=== PATIENT | female | born 1935 | race Caucasian/White ===

== ENCOUNTER → 2016-03-27 | Outpatient (CLI) | payer BC ==
[~2016-03-27] MED LIST: ALPR-411 PO; APR50 PO; ATEN-173 PO; CIPR-255 PO; CMD2 PO; CZR50 PO; ERGO500037 PO; FRCT/ PO; HYDR-4717 PO; IMDSR30 PO; INSDGI SC; LOSA50TA6 PO; LSX40 PO; NTRGSL/4 UT; NVLGI/PEN SC; OMEP40CA41 PO; ONDA4TAB46 PO; POTA-331 PO; POTA1CAP53 PO; PRLSR20 PO; REDCAP2 PO; TRAM-10 PO; TRIA37.5 PO; WARF2TAB PO; vitamin d3 PO
[2016-03-27 14:11] LABS: ESTIMATED AVERAGE GLUCOSE 140 mg/dl; HA1C FLAG Normal (Normal)
[2016-03-27 14:16] LABS: ALT/SGPT 23 U/L (12-78); AST/SGOT 18 U/L (15-37); BLOOD UREA NITROGEN 16 mg/dl (7-18); BUN/CREATININE RATIO 15.5 (10-20); CALCIUM 8.9 mg/dl (8.5-10.1); CARBON DIOXIDE 25 mmol/L (21-32); CHLORIDE 105 mmol/L (98-107); GLUCOSE 136 mg/dl (70-99); POTASSIUM 4.4 mmol/L (3.5-5.1); SODIUM 138 mmol/L (136-145)
[2016-03-27 14:18] LABS: CHOLESTEROL 187 mg/dl (0-200); CHOLESTEROL/HDL RATIO 3.9; HDL CHOLESTEROL 48 mg/dl; LDL CHOLESTEROL CALCULATED 113 mg/dl; TRIGLYCERIDES 132 mg/dl (0-150); VERY LOW DENSITY LIPOPROT CALC 26 mg/dl
== END | disposition home or self-care (01) ==
LOC: C.LAB1850 12:45
PROVIDERS: ATTEND Internal Medicine
DX: E11.65 Type 2 diabetes mellitus with hyperglycemia (principal); E55.9 Vitamin D deficiency, unspecified; E78.5 Hyperlipidemia, unspecified; I10 Essential (primary) hypertension

== ENCOUNTER → 2016-06-04 | Outpatient (CLI) | payer BC ==
[~2016-06-04] MED LIST changes: -APR50 PO; -CIPR-255 PO; -CMD2 PO; -CZR50 PO; -ERGO500037 PO; -FRCT/ PO; -IMDSR30 PO; -LSX40 PO; -OMEP40CA41 PO; -POTA-331 PO; -TRAM-10 PO
--- NOTE | 2016-06-04 13:48 | DIAGNOSTIC IMAGING REPORT ---
CHEST 2 VIEWS ROUTINE CLINICAL HISTORY: R05 [id number] dyspnea COMPARISON STUDY: 04/11/2015 FINDINGS: Small parenchymal infiltrate peripheral aspect left base. Lungs otherwise appear clear. The near scar peripheral aspect left midlung. Mild stable cardiomegaly. IMPRESSION: Small parenchymal infiltrate left base laterally Electronically signed by: Jairo Jade M.D. 06/04/2016 1:46 PM Dictated Date/Time: 06/04/2016 1:45 PM
== END ==
LOC: C.RAD1850 13:25
PROVIDERS: ATTEND Internal Medicine
DX: R05 Cough (principal)

== ENCOUNTER → 2016-06-18 | Outpatient (CLI) | payer BC ==
--- NOTE | 2016-06-18 14:24 | DIAGNOSTIC IMAGING REPORT ---
CHEST 2 VIEWS ROUTINE HISTORY: J18.9 [id number] COMPARISON: Chest 06/04/2016. FINDINGS: The heart remains mildly enlarged. Left basilar airspace opacities have resolved. Small linear densities at the left midlung zone have also improved. This favors atelectasis or scarring. No pleural effusions. No pneumothorax. No new focal lung consolidations. IMPRESSION: Interval resolution of the left lower lobe airspace opacities. Electronically signed by: Aubrey Archibald M.D. 06/18/2016 2:23 PM Dictated Date/Time: 06/18/2016 2:22 PM
== END | disposition home or self-care (01) ==
LOC: C.RAD1850 13:23
PROVIDERS: ATTEND Internal Medicine
DX: J18.9 Pneumonia, unspecified organism (principal)

== ENCOUNTER → 2016-12-03 | Outpatient (CLI) | payer BC ==
[2016-12-03 15:50] LABS: HEMATOCRIT 39.2 % (37-47); MEAN CELL VOLUME 96.6 fL (80-100); MEAN CORPUSCULAR HEMOGLOBIN 32.8 pg (25-34); MEAN CORPUSCULAR HGB CONC 33.9 g/dl (32-36); PLATELET COUNT 199 K/uL (130-400); RED BLOOD COUNT 4.06 M/uL (4.2-5.4); WHITE BLOOD COUNT 10.06 K/uL (4.8-10.8)
[2016-12-03 16:00] LABS: INR 1.9 (0.9-1.1); PROTHROMBIN TIME (PATIENT) 21.1 SECONDS (9.0-12.0)
[2016-12-03 16:21] LABS: BLOOD UREA NITROGEN 17 mg/dl (7-18); BUN/CREATININE RATIO 18.5 (10-20); CALCIUM 9.3 mg/dl (8.5-10.1); CARBON DIOXIDE 23 mmol/L (21-32); CHLORIDE 104 mmol/L (98-107); CREATININE 0.93 mg/dl (0.60-1.20); GLUCOSE 203 mg/dl (70-99); SODIUM 137 mmol/L (136-145)
[2016-12-04 06:45] LABS: ESTIMATED AVERAGE GLUCOSE 143 mg/dl; HA1C FLAG Normal (Normal)
== END | disposition home or self-care (01) ==
LOC: C.LAB1850 15:07
PROVIDERS: ATTEND Internal Medicine
DX: E11.65 Type 2 diabetes mellitus with hyperglycemia (principal); I48.0 Paroxysmal atrial fibrillation; Z79.01 Long term (current) use of anticoagulants

== ENCOUNTER → 2017-05-25 | Outpatient (CLI) | payer BC ==
[2017-05-25 14:42] LABS: HEMATOCRIT 38.6 % (37-47); HEMOGLOBIN 12.8 g/dL (12.0-16.0); MEAN CELL VOLUME 97.5 fL (80-100); MEAN CORPUSCULAR HEMOGLOBIN 32.3 pg (25-34); MEAN CORPUSCULAR HGB CONC 33.2 g/dl (32-36); MEAN PLATELET VOLUME 12.2 fL (7.4-10.4); PLATELET COUNT 175 K/uL (130-400); RED CELL DISTRIBUTION WIDTH SD 49.8 fL (36.4-46.3); WHITE BLOOD COUNT 8.35 K/uL (4.8-10.8)
[2017-05-25 15:11] LABS: ALT/SGPT 21 U/L (12-78); AST/SGOT 16 U/L (15-37); BLOOD UREA NITROGEN 16 mg/dl (7-18); CARBON DIOXIDE 26 mmol/L (21-32); CREATININE 0.84 mg/dl (0.60-1.20); GLUCOSE 144 mg/dl (70-99); POTASSIUM 3.9 mmol/L (3.5-5.1); SODIUM 139 mmol/L (136-145)
[2017-05-25 15:22] LABS: CHOLESTEROL 185 mg/dl (0-200); LDL CHOLESTEROL CALCULATED 109 mg/dl
[2017-05-26 07:12] LABS: HEMOGLOBIN A1C 6.7 % (4.5-5.6)
== END | disposition home or self-care (01) ==
LOC: C.LAB1850 13:50
PROVIDERS: ATTEND Internal Medicine
DX: E11.42 Type 2 diabetes mellitus with diabetic polyneuropathy (principal); E78.5 Hyperlipidemia, unspecified; R26.9 Unspecified abnormalities of gait and mobility; G89.29 Other chronic pain

== ENCOUNTER → 2017-07-02 | Outpatient (CLI) | payer BC ==
--- NOTE | 2017-07-02 13:44 | DIAGNOSTIC IMAGING REPORT ---
L VENOUS DOPP LOWER EXT UNILAT CLINICAL HISTORY: M79.605 Left leg painleft pain. Edema. TECHNIQUE: Venous Doppler COMPARISON STUDY: None FINDINGS: Normal study IMPRESSION: Normal study The above report was generated using voice recognition software. It may contain grammatical, syntax or spelling errors. Electronically signed by: Jairo Jade M.D. 07/02/2017 1:43 PM Dictated Date/Time: 07/02/2017 1:42 PM
== END | disposition home or self-care (01) ==
LOC: C.ULTR 13:11
PROVIDERS: ATTEND Internal Medicine
DX: M79.605 Pain in left leg (principal)

== ENCOUNTER → 2017-07-09 | Outpatient (CLI) | payer BC | END | disposition home or self-care (01) | LOC: C.RDSM 15:03 | PROVIDERS: ATTEND Family Medicine Sports Medicine | DX: M25.562 Pain in left knee (principal) ==

== ENCOUNTER 2020-06-04 19:15 | Inpatient (IN) ==
[2020-06-04] MEDS ORDERED: SODIUM CHLORIDE 0.9% 1000ML 1,000 ML IV SCH (20:15)
[2020-06-04 20:22] LABS: Appearance Urine Clear (Clear); Bacteria Urine Automated 3+ (Negative); Bilirubin Urine Negative (Negative); Blood Urine Trace (Negative); Color Urine Yellow; Epithelial Cell Urine Auto 0-5 /lpf (0-5); Glucose Urine UA Negative (Negative); Ketones Urine Negative (Negative); Leukocyte Esterase Urine 2+ (Negative); Nitrite Urine Negative (Negative); Protein Urine 1+ (Negative); RBC Urine Automated 0-4 /hpf (0-4); Urobilinogen Urine Negative (Negative); WBC Urine Automated >30 /hpf (0-5)
[2020-06-04 20:23] LABS: Basophils # (auto) 0.04 K/uL (0-0.2); Basophils % (auto) 0.6 %; Eosinophils # (auto) 0.16 K/uL (0-0.5); Eosinophils % (auto) 2.5 %; Hemoglobin 13.7 g/dL (12.0-16.0); Immature Granulocytes # (auto) 0.01 K/uL (0.00-0.02); Immature Granulocytes % (auto) 0.2 %; Lymphocytes # (auto) 1.61 K/uL (1.2-3.4); Lymphocytes % (auto) 24.8 %; Mean Corpuscular Hemoglobin 32.2 pg (25-34); Mean Corpuscular Hgb Conc 32.6 g/dL (32-36); Mean Corpuscular Volume 98.8 fL (80-100); Mean Platelet Volume 11.6 fL (7.4-10.4); Monocytes # (auto) 0.51 K/uL (0.11-0.59); Monocytes % (auto) 7.8 %; Neutrophils # (auto) 4.17 K/uL (1.4-6.5); Neutrophils % (auto) 64.1 %; Platelet Count 186 K/uL (130-400); RDW Coefficient of Variation 15.1 % (11.5-14.5); RDW Standard Deviation 54.9 fL (36.4-46.3); Red Blood Count 4.25 M/uL (4.2-5.4)
[2020-06-04 20:32] LABS: INR 1.6 (0.9-1.1); Partial Thromboplastin Ratio 1.2; Partial Thromboplastin Time 31.9 Seconds (21.0-31.0)
[2020-06-04 20:40] LABS: Alanine Aminotransferase 37 U/L (12-78); Albumin Level 3.1 gm/dl (3.4-5.0); Aspartate Aminotransferase 34 U/L (15-37); BUN Creatinine Ratio 24.7 (10-20); Blood Urea Nitrogen 21 mg/dl (7-18); Calcium 9.7 mg/dl (8.5-10.1); Carbon Dioxide 27 mmol/L (21-32); Chloride 107 mmol/L (98-107); Creatinine Clr Calc Pharmacy 54.4 ml/min; Est GFR (African American) 71.4; Est GFR (Non-African American) 61.6; Glucose 193 mg/dl (70-99); Magnesium 2.5 mg/dl (1.8-2.4); Potassium 4.2 mmol/L (3.5-5.1); Sodium 139 mmol/L (136-145)
--- NOTE | 2020-06-04 20:44 | XRay Report ---
XR chest 1V portable HISTORY: SEPSIS COMPARISON: Chest 04/11/2015. FINDINGS: No pneumothorax. The heart is mildly enlarged. There is mild central pulmonary vascular con gestion without overt edema. A few linear densities within the left midlung zone favor scarring or at electasis. This is similar to the prior study. There is mild central pulmonary vascular congestion wi thout overt edema. IMPRESSION: 1. Cardiomegaly with mild central pulmonary vascular congestion without overt edema. 2. No new focal lung consolidations to suggest pneumonia. ACT 112: Negative or not required by law. Electronically signed by: Aubrey Archibald M.D. 06/04/2020 8:43 PM
[2020-06-04] MEDS ORDERED: cefTRIAXone SODIUM 2,000 MG/70 ML BAG IV STA (20:47)
--- NOTE | 2020-06-04 20:47 | Emergency Department Note ---
History of Present Illness General Chief complaint: Lethargic Stated complaint: LETHARGIC Time Seen by Provider: 06/04/20 20:00 Source: patient Mode of arrival: EMS Limitations: altered mental status History of Present Illness Provider complaint: Altered mental status, lethargy Onset (ago): hour(s) 6 Associated symptoms: + loss of appetite, + malaise and + weakness Treatments prior to arrival: none This is an 84-year-old female presents the emergency department via EMS for lethargy and altered mental status. called EMS as she was difficult to wake up this afternoon, was not acting or speaking normally. EMS states she does have a prior history of a stroke, and has left-sided weakness chronically. They state is coming to provide additional information. They state patient was hypertensive in route. They state patient does take blood thinners. reported to them that she had complained of abdominal pain. Pt seen during a time of high acuity and national emergency pandemic while wearing PPE. Home Medications Medication Instructions Recorded Confirmed Type cholecalciferol (vitamin D3) 125 5,000 units PO DAILY cap 10/29/18 06/04/20 History mcg (5,000 unit) capsule atenolol 25 mg tablet 25 mg PO BID #180 tab 06/08/19 06/04/20 Rx hydralazine 50 mg tablet 50 mg PO TID #270 tab 02/09/20 06/04/20 Rx losartan 50 mg tablet 50 mg PO BID #180 tab 02/09/20 06/04/20 Rx insulin glargine 100 unit/mL 30 unit SUBCUT QPM #10 ml 03/11/20 06/04/20 Rx subcutaneous solution insulin aspart U-100 100 unit/mL 10 unit SUBCUT .COMPLEX #15 ml MDD 03/13/20 06/04/20 Rx (3 mL) subcutaneous pen 50 units alprazolam 0.5 mg PO BID 06/04/20 06/04/20 History warfarin 0.5 mg PO DAILY 06/04/20 06/04/20 History Allergies Allergy/AdvReac Type Severity Reaction Status Date / Time aspirin Allergy Intermediate HIVES Verified 06/04/20 20:40 Iodinated Contrast Media Allergy Intermediate HIVES Verified 06/04/20 20:40 Penicillins Allergy Intermediate HIVES Verified 06/04/20 20:40 doxazosin Allergy Unknown Elevated BP Unverified 06/04/20 20:40 glipizide Allergy Unknown Pt doesn't Unverified 06/04/20 20:40 remeber reaction influenza virus vacc Allergy Unknown Unknown Verified 06/05/20 14:46 trivalent, split [From Fluzone] pregabalin Allergy Unknown Pt doesn't Unverified 06/04/20 20:40 remeber reaction Zallyrk-Xmi-Mqo Reductase Allergy Unknown muscle Unverified 06/04/20 20:40 Inhibitor cramping thimerosal Allergy Unknown Pt can't Unverified 06/04/20 20:40 remember reaction Past Med/Surg History Medical History (Updated 06/06/20 @ 03:23 by Lucia Jacobson DO) Anticoagulant long-term use Anxiety CVA (cerebral vascular accident) Depression Diabetes mellitus type 2, uncontrolled HTN (hypertension) Mild chronic anemia Paroxysmal atrial fibrillation Surgical History S/P adenoidectomy S/P cholecystectomy S/P hysterectomy S/P tubal ligation Family History Mother Diabetes Myocardial infarction Heart disease Father Heart disease Daughter Non-Hodgkin's lymphoma of lung Sister Parkinsons disease Denies family history of Ovarian cancer Prostate cancer Breast cancer Colorectal cancer Social History Smoking Status: Unknown if ever smoked Preferred Language: Pashto Communication Ability: Impaired Visual Impairment: No Limitations Hearing Ability: Normal 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 Unobtainable due to cognitive status Physical Exam Vital Signs Vital Signs - 24 hr 06/04/20 19:23 06/04/20 19:25 06/04/20 19:30 Temperature Temperature Source Pulse Rate 76 77 75 Pulse Rate from SpO2 Sensor 76 78 Respiratory Rate 18 17 15 Respiratory Effort / Characteristics Respiratory Depth Blood Pressure 219/87 H Blood Pressure Mean 131 Blood Pressure Position Pulse Oximetry 92 92 Oxygen Delivery Method Sepsis Recent Fever Within 48 Hours Sepsis New/Unexplained Change in Mental Status Sepsis Action Taken by Nursing 06/04/20 19:31 06/04/20 19:53 06/04/20 20:00 Temperature 36.6 C Temperature Source Axillary Pulse Rate 72 73 71 Pulse Rate from SpO2 Sensor 73 70 Respiratory Rate 20 17 14 Respiratory Effort / Characteristics Respiratory Depth Normal Blood Pressure 219/87 H 193/80 H Blood Pressure Mean 131 117 Blood Pressure Position Sitting Pulse Oximetry 92 92 92 Oxygen Delivery Method Room Air Sepsis Recent Fever Within 48 Hours No Sepsis New/Unexplained Change in Mental Status Yes Sepsis Action Taken by Nursing No Action Required 06/04/20 20:04 06/04/20 20:08 06/04/20 20:13 Temperature Temperature Source Pulse Rate 70 Pulse Rate from SpO2 Sensor 70 Respiratory Rate 15 Respiratory Effort / Characteristics Non-Labored Respiratory Depth Blood Pressure 194/85 H Blood Pressure Mean 121 Blood Pressure Position Pulse Oximetry 92 92 93 Oxygen Delivery Method Room Air Room Air Sepsis Recent Fever Within 48 Hours Sepsis New/Unexplained Change in Mental Status Sepsis Action Taken by Nursing 06/04/20 20:16 06/04/20 20:30 06/04/20 20:31 Temperature Temperature Source Pulse Rate 69 82 68 Pulse Rate from SpO2 Sensor 68 68 68 Respiratory Rate 14 14 16 Respiratory Effort / Characteristics Respiratory Depth Blood Pressure 189/74 H 182/75 H Blood Pressure Mean 112 110 Blood Pressure Position Pulse Oximetry 92 93 93 Oxygen Delivery Method Sepsis Recent Fever Within 48 Hours Sepsis New/Unexplained Change in Mental Status Sepsis Action Taken by Nursing 06/04/20 20:46 Temperature Temperature Source Pulse Rate 65 Pulse Rate from SpO2 Sensor 65 Respiratory Rate 13 Respiratory Effort / Characteristics Respiratory Depth Blood Pressure 159/79 H Blood Pressure Mean 105 Blood Pressure Position Pulse Oximetry 93 Oxygen Delivery Method Sepsis Recent Fever Within 48 Hours Sepsis New/Unexplained Change in Mental Status Sepsis Action Taken by Nursing GENERAL: alert, ill appearing, well nourished, no distress, non-toxic, obese EYE EXAM: normal conjunctiva, PERRL and EOM's grossly intact OROPHARYNX: no exudate, no erythema, lips, buccal mucosa, and tongue normal and mucous membranes are moist NECK: supple, no nuchal rigidity, no adenopathy, non-tender LUNGS: Clear to auscultation. Normal chest wall mechanics, no w/r/r HEART: no murmurs, S1 normal and S2 normal ABDOMEN: abdomen soft, non-tender, normo-active bowel sounds, no masses, no rebound or guarding. BACK: Back is symmetrical on inspection and there is no deformity, no midline tenderness, no CVA tenderness. SKIN: no rashes and no bruising UPPER EXTREMITIES: upper extremities are grossly normal. FROM, nml pulses b/l. LOWER EXTREMITIES: No pitting edema. FROM, nml pulses b/l. NEURO EXAM: Eyes open, patient does not turn head to voice, does not wince or flinch during exam, does moan with sternal rub and painful stimuli, cannot cooperate for any additional neuro testing Course Course 2039: Patient's now bedside. He states around 230pm they sat down to eat a sandwich and she had less of an appetite than usual. He states after that she laid down and took a nap. He states when he went to wake her up she was much harder than usual to wake up and she asked for him to call an ambulance. When he asked what the problem was she did admit to abdominal pain at that time. He denies any change in medications, states neither the patient nor himself have been ill in any way. Denies any falls. States she did seem normal yesterday. Patient has chronic left-sided weakness from a prior stroke, and he states even the right side sometimes seems weak also. He is her primary caregiver. 2154: Patient and updated on results and need for additional inpatient treatment. Administered Medications Acetaminophen (Acetaminophen 325 Mg Tab) 650 mg PO Q4H PRN PRN Reason: Pain Stop: 07/05/20 14:33 Last Admin: 06/05/20 15:05 Dose: 650 mg Documented by: [id number] Atenolol (Atenolol 25 Mg Tablet) 25 mg PO BID [facility] Stop: 07/05/20 20:59 Last Admin: 06/05/20 21:11 Dose: 25 mg Documented by: [id number] Ceftriaxone Sodium 2,000 mg/ (Dextrose) 70 mls @ 100 mls/hr IV Q24H [facility]; Protocol Stop: 06/13/20 20:41 Last Infusion: 06/05/20 22:00 Dose: 0 mls/hr Documented by: [id number] Admin: 06/05/20 21:10 Dose: 100 mls/hr Documented by: [id number] Insulin Aspart (Insulin Aspart 100 Units/Ml 3 Ml Pen) 0 units SC ACHS [facility] Stop: 07/05/20 16:29 Last Admin: 06/05/20 21:05 Dose: 2 units Documented by: [id number] Cosigned by: [id number] Admin: 06/05/20 18:17 Dose: 2 units Documented by: [id number] Cosigned by: [id number] Insulin Glargine (Insulin Glargine Solostar 100 Units/Ml 3 Ml Pen) 10 units SC HS [facility] Stop: 07/05/20 20:59 Last Admin: 06/05/20 21:06 Dose: 10 units Documented by: [id number] Cosigned by: [id number] Losartan Potassium (Losartan Potassium 50 Mg Tab) 50 mg PO BID [facility] Stop: 07/05/20 20:59 Last Admin: 06/05/20 21:11 Dose: 50 mg Documented by: [id number] Ondansetron HCl (Ondansetron Inj 2 Mg/Ml 2 Ml Vial) 4 mg IV Q6H PRN PRN Reason: Nausea Stop: 07/05/20 00:06 Last Admin: 06/05/20 18:11 Dose: 4 mg Documented by: [id number] Admin: 06/05/20 02:02 Dose: 4 mg Documented by: [id number] Polyethylene Glycol (Polyethylene (Miralax) 17 Gm Pack) 17 gm PO DAILY [facility] Stop: 07/05/20 14:59 Last Admin: 06/05/20 15:04 Dose: 17 gm Documented by: [id number] Warfarin Sodium (Warfarin Sod 0.5 Mg Tab) 0.5 mg PO DAILY@1600 [facility] Stop: 07/05/20 15:59 Last Admin: 06/05/20 18:27 Dose: 0.5 mg Documented by: [id number] Discontinued Medications Bisacodyl (Bisacodyl 10 Mg Supp) 10 mg MD NOW STA Stop: 06/05/20 14:48 Last Admin: 06/05/20 15:03 Dose: 10 mg Documented by: [id number] Sodium Chloride (Nss 1000ml) 1,000 mls @ 150 mls/hr IV .Q6H40M [facility] Stop: 07/04/20 20:14 Last Infusion: 06/04/20 23:50 Dose: 0 mls/hr Documented by: [id number] Admin: 06/04/20 21:30 Dose: 150 mls/hr Documented by: [id number] Ceftriaxone Sodium (Rocephin) 2,000 mg in 70 mls @ 140 mls/hr IV NOW STA Stop: 06/04/20 21:16 Last Infusion: 06/04/20 22:04 Dose: 0 mls/hr Documented by: [id number] Admin: 06/04/20 21:30 Dose: 140 mls/hr Documented by: [id number] Metronidazole (Flagyl) 500 mg in 100 mls @ 100 mls/hr IV Q8H [facility] Stop: 06/15/20 00:00 Last Infusion: 06/05/20 10:40 Dose: 0 mls/hr Documented by: [id number] Admin: 06/05/20 09:27 Dose: 100 mls/hr Documented by: [id number] Infusion: 06/05/20 01:30 Dose: 0 mls/hr Documented by: [id number] Admin: 06/05/20 00:27 Dose: 100 mls/hr Documented by: [id number] Potassium Chloride/Sodium Chloride (Normal Saline W/20 Meq Kcl) 20 meq in 1,000 mls @ 100 mls/hr IV .Q10H [facility] Stop: 07/05/20 00:06 Last Infusion: 06/05/20 15:08 Dose: 0 mls/hr Documented by: [id number] Admin: 06/05/20 12:31 Dose: 100 mls/hr Documented by: [id number] Infusion: 06/05/20 12:31 Dose: 100 mls/hr Documented by: [id number] Infusion: 06/05/20 10:55 Dose: 100 mls/hr Documented by: [id number] Infusion: 06/05/20 09:28 Dose: 0 mls/hr Documented by: [id number] Infusion: 06/05/20 01:30 Dose: 100 mls/hr Documented by: [id number] Infusion: 06/05/20 00:27 Dose: 0 mls/hr Documented by: [id number] Admin: 06/05/20 00:26 Dose: 100 mls/hr Documented by: [id number] Insulin Aspart (Insulin Aspart 100 Units/Ml 3 Ml Pen) 0 units SC Q6 [facility] Stop: 07/05/20 05:59 Last Admin: 06/05/20 13:16 Dose: Not Given Documented by: [id number] Cosigned by: [id number] Admin: 06/05/20 06:29 Dose: Not Given Documented by: [id number] Cosigned by: [id number] Morphine Sulfate (Morphine Sulfate 2 Mg/Ml [place]) 1 mg IV NOW STA Stop: 06/05/20 21:25 Last Admin: 06/05/20 22:00 Dose: 1 mg Documented by: [id number] Medical Decision Making Differential Diagnosis Differential diagnoses includes but is not limited to toxic, metabolic, infectious, traumatic, cardiac, neurologic, hematologic, psychiatric and inflammatory etiologies. Medical Records Attestation: I reviewed the patient's medical records. Home Medications Current Medication List: was personally reviewed by me Laboratory Data Attestation: I reviewed the patient's lab results. Result diagrams: 06/05/20 05:31 06/05/20 05:31 Lab Results 06/04/20 06/04/20 06/04/20 Range/Units 19:55 20:04 20:04 WBC 6.50 (4.8-10.8) K/uL RBC 4.25 (4.2-5.4) M/uL Hgb 13.7 (12.0-16.0) g/dL Hct 42.0 (37-47) % MCV 98.8 (80-100) fL MCH 32.2 (25-34) pg MCHC 32.6 (32-36) g/dL RDW Std Deviation 54.9 H (36.4-46.3) fL RDW Coeff of Isael 15.1 H (11.5-14.5) % Plt Count 186 (130-400) K/uL MPV 11.6 H (7.4-10.4) fL Immature Gran % (Auto) 0.2 % Neut % (Auto) 64.1 % Lymph % (Auto) 24.8 % [place] % (Auto) 7.8 % Eos % (Auto) 2.5 % Baso % (Auto) 0.6 % Neut # (Auto) 4.17 (1.4-6.5) K/uL Lymph # (Auto) 1.61 (1.2-3.4) K/uL [place] # (Auto) 0.51 (0.11-0.59) K/uL Eos # (Auto) 0.16 (0-0.5) K/uL Baso # (Auto) 0.04 (0-0.2) K/uL Immature Gran # (Auto) 0.01 (0.00-0.02) K/uL PT 16.0 H (9.0-12.0) Seconds INR 1.6 H (0.9-1.1) APTT 31.9 H (21.0-31.0) Seconds PTT Ratio 1.2 Sodium (136-145) mmol/L Potassium (3.5-5.1) mmol/L Chloride (98-107) mmol/L Carbon Dioxide (21-32) mmol/L Anion Gap (3-11) BUN (7-18) mg/dl Creatinine (0.6-1.2) mg/dl Est Cr Clr Drug Dosing ml/min Est GFR ( Amer) Est GFR (Non-Af Amer) BUN/Creatinine Ratio (10-20) Glucose (70-99) mg/dl Lactate (0.4-2.0) mmol/L Calcium (8.5-10.1) mg/dl Magnesium (1.8-2.4) mg/dl Total Bilirubin (0.2-1) mg/dl AST (15-37) U/L ALT (12-78) U/L Alkaline Phosphatase (45-117) U/L Troponin I (0-0.045) ng/ml Total Protein (6.4-8.2) gm/dl Albumin (3.4-5.0) gm/dl Globulin (2.5-4.0) gm/dl Albumin/Globulin Ratio (0.9-2) Procalcitonin (0-0.5) ng/ml TSH (0.300-4.500) uIu/ml Urine Color Yellow Urine Appearance Clear (Clear) Urine pH 7.0 (4.5-7.5) Ur Specific [place] 1.010 (1.000-1.030) Urine Protein 1+ H (Negative) Urine Glucose (UA) Negative (Negative) Urine Ketones Negative (Negative) Urine Blood Trace H (Negative) Urine Nitrite Negative (Negative) Urine Bilirubin Negative (Negative) Urine Urobilinogen Negative (Negative) Ur Leukocyte Esterase 2+ H (Negative) Urine WBC (Auto) >30 H (0-5) /hpf Urine RBC (Auto) 0-4 (0-4) /hpf U Hyaline Cast (Auto) 1-5 (0-5) /lpf U Epithel Cells (Auto) 0-5 (0-5) /lpf Urine Bacteria (Auto) 3+ H (Negative) COVID-19 Eval Order SARS-CoV-2 (PCR) (Negative) Influenza Type A (PCR) (Neg) Influenza Type B (PCR) (Neg) RSV (RT-PCR) (Neg) 06/04/20 06/04/20 06/04/20 Range/Units 20:04 20:04 20:04 WBC (4.8-10.8) K/uL RBC (4.2-5.4) M/uL Hgb (12.0-16.0) g/dL Hct (37-47) % MCV (80-100) fL MCH (25-34) pg MCHC (32-36) g/dL RDW Std Deviation (36.4-46.3) fL RDW Coeff of Isael (11.5-14.5) % Plt Count (130-400) K/uL MPV (7.4-10.4) fL Immature Gran % (Auto) % Neut % (Auto) % Lymph % (Auto) % [place] % (Auto) % Eos % (Auto) % Baso % (Auto) % Neut # (Auto) (1.4-6.5) K/uL Lymph # (Auto) (1.2-3.4) K/uL [place] # (Auto) (0.11-0.59) K/uL Eos # (Auto) (0-0.5) K/uL Baso # (Auto) (0-0.2) K/uL Immature Gran # (Auto) (0.00-0.02) K/uL PT (9.0-12.0) Seconds INR (0.9-1.1) APTT (21.0-31.0) Seconds PTT Ratio Sodium 139 (136-145) mmol/L Potassium 4.2 (3.5-5.1) mmol/L Chloride 107 (98-107) mmol/L Carbon Dioxide 27 (21-32) mmol/L Anion Gap 5.0 (3-11) BUN 21 H (7-18) mg/dl Creatinine 0.86 (0.6-1.2) mg/dl Est Cr Clr Drug Dosing 54.4 ml/min Est GFR ( Amer) 71.4 Est GFR (Non-Af Amer) 61.6 BUN/Creatinine Ratio 24.7 H (10-20) Glucose 193 H (70-99) mg/dl Lactate 1.4 (0.4-2.0) mmol/L Calcium 9.7 (8.5-10.1) mg/dl Magnesium 2.5 H (1.8-2.4) mg/dl Total Bilirubin 0.4 (0.2-1) mg/dl AST 34 (15-37) U/L ALT 37 (12-78) U/L Alkaline Phosphatase 126 H (45-117) U/L Troponin I < 0.015 (0-0.045) ng/ml Total Protein 8.4 H (6.4-8.2) gm/dl Albumin 3.1 L (3.4-5.0) gm/dl Globulin 5.3 H (2.5-4.0) gm/dl Albumin/Globulin Ratio 0.6 L (0.9-2) Procalcitonin < 0.05 (0-0.5) ng/ml TSH 2.150 (0.300-4.500) uIu/ml Urine Color Urine Appearance (Clear) Urine pH (4.5-7.5) Ur Specific [place] (1.000-1.030) Urine Protein (Negative) Urine Glucose (UA) (Negative) Urine Ketones (Negative) Urine Blood (Negative) Urine Nitrite (Negative) Urine Bilirubin (Negative) Urine Urobilinogen (Negative) Ur Leukocyte Esterase (Negative) Urine WBC (Auto) (0-5) /hpf Urine RBC (Auto) (0-4) /hpf U Hyaline Cast (Auto) (0-5) /lpf U Epithel Cells (Auto) (0-5) /lpf Urine Bacteria (Auto) (Negative) COVID-19 Eval Order SARS-CoV-2 (PCR) (Negative) Influenza Type A (PCR) (Neg) Influenza Type B (PCR) (Neg) RSV (RT-PCR) (Neg) 06/04/20 06/04/20 Range/Units 21:31 21:31 WBC (4.8-10.8) K/uL RBC (4.2-5.4) M/uL Hgb (12.0-16.0) g/dL Hct (37-47) % MCV (80-100) fL MCH (25-34) pg MCHC (32-36) g/dL RDW Std Deviation (36.4-46.3) fL RDW Coeff of Isael (11.5-14.5) % Plt Count (130-400) K/uL MPV (7.4-10.4) fL Immature Gran % (Auto) % Neut % (Auto) % Lymph % (Auto) % [place] % (Auto) % Eos % (Auto) % Baso % (Auto) % Neut # (Auto) (1.4-6.5) K/uL Lymph # (Auto) (1.2-3.4) K/uL [place] # (Auto) (0.11-0.59) K/uL Eos # (Auto) (0-0.5) K/uL Baso # (Auto) (0-0.2) K/uL Immature Gran # (Auto) (0.00-0.02) K/uL PT (9.0-12.0) Seconds INR (0.9-1.1) APTT (21.0-31.0) Seconds PTT Ratio Sodium (136-145) mmol/L Potassium (3.5-5.1) mmol/L Chloride (98-107) mmol/L Carbon Dioxide (21-32) mmol/L Anion Gap (3-11) BUN (7-18) mg/dl Creatinine (0.6-1.2) mg/dl Est Cr Clr Drug Dosing ml/min Est GFR ( Amer) Est GFR (Non-Af Amer) BUN/Creatinine Ratio (10-20) Glucose (70-99) mg/dl Lactate (0.4-2.0) mmol/L Calcium (8.5-10.1) mg/dl Magnesium (1.8-2.4) mg/dl Total Bilirubin (0.2-1) mg/dl AST (15-37) U/L ALT (12-78) U/L Alkaline Phosphatase (45-117) U/L Troponin I (0-0.045) ng/ml Total Protein (6.4-8.2) gm/dl Albumin (3.4-5.0) gm/dl Globulin (2.5-4.0) gm/dl Albumin/Globulin Ratio (0.9-2) Procalcitonin (0-0.5) ng/ml TSH (0.300-4.500) uIu/ml Urine Color Urine Appearance (Clear) Urine pH (4.5-7.5) Ur Specific [place] (1.000-1.030) Urine Protein (Negative) Urine Glucose (UA) (Negative) Urine Ketones (Negative) Urine Blood (Negative) Urine Nitrite (Negative) Urine Bilirubin (Negative) Urine Urobilinogen (Negative) Ur Leukocyte Esterase (Negative) Urine WBC (Auto) (0-5) /hpf Urine RBC (Auto) (0-4) /hpf U Hyaline Cast (Auto) (0-5) /lpf U Epithel Cells (Auto) (0-5) /lpf Urine Bacteria (Auto) (Negative) COVID-19 Eval Order Cov[facility]Rsv at [facility] SARS-CoV-2 (PCR) NEGATIVE (Negative) Influenza Type A (PCR) Negative (Neg) Influenza Type B (PCR) Negative (Neg) RSV (RT-PCR) Negative (Neg) Imaging Data Radiologist's Impression: Chest X-Ray 06/04/20 20:08 XR chest 1V portable HISTORY: SEPSIS COMPARISON: Chest 04/11/2015. FINDINGS: No pneumothorax. The heart is mildly enlarged. There is mild central pulmonary vascular congestion without overt edema. A few linear densities within the left midlung zone favor scarring or atelectasis. This is similar to the prior study. There is mild central pulmonary vascular congestion without overt edema. IMPRESSION: 1. Cardiomegaly with mild central pulmonary vascular congestion without overt edema. 2. No new focal lung consolidations to suggest pneumonia. ACT 112: Negative or not required by law. Electronically signed by: Aubrey Archibald M.D. 06/04/2020 8:[address] head: Impression: Examination is degraded by patient motion. No discrete intracranial hemorrhage. Global parenchymal volume loss with extensive chronic microvascular ischemic changes. No mass lesion, mass-effect, or hydrocephalus. Retention cyst in the right sinus. Unchanged appearance of infraorbital 12 mm skin nodule overlying the left maxilla. Radiologist: Andrew Arteaga MD CT abdomen pelvis without contrast: Impression: Wall thickening of the urinary bladder, not well evaluated on noncontrast examination. Recommend correlation for cystitis. Underlying neoplasm cannot be excluded. Large rectal stool burden is seen with mild adjacent perirectal inflammation. This is nonspecific but could potentially represent stercoral c olitis. Incidental findings: Cardiomegaly. Bulky calcifications of the mitral valve. Coronary artery atherosclerotic calcifications. Trace pericardial effusion. Bilateral lower lobe opacities which may represent atelectasis. Aspiration pneumonia not excluded. Cholecystectomy. Extensive vascular calcification throughout the abdominal pelvic vasculature. Indeterminate left renal cystic lesions are seen. Consider correlation with MRI as clinically warranted. Hysterectomy. Colonic diverticulosis without evidence of acute diverticulitis. Diffusely decreased osseous mineralization. Degenerative changes in the spine. Radiologist: Andrew Arteaga MD ECG Data Attestation: I personally reviewed and interpreted this ECG as follows: Indication: + altered mental status Rate (beats per minute): 76 Rhythm: + normal sinus ECG Intervals/blocks: + Left bundle branch block ECG [place]: + Left axis deviation ECG ST segments: + Nonspecific ST abnormalities Change: the following changes noted (LBBB) MDM Narrative This is an 84-year-old female with extensive past medical history brought in by EMS. Patient with altered mental mental status unable to provide any additional history. Limited exam due to altered mental status and cooperation. A sepsis evaluation was started as a precaution. Upon the arrival of the , we did discuss the evolution of her symptoms as well as what her typical baseline is. Patient was found to have a urinary tract infection. IV antibiotics were started after review of prior cultures. Patient was cautiously hydrated. Patient did remain hemodynamically stable and afebrile. CT and chest x-ray imaging otherwise negative. Case discussed with hospitalist for additional evaluation and management. Patient is anticoagulated, INR was slightly subtherapeutic. Patient does have a prior history of CVA. At this time it is unclear if she could have sustained additional neurologic insult from a subtherapeutic INR. If mental status did not improve, could consider additional neuro imaging. Patient does have a wound to the sacral/buttock area which has been states has previously been evaluated. Will likely need ongoing wound care evaluation in addition to PT/OT. I did discuss with the if he felt he was still able to adequately care for her at home given her extensive history, limited mobility, and difficulty with ADLs at present. Patient states he would like for her to get better and to return home if at all possible. An order was placed for continuous cardiac monitoring. The monitor shows a rate of _74_ with __normal sinus__ rhythm. Impression & Plan AMS (altered mental status), Anticoagulant long-term use, UTI (urinary tract infection), Subtherapeutic anticoagulation, Perirectal inflammation Discharge Plan Visit Data Chief Complaint: Lethargic Stated Complaint: LETHARGIC ED Provider: Lucia Jacobson Discharge Problem: AMS (altered mental status), Anticoagulant long-term use, UTI (urinary tract infection), Subtherapeutic anticoagulation, Perirectal inflammation Patient Disposition: Admitted As Inpatient Discharge Instructions Interventions: ED Discharge Assessment Last Done: 06/04/20 23:05 Discharge Problem: AMS (altered mental status) Qualifiers: Altered mental status type: unspecified Qualified Code(s): R41.82 - Altered mental status, unspecified UTI (urinary tract infection) Qualifiers: Urinary tract infection type: acute cystitis Hematuria presence: with hematuria Qualified Code(s): N30.01 - Acute cystitis with hematuria
[2020-06-04 20:51] LABS: Albumin Globulin Ratio 0.6 (0.9-2); Alkaline Phosphatase 126 U/L (45-117); Bilirubin,Total 0.4 mg/dl (0.2-1); Globulin 5.3 gm/dl (2.5-4.0); Total Protein 8.4 gm/dl (6.4-8.2); Troponin I < 0.015 ng/ml (0-0.045)
[2020-06-04 22:29] LABS: Influenza A virus by PCR Negative (Neg); Influenza B virus by PCR Negative (Neg); RSV by PCR Negative (Neg); SARS CoV2 RNA(COVID-19) InHosp NEGATIVE (Negative)
--- NOTE | 2020-06-04 23:59 | History & Physical Report ---
Date of Service June 04, 2020 Assessment & Plan (1) Sepsis due to urinary tract infection: Sepsis due to UTI- CT scan with thickened urinary bladder wall and urinalysis suggestive of urinary tract infection- Follow urine culture and sensitivities Place on ceftriaxone 2 g IV daily Present on Admission?: Yes (2) Colitis: Stercoral colitis- Combined with urinary tract infection likely contributive causes of sepsis and decreased responsiveness. Allergic to penicillins Ceftriaxone 2 g IV daily and Flagyl 500 mg IV every 8 hours. Rehydrate with IV fluids Present on Admission?: Yes (3) Diabetes mellitus type 2, uncontrolled: Hold insulin glargine. Placed on Accu-Cheks before meals and at bedtime with NovoLog coverage for scale Present on Admission?: Yes (4) Depression: Depression/anxiety- Hold alprazolam while patient is n.p.o. Present on Admission?: Yes (5) Anxiety: See above Present on Admission?: Yes (6) HTN (hypertension): Hypertension/paroxysmal atrial fibrillation/long-term anticoagulation use- Holding warfarin, losartan, hydralazine and atenolol while n.p.o. Present on Admission?: Yes (7) Paroxysmal atrial fibrillation: See above Present on Admission?: Yes (8) Anticoagulant long-term use: See above Present on Admission?: Yes (9) CVA (cerebral vascular accident): Symptoms tonight are more consistent with a metabolic encephalopathy Present on Admission?: Yes Admission and Anticipated Discharge Date Admission Date: June 04, 2020 History of Present Illness Chief Complaint: The patient was brought to the emergency department by EMS due to lethargy, decreased responsiveness and altered mental status that the patient's noted began as he tried to wake her up in the afternoon. Primary Care Provider: Remi Gu MD The patient is an 84-year-old female with a past medical history including diabetes mellitus type 2, depression, anxiety, hypertension, CVA, paroxysmal atrial fibrillation, long-term anticoagulation use, hypertensive crisis and mild chronic anemia. Patient did have a CT scan of the head in the ED which did not show any acute events, and chest x-ray was unchanged. CT scan of abdomen and pelvis showed a distended bladder and stercoral colitis. Urinalysis was strongly suggestive of urinary tract infection. Patient was COVID-19 negative. Allergies Allergy/AdvReac Type Severity Reaction Status Date / Time aspirin Allergy Intermediate HIVES Verified 06/04/20 20:40 Iodinated Contrast Media Allergy Intermediate HIVES Verified 06/04/20 20:40 Penicillins Allergy Intermediate HIVES Verified 06/04/20 20:40 doxazosin Allergy Unknown Elevated BP Unverified 06/04/20 20:40 glipizide Allergy Unknown Pt doesn't Unverified 06/04/20 20:40 remeber reaction pork derived (porcine) Allergy Unknown Pt can't Unverified 06/04/20 20:40 remember reaction pregabalin Allergy Unknown Pt doesn't Unverified 06/04/20 20:40 remeber reaction Ahawkii-Ueq-Tni Reductase Allergy Unknown muscle Unverified 06/04/20 20:40 Inhibitor cramping thimerosal Allergy Unknown Pt can't Unverified 06/04/20 20:40 remember reaction Flu Virus Vaccine Allergy Unknown Pt can't Uncoded 06/04/20 20:40 remember reaction Home Medications Medication Instructions Recorded Confirmed Type cholecalciferol (vitamin D3) 125 5,000 units PO DAILY cap 10/29/18 06/04/20 History mcg (5,000 unit) capsule atenolol 25 mg tablet 25 mg PO BID #180 tab 06/08/19 06/04/20 Rx hydralazine 50 mg tablet 50 mg PO TID #270 tab 02/09/20 06/04/20 Rx losartan 50 mg tablet 50 mg PO BID #180 tab 02/09/20 06/04/20 Rx insulin glargine 100 unit/mL 30 unit SUBCUT QPM #10 ml 03/11/20 06/04/20 Rx subcutaneous solution insulin aspart U-100 100 unit/mL 10 unit SUBCUT .COMPLEX #15 ml MDD 03/13/20 06/04/20 Rx (3 mL) subcutaneous pen 50 units alprazolam 0.5 mg PO BID 06/04/20 06/04/20 History warfarin 0.5 mg PO DAILY 06/04/20 06/04/20 History Past Med/Surg History Medical History (Updated 06/05/20 @ 04:03 by Alejandro Torre MD) Anticoagulant long-term use Anxiety CVA (cerebral vascular accident) Depression Diabetes mellitus type 2, uncontrolled HTN (hypertension) Mild chronic anemia Paroxysmal atrial fibrillation Surgical History S/P adenoidectomy S/P cholecystectomy S/P hysterectomy S/P tubal ligation Family History Mother Diabetes Myocardial infarction Heart disease Father Heart disease Daughter Non-Hodgkin's lymphoma of lung Sister Parkinsons disease Denies family history of Ovarian cancer Prostate cancer Breast cancer Colorectal cancer Social History Smoking Status: Unknown if ever smoked Preferred Language: Greek Communication Ability: Impaired Visual Impairment: No Limitations Hearing Ability: Normal Stem Teacher Required: No marital status: Current Living Situation: Spouse 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 HEENT--PERRL, EOMI, mucous membranes and oropharynx dry. Neck--supple. No JVD. No bruits. Thyroid normal, trachea midline, no adenopathy. Heart--normal S1 and S2. No murmurs, rubs or gallops. Lungs--clear bilaterally, no respiratory distress, no accessory muscle use. Abdomen--normal bowel sounds and soft. Nontender. Nondistended. Morbidly obese Extremities-no edema Dermatologic--skin is dry Neurologic--cranial nerves II through XII grossly intact. Rheumatologic--limited exam Psychiatric--nonresponsive. Results & Data Results & Data ([facility]) Vital Signs (Past 12 Hours) Vital Signs Temp Pulse Resp BP Pulse Ox 06/04/20 22:01 65 15 173/71 H 93 06/04/20 22:00 75 13 06/04/20 21:31 70 14 181/69 H 06/04/20 21:30 68 14 06/04/20 21:29 68 14 188/68 H 06/04/20 21:28 68 14 06/04/20 20:47 71 16 92 06/04/20 20:46 65 13 159/79 H 93 06/04/20 20:31 68 16 182/75 H 93 06/04/20 20:30 82 14 93 06/04/20 20:16 69 14 189/74 H 92 06/04/20 20:13 93 06/04/20 20:08 92 06/04/20 20:04 70 15 194/85 H 92 06/04/20 20:00 71 14 92 06/04/20 19:53 73 17 193/80 H 92 06/04/20 19:31 97.9 F 72 20 219/87 H 92 06/04/20 19:30 75 15 06/04/20 19:25 77 17 92 06/04/20 19:23 76 18 219/87 H 92 Laboratory Results Laboratory Results WBC 6.50 K/uL (4.8-10.8) 06/04/20 20:04 RBC 4.25 M/uL (4.2-5.4) 06/04/20 20:04 Hgb 13.7 g/dL (12.0-16.0) 06/04/20 20:04 Hct 42.0 % (37-47) 06/04/20 20:04 MCV 98.8 fL (80-100) 06/04/20 20:04 MCH 32.2 pg (25-34) 06/04/20 20:04 MCHC 32.6 g/dL (32-36) 06/04/20 20:04 RDW Std Deviation 54.9 fL (36.4-46.3) H 06/04/20 20:04 RDW Coeff of Isael 15.1 % (11.5-14.5) H 06/04/20 20:04 Plt Count 186 K/uL (130-400) 06/04/20 20:04 MPV 11.6 fL (7.4-10.4) H 06/04/20 20:04 Immature Gran % (Auto) 0.2 % 06/04/20 20:04 Neut % (Auto) 64.1 % 06/04/20 20:04 Lymph % (Auto) 24.8 % 06/04/20 20:04 Pickett % (Auto) 7.8 % 06/04/20 20:04 Eos % (Auto) 2.5 % 06/04/20 20:04 Baso % (Auto) 0.6 % 06/04/20 20:04 Neut # (Auto) 4.17 K/uL (1.4-6.5) 06/04/20 20:04 Lymph # (Auto) 1.61 K/uL (1.2-3.4) 06/04/20 20:04 Pickett # (Auto) 0.51 K/uL (0.11-0.59) 06/04/20 20:04 Eos # (Auto) 0.16 K/uL (0-0.5) 06/04/20 20:04 Baso # (Auto) 0.04 K/uL (0-0.2) 06/04/20 20:04 Immature Gran # (Auto) 0.01 K/uL (0.00-0.02) 06/04/20 20:04 PT 16.0 Seconds (9.0-12.0) H 06/04/20 20:04 INR 1.6 (0.9-1.1) H 06/04/20 20:04 APTT 31.9 Seconds (21.0-31.0) H 06/04/20 20:04 PTT Ratio 1.2 06/04/20 20:04 Sodium 139 mmol/L (136-145) 06/04/20 20:04 Potassium 4.2 mmol/L (3.5-5.1) 06/04/20 20:04 Chloride 107 mmol/L (98-107) 06/04/20 20:04 Carbon Dioxide 27 mmol/L (21-32) 06/04/20 20:04 Anion Gap 5.0 (3-11) 06/04/20 20:04 BUN 21 mg/dl (7-18) H 06/04/20 20:04 Creatinine 0.86 mg/dl (0.6-1.2) 06/04/20 20:04 Est Cr Clr Drug Dosing 54.4 ml/min 06/04/20 20:04 Est GFR ( Amer) 71.4 06/04/20 20:04 Est GFR (Non-Af Amer) 61.6 06/04/20 20:04 BUN/Creatinine Ratio 24.7 (10-20) H 06/04/20 20:04 Glucose 193 mg/dl (70-99) H 06/04/20 20:04 POC Glucose 154 mg/dl (70-99) H 06/05/20 00:23 Lactate 1.4 mmol/L (0.4-2.0) 06/04/20 20:04 Calcium 9.7 mg/dl (8.5-10.1) 06/04/20 20:04 Magnesium 2.5 mg/dl (1.8-2.4) H 06/04/20 20:04 Total Bilirubin 0.4 mg/dl (0.2-1) 06/04/20 20:04 AST 34 U/L (15-37) 06/04/20 20:04 ALT 37 U/L (12-78) 06/04/20 20:04 Alkaline Phosphatase 126 U/L (45-117) H 06/04/20 20:04 Troponin I < 0.015 ng/ml (0-0.045) 06/04/20 20:04 Total Protein 8.4 gm/dl (6.4-8.2) H 06/04/20 20:04 Albumin 3.1 gm/dl (3.4-5.0) L 06/04/20 20:04 Globulin 5.3 gm/dl (2.5-4.0) H 06/04/20 20:04 Albumin/Globulin Ratio 0.6 (0.9-2) L 06/04/20 20:04 Procalcitonin < 0.05 ng/ml (0-0.5) 06/04/20 20:04 TSH 2.150 uIu/ml (0.300-4.500) 06/04/20 20:04 Urine Color Yellow 06/04/20 19:55 Urine Appearance Clear (Clear) 06/04/20 19:55 Urine pH 7.0 (4.5-7.5) 06/04/20 19:55 Ur Specific [place] 1.010 (1.000-1.030) 06/04/20 19:55 Urine Protein 1+ (Negative) H 06/04/20 19:55 Urine Glucose (UA) Negative (Negative) 06/04/20 19:55 Urine Ketones Negative (Negative) 06/04/20 19:55 Urine Blood Trace (Negative) H 06/04/20 19:55 Urine Nitrite Negative (Negative) 06/04/20 19:55 Urine Bilirubin Negative (Negative) 06/04/20 19:55 Urine Urobilinogen Negative (Negative) 06/04/20 19:55 Ur Leukocyte Esterase 2+ (Negative) H 06/04/20 19:55 Urine WBC (Auto) >30 /hpf (0-5) H 06/04/20 19:55 Urine RBC (Auto) 0-4 /hpf (0-4) 06/04/20 19:55 U Hyaline Cast (Auto) 1-5 /lpf (0-5) 06/04/20 19:55 U Epithel Cells (Auto) 0-5 /lpf (0-5) 06/04/20 19:55 Urine Bacteria (Auto) 3+ (Negative) H 06/04/20 19:55 COVID-19 Eval Order CovFluRsv at [facility] 06/04/20 21:31 SARS-CoV-2 (PCR) NEGATIVE (Negative) 06/04/20 21:31 Influenza Type A (PCR) Negative (Neg) 06/04/20 21:31 Influenza Type B (PCR) Negative (Neg) 06/04/20 21:31 RSV (RT-PCR) Negative (Neg) 06/04/20 21:31 Impressions Chest X-Ray 06/04/20 20:08 XR chest 1V portable HISTORY: SEPSIS COMPARISON: Chest 04/11/2015. FINDINGS: No pneumothorax. The heart is mildly enlarged. There is mild central pulmonary vascular congestion without overt edema. A few linear densities within the left midlung zone favor scarring or atelectasis. This is similar to the prior study. There is mild central pulmonary vascular congestion without overt edema. IMPRESSION: 1. Cardiomegaly with mild central pulmonary vascular congestion without overt edema. 2. No new focal lung consolidations to suggest pneumonia. ACT 112: Negative or not required by law. Electronically signed by: Aubrey Archibald M.D. 06/04/2020 8:43 PM [facility] Patient: DARRICK MUELLER (Female) : 33 Status: ER Date: 06/04/20 21:07 Room #: History: lower abd pain, ams Slices: 716 Priors: Tech: Elmer Read @ [id number] Exams: CT ABDOMEN & PELVIS Without Contrast Contrast: Accession Numbers: [id number] Preliminary Findings Only See Final Report For Complete Findings CT ABDOMEN & PELVIS Without Contrast: Impression: Wall thickening of the urinary bladder, not well evaluated on noncontrast examination. Recommend correlation for cystitis. Underlying neoplasm cannot be excluded. Large rectal stool burden is seen with mild adjacent perirectal inflammation. This is nonspecific but could potentially represent stercoral colitis. Incidental findings: Cardiomegaly. Bulky calcifications of the mitral valve. Coronary artery atherosclerotic calcifications. Trace pericardial effusion. Bilateral lower lobe opacities which may represent atelectasis. Aspiration and pneumonia are not excluded. Cholecystectomy. Extensive vascular calcification throughout the abdominal pelvic vasculature. Indeterminate left renal cystic lesions are seen. Consider evaluation with MRI as clinically warranted. Hysterectomy. Colonic diverticulosis without evidence of acute diverticulitis. Diffusely decreased osseous mineralization. Degenerative changes seen in the spine. Radiologist: Andrew Arteaga MD Study ready at 21:10 and initial results transmitted at 21:46 *This report constitutes a preliminary interpretation only. Non-acute findings felt to be unrelated to the clinical presentation may not be discussed in this report. The study will be interpreted and a final report will be generated by the local Radiologist the following shift. To reach the hospital radiology department call [phone]. If a discrepancy is found between the preliminary and final interpretations of this study, please notify us via our Client Portal at [email or web address].You can also fax this report with a description of the discrepancy, or include the final report, to our daytime fax number [phone].If faxing, please indicate the severity of discrepancy using one of the following categories: [ ] 1 - Agree/Informational [ ] 2 - Unlikely to Affect Management [ ] 3 - Possible Eventual Change of Management [ ] 4 - Probable Immediate Change of Management For all other patient related information, please fax us at [phone]. [facility] Patient: DARRICK MUELLER (Female) : 33 Status: ER Date: 06/04/20 21:07 Room #: History: lower abd pain, ams Slices: 68 Priors: Tech: Elmer Read @ [id number] Exams: CT HEAD Contrast: Accession Numbers: [id number] Preliminary Findings Only See Final Report For Complete Findings CT HEAD: Impression: Examination is degraded by patient motion. No discrete intracranial hemorrhage. Global parenchymal volume loss with extensive chronic microvascular ischemic changes. No mass lesion, mass effect, or hydrocephalus. Retention cyst in the right sinus. Unchanged appearance of infraorbital 12 mm skin nodule overlying the left maxi lla. Radiologist: Andrew Arteaga MD Study ready at 21:13 and initial results transmitted at 21:38 *This report constitutes a preliminary interpretation only. Non-acute findings felt to be unrelated to the clinical presentation may not be discussed in this report. The study will be interpreted and a final report will be generated by the local Radiologist the following shift. To reach the hospital radiology department call [phone]. If a discrepancy is found between the preliminary and final interpretations of this study, please notify us via our Client Portal at [email or web address].You can also fax this report with a description of the discrepancy, or include the final report, to our daytime fax number [phone].If faxing, please indicate the severity of discrepancy using one of the following categories: [ ] 1 - Agree/Informational [ ] 2 - Unlikely to Affect Management [ ] 3 - Possible Eventual Change of Management [ ] 4 - Probable Immediate Change of Management For all other patient related information, please fax us at [phone]. Code Status & VTE Plan Code Status Full code VTE Prophylaxis Plan VTE Prophylaxis will be ordered: Yes PG Care Time/CCT Total # of Minutes Spent Total Time Spent with Patient: Total time spent is greater than 50% in coordination of care (as documented) at patient's floor/unit and/or counseling patient: Coding Level of Care Code 63646 Initial Inpt Care Lvl 3 Diagnoses Sepsis due to urinary tract infection A41.9; N39.0 Colitis K52.9 Diabetes mellitus type 2, uncontrolled E11.65 Depression F32.9 Anxiety F41.9 HTN (hypertension) I10 Paroxysmal atrial fibrillation I48.0 Anticoagulant long-term use Z79.01 CVA (cerebral vascular accident) I63.9
[2020-06-05] MEDS ORDERED: GLUCAGON FOR INJ 1 MG VIAL SQ PRN (00:07)
[2020-06-05] MEDS ORDERED: GLUCOSE 40% GEL 15 GM TUBE PO PRN (00:07)
[2020-06-05] MEDS ORDERED: GLUCOSE 10 TABS/TUBE PO PRN (00:07)
[2020-06-05] MEDS ORDERED: CARBOHYDRATES FOR HYPOGLYCEMIA PO PRN (00:07)
[2020-06-05] MEDS ORDERED: DEXTROSE 50% 50 ML SYRINGE IV PRN (00:07)
[2020-06-05] MEDS: NSS + 20MEQ KCL 20 MEQ/1,000 ML BAG IV SCH ×2 (00:26→12:31)
[2020-06-05] MEDS: metroNIDAZOLE 500 MG/100 ML BAG IV SCH ×2 (00:27→09:27)
[2020-06-05] MEDS: ONDANSETRON INJ 2 MG/ML 2 ML VIAL IV PRN ×2 (02:02→18:11)
[2020-06-05 06:09] LABS: Basophils # (auto) 0.04 K/uL (0-0.2); Basophils % (auto) 0.5 %; Eosinophils % (auto) 2.3 %; Hematocrit (blood only) 35.1 % (37-47); Hemoglobin 11.3 g/dL (12.0-16.0); Immature Granulocytes # (auto) 0.02 K/uL (0.00-0.02); Immature Granulocytes % (auto) 0.2 %; Lymphocytes # (auto) 1.76 K/uL (1.2-3.4); Lymphocytes % (auto) 20.4 %; Mean Corpuscular Hemoglobin 31.7 pg (25-34); Mean Corpuscular Hgb Conc 32.2 g/dL (32-36); Mean Corpuscular Volume 98.6 fL (80-100); Mean Platelet Volume 11.5 fL (7.4-10.4); Monocytes # (auto) 0.82 K/uL (0.11-0.59); Monocytes % (auto) 9.5 %; Neutrophils # (auto) 5.78 K/uL (1.4-6.5); Neutrophils % (auto) 67.1 %; Platelet Count 188 K/uL (130-400); RDW Coefficient of Variation 15.2 % (11.5-14.5); RDW Standard Deviation 55.4 fL (36.4-46.3); Red Blood Count 3.56 M/uL (4.2-5.4); White Blood Count 8.62 K/uL (4.8-10.8)
[2020-06-05 06:27] LABS: INR 1.8 (0.9-1.1); Partial Thromboplastin Ratio 1.2; Partial Thromboplastin Time 32.2 Seconds (21.0-31.0); Prothrombin Time 17.2 Seconds (9.0-12.0)
[2020-06-05] MEDS: INSULIN ASPART 100 UNITS/ML 3 ML PEN SC SCH ×4 (06:29→21:05)
[2020-06-05 06:37] LABS: Albumin Level 2.6 gm/dl (3.4-5.0); BUN Creatinine Ratio 27.1 (10-20); Calcium 8.6 mg/dl (8.5-10.1); Creatinine Clr Calc Pharmacy 66.2 ml/min; Est GFR (Non-African American) 79.4; Estimated Average Glucose 143 mg/dl; Hemoglobin A1C 6.6 % (4.5-5.6); Potassium 4.3 mmol/L (3.5-5.1)
[2020-06-05 06:40] LABS: Albumin Globulin Ratio 0.6 (0.9-2); Bilirubin,Total 0.3 mg/dl (0.2-1); Globulin 4.5 gm/dl (2.5-4.0); Total Protein 7.1 gm/dl (6.4-8.2)
--- NOTE | 2020-06-05 07:18 | CT Scan Report ---
CT SCAN OF THE BRAIN WITHOUT IV CONTRAST CLINICAL HISTORY: Change in mental status. COMPARISON STUDY: CT of the brain dated 04/11/2015. TECHNIQUE: Unenhanced axial CT scan of the brain is performed from the vertex to the skull base. A do se lowering technique was utilized adhering to the principles of ALARA. The examination is modestly d egraded by motion artifact. FINDINGS: Brain parenchyma: There are age-related involutional changes noting moderate to advanced subcortical and periventricular microangiopathic change. There is no hemorrhage, mass effect, or evidence of acu te territorial ischemia by CT criteria. Lau-white matter differentiation is preserved. No extra-axia l fluid collection is seen. Ventricles, sulci, cisterns: Prominent secondary to involutional change. Intracranial vasculature: There is atherosclerotic calcification of the cavernous carotid and vertebr al arteries. Calvarium: Unremarkable. Soft tissues: There is a 1 cm skin tag the left premalar soft tissues seen on image #6. Sinuses and mastoids: The paranasal sinuses are clear. The mastoid air cells are well pneumatized. Orbits: The bony orbits are grossly intact. There are bilateral ocular lens implants. IMPRESSION: There is no hemorrhage, mass effect, or evidence of acute territorial ischemia by CT saurav oliveira. ACT 112: Negative or not required by law. Electronically signed by: Darius Bhardwaj M.D. 06/05/2020 7:16 AM
--- NOTE | 2020-06-05 09:22 | CT Scan Report ---
CT SCAN OF THE ABDOMEN AND PELVIS WITHOUT IV CONTRAST CLINICAL HISTORY: Change in mental status. Lower abdominal pain. COMPARISON STUDY: Abdominal CT dated 06/19/2014. TECHNIQUE: CT scan of the abdomen and pelvis is performed from the lung bases to the proximal femora. Images are reviewed in the axial, sagittal, and coronal planes. IV contrast was not administered for this examination. Note that the examination was performed in suboptimal fashion without oral and IV contrast. There is also motion artifact, and streak artifact from the arms which could not be elevate d above the abdomen. A dose lowering technique was utilized adhering to the principles of ALARA. CT DOSE: 2788.06 mGy.cm FINDINGS: Lung bases: The heart is enlarged noting a small pericardial effusion. The coronary arteries and mitr al annulus are densely calcified. There are trace pleural effusions with bibasilar scarring/atelectas is. A small hiatal hernia is noted. There is asymmetric soft tissue nodularity of the left breast as compared to the right. Liver: The unenhanced liver is normal in size, contour, and attenuation. There is no intrahepatic elier iary ductal dilatation. Gallbladder: Surgically absent noting clips in the gallbladder fossa. Spleen: Normal in size and attenuation. Pancreas: The unenhanced pancreas is atrophic and grossly unremarkable. Adrenal glands: Unremarkable. Kidneys: The unenhanced kidneys are atrophic and without hydronephrosis. There are no renal calculi i dentified. There are renovascular calcifications. Left renal cysts measure up to 2.1 cm. Abdominal vasculature: The abdominal aorta is normal in course and caliber noting moderate to advance d atherosclerotic calcification. Bowel: There is rectosigmoid fecal retention. No bowel obstruction is seen. There is moderate colonic diverticulosis without CT evidence of acute diverticulitis. The appendix is not visualized. Peritoneum: There is no intraperitoneal free air or abdominal ascites. There is a large fat-containin g supraumbilical hernia. Lymphadenopathy: None. Pelvic viscera: The bladder is normal as visualized. The uterus is surgically absent. No adnexal lesi on is seen. Skeletal structures: The skeletal structures are osteopenic. There is moderate lumbosacral spondylosi s. No lytic or blastic lesions are seen. IMPRESSION: 1. Suboptimal examination without oral and IV contrast. There is also streak and motion artifact. 2. There are no acute infectious or inflammatory findings in the abdomen or pelvis. 3. Cardiomegaly with a small pericardial effusion and trace pleural effusions. 4. Mild to moderate colonic diverticulosis without CT evidence of acute diverticulitis. 5. There is rectosigmoid fecal retention. No bowel obstruction is identified. 6. There is asymmetric nodularity and soft tissue density of the left breast as compared the right. T his is not well evaluated by CT. Consider nonemergent mammography for further assessment. 7. Additional findings as above. ACT 112: Positive. There are findings on this exam that require communication between the performing entity and the patient following Patient Test Result Information Act ([place] Act 112) guidelines. Electronically signed by: Darius Bhardwaj M.D. 06/05/2020 9:21 AM
--- NOTE | 2020-06-05 14:17 | Hospitalist Progress Note ---
Date of Service June 05, 2020 Assessment & Plan (1) UTI (urinary tract infection): UA in ED indicated infection. Urine cx growing Gram(-) bacilli. NO sepsis as she had 0/4 SIRS, normal lactate, and probably only 1/3 qSOFA. - Continue ceftriaxone x 3 days. - Follow culture (2) Colitis: CT a/p on 06/04 showed rectosigmoid fecal retention. - Start Miralax & suppository (3) Diabetes mellitus type 2, uncontrolled: A1c was 6.6% this admission. - Lower home insulin glargine to 10 units tonight. - Sliding scale insulin (4) Paroxysmal atrial fibrillation: In normal sinus rhythm. Now with a LBBB. - Continue warfarin - Continue beta-obdulia (5) HTN (hypertension): BP today is 150/70. - Continue losartan, hydralazine, and atenolol (6) Depression: Depression/anxiety. - Will taper home alprazolam to evening only. This is not an ideal medication for an 84yo with memory issues. (7) CVA (cerebral vascular accident): Symptoms tonight are more consistent with a metabolic encephalopathy. CVA with chronic left hemiplegia. Allergy to ASA. - Monitor (8) DVT prophylaxis: Lovenox 40 mg SQ daily Admission and Anticipated Discharge Date Admission Date: June 04, 2020 Subjective Reports diffuse abdominal pain. Reports no fevers/chills, chest pain, shortness of breath, nausea, or vomiting. Physical Exam Constitutional: WD/WN, vitals as above + acute distress and + in distress Eyes: EOM intact bilaterally; no conjunctival abnormality ENMT: external ear and nose normal, oropharynx normal Neck: trachea midline, no thyromegaly normal visual inspection Respiratory: normal respiratory effort, lungs clear to auscultation no respiratory distress Cardiovascular: RRR, no murmur, no edema Gastrointestinal (Abdomen): Inspection/Auscultation: abdomen normal to inspection and normal bowel sounds; abdomen not distended Percussion/Palpation: + abdomen tender (Diffuse) and abdomen soft; no guarding and abdomen not rigid Musculoskeletal: no cyanosis or clubbing, extremities motor strength 5/5 Skin: no rashes, warm and dry Neurologic: moves all extremities and awake Psychiatric: Orientation: alert, oriented to person and cooperative Results & Data Results & Data ([facility]) Vital Signs (Past 12 Hours) Vital Signs Temp Pulse Resp BP Pulse Ox 06/05/20 07:24 36.6 C 65 16 148/67 H 90 06/05/20 03:23 145/66 H PG Care Time/CCT Total # of Minutes Spent Total Time Spent with Patient: Total time spent is greater than 50% in coordination of care (as documented) at patient's floor/unit and/or counseling patient: Coding Level of Care Code 69366 Subseq Hosp Care Lvl 3 Diagnoses UTI (urinary tract infection) N39.0 Colitis K52.9 Diabetes mellitus type 2, uncontrolled E11.65 Paroxysmal atrial fibrillation I48.0 HTN (hypertension) I10 Depression F32.9 CVA (cerebral vascular accident) I63.9 DVT prophylaxis Z29.9
[2020-06-05] MEDS ORDERED: bisacodyL 10 MG SUPP PR STA (14:47)
[2020-06-05] MEDS: POLYETHYLENE (MIRALAX) 17 GM PACK PO SCH (15:04)
[2020-06-05] MEDS: ACETAMINOPHEN 325 MG TAB PO PRN (15:05)
[2020-06-05] MEDS: WARFARIN SOD 0.5 MG TAB PO SCH (18:27)
[2020-06-05] MEDS: INSULIN GLARGINE SOLOSTAR 100 UNITS/ML 3 ML PEN SC SCH (21:06)
[2020-06-05] MEDS: cefTRIAXone SODIUM 2,000 MG in DEXTROSE 5% 50 ML IV SCH (21:10)
[2020-06-05] MEDS: LOSARTAN POTASSIUM 50 MG TAB PO SCH (21:11)
[2020-06-05] MEDS: ATENOLOL 25 MG TABLET PO SCH (21:11)
[2020-06-05] MEDS ORDERED: MoRPHine SULFATE 2 MG/ML CARP IV STA (21:24)
--- NOTE | 2020-06-06 05:40 | Electrocardiogram Report ---
Test Reason : Blood Pressure : / mmHG Vent. Rate : 076 BPM Atrial Rate : 076 BPM P-R Int : 186 ms QRS Dur : 160 ms QT Int : 430 ms P-R-T Axes : 029 -48 062 degrees QTc Int : 483 ms Normal sinus rhythm Left axis deviation Left bundle branch block Abnormal ECG When compared with ECG of 12-APR-2015 07:35, Left bundle branch block is now Present Confirmed by Jagdeep Lee ([id number]) on 06/06/2020 5:40:02 AM Referred By: REFERRED SELF Confirmed By:Jagdeep Lee
[2020-06-06 06:41] LABS: Basophils # (auto) 0.03 K/uL (0-0.2); Basophils % (auto) 0.4 %; Eosinophils # (auto) 0.18 K/uL (0-0.5); Eosinophils % (auto) 2.3 %; Hematocrit (blood only) 38.6 % (37-47); Hemoglobin 12.2 g/dL (12.0-16.0); Immature Granulocytes # (auto) 0.01 K/uL (0.00-0.02); Immature Granulocytes % (auto) 0.1 %; Lymphocytes # (auto) 1.65 K/uL (1.2-3.4); Lymphocytes % (auto) 21.3 %; Mean Corpuscular Hemoglobin 32.1 pg (25-34); Mean Corpuscular Hgb Conc 31.6 g/dL (32-36); Mean Corpuscular Volume 101.6 fL (80-100); Mean Platelet Volume 11.9 fL (7.4-10.4); Monocytes # (auto) 0.72 K/uL (0.11-0.59); Monocytes % (auto) 9.3 %; Neutrophils # (auto) 5.16 K/uL (1.4-6.5); Neutrophils % (auto) 66.6 %; Platelet Count 179 K/uL (130-400); RDW Coefficient of Variation 15.2 % (11.5-14.5); RDW Standard Deviation 56.2 fL (36.4-46.3); White Blood Count 7.75 K/uL (4.8-10.8)
[2020-06-06 06:50] LABS: INR 1.9 (0.9-1.1); Partial Thromboplastin Ratio 1.3; Partial Thromboplastin Time 33.9 Seconds (21.0-31.0); Prothrombin Time 18.1 Seconds (9.0-12.0)
[2020-06-06 07:06] LABS: Albumin Level 2.8 gm/dl (3.4-5.0); BUN Creatinine Ratio 21.6 (10-20); Calcium 9.2 mg/dl (8.5-10.1); Creatinine Clr Calc Pharmacy 44.8 ml/min; Est GFR (African American) 65.8; Est GFR (Non-African American) 56.8; Potassium 4.6 mmol/L (3.5-5.1)
[2020-06-06 07:09] LABS: Albumin Globulin Ratio 0.6 (0.9-2); Bilirubin,Total 0.3 mg/dl (0.2-1); Globulin 4.7 gm/dl (2.5-4.0); Total Protein 7.5 gm/dl (6.4-8.2)
[2020-06-06] MEDS: INSULIN ASPART 100 UNITS/ML 3 ML PEN SC SCH ×4 (09:06→21:30)
[2020-06-06] MEDS: LOSARTAN POTASSIUM 50 MG TAB PO SCH ×2 (09:09→21:33)
[2020-06-06] MEDS: ATENOLOL 25 MG TABLET PO SCH ×2 (09:09→21:34)
[2020-06-06] MEDS: POLYETHYLENE (MIRALAX) 17 GM PACK PO SCH (09:10)
--- NOTE | 2020-06-06 15:30 | Hospitalist Progress Note ---
Date of Service June 06, 2020 Assessment & Plan (1) UTI (urinary tract infection): UA in ED indicated infection. Urine cx growing chavez-sensitive E. coli. NO sepsis as she had 0/4 SIRS, normal lactate, and probably only 1/3 qSOFA. - Continue ceftriaxone x 3 days. (2) Colitis: CT a/p on 06/04 showed rectosigmoid fecal retention. - Started Miralax & suppository - Will add Senna today. (3) Diabetes mellitus type 2, uncontrolled: A1c was 6.6% this admission. - Lower home insulin glargine to 10 units tonight. - Sliding scale insulin -> Generally BS in good range in last 24 hours. (4) Paroxysmal atrial fibrillation: In normal sinus rhythm. Now with a LBBB. - Continue warfarin (INR is 1.9 today). - Continue beta-obdulia (5) HTN (hypertension): BP today is 130/70. - Continue losartan, hydralazine, and atenolol (6) Depression: Depression/anxiety. - Will taper home alprazolam to evening only. This is not an ideal medication for an 84yo with memory issues. (7) CVA (cerebral vascular accident): Symptoms tonight are more consistent with a metabolic encephalopathy. CVA with chronic left hemiplegia. Allergy to ASA. - Monitor (8) DVT prophylaxis: Warfarin for afib with nearly therapeutic INR. Admission and Anticipated Discharge Date Admission Date: June 04, 2020 Subjective Still reports some abdominal pain. Physical Exam Constitutional: WD/WN, vitals as above + acute distress and + in distress Eyes: EOM intact bilaterally; no conjunctival abnormality ENMT: external ear and nose normal, oropharynx normal Neck: trachea midline, no thyromegaly normal visual inspection Respiratory: normal respiratory effort, lungs clear to auscultation no respiratory distress Cardiovascular: RRR, no murmur, no edema Gastrointestinal (Abdomen): Inspection/Auscultation: abdomen normal to inspection and normal bowel sounds; abdomen not distended Percussion/Palpation: + abdomen tender (Diffuse) and abdomen soft; no guarding and abdomen not rigid Musculoskeletal: no cyanosis or clubbing, extremities motor strength 5/5 Skin: no rashes, warm and dry Neurologic: moves all extremities and awake Psychiatric: Orientation: alert, oriented to person and cooperative Results & Data Results & Data ([facility]) Vital Signs (Past 12 Hours) Vital Signs Temp Pulse Resp BP Pulse Ox 06/06/20 07:53 36.9 C 69 16 130/64 90 PG Care Time/CCT Total # of Minutes Spent Total Time Spent with Patient: Total time spent is greater than 50% in coordination of care (as documented) at patient's floor/unit and/or counseling patient: Coding Level of Care Code 76172 Subseq Hosp Care Lvl 2 Diagnoses UTI (urinary tract infection) N30.01 Hematuria presence: with hematuria Urinary tract infection type: acute cystitis Colitis K52.9 Diabetes mellitus type 2, uncontrolled E11.65 Paroxysmal atrial fibrillation I48.0 HTN (hypertension) I10 Depression F32.9 CVA (cerebral vascular accident) I63.9 DVT prophylaxis Z29.9 (1) UTI (urinary tract infection) Hematuria presence: with hematuria Urinary tract infection type: acute cystitis Qualified Code(s): N30.01 - Acute cystitis with hematuria
[2020-06-06] MEDS ORDERED: bisacodyL 10 MG SUPP PR STA (15:38)
[2020-06-06] MEDS: SENNA 8.6 MG TAB PO SCH (17:26)
[2020-06-06] MEDS: WARFARIN SOD 0.5 MG TAB PO SCH (17:27)
[2020-06-06] MEDS: INSULIN GLARGINE SOLOSTAR 100 UNITS/ML 3 ML PEN SC SCH (21:31)
[2020-06-06] MEDS: cefTRIAXone SODIUM 2,000 MG in DEXTROSE 5% 50 ML IV SCH (21:40)
--- NOTE | 2020-06-07 00:37 | History & Physical Report ---
Date of Service June 07, 2020 Assessment & Plan Admission and Anticipated Discharge Date Admission Date: June 04, 2020 84 y/o w/ pMHx. of GERD, HLD, HTN, Hypothyroidism, CAD s/p LAD stent in 2017; here for progressively worsening chest pain/pressure that radiates to her back exacerbated with breathing will want to rule out ACS although pericarditis, reflux and pleuritis (from Hydralazine?) are potential alternative diagnosis admit for obs. med/surg - tele Chest pain EKG with slight ST changes troponin initially negative - trend troponin - ECHO ordered CAD s/p LAD stent - continue ASA HTN continue Hydralazine for now continue metoprolol History of Present Illness Chief Complaint: chest pain Primary Care Provider: MD Rosmery Lovelace is here for concern of chest pain. Her symptoms started on Wednesday with symptoms that felt like "tightness", the symptoms occur for 1-2 breaths and are worse with deep breaths. She is coming in today because the pain/tightness has become more frequent and, "wouldn't leave". She has not had anything like this in the past. Her symptoms improve with sitting down. The symptoms are not worse with exercise or activity and is able to walk up stairs without difficulty. The pain has radiated to her shoulder blades and upper back. She has a past LAD stent placed in 2017 with symptoms at that time that were neck discomfort/thirst while biking. She has a history of reflux and has been having increased symptoms over the last 4 days which include a burning taste in her throat and burping. She has had palpitations and they are chronic but have increased over the last 2 days. She started Doxycycline on Wednesday but has taken this previously without any difficulty. Social Hx.: lives alone, daughter is a nurse Allergies Allergy/AdvReac Type Severity Reaction Status Date / Time aspirin Allergy Intermediate HIVES Verified 06/04/20 20:40 Iodinated Contrast Media Allergy Intermediate HIVES Verified 06/04/20 20:40 Penicillins Allergy Intermediate HIVES Verified 06/04/20 20:40 doxazosin Allergy Unknown Elevated BP Unverified 06/04/20 20:40 glipizide Allergy Unknown Pt doesn't Unverified 06/04/20 20:40 remeber reaction influenza virus vacc Allergy Unknown Unknown Verified 06/05/20 14:46 trivalent, split [From Fluzone] pregabalin Allergy Unknown Pt doesn't Unverified 06/04/20 20:40 remeber reaction Ehappcj-Nyk-Ksv Reductase Allergy Unknown muscle Unverified 06/04/20 20:40 Inhibitor cramping thimerosal Allergy Unknown Pt can't Unverified 06/04/20 20:40 remember reaction Home Medications Medication Instructions Recorded Confirmed Type cholecalciferol (vitamin D3) 125 5,000 units PO DAILY cap 10/29/18 06/04/20 History mcg (5,000 unit) capsule atenolol 25 mg tablet 25 mg PO BID #180 tab 06/08/19 06/04/20 Rx hydralazine 50 mg tablet 50 mg PO TID #270 tab 02/09/20 06/04/20 Rx losartan 50 mg tablet 50 mg PO BID #180 tab 02/09/20 06/04/20 Rx insulin glargine 100 unit/mL 30 unit SUBCUT QPM #10 ml 03/11/20 06/04/20 Rx subcutaneous solution insulin aspart U-100 100 unit/mL 10 unit SUBCUT .COMPLEX #15 ml MDD 03/13/20 06/04/20 Rx (3 mL) subcutaneous pen 50 units alprazolam 0.5 mg PO BID 06/04/20 06/04/20 History warfarin 0.5 mg PO DAILY 06/04/20 06/04/20 History Past Med/Surg History Medical History Anticoagulant long-term use Anxiety CVA (cerebral vascular accident) Depression Diabetes mellitus type 2, uncontrolled HTN (hypertension) Mild chronic anemia Paroxysmal atrial fibrillation Surgical History S/P adenoidectomy S/P cholecystectomy S/P hysterectomy S/P tubal ligation Family History Mother Diabetes Myocardial infarction Heart disease Father Heart disease Daughter Non-Hodgkin's lymphoma of lung Sister Parkinsons disease Denies family history of Ovarian cancer Prostate cancer Breast cancer Colorectal cancer Social History Smoking Status: Unknown if ever smoked Preferred Language: Lithuanian Communication Ability: Impaired Visual Impairment: No Limitations Hearing Ability: Normal Metal Hanger Required: No marital status: Current Living Situation: Spouse 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 Feels Safe at Home: Yes Childhood Exposure to Second-Hand Smoke: No Physical Activity Frequency: Does not Exercise Seatbelt Use: always Assistive Devices: None Assistive Devices Comment: Patient cognitively impaired, unable to respond Review of Systems Review of Systems: Constitutional: denies fevers, nausea, diaphoresis, night sweats, weight change admits chills, fatigue Head: denies trauma admits chronic improving right vision changes Neurologic: denies slurring speech, focal weakness, neck stiffness ENT: denies rhinorrhea, stuffiness, sore throat Cardiac: admits chest pain, palpitations Pulm.: admits chronic unchanged cough GI: denies diarrhea, abdominal pain admits indigestion, constipation (chronic) : denies pain, frequency admits chronic urgency Physical Exam Constitutional: WD/WN, vitals as above Eyes: PERRL, conjunctivae normal, anicteric sclerae ENMT: external ear and nose normal, oropharynx normal Neck: normal visual inspection Respiratory: normal respiratory effort, lungs clear to auscultation - pain with deep breath Cardiovascular: RRR, no murmur, no edema Vessels: no carotid bruit Gastrointestinal (Abdomen): normal bowel sounds, soft, nontender, no hepatosplenomegaly Skin: no rashes, warm and dry Neurologic: no focal motor deficits Psychiatric: Orientation: alert Eye Contact: good eye contact Speech: no pressured speech Affect: euthymic affect Results & Data Results & Data ([facility]) Vital Signs (Past 12 Hours) Vital Signs Temp Pulse Resp BP Pulse Ox 06/06/20 22:39 36.8 C 80 18 172/81 H 90 06/06/20 15:43 37.0 C 18 132/63 90 Code Status & VTE Plan VTE Prophylaxis Plan VTE Prophylaxis will be ordered: Yes
[2020-06-07] MEDS: ALPRAZolam 0.5 MG TABLET PO PRN ×3 (01:47→23:05)
[2020-06-07 06:27] LABS: Basophils # (auto) 0.05 K/uL (0-0.2); Basophils % (auto) 0.7 %; Eosinophils # (auto) 0.21 K/uL (0-0.5); Eosinophils % (auto) 2.9 %; Hematocrit (blood only) 36.2 % (37-47); Hemoglobin 11.6 g/dL (12.0-16.0); Immature Granulocytes # (auto) 0.03 K/uL (0.00-0.02); Immature Granulocytes % (auto) 0.4 %; Lymphocytes # (auto) 2.42 K/uL (1.2-3.4); Lymphocytes % (auto) 33.4 %; Mean Corpuscular Hemoglobin 32.2 pg (25-34); Mean Corpuscular Volume 100.6 fL (80-100); Mean Platelet Volume 11.5 fL (7.4-10.4); Monocytes # (auto) 0.72 K/uL (0.11-0.59); Monocytes % (auto) 9.9 %; Neutrophils # (auto) 3.82 K/uL (1.4-6.5); Neutrophils % (auto) 52.7 %; Platelet Count 183 K/uL (130-400); RDW Coefficient of Variation 14.8 % (11.5-14.5); RDW Standard Deviation 54.4 fL (36.4-46.3); White Blood Count 7.25 K/uL (4.8-10.8)
[2020-06-07 06:40] LABS: INR 1.6 (0.9-1.1); Partial Thromboplastin Ratio 1.2; Prothrombin Time 16.1 Seconds (9.0-12.0)
[2020-06-07 07:15] LABS: Albumin Level 2.7 gm/dl (3.4-5.0); Calcium 9.2 mg/dl (8.5-10.1); Creatinine Clr Calc Pharmacy 41.2 ml/min; Est GFR (African American) 59.5; Est GFR (Non-African American) 51.3; Potassium 4.4 mmol/L (3.5-5.1)
[2020-06-07 07:17] LABS: Albumin Globulin Ratio 0.6 (0.9-2); Bilirubin,Total 0.4 mg/dl (0.2-1); Globulin 4.6 gm/dl (2.5-4.0); Total Protein 7.3 gm/dl (6.4-8.2)
[2020-06-07] MEDS: LOSARTAN POTASSIUM 50 MG TAB PO SCH ×2 (08:49→21:42)
[2020-06-07] MEDS: POLYETHYLENE (MIRALAX) 17 GM PACK PO SCH ×3 (08:49→13:25)
[2020-06-07] MEDS: SENNA 8.6 MG TAB PO SCH (08:49)
[2020-06-07] MEDS: ATENOLOL 25 MG TABLET PO SCH ×2 (08:49→21:42)
[2020-06-07] MEDS: INSULIN ASPART 100 UNITS/ML 3 ML PEN SC SCH ×4 (08:56→21:44)
--- NOTE | 2020-06-07 13:20 | Hospitalist Progress Note ---
Date of Service June 07, 2020 Assessment & Plan (1) UTI (urinary tract infection): UA in ED indicated infection. Urine cx growing chavez-sensitive E. coli. NO sepsis as she had 0/4 SIRS, normal lactate, and probably only 1/3 qSOFA (questionable mental status change). - Continue ceftriaxone x 3 days. (Finished on 06/07/2020) (2) Colitis: CT a/p on 06/04 showed rectosigmoid fecal retention. - Started Miralax & suppositories on 06/05 - Added Senna on 06/06/2020. - May do another suppository as she is not moving her bowel very quickly. (3) Diabetes mellitus type 2, uncontrolled: A1c was 6.6% this admission. - Lower home insulin glargine to 10 units HS (from home dose of 30 units HS) as hospital food has less carbs. - Sliding scale insulin -> Generally BS in good range in last 24 hours. Highest sugar is 170. (4) Paroxysmal atrial fibrillation: In normal sinus rhythm. Now with a LBBB. - Continue warfarin (INR is 1.6 today). (Gave extra 0.5 mg of warfarin on 06/07 because she's remaining subtherapeutic.) - Continue beta-obdulia (5) HTN (hypertension): BP today is 150/70. - Continue home losartan, hydralazine, and atenolol (6) Depression: Depression/anxiety. - Tapered home alprazolam to evening PRN only (from BID). This is not an ideal medication for an 84yo with memory issues. (7) CVA (cerebral vascular accident): Symptoms are more consistent with a metabolic encephalopathy and now with I think her baseline dementia. CVA with chronic left hemiplegia. Allergy to ASA. - Monitor (8) DVT prophylaxis: Warfarin for afib with nearly therapeutic INR. Admission and Anticipated Discharge Date Admission Date: June 04, 2020 Subjective Is not sure where she is or why she's here. Reports no fevers/chills, chest pain, shortness of breath, abdominal pain, nausea, or vomiting. Physical Exam Constitutional: WD/WN, vitals as above Eyes: EOM intact bilaterally; no conjunctival abnormality ENMT: external ear and nose normal, oropharynx normal Neck: trachea midline, no thyromegaly normal visual inspection Respiratory: normal respiratory effort, lungs clear to auscultation no respiratory distress Cardiovascular: RRR, no murmur, no edema Gastrointestinal (Abdomen): Inspection/Auscultation: abdomen normal to inspection and normal bowel sounds; abdomen not distended Percussion/Palpation: abdomen soft; abdomen nontender, no guarding and abdomen not rigid Musculoskeletal: no cyanosis or clubbing, extremities motor strength 5/5 Skin: no rashes, warm and dry Neurologic: moves all extremities and awake Psychiatric: Orientation: alert, oriented to person and cooperative Results & Data Results & Data ([facility]) Vital Signs (Past 12 Hours) Vital Signs Temp Pulse Resp BP Pulse Ox 06/07/20 07:31 36.8 C 67 16 150/71 H 91 PG Care Time/CCT Total # of Minutes Spent Total Time Spent with Patient: Total time spent is greater than 50% in coordination of care (as documented) at patient's floor/unit and/or counseling patient: Coding Level of Care Code 41509 Subseq Hosp Care Lvl 3 Diagnoses UTI (urinary tract infection) N30.01 Hematuria presence: with hematuria Urinary tract infection type: acute cystitis Colitis K52.9 Diabetes mellitus type 2, uncontrolled E11.65 Paroxysmal atrial fibrillation I48.0 HTN (hypertension) I10 Depression F32.9 CVA (cerebral vascular accident) I63.9 DVT prophylaxis Z29.9 (1) UTI (urinary tract infection) Hematuria presence: with hematuria Urinary tract infection type: acute cystitis Qualified Code(s): N30.01 - Acute cystitis with hematuria
[2020-06-07] MEDS: hydrALAZINE TAB 50 MG TAB PO SCH ×2 (14:52→21:41)
[2020-06-07] MEDS ORDERED: WARFARIN SOD 0.5 MG TAB PO ONE (16:00)
[2020-06-07] MEDS: WARFARIN SOD 0.5 MG TAB PO SCH (17:01)
[2020-06-07] MEDS: ACETAMINOPHEN 325 MG TAB PO PRN (18:06)
[2020-06-07] MEDS: INSULIN GLARGINE SOLOSTAR 100 UNITS/ML 3 ML PEN SC SCH (21:44)
[2020-06-07] MEDS: cefTRIAXone SODIUM 2,000 MG in DEXTROSE 5% 50 ML IV SCH (21:55)
[2020-06-08 06:35] LABS: INR 1.5 (0.9-1.1); Prothrombin Time 14.3 Seconds (9.0-12.0)
[2020-06-08] MEDS: ATENOLOL 25 MG TABLET PO SCH ×2 (08:05→20:18)
[2020-06-08] MEDS: SENNA 8.6 MG TAB PO SCH (08:06)
[2020-06-08] MEDS: hydrALAZINE TAB 50 MG TAB PO SCH ×3 (08:06→20:17)
[2020-06-08] MEDS: LOSARTAN POTASSIUM 50 MG TAB PO SCH ×2 (08:07→20:17)
[2020-06-08] MEDS: POLYETHYLENE (MIRALAX) 17 GM PACK PO SCH (08:07)
[2020-06-08] MEDS: INSULIN ASPART 100 UNITS/ML 3 ML PEN SC SCH ×4 (08:53→21:21)
[2020-06-08] MEDS: WARFARIN SOD 0.5 MG TAB PO SCH (15:56)
[2020-06-08] MEDS ORDERED: GLYCERIN ADULT 12 SUPP/BOX SUPP PR ONE (18:30)
[2020-06-08] MEDS: INSULIN GLARGINE SOLOSTAR 100 UNITS/ML 3 ML PEN SC SCH (21:21)
--- NOTE | 2020-06-08 22:21 | Hospitalist Progress Note ---
Date of Service June 08, 2020 Assessment & Plan (1) UTI (urinary tract infection): UA in ED indicated infection. Urine cx growing chavez-sensitive E. coli. NO sepsis as she had 0/4 SIRS, normal lactate, and probably only 1/3 qSOFA (questionable mental status change). - Continue ceftriaxone x 3 days. (Finished on 06/07/2020) (2) Colitis: CT a/p on 06/04 showed rectosigmoid fecal retention. - Started Miralax & suppositories on 06/05 - Added Senna on 06/06/2020. - On 06/08, ordered another suppository as she is not moving her bowel very quickly. (3) Diabetes mellitus type 2, uncontrolled: A1c was 6.6% this admission. - Lower home insulin glargine to 10 units HS (from home dose of 30 units HS) as hospital food has less carbs. - Sliding scale insulin -> Generally BS in good range in last 24 hours. Highest sugar is 170. (4) Paroxysmal atrial fibrillation: In normal sinus rhythm. Now with a LBBB. - Continue warfarin (INR is 1.6 today). (Gave extra 0.5 mg of warfarin on 06/07 because she's remaining subtherapeutic.) - Continue beta-obdulia (5) HTN (hypertension): BP today is 150/70. - Continue home losartan, hydralazine, and atenolol (6) Depression: Depression/anxiety. - Tapered home alprazolam to evening PRN only (from BID). This is not an ideal medication for an 84yo with memory issues. (7) CVA (cerebral vascular accident): Symptoms are more consistent with a metabolic encephalopathy and now with I think her baseline dementia. CVA with chronic left hemiplegia. Allergy to ASA. - Monitor (8) DVT prophylaxis: Warfarin for afib with nearly therapeutic INR. Admission and Anticipated Discharge Date Admission Date: June 04, 2020 Subjective Patient reports no new symptoms. Review of Systems Review of Systems: All systems reviewed & are unremarkable except as noted in HPI & below Physical Exam Physical Exam: Constitutional: WD/WN, vitals as above Eyes: EOM intact bilaterally; no conjunctival abnormality ENMT: external ear and nose normal, oropharynx normal Neck: trachea midline, no thyromegaly normal visual inspection Respiratory: normal respiratory effort, lungs clear to auscultation no respiratory distress Cardiovascular: RRR, no murmur, no edema Gastrointestinal (Abdomen): Inspection/Auscultation: abdomen normal to inspection and normal bowel sounds; abdomen not distended Percussion/Palpation: abdomen soft; abdomen nontender, no guarding and abdomen not rigid Musculoskeletal: no cyanosis or clubbing, extremities motor strength 5/5 Skin: no rashes, warm and dry Neurologic: moves all extremities and awake Psychiatric: Orientation: alert, oriented to person and cooperative Results & Data Results & Data ([facility]) Vital Signs (Past 12 Hours) Vital Signs Temp Pulse Resp BP Pulse Ox 06/08/20 20:15 36.5 C 63 18 197/71 H 92 06/08/20 16:03 36.6 C 62 16 176/76 H 95 06/08/20 13:00 60 158/68 H PG Care Time/CCT Total # of Minutes Spent Total Time Spent with Patient: Total time spent is greater than 50% in coordination of care (as documented) at patient's floor/unit and/or counseling patient: Coding Level of Care Code 18157 Subseq Hosp Care Lvl 2 Diagnoses UTI (urinary tract infection) N30.01 Hematuria presence: with hematuria Urinary tract infection type: acute cystitis Colitis K52.9 Diabetes mellitus type 2, uncontrolled E11.65 Paroxysmal atrial fibrillation I48.0 HTN (hypertension) I10 Depression F32.9 CVA (cerebral vascular accident) I63.9 DVT prophylaxis Z29.9 Time Spent (min) 25 (1) UTI (urinary tract infection) Hematuria presence: with hematuria Urinary tract infection type: acute cystitis Qualified Code(s): N30.01 - Acute cystitis with hematuria
[2020-06-09] MEDS: hydrALAZINE TAB 50 MG TAB PO SCH ×3 (08:30→20:41)
[2020-06-09] MEDS: LOSARTAN POTASSIUM 50 MG TAB PO SCH ×2 (08:30→20:41)
[2020-06-09] MEDS: ATENOLOL 25 MG TABLET PO SCH ×2 (08:31→20:41)
[2020-06-09] MEDS: SENNA 8.6 MG TAB PO SCH (08:31)
[2020-06-09] MEDS: POLYETHYLENE (MIRALAX) 17 GM PACK PO SCH ×2 (08:31→20:42)
[2020-06-09] MEDS: INSULIN ASPART 100 UNITS/ML 3 ML PEN SC SCH ×4 (08:32→21:48)
[2020-06-09] MEDS: ONDANSETRON INJ 2 MG/ML 2 ML VIAL IV PRN ×2 (13:26→22:09)
[2020-06-09] MEDS: WARFARIN SOD 0.5 MG TAB PO SCH (16:06)
[2020-06-09] MEDS: ACETAMINOPHEN 325 MG TAB PO PRN (20:40)
[2020-06-09] MEDS: INSULIN GLARGINE SOLOSTAR 100 UNITS/ML 3 ML PEN SC SCH (21:47)
--- NOTE | 2020-06-09 23:03 | Hospitalist Progress Note ---
Date of Service June 09, 2020 Assessment & Plan (1) UTI (urinary tract infection): UA in ED indicated infection. Urine cx growing chavez-sensitive E. coli. NO sepsis as she had 0/4 SIRS, normal lactate, and probably only 1/3 qSOFA (questionable mental status change). - Continue ceftriaxone x 3 days. (Finished on 06/07/2020) (2) Colitis: CT a/p on 06/04 showed rectosigmoid fecal retention. - Started Miralax & suppositories on 06/05 - Added Senna on 06/06/2020. - On 06/08, ordered another suppository as she is not moving her bowel very quickly. -on 06/09 patient had a large BM, no blood, good consistency. (3) Diabetes mellitus type 2, uncontrolled: A1c was 6.6% this admission. - Lower home insulin glargine to 10 units HS (from home dose of 30 units HS) as hospital food has less carbs. - Sliding scale insulin -> Generally BS in good range in last 24 hours. Highest sugar is 170. (4) Paroxysmal atrial fibrillation: In normal sinus rhythm. Now with a LBBB. - Continue warfarin (INR is 1.6 today). (Gave extra 0.5 mg of warfarin on 06/07 because she's remaining subtherapeutic.) - Continue beta-obdulia (5) HTN (hypertension): BP today is 150/70. - Continue home losartan, hydralazine, and atenolol (6) Depression: Depression/anxiety. - Tapered home alprazolam to evening PRN only (from BID). This is not an ideal medication for an 84yo with memory issues. (7) CVA (cerebral vascular accident): Symptoms are more consistent with a metabolic encephalopathy and now with I think her baseline dementia. CVA with chronic left hemiplegia. Allergy to ASA. - Monitor (8) DVT prophylaxis: Warfarin for afib with nearly therapeutic INR. Admission and Anticipated Discharge Date Admission Date: June 04, 2020 Subjective Patient has no new complaints. She had a large bowel movement today. Review of Systems Review of Systems: All systems reviewed & are unremarkable except as noted in HPI & below Physical Exam Physical Exam: Constitutional: WD/WN, vitals as above Eyes: EOM intact bilaterally; no conjunctival abnormality ENMT: external ear and nose normal, oropharynx normal Neck: trachea midline, no thyromegaly normal visual inspection Respiratory: normal respiratory effort, lungs clear to auscultation no respiratory distress Cardiovascular: RRR, no murmur, no edema Gastrointestinal (Abdomen): Inspection/Auscultation: abdomen normal to inspection and normal bowel sounds; abdomen not distended Percussion/Palpation: abdomen soft; abdomen nontender, no guarding and abdomen not rigid Musculoskeletal: no cyanosis or clubbing, extremities motor strength 5/5 Skin: no rashes, warm and dry Neurologic: moves all extremities and awake Psychiatric: Orientation: alert, oriented to person and cooperative Results & Data Results & Data ([facility]) Vital Signs (Past 12 Hours) Vital Signs Temp Pulse Resp BP Pulse Ox 06/09/20 22:25 36.8 C 65 18 154/69 H 93 06/09/20 20:36 36.8 C 69 14 166/61 H 92 06/09/20 15:45 36.5 C 61 16 158/72 H 92 06/09/20 12:59 67 194/79 H PG Care Time/CCT Total # of Minutes Spent Total Time Spent with Patient: Total time spent is greater than 50% in coordination of care (as documented) at patient's floor/unit and/or counseling patient: Coding Level of Care Code 15495 Subseq Hosp Care Lvl 2 Diagnoses UTI (urinary tract infection) N30.01 Hematuria presence: with hematuria Urinary tract infection type: acute cystitis Colitis K52.9 Diabetes mellitus type 2, uncontrolled E11.65 Paroxysmal atrial fibrillation I48.0 HTN (hypertension) I10 Depression F32.9 CVA (cerebral vascular accident) I63.9 DVT prophylaxis Z29.9 Time Spent (min) 25 (1) UTI (urinary tract infection) Hematuria presence: with hematuria Urinary tract infection type: acute cystitis Qualified Code(s): N30.01 - Acute cystitis with hematuria
[2020-06-09] MEDS: ALPRAZolam 0.5 MG TABLET PO PRN (23:30)
[2020-06-10] MEDS: INSULIN ASPART 100 UNITS/ML 3 ML PEN SC SCH ×4 (09:19→21:30)
[2020-06-10] MEDS: LOSARTAN POTASSIUM 50 MG TAB PO SCH ×2 (09:22→19:59)
[2020-06-10] MEDS: POLYETHYLENE (MIRALAX) 17 GM PACK PO SCH ×2 (09:22→20:00)
[2020-06-10] MEDS: hydrALAZINE TAB 50 MG TAB PO SCH ×3 (09:22→19:59)
[2020-06-10] MEDS: ATENOLOL 25 MG TABLET PO SCH ×2 (09:23→19:57)
[2020-06-10] MEDS: SENNA 8.6 MG TAB PO SCH (09:23)
--- NOTE | 2020-06-10 09:33 | Hospitalist Progress Note ---
Date of Service June 10, 2020 Assessment & Plan (1) UTI (urinary tract infection): * UA in ED indicated infection. * Urine cx growing chavez-sensitive E. coli. * NO sepsis as she had 0/4 SIRS, normal lactate, and probably only 1/3 qSOFA (questionable mental status change). * Completed 3 days IV Ceftriaxone * PT/OT with recs for SNF -- CM following and referals to [facility] and [facility] (2) Colitis: * CT a/p on 06/04 showed rectosigmoid fecal retention. * Started Miralax & suppositories on 06/05 * Added Senna on 06/06/2020. * On 06/08, ordered another suppository as she is not moving her bowel very quickly. * on 06/09 patient had a large BM, no blood, good consistency. * Continue bowel regimen to keep regular at discharge (3) Diabetes mellitus type 2, uncontrolled: * A1c was 6.6% this admission. * Lowered home insulin glargine to 10 units HS (from home dose of 30 units HS) as hospital food has less carbs and BSGs up to 409 last evening and will increase her back to 30units HS * SSI * Continue to monitor (4) Paroxysmal atrial fibrillation: * In normal sinus rhythm. Now with a LBBB. * Continue warfarin (INR is 1.4 today and was given 0.5mg on 06/07 -- will give extra 1mg this evening * Also will give Lovenox 50mg SQ x 1 today given continued subtherapeutic INR * INR in AM (5) HTN (hypertension): * Chronic. Controlled * BP today is 153/69. * Continue home losartan 50mg BID, hydralazine 50mg TID, and atenolol 25mg BID (6) Depression: * Depression/anxiety. * Tapered home alprazolam to evening PRN only (from BID). This is not an ideal medication for an 84yo with memory issues. However she does have increased anxiety about transfer and such and could consider adding back to usual (7) CVA (cerebral vascular accident): * Symptoms are more consistent with a metabolic encephalopathy and now with I think her baseline dementia. * CVA with chronic left hemiplegia. * Allergy to ASA --?use plavix * PT/OT with recs for rehab -- see above (8) DVT prophylaxis: * Warfarin for hx paroxysmal afib * INR subtherapeutic -- see above. Extra 1mg Coumadin today with Lovenox SQ and will repeat INR in AM Headache * Today. Will have RN give Tylenol x 1. * Continue to monitor Folate low normal -- consider adding supplementation given MCV >100 vs starting multivitamin daily? Dispo: continued inpatient stay awaiting bed at rehab. CM following Admission and Anticipated Discharge Date Admission Date: June 04, 2020 Supervising Physician Co-Signing Physician Notes PA Supervision Note: I did not personally see or examine the patient today, but I verified all donohue points of KJ Soto's assessment and plan with the following exceptions/additions: With possible new LBBB? Consider ECHO Otherwise treatment as above Subjective Patient evaluated this morning. Feeling well. Does have a slight headache this morning similar to prior headaches and typically resolved with tylenol -- will have nursing give dose of tylenol this morning. Concerns about not going home prior to rehab -- ensured rehab first from hospital then home. She states she had a large BM last evening and feeling better. Agreeable to update -- he had been helping her at home given her left weakness from prior CVA and agreeable to rehab from this recent hospitalization. She is cold, but states always cold. No chest pain, fever, chills, shortness of breath, abdominal pain, nausea or vomiting at this time. Review of Systems Review of Systems: All systems reviewed & are unremarkable except as noted in HPI & below Physical Exam Physical Exam: Constitutional: WD/WN, vitals as above Eyes: EOM intact bilaterally; no conjunctival abnormality. Poor dentition ENMT: external ear and nose normal, oropharynx normal Neck: trachea midline, no thyromegaly normal visual inspection Respiratory: normal respiratory effort, lungs clear to auscultation no respiratory distress, diminished in the bases Cardiovascular: regular rate and rhythm, 3/6 systolic ejection murmur, trace lymphedema, calves non-tender, NVI Gastrointestinal (Abdomen): Inspection/Auscultation: abdomen normal to inspection and normal bowel sounds; abdomen not distended Percussion/Palpation: abdomen soft; abdomen nontender, no guarding and abdomen not rigid Musculoskeletal: no cyanosis or clubbing, extremities motor strength 5/5 (with exception of L hemiparesis from prior CVA) Skin: no rashes, warm and dry -- bilaterally erythema to buttocks with small skin tear Neurologic: moves all extremities and awake Psychiatric: Orientation: alert, oriented to person and cooperative -- does repeat herself frequently and not oriented to time at times Results & Data Results & Data ([facility]) Vital Signs (Past 12 Hours) Vital Signs Temp Pulse Resp BP Pulse Ox 06/10/20 07:50 36.7 C 62 18 153/69 H 93 06/09/20 22:25 36.8 C 65 18 154/69 H 93 Laboratory Results 06/10/20 06/10/20 06/10/20 Range/Units 09:33 09:33 09:33 WBC (4.8-10.8) K/uL RBC (4.2-5.4) M/uL Hgb (12.0-16.0) g/dL Hct (37-47) % MCV (80-100) fL MCH (25-34) pg MCHC (32-36) g/dL RDW Std Deviation (36.4-46.3) fL RDW Coeff of Isael (11.5-14.5) % Plt Count (130-400) K/uL MPV (7.4-10.4) fL PT 14.0 H (9.0-12.0) Seconds INR 1.4 H (0.9-1.1) Sodium 141 (136-145) mmol/L Potassium 3.5 (3.5-5.1) mmol/L Chloride 107 (98-107) mmol/L Carbon Dioxide 30 (21-32) mmol/L Anion Gap 4.0 (3-11) BUN 15 (7-18) mg/dl Creatinine 0.80 (0.6-1.2) mg/dl Est Cr Clr Drug Dosing 51.5 ml/min Est GFR ( Amer) 77.9 Est GFR (Non-Af Amer) 67.2 BUN/Creatinine Ratio 19.2 (10-20) Glucose 222 H (70-99) mg/dl POC Glucose (70-99) mg/dl Calcium 8.9 (8.5-10.1) mg/dl Vitamin B12 731 (193-986) pg/ml Folate 5.60 (>5.38) ng/ml 06/10/20 06/10/20 06/09/20 Range/Units 09:33 08:03 20:48 WBC 7.84 (4.8-10.8) K/uL RBC 3.75 L (4.2-5.4) M/uL Hgb 12.2 (12.0-16.0) g/dL Hct 37.2 (37-47) % MCV 99.2 (80-100) fL MCH 32.5 (25-34) pg MCHC 32.8 (32-36) g/dL RDW Std Deviation 53.2 H (36.4-46.3) fL RDW Coeff of Isael 14.8 H (11.5-14.5) % Plt Count 204 (130-400) K/uL MPV 11.5 H (7.4-10.4) fL PT (9.0-12.0) Seconds INR (0.9-1.1) Sodium (136-145) mmol/L Potassium (3.5-5.1) mmol/L Chloride (98-107) mmol/L Carbon Dioxide (21-32) mmol/L Anion Gap (3-11) BUN (7-18) mg/dl Creatinine (0.6-1.2) mg/dl Est Cr Clr Drug Dosing ml/min Est GFR ( Amer) Est GFR (Non-Af Amer) BUN/Creatinine Ratio (10-20) Glucose (70-99) mg/dl POC Glucose 108 H 224 H (70-99) mg/dl Calcium (8.5-10.1) mg/dl Vitamin B12 (193-986) pg/ml Folate (>5.38) ng/ml 06/09/20 06/09/20 06/09/20 Range/Units 17:10 12:20 12:17 WBC (4.8-10.8) K/uL RBC (4.2-5.4) M/uL Hgb (12.0-16.0) g/dL Hct (37-47) % MCV (80-100) fL MCH (25-34) pg MCHC (32-36) g/dL RDW Std Deviation (36.4-46.3) fL RDW Coeff of Isael (11.5-14.5) % Plt Count (130-400) K/uL MPV (7.4-10.4) fL PT (9.0-12.0) Seconds INR (0.9-1.1) Sodium (136-145) mmol/L Potassium (3.5-5.1) mmol/L Chloride (98-107) mmol/L Carbon Dioxide (21-32) mmol/L Anion Gap (3-11) BUN (7-18) mg/dl Creatinine (0.6-1.2) mg/dl Est Cr Clr Drug Dosing ml/min Est GFR ( Amer) Est GFR (Non-Af Amer) BUN/Creatinine Ratio (10-20) Glucose (70-99) mg/dl POC Glucose 233 H 351 H* 409 H* (70-99) mg/dl Calcium (8.5-10.1) mg/dl Vitamin B12 (193-986) pg/ml Folate (>5.38) ng/ml PG Care Time/CCT Total # of Minutes Spent Total Time Spent with Patient: Total time spent is greater than 50% in coordination of care (as documented) at patient's floor/unit and/or counseling patient: Coding Level of Care Code 29065 Subseq Hosp Care Lvl 3 Diagnoses UTI (urinary tract infection) N30.01 Hematuria presence: with hematuria Urinary tract infection type: acute cystitis Colitis K52.9 Diabetes mellitus type 2, uncontrolled E11.65 Paroxysmal atrial fibrillation I48.0 HTN (hypertension) I10 Depression F32.9 CVA (cerebral vascular accident) I63.9 DVT prophylaxis Z29.9 (1) UTI (urinary tract infection) Hematuria presence: with hematuria Urinary tract infection type: acute cystitis Qualified Code(s): N30.01 - Acute cystitis with hematuria
[2020-06-10 09:58] LABS: Hematocrit (blood only) 37.2 % (37-47); Hemoglobin 12.2 g/dL (12.0-16.0); Mean Corpuscular Hemoglobin 32.5 pg (25-34); Mean Corpuscular Hgb Conc 32.8 g/dL (32-36); Mean Corpuscular Volume 99.2 fL (80-100); Mean Platelet Volume 11.5 fL (7.4-10.4); Platelet Count 204 K/uL (130-400); RDW Coefficient of Variation 14.8 % (11.5-14.5); RDW Standard Deviation 53.2 fL (36.4-46.3); Red Blood Count 3.75 M/uL (4.2-5.4); White Blood Count 7.84 K/uL (4.8-10.8)
[2020-06-10 10:11] LABS: INR 1.4 (0.9-1.1)
[2020-06-10 10:31] LABS: BUN Creatinine Ratio 19.2 (10-20); Calcium 8.9 mg/dl (8.5-10.1); Creatinine Clr Calc Pharmacy 51.5 ml/min; Est GFR (African American) 77.9; Est GFR (Non-African American) 67.2; Potassium 3.5 mmol/L (3.5-5.1)
[2020-06-10 10:51] LABS: Folate (Folic Acid) 5.6 ng/ml (>5.38)
[2020-06-10] MEDS ORDERED: ENOXAPARIN INJ 40 MG/0.4 ML SYR SQ ONE (11:02)
[2020-06-10] MEDS ORDERED: ALPRAZolam 0.5 MG TABLET PO STA (11:13)
[2020-06-10] MEDS: ACETAMINOPHEN 325 MG TAB PO PRN (11:16)
[2020-06-10] MEDS: ONDANSETRON INJ 2 MG/ML 2 ML VIAL IV PRN (11:19)
[2020-06-10] MEDS ORDERED: ENOXAPARIN INJ 60 MG/0.6 ML SYR SQ ONE (11:30)
[2020-06-10 12:42] LABS: Magnesium 2.3 mg/dl (1.8-2.4); Troponin I < 0.015 ng/ml (0-0.045)
[2020-06-10] MEDS ORDERED: WARFARIN SOD 1 MG TAB PO SCH (16:00)
[2020-06-10] MEDS ORDERED: WARFARIN SOD 1 MG TAB PO ONE ×2 (16:39→17:23)
[2020-06-10] MEDS: WARFARIN SOD 0.5 MG TAB PO SCH (17:31)
--- NOTE | 2020-06-10 17:39 | Electrocardiogram Report ---
Test Reason : Blood Pressure : / mmHG Vent. Rate : 061 BPM Atrial Rate : 061 BPM P-R Int : 194 ms QRS Dur : 164 ms QT Int : 472 ms P-R-T Axes : 018 250 021 degrees QTc Int : 475 ms Sinus rhythm with occasional Premature ventricular complexes Non-specific intra-ventricular conduction block Abnormal ECG When compared with ECG of 04-JUN-2020 19:26, Premature ventricular complexes are now Present Non-specific intra-ventricular conduction block has replaced Left bundle branch block Confirmed by Donovan Resendiz ([id number]) on 06/10/2020 5:38:47 PM Referred By: REFERRED SELF Confirmed By:Mario Resendiz
--- NOTE | 2020-06-10 18:06 | Communication Note ---
Date of Service: June 10, 2020 Given Sepsis on admission 2nd to E,Coli UTI and only received 3 days IV abx, will place back on Rocephin IV while inpatient and transition to PO tomorrow or Wednesday prior to d/c to complete 7 day course.
[2020-06-10] MEDS: cefTRIAXone SODIUM 2,000 MG in DEXTROSE 5% 50 ML IV SCH (18:47)
[2020-06-10] MEDS ORDERED: INSULIN GLARGINE SOLOSTAR 100 UNITS/ML 3 ML PEN SC SCH (21:00)
[2020-06-10] MEDS: INSULIN GLARGINE SOLOSTAR 100 UNITS/ML 3 ML PEN SC SCH (21:31)
[2020-06-10] MEDS: ALPRAZolam 0.25 MG TABLET PO SCH (21:34)
[2020-06-11 06:45] LABS: Basophils # (auto) 0.05 K/uL (0-0.2); Basophils % (auto) 0.7 %; Eosinophils # (auto) 0.25 K/uL (0-0.5); Eosinophils % (auto) 3.3 %; Hematocrit (blood only) 34.7 % (37-47); Immature Granulocytes # (auto) 0.02 K/uL (0.00-0.02); Immature Granulocytes % (auto) 0.3 %; Lymphocytes # (auto) 1.58 K/uL (1.2-3.4); Lymphocytes % (auto) 20.9 %; Mean Corpuscular Hemoglobin 31.6 pg (25-34); Mean Corpuscular Hgb Conc 31.7 g/dL (32-36); Mean Corpuscular Volume 99.7 fL (80-100); Monocytes # (auto) 0.74 K/uL (0.11-0.59); Monocytes % (auto) 9.8 %; Neutrophils # (auto) 4.92 K/uL (1.4-6.5); Platelet Count 187 K/uL (130-400); RDW Coefficient of Variation 15.1 % (11.5-14.5); RDW Standard Deviation 54.4 fL (36.4-46.3); Red Blood Count 3.48 M/uL (4.2-5.4); White Blood Count 7.56 K/uL (4.8-10.8)
[2020-06-11 06:53] LABS: INR 1.5 (0.9-1.1); Prothrombin Time 14.3 Seconds (9.0-12.0)
[2020-06-11 07:21] LABS: Albumin Level 2.5 gm/dl (3.4-5.0); BUN Creatinine Ratio 17.6 (10-20); Calcium 9.1 mg/dl (8.5-10.1); Creatinine Clr Calc Pharmacy 43.3 ml/min; Est GFR (African American) 63.3; Est GFR (Non-African American) 54.6; Potassium 3.7 mmol/L (3.5-5.1)
[2020-06-11 07:24] LABS: Albumin Globulin Ratio 0.6 (0.9-2); Bilirubin,Total 0.3 mg/dl (0.2-1); Globulin 4.1 gm/dl (2.5-4.0); Total Protein 6.6 gm/dl (6.4-8.2)
--- NOTE | 2020-06-11 08:37 | Hospitalist Progress Note ---
Date of Service June 11, 2020 Assessment & Plan (1) UTI (urinary tract infection): * UA in ED indicated infection. * Urine cx growing chavez-sensitive E. coli. * NO sepsis as she had 0/4 SIRS, normal lactate, and probably only 1/3 qSOFA (questionable mental status change). * Completed 3 days IV Ceftriaxone * -- given sepsis on admission secondary to UTI restarted Ceftriaxone and will continue today and tomorrow with plans for continued Keflex at discharge for total of 7 days * PT/OT with recs for SNF -- CM following and referals to [facility] and [facility] * --> to have bed at [facility] tomorrow (2) Colitis: * CT a/p on 06/04 showed rectosigmoid fecal retention. * Started Miralax & suppositories on 06/05 * Added Senna on 06/06/2020. * On 06/08, ordered another suppository as she is not moving her bowel very quickly. * on 06/09 patient had a large BM, no blood, good consistency. * She continues to move her bowels however has been refusing stool softener at times due to multiple bowel movements on the . Discussed that she should at the least continue with daily MiraLAX to prevent constipation in the future. TSH wnl * Continue bowel regimen to keep regular at discharge (3) Diabetes mellitus type 2, uncontrolled: * A1c was 6.6% this admission. * Lowered home insulin glargine to 10 units HS (from home dose of 30 units HS) as hospital food has less carbs and BSGs up to 409 evening 06/09 and increased her back to 30units HS * SSI -- sugars better controlled but will tighten CF/CR * Continue to monitor (4) Paroxysmal atrial fibrillation: * In normal sinus rhythm. Now with a LBBB. Repeat EKG with IVCD replacing LBBB * Echo without any wall motion abnormalities. Did show some mild aortic valvular stenosis and elevated right ventricular systolic pressures and will obtain overnight pulse ox study probable ERIC * Continue warfarin (INR is 1.5 today and was given 0.5mg on 06/07 and extra 1mg last evening) * Expect rise more quickly now back on Ceftriaxone but will continue Lovenox daily to bridge (given 50mg SQ last evening) * INR in AM (5) HTN (hypertension): * Chronic. Controlled * BP today is 122/64 * Continue home losartan 50mg BID, hydralazine 50mg TID, and atenolol 25mg BID (6) Depression: * Depression/anxiety. * Tapered home alprazolam to evening PRN only (from BID). This is not an ideal medication for an 84yo with memory issues. * However she does have increased anxiety about transfer and such and could consider adding back to usual/issues with withdrawal * --> Changed to 0.25mg BID scheduled and anxiety symptoms improved and no further "heart beating out of chest" or obvious anxiety/reports of such * Continue to monitor but would recommend decreased dose as currently on at discharge (7) CVA (cerebral vascular accident): * Symptoms are more consistent with a metabolic encephalopathy and now with I think her baseline dementia. * CVA with chronic left hemiplegia. * Allergy to ASA --?use plavix * PT/OT with recs for rehab -- see above (8) DVT prophylaxis: * Warfarin for hx paroxysmal afib * INR subtherapeutic -- see above. Headache -- none further reported since tyelnol on 06/10 Also scheduled her xanax as above Folate low normal -- consider adding supplementation given MCV >100 vs starting multivitamin daily? Dispo: continued inpatient stay awaiting bed at rehab -- [facility] to have a bed tomorrow Admission and Anticipated Discharge Date Admission Date: June 04, 2020 Supervising Physician Co-Signing Physician Notes KJ Supervision Note: I did not personally see or examine the patient today, but I verified all donohue points of KJ Soto's assessment and plan with the following exceptions/additions: none Subjective Patient evaluated this afternoon. She states she is feeling much better today. No further headaches nausea or dizziness reported. Echo completed did not show any significant valvular abnormalities did show elevated right ventricular systolic pressure. Discussed continuing antibiotics and IV form while in the hospital and will continue oral antibiotics for total treatment duration of 7 days at discharge. [facility] appear to have a bed tomorrow. She has been eating and drinking again continuing to move her bowels. She has been refusing the MiraLAX however discussion with nursing staff and the patient revealed that this was likely due to multiple bowel movements after previous constipation. Recommended that she do continue at least once daily MiraLAX to help keep her bowels regular. Patient seemed agreeable to this plan. Patient answered all questions appropriately and was alert and oriented x3. Questions and concerns addressed at this time. Anticipating discharge tomorrow for continued rehab Review of Systems Review of Systems: All systems reviewed & are unremarkable except as noted in HPI & below Physical Exam Physical Exam: Constitutional: WD/WN, vitals as above Eyes: EOM intact bilaterally; no conjunctival abnormality. Poor dentition ENMT: external ear and nose normal, oropharynx normal Neck: trachea midline, no thyromegaly normal visual inspection Respiratory: normal respiratory effort, lungs clear to auscultation no respiratory distress, diminished in the bases Cardiovascular: regular rate and rhythm, 3/6 systolic ejection murmur, trace lymphedema, calves non-tender, NVI Gastrointestinal (Abdomen): Inspection/Auscultation: abdomen normal to inspection and normal bowel sounds; abdomen not distended Percussion/Palpation: abdomen soft; abdomen nontender, no guarding and abdomen not rigid Musculoskeletal: no cyanosis or clubbing, extremities motor strength 5/5 (with exception of L hemiparesis from prior CVA) Skin: warm and dry -- bilaterally erythema to buttocks with small skin tear Neurologic: moves all extremities and awake Psychiatric: Orientation: alert, oriented to person and cooperative -- does repeat herself frequently and not oriented to time at times Results & Data Results & Data ([facility]) Vital Signs (Past 12 Hours) Vital Signs Temp Pulse Resp BP Pulse Ox 06/11/20 07:47 36.9 C 63 16 128/62 90 06/10/20 23:22 36.6 C 62 16 115/53 L 92 Laboratory Results 06/11/20 06/11/20 06/11/20 Range/Units 07:44 06:25 06:25 WBC 7.56 (4.8-10.8) K/uL RBC 3.48 L (4.2-5.4) M/uL Hgb 11.0 L (12.0-16.0) g/dL Hct 34.7 L (37-47) % MCV 99.7 (80-100) fL MCH 31.6 (25-34) pg MCHC 31.7 L (32-36) g/dL RDW Std Deviation 54.4 H (36.4-46.3) fL RDW Coeff of Isael 15.1 H (11.5-14.5) % Plt Count 187 (130-400) K/uL MPV 11.0 H (7.4-10.4) fL Immature Gran % (Auto) 0.3 % Neut % (Auto) 65.0 % Lymph % (Auto) 20.9 % [place] % (Auto) 9.8 % Eos % (Auto) 3.3 % Baso % (Auto) 0.7 % Neut # (Auto) 4.92 (1.4-6.5) K/uL Lymph # (Auto) 1.58 (1.2-3.4) K/uL [place] # (Auto) 0.74 H (0.11-0.59) K/uL Eos # (Auto) 0.25 (0-0.5) K/uL Baso # (Auto) 0.05 (0-0.2) K/uL Immature Gran # (Auto) 0.02 (0.00-0.02) K/uL PT (9.0-12.0) Seconds INR (0.9-1.1) Sodium 141 (136-145) mmol/L Potassium 3.7 (3.5-5.1) mmol/L Chloride 109 H (98-107) mmol/L Carbon Dioxide 28 (21-32) mmol/L Anion Gap 4.0 (3-11) BUN 17 (7-18) mg/dl Creatinine 0.95 (0.6-1.2) mg/dl Est Cr Clr Drug Dosing 43.3 ml/min Est GFR ( Amer) 63.3 Est GFR (Non-Af Amer) 54.6 BUN/Creatinine Ratio 17.6 (10-20) Glucose 104 H (70-99) mg/dl POC Glucose 98 (70-99) mg/dl Calcium 9.1 (8.5-10.1) mg/dl Magnesium (1.8-2.4) mg/dl Total Bilirubin 0.3 (0.2-1) mg/dl AST 25 (15-37) U/L ALT 32 (12-78) U/L Alkaline Phosphatase 97 (45-117) U/L Troponin I (0-0.045) ng/ml Total Protein 6.6 (6.4-8.2) gm/dl Albumin 2.5 L (3.4-5.0) gm/dl Globulin 4.1 H (2.5-4.0) gm/dl Albumin/Globulin Ratio 0.6 L (0.9-2) Vitamin B12 (193-986) pg/ml Folate (>5.38) ng/ml 06/11/20 06/10/20 06/10/20 Range/Units 06:25 21:08 17:08 WBC (4.8-10.8) K/uL RBC (4.2-5.4) M/uL Hgb (12.0-16.0) g/dL Hct (37-47) % MCV (80-100) fL MCH (25-34) pg MCHC (32-36) g/dL RDW Std Deviation (36.4-46.3) fL RDW Coeff of Isael (11.5-14.5) % Plt Count (130-400) K/uL MPV (7.4-10.4) fL Immature Gran % (Auto) % Neut % (Auto) % Lymph % (Auto) % [place] % (Auto) % Eos % (Auto) % Baso % (Auto) % Neut # (Auto) (1.4-6.5) K/uL Lymph # (Auto) (1.2-3.4) K/uL [place] # (Auto) (0.11-0.59) K/uL Eos # (Auto) (0-0.5) K/uL Baso # (Auto) (0-0.2) K/uL Immature Gran # (Auto) (0.00-0.02) K/uL PT 14.3 H (9.0-12.0) Seconds INR 1.5 H (0.9-1.1) Sodium (136-145) mmol/L Potassium (3.5-5.1) mmol/L Chloride (98-107) mmol/L Carbon Dioxide (21-32) mmol/L Anion Gap (3-11) BUN (7-18) mg/dl Creatinine (0.6-1.2) mg/dl Est Cr Clr Drug Dosing ml/min Est GFR ( Amer) Est GFR (Non-Af Amer) BUN/Creatinine Ratio (10-20) Glucose (70-99) mg/dl POC Glucose 167 H 131 H (70-99) mg/dl Calcium (8.5-10.1) mg/dl Magnesium (1.8-2.4) mg/dl Total Bilirubin (0.2-1) mg/dl AST (15-37) U/L ALT (12-78) U/L Alkaline Phosphatase (45-117) U/L Troponin I (0-0.045) ng/ml Total Protein (6.4-8.2) gm/dl Albumin (3.4-5.0) gm/dl Globulin (2.5-4.0) gm/dl Albumin/Globulin Ratio (0.9-2) Vitamin B12 (193-986) pg/ml Folate (>5.38) ng/ml 06/10/20 06/10/20 06/10/20 Range/Units 11:57 11:12 09:33 WBC (4.8-10.8) K/uL RBC (4.2-5.4) M/uL Hgb (12.0-16.0) g/dL Hct (37-47) % MCV (80-100) fL MCH (25-34) pg MCHC (32-36) g/dL RDW Std Deviation (36.4-46.3) fL RDW Coeff of Isael (11.5-14.5) % Plt Count (130-400) K/uL MPV (7.4-10.4) fL Immature Gran % (Auto) % Neut % (Auto) % Lymph % (Auto) % [place] % (Auto) % Eos % (Auto) % Baso % (Auto) % Neut # (Auto) (1.4-6.5) K/uL Lymph # (Auto) (1.2-3.4) K/uL [place] # (Auto) (0.11-0.59) K/uL Eos # (Auto) (0-0.5) K/uL Baso # (Auto) (0-0.2) K/uL Immature Gran # (Auto) (0.00-0.02) K/uL PT (9.0-12.0) Seconds INR (0.9-1.1) Sodium (136-145) mmol/L Potassium (3.5-5.1) mmol/L Chloride (98-107) mmol/L Carbon Dioxide (21-32) mmol/L Anion Gap (3-11) BUN (7-18) mg/dl Creatinine (0.6-1.2) mg/dl Est Cr Clr Drug Dosing ml/min Est GFR ( Amer) Est GFR (Non-Af Amer) BUN/Creatinine Ratio (10-20) Glucose (70-99) mg/dl POC Glucose 271 H 290 H (70-99) mg/dl Calcium (8.5-10.1) mg/dl Magnesium 2.3 (1.8-2.4) mg/dl Total Bilirubin (0.2-1) mg/dl AST (15-37) U/L ALT (12-78) U/L Alkaline Phosphatase (45-117) U/L Troponin I < 0.015 (0-0.045) ng/ml Total Protein (6.4-8.2) gm/dl Albumin (3.4-5.0) gm/dl Globulin (2.5-4.0) gm/dl Albumin/Globulin Ratio (0.9-2) Vitamin B12 (193-986) pg/ml Folate (>5.38) ng/ml 06/10/20 06/10/20 06/10/20 Range/Units 09:33 09:33 09:33 WBC (4.8-10.8) K/uL RBC (4.2-5.4) M/uL Hgb (12.0-16.0) g/dL Hct (37-47) % MCV (80-100) fL MCH (25-34) pg MCHC (32-36) g/dL RDW Std Deviation (36.4-46.3) fL RDW Coeff of Isael (11.5-14.5) % Plt Count (130-400) K/uL MPV (7.4-10.4) fL Immature Gran % (Auto) % Neut % (Auto) % Lymph % (Auto) % [place] % (Auto) % Eos % (Auto) % Baso % (Auto) % Neut # (Auto) (1.4-6.5) K/uL Lymph # (Auto) (1.2-3.4) K/uL [place] # (Auto) (0.11-0.59) K/uL Eos # (Auto) (0-0.5) K/uL Baso # (Auto) (0-0.2) K/uL Immature Gran # (Auto) (0.00-0.02) K/uL PT 14.0 H (9.0-12.0) Seconds INR 1.4 H (0.9-1.1) Sodium 141 (136-145) mmol/L Potassium 3.5 (3.5-5.1) mmol/L Chloride 107 (98-107) mmol/L Carbon Dioxide 30 (21-32) mmol/L Anion Gap 4.0 (3-11) BUN 15 (7-18) mg/dl Creatinine 0.80 (0.6-1.2) mg/dl Est Cr Clr Drug Dosing 51.5 ml/min Est GFR ( Amer) 77.9 Est GFR (Non-Af Amer) 67.2 BUN/Creatinine Ratio 19.2 (10-20) Glucose 222 H (70-99) mg/dl POC Glucose (70-99) mg/dl Calcium 8.9 (8.5-10.1) mg/dl Magnesium (1.8-2.4) mg/dl Total Bilirubin (0.2-1) mg/dl AST (15-37) U/L ALT (12-78) U/L Alkaline Phosphatase (45-117) U/L Troponin I (0-0.045) ng/ml Total Protein (6.4-8.2) gm/dl Albumin (3.4-5.0) gm/dl Globulin (2.5-4.0) gm/dl Albumin/Globulin Ratio (0.9-2) Vitamin B12 731 (193-986) pg/ml Folate 5.60 (>5.38) ng/ml 06/10/20 Range/Units 09:33 WBC 7.84 (4.8-10.8) K/uL RBC 3.75 L (4.2-5.4) M/uL Hgb 12.2 (12.0-16.0) g/dL Hct 37.2 (37-47) % MCV 99.2 (80-100) fL MCH 32.5 (25-34) pg MCHC 32.8 (32-36) g/dL RDW Std Deviation 53.2 H (36.4-46.3) fL RDW Coeff of Isael 14.8 H (11.5-14.5) % Plt Count 204 (130-400) K/uL MPV 11.5 H (7.4-10.4) fL Immature Gran % (Auto) % Neut % (Auto) % Lymph % (Auto) % [place] % (Auto) % Eos % (Auto) % Baso % (Auto) % Neut # (Auto) (1.4-6.5) K/uL Lymph # (Auto) (1.2-3.4) K/uL [place] # (Auto) (0.11-0.59) K/uL Eos # (Auto) (0-0.5) K/uL Baso # (Auto) (0-0.2) K/uL Immature Gran # (Auto) (0.00-0.02) K/uL PT (9.0-12.0) Seconds INR (0.9-1.1) Sodium (136-145) mmol/L Potassium (3.5-5.1) mmol/L Chloride (98-107) mmol/L Carbon Dioxide (21-32) mmol/L Anion Gap (3-11) BUN (7-18) mg/dl Creatinine (0.6-1.2) mg/dl Est Cr Clr Drug Dosing ml/min Est GFR ( Amer) Est GFR (Non-Af Amer) BUN/Creatinine Ratio (10-20) Glucose (70-99) mg/dl POC Glucose (70-99) mg/dl Calcium (8.5-10.1) mg/dl Magnesium (1.8-2.4) mg/dl Total Bilirubin (0.2-1) mg/dl AST (15-37) U/L ALT (12-78) U/L Alkaline Phosphatase (45-117) U/L Troponin I (0-0.045) ng/ml Total Protein (6.4-8.2) gm/dl Albumin (3.4-5.0) gm/dl Globulin (2.5-4.0) gm/dl Albumin/Globulin Ratio (0.9-2) Vitamin B12 (193-986) pg/ml Folate (>5.38) ng/ml Diagnostic Findings Echocardiogram Left ventricular systolic function is normal. There is mild concentric left ventricular hypertrophy. Left atrium is moderately dilated Mild valvular aortic stenosis There is mild mitral annular calcification Right ventricular systolic pressure is elevated to 40-50 mmHg PG Care Time/CCT Total # of Minutes Spent Total Time Spent with Patient: Total time spent is greater than 50% in coordination of care (as documented) at patient's floor/unit and/or counseling patient: Coding Level of Care Code 97432 Subseq Hosp Care Lvl 3 Diagnoses UTI (urinary tract infection) N30.01 Hematuria presence: with hematuria Urinary tract infection type: acute cystitis Colitis K52.9 Diabetes mellitus type 2, uncontrolled E11.65 Paroxysmal atrial fibrillation I48.0 HTN (hypertension) I10 Depression F32.9 CVA (cerebral vascular accident) I63.9 DVT prophylaxis Z29.9 (1) UTI (urinary tract infection) Hematuria presence: with hematuria Urinary tract infection type: acute cystitis Qualified Code(s): N30.01 - Acute cystitis with hematuria
[2020-06-11] MEDS: INSULIN ASPART 100 UNITS/ML 3 ML PEN SC SCH ×4 (09:36→20:57)
[2020-06-11] MEDS: SENNA 8.6 MG TAB PO SCH (09:53)
[2020-06-11] MEDS: POLYETHYLENE (MIRALAX) 17 GM PACK PO SCH (09:53)
[2020-06-11] MEDS: ATENOLOL 25 MG TABLET PO SCH ×2 (09:54→20:47)
[2020-06-11] MEDS: hydrALAZINE TAB 50 MG TAB PO SCH ×3 (09:54→20:50)
[2020-06-11] MEDS: ENOXAPARIN INJ 40 MG/0.4 ML SYR SQ SCH (09:55)
[2020-06-11] MEDS: LOSARTAN POTASSIUM 50 MG TAB PO SCH ×2 (09:55→20:50)
[2020-06-11] MEDS: ALPRAZolam 0.25 MG TABLET PO SCH ×2 (09:59→20:57)
--- NOTE | 2020-06-11 12:33 | XCELERA ---
[id number]
[2020-06-11] MEDS: ACETAMINOPHEN 325 MG TAB PO PRN (14:43)
[2020-06-11] MEDS: WARFARIN SOD 0.5 MG TAB PO SCH (16:11)
[2020-06-11] MEDS: INSULIN GLARGINE SOLOSTAR 100 UNITS/ML 3 ML PEN SC SCH (20:51)
[2020-06-11] MEDS: cefTRIAXone SODIUM 2,000 MG in DEXTROSE 5% 50 ML IV SCH (20:57)
[2020-06-12 06:56] LABS: INR 1.5 (0.9-1.1); Prothrombin Time 14.4 Seconds (9.0-12.0)
[2020-06-12 07:19] LABS: BUN Creatinine Ratio 20.2 (10-20); Calcium 8.9 mg/dl (8.5-10.1); Creatinine Clr Calc Pharmacy 41.2 ml/min; Est GFR (African American) 59.5; Est GFR (Non-African American) 51.3; Potassium 4.2 mmol/L (3.5-5.1)
[2020-06-12] MEDS ORDERED: POLYETHYLENE (MIRALAX) 17 GM PACK PO SCH (09:00)
--- NOTE | 2020-06-12 09:29 | Discharge Summary ---
Date of Service June 12, 2020 Admission HPI Per Admitting Provider Chief Complaint: The patient was brought to the emergency department by EMS due to lethargy, decreased responsiveness and altered mental status that the patient's noted began as he tried to wake her up in the afternoon. Primary Care Provider: Remi Gu MD The patient is an 84-year-old female with a past medical history including diabetes mellitus type 2, depression, anxiety, hypertension, CVA, paroxysmal atrial fibrillation, long-term anticoagulation use, hypertensive crisis and mild chronic anemia. Patient did have a CT scan of the head in the ED which did not show any acute events, and chest x-ray was unchanged. CT scan of abdomen and pelvis showed a distended bladder and stercoral colitis. Urinalysis was strongly suggestive of urinary tract infection. Patient was COVID-19 negative. Admission Exam Per Admitting Provider The patient is nonresponsive, normocephalic and atraumatic, lying in bed and in no acute distress. HEENT--PERRL, EOMI, mucous membranes and oropharynx dry. Neck--supple. No JVD. No bruits. Thyroid normal, trachea midline, no adenopathy. Heart--normal S1 and S2. No murmurs, rubs or gallops. Lungs--clear bilaterally, no respiratory distress, no accessory muscle use. Abdomen--normal bowel sounds and soft. Nontender. Nondistended. Morbidly obese Extremities-no edema Dermatologic--skin is dry Neurologic--cranial nerves II through XII grossly intact. Rheumatologic--limited exam Psychiatric--nonresponsive. Principal Diagnosis UTI, Stercoral Colitis Discharge Exam Constitutional: WD/WN, vitals as above, obese, laying in bed NAD Eyes: EOM intact bilaterally; no conjunctival abnormality. Poor dentition, moist mmm ENMT: external ear and nose normal, oropharynx normal Neck: trachea midline, no thyromegaly normal visual inspection Respiratory: normal respiratory effort, lungs clear to auscultation no respiratory distress, diminished in the bases Cardiovascular: regular rate and rhythm, 3/6 systolic ejection murmur, trace lymphedema, calves non-tender, NVI Gastrointestinal (Abdomen): Inspection/Auscultation: abdomen normal to inspection and normal bowel sounds; abdomen not distended Percussion/Palpation: abdomen soft; abdomen nontender, no guarding and abdomen not rigid Musculoskeletal: no cyanosis or clubbing, extremities motor strength 5/5 (with exception of L hemiparesis from prior CVA) Skin: warm and dry -- bilaterally erythema to buttocks with small skin tear Neurologic: moves all extremities and awake Psychiatric: Orientation: alert, oriented to person, place and time (May, Verna is president) Discharge Data Allergies Allergy/AdvReac Type Severity Reaction Status Date / Time aspirin Allergy Intermediate HIVES Verified 06/04/20 20:40 Iodinated Contrast Media Allergy Intermediate HIVES Verified 06/04/20 20:40 Penicillins Allergy Intermediate HIVES Verified 06/04/20 20:40 doxazosin Allergy Unknown Elevated BP Unverified 06/04/20 20:40 glipizide Allergy Unknown Pt doesn't Unverified 06/04/20 20:40 remeber reaction influenza virus vacc Allergy Unknown Unknown Verified 06/05/20 14:46 trivalent, split [From Fluzone] pregabalin Allergy Unknown Pt doesn't Unverified 06/04/20 20:40 remeber reaction Xvxapnp-Edf-Oeo Reductase Allergy Unknown muscle Unverified 06/04/20 20:40 Inhibitor cramping thimerosal Allergy Unknown Pt can't Unverified 06/04/20 20:40 remember reaction Ordered Studies 06/04/20 20:08 CT abd pelvis wo con Urgent CT head/brain wo con Urgent Hospital Course (1) UTI (urinary tract infection): Weakness, confusion and constipation on admission Urine with Ecoli and was initally given 3 days of Ceftriaxone then stopped. Restarted antibiotics given ongoing confusion with subsequent resolution and discharged on Keflex to complete [address] Head negative for acute process PT/OT evals with recs for SNF at d/c --> discharged to [facility] for rehab (2) Colitis: CT a/p on 06/04 showed rectosigmoid fecal retention. Was on Rocephin/Flagyl initially but d/c'd Flagyl with Rocephin after 3 days as felt not infectious. TSH wnl Started Miralax & suppositories on 06/05 and added Senna. Resolved constipation with suppository and continued to move her bowels and instructed to utilize miralax daily as needed if she does not have a BM to prevent constipation given her decreased mobility and reported sitting in chair SEED TESTER due to her weakness. Continued bowel regimen at d/c but ok with holding off for today given multiple BMs and improved mentation (3) Diabetes mellitus type 2, uncontrolled: A1c was 6.6% this admission. Lowered glargine initially but increased back to her 30u HS and ISS while inpatient BSGs improved as glargine back to usual dose and patient discharged on her home regimen (4) Paroxysmal atrial fibrillation: In normal sinus rhythm. Presenting EKG with NEW LBBB. Repeat EKG with nonspecific IVCD replacing LBBB, NOT in AFIB Echo without any wall motion abnormalities. Did show some mild aortic valvular stenosis and elevated right ventricular systolic pressures and obtained overnight pulse ox study as has probable ERIC Overnight pulse ox with O2 sat dropped to 80% with <88% for >10 minutes and recommended patient utilize 2L via NC HS and have formal sleep study done outpatient given daytime somnolence/HTN INR subtherapeutic while inpatient and patient was given extra 0.5mg on 06/07 and 1mg on 06/10 and instructed patient to utilize 1mg twice weekly until INR back in normal range and should have follow up outpatient. Daily INRs at [facility]. Was bridging with lovenox while inpatient but not continued at discharge as remains in sinus rhythm and likely to be therapeutic by tomorrow No LE edema, POx 90% on RA without respiratory distress or shortness of breath (resolved with 1x dose of lasix as she had been on continued IVF while inpatient and suspect some volume overload) (5) HTN (hypertension): Chronic. Continued home losartan 50mg BID, hydralazine 50mg TID, and atenolol 25mg BID (6) Depression: Depression/anxiety. Tapered home alprazolam to evening PRN only (from BID). This is not an ideal medication for an 84yo with memory issues. However she did have increased anxiety about transfer and such--> Changed to 0.25mg BID scheduled and anxiety symptoms improved and no further "heart beating out of chest" or obvious anxiety/reports of such Discharged on reduced dose 0.25mg BID and suggest further tiotration off as outpt (7) CVA (cerebral vascular accident): Symptoms are more consistent with a metabolic encephalopathy and now with I think her baseline dementia. CVA with chronic left hemiplegia. Allergy to ASA prior eval by Dr eMri from Neurology 2014 during her CVA and did not recommend Plavix at that time as already on Coumadin which had been subtherapeutic Not on Statin due to allergy reported but could consider pravastatin if tolerable (8) Aortic stenosis: mild on ECHO follow as outpt (9) Nocturnal hypoxemia: as above, qualifies for 2LNC qhs (10) Pulmonary hypertension: elevated RVSP on ECHO treating with nocturnal O2 as above (11) DVT prophylaxis: Warfarin for hx paroxysmal afib INR subtherapeutic -- see above. Headache none further reported since Tylenol on 06/10 Also scheduled her Xanax as above Asymmetry on CTA/P for breast tissue left breast compared to the right Recommend following up with PCP for US/mammogram for further evaluation Discharged to [facility] for rehab Total Time Total Time Spent Total Time Spent (In Minutes): 65 Discharge Plan Discharge Items Patient Disposition: Transfer Longterm Fac Reason For Visit: UTI, Stercoral Colitis, Mental Status Change Discharge Diagnosis: Urinary Tract Infection, Stercoral Colitis Goals: You have been hospitalized for an acute medical problem. During your stay at [facility], we have made an effort to correct the problem that brought you to the hospital while keeping you as comfortable as possible. Medications were used to bring your condition under control and your discharge instructions will include directions for any medications you should take after leaving the hospital. Please make sure you see your Primary Care Provider as part of your follow up plan. Activity: As commented below Activity Comment: advance with therapy Non-emergency contact: Primary Care Provider Call non-emergency contact if: you have any medication questions, your symptoms worsen, your pain is not controlled and you have a fever Follow-up/Referrals: ProRemi MD [Primary Care Provider] - Diet: Carb Consistent or DM2 and Heart Healthy Addtl Attending Provider Instructions: You have been hospitalized and found to have sepsis secondary to urinary tract infection as well as constipation which can cause confusion. You were treated with IV fluids and antibiotics and are being sent home with a continued prescription for Keflex 500mg FOUR times daily for an additional 4 days past today. Please continue as prescribed for full course. Please continue proper hygiene when wiping to prevent recurrence and make sure to stay well hydrated. You should continue Miralax as needed on days without bowel movement to prevent constipation/worsening confusion. Cat scan of your head during admission was negative for acute stroke. ECHO (ultrasound of your heart) was performed and showed elevated right sided pressures which is likely due to some underlying sleep apnea and an overnight pulse oximetry study was completed which showed you should be on supplemental oxygen 2 liters by nasal cannula at night and should consider an outpatient sleep study. This will also help with blood pressure control as well as daytime sleepiness. You will continue to utilize your usual 0.5mg Coumadin but should take an extra 1mg by mouth twice WEEKLY until your INR is within normal limits. You should have daily INRs checked while at [facility] to ensure this come in normal limits. Please continue routine care to your buttocks: -- Cleanse area with mild soap/water and pat dry. dust with stoma powder and brush off excess and apply with Efrain antifungal cream. Reapply as needed to protect area. No plastic diapers and please avoid briefs unless out of bed. Your Xanax was reduced to prevent confusion, but given you have been on this for a long time and would not want to have withdrawal symptoms, this will be continued as 0.25mg by mouth twice daily. Please follow up with your primary care provider in the next week to monitor your progress. You may want to consider trial of pravastatin for prevention. You should also follow up for routine mammogram/ultrasound given asymmetrical findings on imaging on admission. Please return to the emergency department with any fever, chest pain, shortness of breath, confusion or for any other symptoms that are concerning for you. It has been a pleasure being a part of the medical team providing for you while you have been in the hospital. Take care! Pending Studies at Discharge: No Stand-Alone Forms: [facility] Skilled Items Patient informed of condition?: Yes DNR: No Discharge Level of Care: Skilled Communicable Disease: No Discharge Prognosis: Stable Lines: None Urinary Catheter: No Medications and DC Order Prescriptions: New polyethylene glycol 3350 [Miralax] 17 gram Powder In Packet 17 g PO DAILY PRN (Reason: constipation) Qty: 30 RF: 0 alprazolam 0.25 mg tablet 0.25 mg PO BID Qty: 10 RF: 0 Continued atenolol 25 mg tablet 25 mg PO BID Qty: 180 RF: 3 losartan 50 mg tablet 50 mg PO BID Qty: 180 RF: 3 hydralazine 50 mg tablet 50 mg PO TID Qty: 270 RF: 3 insulin glargine 100 unit/mL solution 30 unit subcut QPM Qty: 10 RF: 6 insulin aspart U-100 100 unit/mL (3 mL) insulin pen 10 unit subcut .COMPLEX MDD 50 units Qty: 15 RF: 10 cholecalciferol (vitamin D3) 5,000 unit capsule 5,000 units PO DAILY RF: 0 warfarin 1 mg tablet 0.5 mg PO DAILY RF: 0 Discontinued alprazolam 1 mg tablet 0.5 mg PO BID RF: 0 Discharge Orders: Discharge Order (Routine); Ordered 06/12/20 Ordered By: Lucretia Hill/Other Patient Handouts: High Blood Sugar (Hyperglycemia), Hypoglycemia (Low Blood Sugar), Managing Type 2 Diabetes Admission Data Admit Date/Time: 06/04/20 22:38 Attending Provider: Luz Marina Mishra Admit Provider: Alejandro Torre Primary Care Provider: Remi Gu Other Providers: [facility] ; [place] ; [facility] Other Interventions: Discharge Summary Assessment (RN) Last Done: 06/12/20 15:54 Supervising Physician Co-Signing Physician Notes PA Supervision Note: I personally saw and examined the patient. I verified all donohue points and agree with KJ Soto with the following exceptions and/or additions: S-pt feeling well, no concerns, no pain , is moving bowels, no longer confused. O- Vitals reviewed Gen: [AAOx3, NAD] HEENT: [anicteric sclerae, EOMI] CV: [RRR +2/6 BRET at RUSB nl S1S2] Pulm: [CTAB no wcr] Abd: [+BS soft NT ND no masses or hernias] Ext: [no edema] Skin: [no rashes, warm/dry] Neuro: [full strength throughout] A/P-84 yo female here with UTI, acute metabolic encephalopathy, stercoral colitis. Much improved on abx, moving bowels. Stable for dc to [place] Coding Level of Care Code D/C Day Management >30 mins Diagnoses UTI (urinary tract infection) N30.01 Hematuria presence: with hematuria Urinary tract infection type: acute cystitis Colitis K52.9 Diabetes mellitus type 2, uncontrolled E11.65 Paroxysmal atrial fibrillation I48.0 HTN (hypertension) I10 Depression F32.9 CVA (cerebral vascular accident) I63.9 Aortic stenosis I35.0 Nocturnal hypoxemia G47.34 Pulmonary hypertension I27.20 DVT prophylaxis Z29.9
[2020-06-12] MEDS: SENNA 8.6 MG TAB PO SCH (09:45)
[2020-06-12] MEDS: hydrALAZINE TAB 50 MG TAB PO SCH ×2 (09:45→13:53)
[2020-06-12] MEDS: LOSARTAN POTASSIUM 50 MG TAB PO SCH (09:45)
[2020-06-12] MEDS: ATENOLOL 25 MG TABLET PO SCH (09:46)
[2020-06-12] MEDS: ENOXAPARIN INJ 40 MG/0.4 ML SYR SQ SCH (09:46)
[2020-06-12] MEDS: INSULIN ASPART 100 UNITS/ML 3 ML PEN SC SCH ×2 (09:47→13:40)
[2020-06-12] MEDS: ALPRAZolam 0.25 MG TABLET PO SCH (09:54)
[2020-06-12] MEDS ORDERED: FUROSEMIDE 20 MG in SYRINGE 0 ML IV ONE (13:00)
[2020-06-12] MEDS ORDERED: cephALEXin 500 MG CAP PO STA (14:00)
[2020-06-12] MEDS: WARFARIN SOD 0.5 MG TAB PO SCH (15:29)
== END 2020-06-12 15:56 | DRG 871 ==
LOC: ED 19:15 → 3W 22:38 → SUATTDRO 22:38 → 3W 23:05

== ENCOUNTER 2020-06-26 12:25 | Inpatient (IN) ==
[2020-06-26] MEDS ORDERED: SODIUM CHLORIDE 0.9% 1000ML 1,000 ML IV SCH (14:00)
[2020-06-26 14:07] LABS: Basophils # (auto) 0.02 K/uL (0-0.2); Basophils % (auto) 0.2 %; Eosinophils # (auto) 0.03 K/uL (0-0.5); Eosinophils % (auto) 0.3 %; Hematocrit (blood only) 37.8 % (37-47); Hemoglobin 12.1 g/dL (12.0-16.0); Immature Granulocytes # (auto) 0.06 K/uL (0.00-0.02); Immature Granulocytes % (auto) 0.6 %; Lymphocytes # (auto) 1.39 K/uL (1.2-3.4); Lymphocytes % (auto) 13.3 %; Mean Corpuscular Hemoglobin 31.6 pg (25-34); Mean Corpuscular Volume 98.7 fL (80-100); Mean Platelet Volume 12.3 fL (7.4-10.4); Monocytes # (auto) 0.97 K/uL (0.11-0.59); Monocytes % (auto) 9.2 %; Neutrophils # (auto) 8.02 K/uL (1.4-6.5); Neutrophils % (auto) 76.4 %; Platelet Count 175 K/uL (130-400); RDW Coefficient of Variation 14.7 % (11.5-14.5); RDW Standard Deviation 52.9 fL (36.4-46.3); Red Blood Count 3.83 M/uL (4.2-5.4); White Blood Count 10.49 K/uL (4.8-10.8)
[2020-06-26 14:18] LABS: Appearance Urine Cloudy (Clear); Bacteria Urine Automated Negative (Negative); Bilirubin Urine Negative (Negative); Blood Urine Negative (Negative); Color Urine Yellow; Epithelial Cell Urine Auto >30 /lpf (0-5); Glucose Urine UA Negative (Negative); Ketones Urine Negative (Negative); Leukocyte Esterase Urine Trace (Negative); Nitrite Urine Negative (Negative); Protein Urine 1+ (Negative); Specific Gravity Urine 1.013 (1.000-1.030); Urobilinogen Urine Negative (Negative)
[2020-06-26] MEDS ORDERED: hydrALAZINE HCL 20 MG/ML VIAL IV ONE ×2 (14:37→17:08)
[2020-06-26 14:55] LABS: Uric Acid Crystals Urine Present (None Prsent)
[2020-06-26] MEDS ORDERED: cefTRIAXone SODIUM 1,000 MG/50 ML BAG IV STA (15:04)
[2020-06-26 15:14] LABS: Alanine Aminotransferase 31 U/L (12-78); Albumin Level 2.7 gm/dl (3.4-5.0); Aspartate Aminotransferase 37 U/L (15-37); BUN Creatinine Ratio 33.6 (10-20); Blood Urea Nitrogen 26 mg/dl (7-18); Calcium 8.6 mg/dl (8.5-10.1); Carbon Dioxide 35 mmol/L (21-32); Chloride 106 mmol/L (98-107); Est GFR (African American) 80.3; Est GFR (Non-African American) 69.3; Glucose 134 mg/dl (70-99); Magnesium 2.9 mg/dl (1.8-2.4); Sodium 142 mmol/L (136-145)
[2020-06-26 15:27] LABS: Albumin Globulin Ratio 0.6 (0.9-2); Alkaline Phosphatase 93 U/L (45-117); Bilirubin,Total 0.6 mg/dl (0.2-1); Globulin 4.6 gm/dl (2.5-4.0); Total Protein 7.3 gm/dl (6.4-8.2); Troponin I 0.057 ng/ml (0-0.045)
--- NOTE | 2020-06-26 15:30 | CT Scan Report ---
CT head/brain wo con CLINICAL HISTORY: Acute change in mental status. COMPARISON STUDY: 06/24/2020 TECHNIQUE: Axial CT of the brain is performed from the vertex to the skull base. IV contrast was not administered for this examination. A dose lowering technique was utilized adhering to the principles of ALARA. CT DOSE: FINDINGS: No intra or extra-axial mass lesions are visualized. There is no CT evidence of acute cortical infarc tion. There is no evidence of midline shift. There is no acute hemorrhage. No calvarial fractures ar e visualized. There are moderate white matter hypodensities likely on a small vessel basis. There is no evidence of pathologic ventricular dilatation. There is no evidence of acute sinusitis IMPRESSION: No acute intracranial findings ACT 112: Negative or not required by law. Electronically signed by: Rufino Izaguirre M.D. 06/26/2020 3:29 PM
[2020-06-26 15:32] LABS: INR 3.4 (0.9-1.1); Prothrombin Time 31.5 Seconds (9.0-12.0)
--- NOTE | 2020-06-26 15:32 | CT Scan Report ---
CT OF THE CERVICAL SPINE WITHOUT CONTRAST CLINICAL HISTORY: fall COMPARISON STUDY: No previous studies for comparison. TECHNIQUE: Helical axial images of the cervical spine were obtained without IV contrast. Sagittal a nd coronal reconstructions were viewed. Automated exposure control was utilized for the study. A do se lowering technique was utilized adhering to the principles of ALARA. FINDINGS: Alignment of the cervical spine is anatomic. Vertebral body heights are maintained. No acut e cervical spine fracture or subluxation is present. There is no prevertebral edema. Facet joints are intact. Note is made of a severe multilevel facet arthrosis. There is moderate multilevel degenerat leonidas disc disease. Interlobular septal thickening within visualized portions of the lung apices indica savannah interstitial pulmonary edema. Bilateral pleural effusions are partially imaged. IMPRESSION: 1. No acute cervical spine fracture or subluxation. 2. Interstitial pulmonary edema within the lung apices. Partially visualized bilateral pleural effusi ons. ACT 112: Negative or not required by law. Electronically signed by: Quinn Gannon M.D. 06/26/2020 3:31 PM
--- NOTE | 2020-06-26 15:40 | CT Scan Report ---
ABDOMEN AND PELVIS CT WITHOUT CONTRAST CT DOSE: 4530.68 mGy.cm HISTORY: Acutely altered mental status AMS TECHNIQUE: Multiaxial CT images of the abdomen and pelvis were performed without contrast. A dose lo wering technique was utilized adhering to the principles of ALARA. COMPARISON STUDY: CT abdomen and pelvis 06/04/2020 FINDINGS: Cardiomegaly with mitral and aortic annular calcifications. Small to moderate layering pleural effusi ons have increased in size from comparison. Progressive bibasilar consolidation. No pneumatosis or pn eumoperitoneum. Limited evaluation of the solid abdominal and without the use of IV contrast. Calcified granulomata o f the spleen. Moderately atrophic pancreas. Unremarkable adrenal glands. Cholecystectomy. Unenhanced liver is unremarkable. Renal vascular calcifications noted bilaterally. Bilateral renal vascular calc ifications. Left-sided renal cysts. Indeterminate intermediate density 1.9 cm lesion of the posterior interpolar left kidney with Hounsfield of 27, likely a complex cyst. Decompressed urinary bladder wi th Guevara catheter. Air within the bladder is likely secondary to instrumentation. Hysterectomy. No ad nexal mass lesion. Calcified plaque of the aorta without aneurysm. There is no adenopathy. Small hiatal hernia. Colonic diverticulosis. No bowel obstruction or bowel wall thickening. Nonvisual ization of the appendix. No ascites or mesenteric inflammation. Asymmetric soft tissue nodularity of the left breast redemonstrated. Cystic 1.8 cm structure of the upper outer quadrant right breast. Deg enerative changes of the shoulders and spine. Demineralized appearance of the bones. IMPRESSION: 1. Limited exam without the use of contrast. 2. No bowel obstruction or bowel wall thickening. 3. Colonic diverticulosis. 4. Increased size of layering pleural effusions with progressive bibasilar consolidation suggestive o f compressive atelectasis. Superimposed pneumonitis would be impossible to exclude. 5. Additional findings as above. ACT 112: Negative or not required by law. The above report was generated using voice recognition software. It may contain grammatical, syntax o r spelling errors. Electronically signed by: Harsha Diaz M.D. 06/26/2020 3:38 PM
--- NOTE | 2020-06-26 15:54 | XRay Report ---
SINGLE VIEW CHEST CLINICAL HISTORY: Change in mental status. FINDINGS: An AP, portable, upright chest radiograph is compared to study dated 06/04/2020. Correlation is made with chest CT dated 06/21/2009. The examination is degraded by portable technique and patient rotation. The heart is enlarged noting atherosclerotic calcification of the thoracic aorta. There is pulmonary vascular congestion. There are small pleural effusions. Consolidation is noted at the left lung base. No pneumothorax is seen. The skeletal structures are osteopenic. The bony thorax is gross ly intact. IMPRESSION: 1. Cardiomegaly with evidence of congestive failure. 2. Small pleural effusions. 3. Consolidative change at the left lung base likely represents atelectasis. Correlate clinically for evidence of a superimposed infectious/inflammatory pneumonitis. ACT 112: Negative or not required by law. Electronically signed by: Darius Bhardwaj M.D. 06/26/2020 3:53 PM
--- NOTE | 2020-06-26 16:03 | Emergency Department Note ---
Impression & Plan AMS (altered mental status), Elevated troponin, Pleural effusion, UTI (urinary tract infection), Malignant hypertension ED Provider Note INFORMANT: Nursing facility and EMS ED PROVIDER(S): Adam Leyva MD CHIEF COMPLAINT: Altered mental status PLAN: Disposition: Admitted Condition: Guarded Outpatient prescription management: none Referral: None MEDICAL DECISION MAKING: Patient presented to emergency department due to altered mental status. She was seen to verbal and tactile stimuli. Patient's ECG showed a sinus bradycardia without obvious acute change. She had an unremarkable CBC. Chemistry panel shows mild dehydration. Her renal function was normal. Her troponin was mildly elevated. Urinalysis raise concerns for infection. Chest x-ray does show some basilar effusions and atelectasis versus infiltrate. The patient did have blood cultures obtained. ABG was ordered. She had a negative CT scan of the head and neck. CT scan abdomen pelvis only showed the pleural effusions and no other acute pathology. She was given IV Rocephin. Patient was moderately hyper tensive as well. She did receive 2 doses of IV hydralazine. I did update her . Consultation was made with Dr. Mishra of the hospitalist service. Patient was evaluated in the ER for further management. Triage Nursing notes reviewed and agree them. Vital Signs: reviewed and remarkable for hypertension. Differential diagnosis: Infection, hypoglycemia, electrolyte abnormalities, overdose, toxicologic, cardiac sources, intracerebral event, neurologic, trauma, as well as other pathologies. Diagnostics interpreted by me: ECG: Twelve-lead ECG reveals sinus bradycardia 56 bpm. Left axis deviation and left bundle branch block. When compared to June 10, 2020 the left bundle branch block is replaced a nonspecific interventricular conduction block. Cardiac Monitoring:Cardiac monitoring ordered by me: The patient was placed on continuous cardiac monitoring and observed. It revealed a sinus bradycardia 55 beats per minute. Imaging studies: Head and cervical spine CT are negative for trauma. There is mild pulmonary edema noted the lung apices.. CT scan of the abdomen pelvis reveals bilateral pleural effusions. No acute intra-abdominal findings noted per radiology. I refer you to the EMR for further details. HPI: Patient is an 84-year-old female who presented from [facility] due to increased altered mental status over the last few days. There was a reported fall a few days ago. The patient is anticoagulated. She also received her first Covid vaccine 2 days ago. They noted that she was normally confused but is able to have conversations. She was only responding to tactile stimuli. She does have a history of UTI. She did suffer a right humeral head fracture on the fall. History limited secondary to mental status. ROS: Unobtainable secondary to mental status. PAST MEDICAL HISTORY:See Below , A. fib, hypertension PAST SURGICAL HISTORY:See Below, FAMILY HISTORY:See Below SOCIAL HISTORY:See Below, resides at the nursing facility HOME MEDICATIONS:See Below ALLERGIES:See Below VITALS:See Below PHYSICAL EXAMINATION: GENERAL: Sleepy but arousable. Opens eyes to voice. Lxn-mzdxhwjfnks-mkrvptshl, in no distress HENT: Normocephalic, contusion noted on the left forehead. Oropharynx unremarkable. EYES: Normal conjunctiva. Sclera non-icteric. NECK: Inspection normal. Non-tender. Supple. No nuchal rigidity. FROM. No masses. RESPIRATORY: Few scattered crackles. No wheezes. Normal respiratory effort. CARDIAC: Bradycardic rate. Normal rhythm. Systolic ejection murmur murmurs. No rubs. Extremities warm and well perfused. Pulses equal. No JVD. GI: Soft, non-distended. No tenderness to palpation. No rebound or guarding. No masses. RECTAL: Deferred. MUSCULOSKELETAL: There is pain with palpation of the upper right arm. Chest examination reveals no tenderness. The back is symmetrical on inspection without obvious abnormality. There is no CVA tenderness to palpation. No joint edema. LOWER EXTREMITIES: Calves are equal size bilaterally and non-tender. 2+ edema. No discoloration. NEURO: Altered sensorium. Following commands. Responding to verbal as well as tactile stimuli. SKIN: No rash or jaundice noted. CRITICAL CARE: I have personally spent greater than 32 minutes of critical care time in the direct management of this patient. This includes bedside care, interpretation of diagnostic studies, and testing, discussion with consultants, and family members, and other required patient management activities. These minutes are in excess of all separately billable procedures. Adam Leyva MD Past Med/Surg History Medical History (Updated 06/26/20 @ 18:31 by Adam Leyva MD) AMS (altered mental status) Anticoagulant long-term use Anxiety Aortic stenosis CVA (cerebral vascular accident) Depression Diabetes mellitus type 2, uncontrolled HTN (hypertension) Mild chronic anemia Nocturnal hypoxemia Paroxysmal atrial fibrillation Pulmonary hypertension Surgical History S/P adenoidectomy S/P cholecystectomy S/P hysterectomy S/P tubal ligation Family History Mother Diabetes Myocardial infarction Heart disease Father Heart disease Daughter Non-Hodgkin's lymphoma of lung Sister Parkinsons disease Denies family history of Ovarian cancer Prostate cancer Breast cancer Colorectal cancer Social History Smoking Status: Unknown if ever smoked Preferred Language: [place]ese Communication Ability: Impaired Visual Impairment: No Limitations Hearing Ability: Normal Ux Designer Required: No marital status: Current Living Situation: Spouse 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 Feels Safe at Home: Yes Childhood Exposure to Second-Hand Smoke: No Physical Activity Frequency: Does not Exercise Seatbelt Use: always Assistive Devices: Glasses and Walker Allergies Allergies Allergy/AdvReac Type Severity Reaction Status Date / Time aspirin Allergy Intermediate HIVES Verified 06/26/20 14:43 Iodinated Contrast Media Allergy Intermediate HIVES Verified 06/26/20 14:43 Penicillins Allergy Intermediate HIVES Verified 06/26/20 14:43 doxazosin Allergy Unknown Elevated BP Unverified 06/26/20 14:43 glipizide Allergy Unknown Pt doesn't Unverified 06/26/20 14:43 remeber reaction influenza virus vacc Allergy Unknown Unknown Verified 06/26/20 14:43 trivalent, split [From Fluzone] pregabalin Allergy Unknown Pt doesn't Unverified 06/26/20 14:43 remeber reaction Knsrspc-Fcn-Dxk Reductase Allergy Unknown muscle Unverified 06/26/20 14:43 Inhibitor cramping thimerosal Allergy Unknown Pt can't Unverified 06/26/20 14:43 remember reaction Home Meds Home Medications Medication Instructions Recorded Confirmed cholecalciferol (vitamin D3) 125 5,000 units PO DAILY cap 10/29/18 06/26/20 mcg (5,000 unit) capsule warfarin 0.5 mg PO DAILY 06/04/20 06/26/20 buspirone 5 mg PO TID 06/26/20 06/26/20 furosemide [Lasix] 20 mg PO DAILY 06/26/20 06/26/20 hydralazine 100 mg PO QID 06/26/20 06/26/20 ondansetron HCl [Zofran] 4 mg PO Q8H PRN 06/26/20 06/26/20 tramadol 50 mg PO Q6H PRN 06/26/20 06/26/20 Previous Rx's Medication Instructions Recorded atenolol 25 mg tablet 25 mg PO BID #180 tab 06/08/19 hydralazine 50 mg tablet 50 mg PO TID #270 tab 02/09/20 losartan 50 mg tablet 50 mg PO BID #180 tab 02/09/20 insulin glargine 100 unit/mL 30 unit SUBCUT QPM #10 ml 03/11/20 subcutaneous solution insulin aspart U-100 100 unit/mL 10 unit SUBCUT .COMPLEX #15 ml MDD 03/13/20 (3 mL) subcutaneous pen 50 units alprazolam 0.25 mg PO BID #10 tab 06/12/20 Results & Data (ED) Vital Signs Vital Signs - 24 hr 06/26/20 13:00 Temperature 37.5 C Temperature Source Oral Pulse Rate 59 L Pulse Rhythm Regular Pulse Strength Normal Respiratory Rate 20 Respiratory Effort / Characteristics Non-Labored Spontaneous Respiratory Depth Normal Respiratory Pattern Regular Blood Pressure 187/89 H Blood Pressure Mean 121 Pulse Oximetry 97 Oxygen Delivery Method Nasal Cannula Oxygen Flow Rate 2 Sepsis Recent Fever Within 48 Hours No Sepsis New/Unexplained Change in Mental Status N/A Sepsis Action Taken by Nursing No Action Required Laboratory Data Result diagrams: 06/26/20 13:25 06/26/20 13:25 Lab Results 06/26/20 06/26/20 06/26/20 Range/Units 13:25 13:25 13:25 WBC 10.49 (4.8-10.8) K/uL RBC 3.83 L (4.2-5.4) M/uL Hgb 12.1 (12.0-16.0) g/dL Hct 37.8 (37-47) % MCV 98.7 (80-100) fL MCH 31.6 (25-34) pg MCHC 32.0 (32-36) g/dL RDW Std Deviation 52.9 H (36.4-46.3) fL RDW Coeff of Isael 14.7 H (11.5-14.5) % Plt Count 175 (130-400) K/uL MPV 12.3 H (7.4-10.4) fL Immature Gran % (Auto) 0.6 % Neut % (Auto) 76.4 % Lymph % (Auto) 13.3 % Marshall % (Auto) 9.2 % Eos % (Auto) 0.3 % Baso % (Auto) 0.2 % Neut # (Auto) 8.02 H (1.4-6.5) K/uL Lymph # (Auto) 1.39 (1.2-3.4) K/uL Marshall # (Auto) 0.97 H (0.11-0.59) K/uL Eos # (Auto) 0.03 (0-0.5) K/uL Baso # (Auto) 0.02 (0-0.2) K/uL Immature Gran # (Auto) 0.06 H (0.00-0.02) K/uL PT Cancelled INR Cancelled Sodium 142 (136-145) mmol/L Potassium 4.0 (3.5-5.1) mmol/L Chloride 106 (98-107) mmol/L Carbon Dioxide 35 H (21-32) mmol/L Anion Gap 1.0 L (3-11) BUN 26 H (7-18) mg/dl Creatinine 0.78 (0.6-1.2) mg/dl Est Cr Clr Drug Dosing Not Reportable Est GFR ( Amer) 80.3 Est GFR (Non-Af Amer) 69.3 BUN/Creatinine Ratio 33.6 H (10-20) Glucose 134 H (70-99) mg/dl Calcium 8.6 (8.5-10.1) mg/dl Magnesium 2.9 H (1.8-2.4) mg/dl Total Bilirubin 0.6 (0.2-1) mg/dl AST 37 (15-37) U/L ALT 31 (12-78) U/L Alkaline Phosphatase 93 (45-117) U/L Troponin I 0.057 H* (0-0.045) ng/ml Total Protein 7.3 (6.4-8.2) gm/dl Albumin 2.7 L (3.4-5.0) gm/dl Globulin 4.6 H (2.5-4.0) gm/dl Albumin/Globulin Ratio 0.6 L (0.9-2) TSH 1.690 (0.300-4.500) uIu/ml Specimen Hemolysis Urine Color Urine Appearance (Clear) Urine pH (4.5-7.5) Ur Specific [place] (1.000-1.030) Urine Protein (Negative) Urine Glucose (UA) (Negative) Urine Ketones (Negative) Urine Blood (Negative) Urine Nitrite (Negative) Urine Bilirubin (Negative) Urine Urobilinogen (Negative) Ur Leukocyte Esterase (Negative) Urine WBC (Auto) (0-5) /hpf Urine RBC (Auto) (0-4) /hpf U Hyaline Cast (Auto) (0-5) /lpf U Epithel Cells (Auto) (0-5) /lpf Urine Bacteria (Auto) (Negative) Uric Acid Crystals (None Prsent) Urine Yeast (None Prsent) COVID-19 Eval Order SARS-CoV-2 (PCR) (Negative) Influenza Type A (PCR) (Neg) Influenza Type B (PCR) (Neg) RSV (RT-PCR) (Neg) 06/26/20 06/26/20 06/26/20 Range/Units 13:25 15:06 15:35 WBC (4.8-10.8) K/uL RBC (4.2-5.4) M/uL Hgb (12.0-16.0) g/dL Hct (37-47) % MCV (80-100) fL MCH (25-34) pg MCHC (32-36) g/dL RDW Std Deviation (36.4-46.3) fL RDW Coeff of Isael (11.5-14.5) % Plt Count (130-400) K/uL MPV (7.4-10.4) fL Immature Gran % (Auto) % Neut % (Auto) % Lymph % (Auto) % Marshall % (Auto) % Eos % (Auto) % Baso % (Auto) % Neut # (Auto) (1.4-6.5) K/uL Lymph # (Auto) (1.2-3.4) K/uL Marshall # (Auto) (0.11-0.59) K/uL Eos # (Auto) (0-0.5) K/uL Baso # (Auto) (0-0.2) K/uL Immature Gran # (Auto) (0.00-0.02) K/uL PT 31.5 H INR 3.4 H Sodium (136-145) mmol/L Potassium (3.5-5.1) mmol/L Chloride (98-107) mmol/L Carbon Dioxide (21-32) mmol/L Anion Gap (3-11) BUN (7-18) mg/dl Creatinine (0.6-1.2) mg/dl Est Cr Clr Drug Dosing Est GFR ( Amer) Est GFR (Non-Af Amer) BUN/Creatinine Ratio (10-20) Glucose (70-99) mg/dl Calcium (8.5-10.1) mg/dl Magnesium (1.8-2.4) mg/dl Total Bilirubin (0.2-1) mg/dl AST (15-37) U/L ALT (12-78) U/L Alkaline Phosphatase (45-117) U/L Troponin I (0-0.045) ng/ml Total Protein (6.4-8.2) gm/dl Albumin (3.4-5.0) gm/dl Globulin (2.5-4.0) gm/dl Albumin/Globulin Ratio (0.9-2) TSH (0.300-4.500) uIu/ml Specimen Hemolysis Urine Color Yellow Urine Appearance Cloudy A (Clear) Urine pH 5.0 (4.5-7.5) Ur Specific [place] 1.013 (1.000-1.030) Urine Protein 1+ H (Negative) Urine Glucose (UA) Negative (Negative) Urine Ketones Negative (Negative) Urine Blood Negative (Negative) Urine Nitrite Negative (Negative) Urine Bilirubin Negative (Negative) Urine Urobilinogen Negative (Negative) Ur Leukocyte Esterase Trace H (Negative) Urine WBC (Auto) 10-30 H (0-5) /hpf Urine RBC (Auto) 5-10 H (0-4) /hpf U Hyaline Cast (Auto) 1-5 (0-5) /lpf U Epithel Cells (Auto) >30 H (0-5) /lpf Urine Bacteria (Auto) Negative (Negative) Uric Acid Crystals Present A (None Prsent) Urine Yeast Budding A (None Prsent) COVID-19 Eval Order CovFluRsv at [facility] SARS-CoV-2 (PCR) (Negative) Influenza Type A (PCR) (Neg) Influenza Type B (PCR) (Neg) RSV (RT-PCR) (Neg) 06/26/20 Range/Units 15:35 WBC (4.8-10.8) K/uL RBC (4.2-5.4) M/uL Hgb (12.0-16.0) g/dL Hct (37-47) % MCV (80-100) fL MCH (25-34) pg MCHC (32-36) g/dL RDW Std Deviation (36.4-46.3) fL RDW Coeff of Isael (11.5-14.5) % Plt Count (130-400) K/uL MPV (7.4-10.4) fL Immature Gran % (Auto) % Neut % (Auto) % Lymph % (Auto) % Marshall % (Auto) % Eos % (Auto) % Baso % (Auto) % Neut # (Auto) (1.4-6.5) K/uL Lymph # (Auto) (1.2-3.4) K/uL Marshall # (Auto) (0.11-0.59) K/uL Eos # (Auto) (0-0.5) K/uL Baso # (Auto) (0-0.2) K/uL Immature Gran # (Auto) (0.00-0.02) K/uL PT INR Sodium (136-145) mmol/L Potassium (3.5-5.1) mmol/L Chloride (98-107) mmol/L Carbon Dioxide (21-32) mmol/L Anion Gap (3-11) BUN (7-18) mg/dl Creatinine (0.6-1.2) mg/dl Est Cr Clr Drug Dosing Est GFR ( Amer) Est GFR (Non-Af Amer) BUN/Creatinine Ratio (10-20) Glucose (70-99) mg/dl Calcium (8.5-10.1) mg/dl Magnesium (1.8-2.4) mg/dl Total Bilirubin (0.2-1) mg/dl AST (15-37) U/L ALT (12-78) U/L Alkaline Phosphatase (45-117) U/L Troponin I (0-0.045) ng/ml Total Protein (6.4-8.2) gm/dl Albumin (3.4-5.0) gm/dl Globulin (2.5-4.0) gm/dl Albumin/Globulin Ratio (0.9-2) TSH (0.300-4.500) uIu/ml Specimen Hemolysis Urine Color Urine Appearance (Clear) Urine pH (4.5-7.5) Ur Specific [place] (1.000-1.030) Urine Protein (Negative) Urine Glucose (UA) (Negative) Urine Ketones (Negative) Urine Blood (Negative) Urine Nitrite (Negative) Urine Bilirubin (Negative) Urine Urobilinogen (Negative) Ur Leukocyte Esterase (Negative) Urine WBC (Auto) (0-5) /hpf Urine RBC (Auto) (0-4) /hpf U Hyaline Cast (Auto) (0-5) /lpf U Epithel Cells (Auto) (0-5) /lpf Urine Bacteria (Auto) (Negative) Uric Acid Crystals (None Prsent) Urine Yeast (None Prsent) COVID-19 Eval Order SARS-CoV-2 (PCR) NEGATIVE (Negative) Influenza Type A (PCR) Negative (Neg) Influenza Type B (PCR) Negative (Neg) RSV (RT-PCR) Negative (Neg) Administered Medications Sodium Chloride (Nss 1000ml) 1,000 mls @ 125 mls/hr IV .Q8H GARETT Stop: 06/26/20 21:59 Last Admin: 06/26/20 14:37 Dose: 125 mls/hr Documented by: [id number] Discontinued Medications Hydralazine HCl (Hydralazine Hcl 20 Mg/Ml Vial) 5 mg IV NOW ONE Stop: 06/26/20 14:38 Last Admin: 06/26/20 14:41 Dose: 5 mg Documented by: [id number] Hydralazine HCl (Hydralazine Hcl 20 Mg/Ml Vial) 5 mg IV NOW ONE Stop: 06/26/20 17:09 Last Admin: 06/26/20 17:32 Dose: 5 mg Documented by: [id number] Ceftriaxone Sodium (Rocephin) 1,000 mg in 50 mls @ 100 mls/hr IV NOW STA Stop: 06/26/20 15:33 Last Infusion: 06/26/20 16:14 Dose: 0 mls/hr Documented by: [id number] Admin: 06/26/20 15:30 Dose: 100 mls/hr Documented by: [id number] Imaging Data Radiologist's Impression: Abdomen/Pelvis CT 06/26/20 13:[address] WITHOUT CONTRAST CT DOSE: 4530.68 mGy.cm HISTORY: Acutely altered mental status AMS TECHNIQUE: Multiaxial CT images of the abdomen and pelvis were performed without contrast. A dose lowering technique was utilized adhering to the principles of ALARA. COMPARISON STUDY: CT abdomen and pelvis 06/04/2020 FINDINGS: Cardiomegaly with mitral and aortic annular calcifications. Small to moderate layering pleural effusions have increased in size from comparison. Progressive bibasilar consolidation. No pneumatosis or pneumoperitoneum. Limited evaluation of the solid abdominal and without the use of IV contrast. Calcified granulomata of the spleen. Moderately atrophic pancreas. Unremarkable adrenal glands. Cholecystectomy. Unenhanced liver is unremarkable. Renal vascular calcifications noted bilaterally. Bilateral renal vascular calcifications. Left-sided renal cysts. Indeterminate intermediate density 1.9 cm lesion of the posterior interpolar left kidney with Hounsfield of 27, likely a complex cyst. Decompressed urinary bladder with Guevara catheter. Air within the bladder is likely secondary to instrumentation. Hysterectomy. No adnexal mass lesion. Calcified plaque of the aorta without aneurysm. There is no adenopathy. Small hiatal hernia. Colonic diverticulosis. No bowel obstruction or bowel wall thickening. Nonvisualization of the appendix. No ascites or mesenteric inflammation. Asymmetric soft tissue nodularity of the left breast redemonstrated. Cystic 1.8 cm structure of the upper outer quadrant right breast. Degenerative changes of the shoulders and spine. Demineralized appearance of the bones. IMPRESSION: 1. Limited exam without the use of contrast. 2. No bowel obstruction or bowel wall thickening. 3. Colonic diverticulosis. 4. Increased size of layering pleural effusions with progressive bibasilar consolidation suggestive of compressive atelectasis. Superimposed pneumonitis would be impossible to exclude. 5. Additional findings as above. ACT 112: Negative or not required by law. The above report was generated using voice recognition software. It may contain grammatical, syntax or spelling errors. Electronically signed by: Harsha Diaz M.D. 06/26/2020 3:[address] 06/26/20 13:56 CT OF THE CERVICAL SPINE WITHOUT CONTRAST CLINICAL HISTORY: fall COMPARISON STUDY: No previous studies for comparison. TECHNIQUE: Helical axial images of the cervical spine were obtained without IV contrast. Sagittal and coronal reconstructions were viewed. Automated exposure control was utilized for the study. A dose lowering technique was utilized adhering to the principles of ALARA. FINDINGS: Alignment of the cervical spine is anatomic. Vertebral body heights are maintained. No acute cervical spine fracture or subluxation is present. There is no prevertebral edema. Facet joints are intact. Note is made of a severe multilevel facet arthrosis. There is moderate multilevel degenerative disc disease. Interlobular septal thickening within visualized portions of the lung apices indicates interstitial pulmonary edema. Bilateral pleural effusions are partially imaged. IMPRESSION: 1. No acute cervical spine fracture or subluxation. 2. Interstitial pulmonary edema within the lung apices. Partially visualized bilateral pleural effusions. ACT 112: Negative or not required by law. Electronically signed by: Quinn Gannon M.D. 06/26/2020 3:[address] 06/26/20 13:56 CT head/brain wo con CLINICAL HISTORY: Acute change in mental status. COMPARISON STUDY: 06/24/2020 TECHNIQUE: Axial CT of the brain is performed from the vertex to the skull base. IV contrast was not administered for this examination. A dose lowering technique was utilized adhering to the principles of ALARA. CT DOSE: FINDINGS: No intra or extra-axial mass lesions are visualized. There is no CT evidence of acute cortical infarction. There is no evidence of midline shift. There is no acute hemorrhage. No calvarial fractures are visualized. There are moderate white matter hypodensities likely on a small vessel basis. There is no evidence of pathologic ventricular dilatation. There is no evidence of acute sinusitis IMPRESSION: No acute intracranial findings ACT 112: Negative or not required by law. Electronically signed by: Rufino Izaguirre M.D. 06/26/2020 3:29 PM Chest X-Ray 06/26/20 13:57 SINGLE VIEW CHEST CLINICAL HISTORY: Change in mental status. FINDINGS: An AP, portable, upright chest radiograph is compared to study dated 06/04/2020. Correlation is made with chest CT dated 06/21/2009. The examination is degraded by portable technique and patient rotation. The heart is enlarged noting atherosclerotic calcification of the thoracic aorta. There is pulmonary vascular congestion. There are small pleural effusions. Consolidation is noted at the left lung base. No pneumothorax is seen. The skeletal structures are osteopenic. The bony thorax is grossly intact. IMPRESSION: 1. Cardiomegaly with evidence of congestive failure. 2. Small pleural effusions. 3. Consolidative change at the left lung base likely represents atelectasis. Correlate clinically for evidence of a superimposed infectious/inflammatory pneumonitis. ACT 112: Negative or not required by law. Electronically signed by: Darius Bhardwaj M.D. 06/26/2020 3:53 PM Discharge Plan Visit Data Chief Complaint: Lethargic Stated Complaint: LETHARGIC ED Provider: Adam Leyva Discharge Problem: AMS (altered mental status), Elevated troponin, Pleural effusion, UTI (urinary tract infection), Malignant hypertension Forms Stand Alone Forms: [facility] [place] [facility] Prescriptions Prescriptions: No Action atenolol 25 mg tablet 25 mg PO BID Qty: 180 RF: 3 losartan 50 mg tablet 50 mg PO BID Qty: 180 RF: 3 hydralazine 50 mg tablet 50 mg PO TID Qty: 270 RF: 3 insulin glargine 100 unit/mL solution 30 unit subcut QPM Qty: 10 RF: 6 insulin aspart U-100 100 unit/mL (3 mL) insulin pen 10 unit subcut .COMPLEX MDD 50 units Qty: 15 RF: 10 cholecalciferol (vitamin D3) 5,000 unit capsule 5,000 units PO DAILY RF: 0 warfarin 1 mg tablet 0.5 mg PO DAILY RF: 0 alprazolam 0.25 mg tablet 0.25 mg PO BID Qty: 10 RF: 0 buspirone 5 mg Tablet 5 mg PO TID RF: 0 ondansetron HCl [Zofran] 4 mg Tablet 4 mg PO Q8H PRN (Reason: Nausea) RF: 0 tramadol 50 mg Tablet 50 mg PO Q6H PRN (Reason: Pain) RF: 0 hydralazine 100 mg Tablet 100 mg PO QID RF: 0 furosemide [Lasix] 20 mg Tablet 20 mg PO DAILY RF: 0
[2020-06-26 16:24] LABS: Influenza A virus by PCR Negative (Neg); Influenza B virus by PCR Negative (Neg); RSV by PCR Negative (Neg); SARS CoV2 RNA(COVID-19) InHosp NEGATIVE (Negative)
--- NOTE | 2020-06-26 16:43 | Electrocardiogram Report ---
Test Reason : Blood Pressure : / mmHG Vent. Rate : 056 BPM Atrial Rate : 056 BPM P-R Int : 196 ms QRS Dur : 154 ms QT Int : 480 ms P-R-T Axes : 028 -61 050 degrees QTc Int : 463 ms Sinus bradycardia Left axis deviation Left bundle branch block Abnormal ECG When compared with ECG of 10-JUN-2020 11:47, Premature ventricular complexes are no longer Present Left bundle branch block has replaced Non-specific intra-ventricular conduction block Confirmed by Te Albarado ([id number]) on 06/26/2020 4:43:41 PM Referred By: REFERRED SELF Confirmed By:Te Albarado
--- NOTE | 2020-06-26 18:29 | History & Physical Report ---
Date of Service June 26, 2020 Assessment & Plan (1) Encephalopathy acute: Presents with altered mental status for worsening over the last 2 days after a fall and after receiving Covid vaccine. She has been afebrile but extremely hypertensive. Urinalysis is questionable for infection, also possible that she has pneumonia but may also be compressive atelectasis from pleural effusions. She is afebrile, no leukocytosis, no SIRS criteria, does not seem likely that this is all related to infection, but could be No renal dysfunction or significant electrolyte abnormalities. She is only minimally hypoxic. Could very well also be hypertensive encephalopathy. CT head negative on both 06/24 the day after her fall, as well as today on 06/26, so seems less likely that she had a stroke in the last 2 days. Also, her INR is supratherapeutic making stroke less likely. -Admit to PCU -Control the blood pressure -Start empiric antibiotics to cover for healthcare associated pneumonia given recent hospitalization as well as to cover for UTI-give cefepime and vancomycin -Follow blood cultures, urine culture -Keep n.p.o. until can safely swallow -If mentation not improving after controlling blood pressure and treating for infection, could consider obtaining brain MRI to rule out small stroke -Consider neurology consultation if not improving (2) Malignant hypertension: With hypertensive emergency or here-with hypertensive encephalopathy as above plus positive troponin Blood pressures severely elevated as high as 252/78 and persistently greater than 200 throughout her time in the ER She received 2 doses of IV hydralazine 5 mg in the ER -Give another one-time dose of hydralazine 10 mg IV now, and add scheduled IV Vasotec She is unable to take her p.o. medications at this time Blood pressures were coming down to 170s over 80s when she arrived to the floor Also giving IV Lasix which will help Closely monitor blood pressures (3) Diabetes mellitus type 2, uncontrolled: Hemoglobin A1c 6.6% and very well controlled just last month Continue home insulin glargine 30 units at bedtime NovoLog sliding scale (4) Elevated troponin: Troponin mildly elevated at 0.057 on admission She is not able to give a history as to if she is having chest pain or not She just had an echocardiogram at her hospitalization 2 weeks ago for new LBBB which showed preserved LV function ECG here is sinus bradycardia with LBBB Trend serial troponin Could be endorgan damage from hypertensive emergency (5) Mild chronic anemia: Hemoglobin stable here at 12.1, normocytic Follow CBC (6) Nocturnal hypoxemia: Was started on 2 L nasal cannula at bedtime last admission, however prison notes that they have had her on 2 L continuously since last discharge Continue nasal cannula keep pulse ox greater than 92% (7) Paroxysmal atrial fibrillation: With a history of such, is currently in sinus rhythm Is on Coumadin but INR is supratherapeutic today at 3.4 Hold Coumadin for today Restart if INR therapeutic tomorrow Follow INR in the morning Of note, the med reconciliation from the prison states that she has been on 1 mg on 5 days a week and 2 mg on Mondays and Fridays (8) Pleural effusion: Here with small to moderate bilateral pleural effusions and pulmonary edema With volume overload likely secondary to malignant hypertension Give IV Lasix 20 mg IV twice daily, first dose now Stop IV fluids given in the ER Treating for pneumonia as above although seems low suspicion for pneumonia and do not suspect empyema or parapneumonic effusion at this time (9) Pulmonary hypertension: Noted on previous echocardiogram Diuresing as above, supplemental O2 (10) UTI (urinary tract infection): Abnormal UA but does seem contaminated more with epithelial cells Treating as above with antibiotics Follow urine culture (11) Anticoagulant long-term use: As above, on warfarin for atrial fibrillation (12) Anxiety: Continue home BuSpar when taking p.o. again She typically takes alprazolam 0.25 mg twice daily, however it was being given as needed at the prison but she did receive it at least every night the last few nights Do not suspect any withdrawal from alprazolam at this time but this is a possibility (13) Aortic stenosis: Mild as noted on previous echocardiogram (14) CVA (cerebral vascular accident): History of CVA with residual left-sided hemiplegia Continue home warfarin Antiplatelet not indicated as per neurology recommendation at the time she had her stroke as she was placed on anticoagulation (15) DVT prophylaxis: Coumadin Disposition-admit to PCU, guarded prognosis was discussed with at the bedside DNR/DNI as per discussion with History of Present Illness Chief Complaint: Confusion Primary Care Provider: Remi Gu MD This patient is an 84-year-old female with a history of DM 2, depression/anxiety, HTN, CVA with chronic left hemiplegia, paroxysmal atrial fibrillation on Coumadin, LBBB, mild aortic stenosis, nocturnal hypoxemia on 2 L nasal cannula, pulmonary hypertension, chronic anemia, and a recent hospitalization for acute metabolic encephalopathy, UTI, and stercoral colitis who presents to the ER from [facility] with 2 days of worsening mentation after having a fall 3 days ago. She also, of note, received her first Covid vaccine 2 days ago. [place] noted to the ER physician that patient is normally a bit confused but is typically able to have conversations, however today she was only responding to tactile stimuli. She did suffer a suspected right humeral head fracture on the fall as per outside xray report, as well as a left forehead contusion. In the ER, she was unable to give any history, and was obtunded, however was noted to have some tenderness to palpation of the abdomen on examination. A CT was performed of the abdomen/pelvis which was negative for intra-abdominal pathology but did show some compressive atelectasis and bilateral pleural effu sions. She was afebrile, severely hypertensive, mildly bradycardic, and 89% on room air, was placed on 2 L nasal cannula. She was also found to have an abnormal urinalysis suspicious for UTI and was started on IV Rocephin. Her troponin was mildly elevated at 0.057 and her ECG showed sinus bradycardia rate 56, LBBB, unchanged from previous. Her Covid/RSV/influenza test was negative. A chest x-ray showed pulmonary vascular congestion, small pleural effusions, consolidation in the left lung base likely representing atelectasis. CT noncontrast of the head showed no acute intracranial findings. A CT of the cervical spine was negative for fracture or subluxation but did show pulmonary edema in the lung apices and partially visualized bilateral pleural effusions. CT of the abdomen/pelvis noted as above She will be admitted for acute metabolic encephalopathy vs hypertensive encephalopathy, acute on chronic respiratory failure with hypoxia, and possible UTI and/or pneumonia with pleural effusions. Allergies Allergy/AdvReac Type Severity Reaction Status Date / Time aspirin Allergy Intermediate HIVES Verified 06/26/20 14:43 Iodinated Contrast Media Allergy Intermediate HIVES Verified 06/26/20 14:43 Penicillins Allergy Intermediate HIVES Verified 06/26/20 14:43 doxazosin Allergy Unknown Elevated BP Unverified 06/26/20 14:43 glipizide Allergy Unknown Pt doesn't Unverified 06/26/20 14:43 remeber reaction influenza virus vacc Allergy Unknown Unknown Verified 06/26/20 14:43 trivalent, split [From Fluzone] pregabalin Allergy Unknown Pt doesn't Unverified 06/26/20 14:43 remeber reaction Tqdakza-Igy-Koe Reductase Allergy Unknown muscle Unverified 06/26/20 14:43 Inhibitor cramping thimerosal Allergy Unknown Pt can't Unverified 06/26/20 14:43 remember reaction Home Medications Medication Instructions Recorded Confirmed Type cholecalciferol (vitamin D3) 125 5,000 units PO DAILY cap 10/29/18 06/26/20 History mcg (5,000 unit) capsule atenolol 25 mg tablet 25 mg PO BID #180 tab 06/08/19 06/26/20 Rx hydralazine 50 mg tablet 50 mg PO TID #270 tab 02/09/20 06/26/20 Rx losartan 50 mg tablet 50 mg PO BID #180 tab 02/09/20 06/26/20 Rx insulin glargine 100 unit/mL 30 unit SUBCUT QPM #10 ml 03/11/20 06/26/20 Rx subcutaneous solution insulin aspart U-100 100 unit/mL 10 unit SUBCUT .COMPLEX #15 ml MDD 03/13/20 06/26/20 Rx (3 mL) subcutaneous pen 50 units warfarin 0.5 mg PO DAILY 06/04/20 06/26/20 History alprazolam 0.25 mg PO BID #10 tab 06/12/20 06/26/20 Rx buspirone 5 mg PO TID 06/26/20 06/26/20 History furosemide [Lasix] 20 mg PO DAILY 06/26/20 06/26/20 History hydralazine 100 mg PO QID 06/26/20 06/26/20 History ondansetron HCl [Zofran] 4 mg PO Q8H PRN 06/26/20 06/26/20 History tramadol 50 mg PO Q6H PRN 06/26/20 06/26/20 History Past Med/Surg History Medical History AMS (altered mental status) Anticoagulant long-term use Anxiety Aortic stenosis CVA (cerebral vascular accident) Depression Diabetes mellitus type 2, uncontrolled HTN (hypertension) Mild chronic anemia Nocturnal hypoxemia Paroxysmal atrial fibrillation Pulmonary hypertension Surgical History S/P adenoidectomy S/P cholecystectomy S/P hysterectomy S/P tubal ligation Family History Mother Diabetes Myocardial infarction Heart disease Father Heart disease Daughter Non-Hodgkin's lymphoma of lung Sister Parkinsons disease Denies family history of Ovarian cancer Prostate cancer Breast cancer Colorectal cancer Social History Smoking Status: Never smoker Second Hand Exposure: No; Do You Dip or Chew Tobacco: No; Tobacco Cessation Education Requested by Patient: No Hx Alcohol Use: No Hx Substance Use: No Preferred Language: Liberian Communication Ability: Unable Visual Impairment: No Limitations Hearing Ability: Normal Executive Assistant Required: No Beliefs That Will Affect Care: None marital status: Current Living Situation: [facility] 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 Other Information That Helps Us Care for You: No Feels Safe at Home: Yes Safety Concerns: Feels Safe At This Time Childhood Exposure to Second-Hand Smoke: No Physical Activity Frequency: Does not Exercise Seatbelt Use: always Assistive Devices: None Review of Systems Review of Systems: Unobtainable due to cognitive status and Unobtainable due to reduced consciousness Physical Exam Constitutional: WD/WN, vitals as above + obese and + lethargic (and moaning); + uncooperative Somewhat responsive to sternal rub and withdraws to pain in all 4 extremities, opens both eyes and moans louder when sternally rubbed Eyes: PERRL, conjunctivae normal, anicteric sclerae ENMT: Ears: no external ear abnormality Nose: no external nose abnormality Mouth: + dry oral mucous membranes; no lip abnormality Neck: trachea midline, no thyromegaly Respiratory: normal respiratory effort Auscultation: + diminished lung sounds (At the bases bilaterally); no wheezes Cardiovascular: Rate/Rhythm: regular rate and regular rhythm Heart Sounds: no murmur Extremities: + edema (trace pitting edema hands and feet) Chest (Breasts): Chest: normal inspection of chest Gastrointestinal (Abdomen): Inspection/Auscultation: normal bowel sounds; abdomen not distended Percussion/Palpation: + abdomen tender (Moans loudly when palpated but no guarding) and abdomen soft; no guarding Musculoskeletal: Extremities: extremities normal to inspection; no cyanosis and no clubbing Skin: no rashes, warm and dry Neurologic: + confused and + obtunded; + not awake Motor/Sensory: no tremor Does not follow commands, does withdraw feet to painful stimulus and does spontaneously move her torso and hands at times No spasticity noted Pupils equally round and reactive to light Lymphatic: no lymphedema Results & Data Results & [facility] Vital Signs (Past 12 Hours) Vital Signs Temp Pulse Resp BP Pulse Ox 06/26/20 13:00 37.5 C 59 L 20 187/89 H 97 Laboratory Results 06/26/20 06/26/20 06/26/20 Range/Units 15:35 15:35 15:06 WBC (4.8-10.8) K/uL RBC (4.2-5.4) M/uL Hgb (12.0-16.0) g/dL Hct (37-47) % MCV (80-100) fL MCH (25-34) pg MCHC (32-36) g/dL RDW Std Deviation (36.4-46.3) fL RDW Coeff of Isael (11.5-14.5) % Plt Count (130-400) K/uL MPV (7.4-10.4) fL Immature Gran % (Auto) % Neut % (Auto) % Lymph % (Auto) % [place] % (Auto) % Eos % (Auto) % Baso % (Auto) % Neut # (Auto) (1.4-6.5) K/uL Lymph # (Auto) (1.2-3.4) K/uL [place] # (Auto) (0.11-0.59) K/uL Eos # (Auto) (0-0.5) K/uL Baso # (Auto) (0-0.2) K/uL Immature Gran # (Auto) (0.00-0.02) K/uL PT 31.5 H INR 3.4 H Sodium (136-145) mmol/L Potassium (3.5-5.1) mmol/L Chloride (98-107) mmol/L Carbon Dioxide (21-32) mmol/L Anion Gap (3-11) BUN (7-18) mg/dl Creatinine (0.6-1.2) mg/dl Est Cr Clr Drug Dosing Est GFR ( Amer) Est GFR (Non-Af Amer) BUN/Creatinine Ratio (10-20) Glucose (70-99) mg/dl Calcium (8.5-10.1) mg/dl Magnesium (1.8-2.4) mg/dl Total Bilirubin (0.2-1) mg/dl AST (15-37) U/L ALT (12-78) U/L Alkaline Phosphatase (45-117) U/L Troponin I (0-0.045) ng/ml Total Protein (6.4-8.2) gm/dl Albumin (3.4-5.0) gm/dl Globulin (2.5-4.0) gm/dl Albumin/Globulin Ratio (0.9-2) TSH (0.300-4.500) uIu/ml Specimen Hemolysis Urine Color Urine Appearance (Clear) Urine pH (4.5-7.5) Ur Specific [place] (1.000-1.030) Urine Protein (Negative) Urine Glucose (UA) (Negative) Urine Ketones (Negative) Urine Blood (Negative) Urine Nitrite (Negative) Urine Bilirubin (Negative) Urine Urobilinogen (Negative) Ur Leukocyte Esterase (Negative) Urine WBC (Auto) (0-5) /hpf Urine RBC (Auto) (0-4) /hpf U Hyaline Cast (Auto) (0-5) /lpf U Epithel Cells (Auto) (0-5) /lpf Urine Bacteria (Auto) (Negative) Uric Acid Crystals (None Prsent) Urine Yeast (None Prsent) COVID-19 Eval Order CovFluRsv at [facility] SARS-CoV-2 (PCR) NEGATIVE (Negative) Influenza Type A (PCR) Negative (Neg) Influenza Type B (PCR) Negative (Neg) RSV (RT-PCR) Negative (Neg) 06/26/20 06/26/20 06/26/20 Range/Units 13:25 13:25 13:25 WBC 10.49 (4.8-10.8) K/uL RBC 3.83 L (4.2-5.4) M/uL Hgb 12.1 (12.0-16.0) g/dL Hct 37.8 (37-47) % MCV 98.7 (80-100) fL MCH 31.6 (25-34) pg MCHC 32.0 (32-36) g/dL RDW Std Deviation 52.9 H (36.4-46.3) fL RDW Coeff of Isael 14.7 H (11.5-14.5) % Plt Count 175 (130-400) K/uL MPV 12.3 H (7.4-10.4) fL Immature Gran % (Auto) 0.6 % Neut % (Auto) 76.4 % Lymph % (Auto) 13.3 % [place] % (Auto) 9.2 % Eos % (Auto) 0.3 % Baso % (Auto) 0.2 % Neut # (Auto) 8.02 H (1.4-6.5) K/uL Lymph # (Auto) 1.39 (1.2-3.4) K/uL [place] # (Auto) 0.97 H (0.11-0.59) K/uL Eos # (Auto) 0.03 (0-0.5) K/uL Baso # (Auto) 0.02 (0-0.2) K/uL Immature Gran # (Auto) 0.06 H (0.00-0.02) K/uL PT Cancelled INR Cancelled Sodium (136-145) mmol/L Potassium (3.5-5.1) mmol/L Chloride (98-107) mmol/L Carbon Dioxide (21-32) mmol/L Anion Gap (3-11) BUN (7-18) mg/dl Creatinine (0.6-1.2) mg/dl Est Cr Clr Drug Dosing Est GFR ( Amer) Est GFR (Non-Af Amer) BUN/Creatinine Ratio (10-20) Glucose (70-99) mg/dl Calcium (8.5-10.1) mg/dl Magnesium (1.8-2.4) mg/dl Total Bilirubin (0.2-1) mg/dl AST (15-37) U/L ALT (12-78) U/L Alkaline Phosphatase (45-117) U/L Troponin I (0-0.045) ng/ml Total Protein (6.4-8.2) gm/dl Albumin (3.4-5.0) gm/dl Globulin (2.5-4.0) gm/dl Albumin/Globulin Ratio (0.9-2) TSH (0.300-4.500) uIu/ml Specimen Hemolysis Urine Color Yellow Urine Appearance Cloudy A (Clear) Urine pH 5.0 (4.5-7.5) Ur Specific [place] 1.013 (1.000-1.030) Urine Protein 1+ H (Negative) Urine Glucose (UA) Negative (Negative) Urine Ketones Negative (Negative) Urine Blood Negative (Negative) Urine Nitrite Negative (Negative) Urine Bilirubin Negative (Negative) Urine Urobilinogen Negative (Negative) Ur Leukocyte Esterase Trace H (Negative) Urine WBC (Auto) 10-30 H (0-5) /hpf Urine RBC (Auto) 5-10 H (0-4) /hpf U Hyaline Cast (Auto) 1-5 (0-5) /lpf U Epithel Cells (Auto) >30 H (0-5) /lpf Urine Bacteria (Auto) Negative (Negative) Uric Acid Crystals Present A (None Prsent) Urine Yeast Budding A (None Prsent) COVID-19 Eval Order SARS-CoV-2 (PCR) (Negative) Influenza Type A (PCR) (Neg) Influenza Type B (PCR) (Neg) RSV (RT-PCR) (Neg) 06/26/20 Range/Units 13:25 WBC (4.8-10.8) K/uL RBC (4.2-5.4) M/uL Hgb (12.0-16.0) g/dL Hct (37-47) % MCV (80-100) fL MCH (25-34) pg MCHC (32-36) g/dL RDW Std Deviation (36.4-46.3) fL RDW Coeff of Isael (11.5-14.5) % Plt Count (130-400) K/uL MPV (7.4-10.4) fL Immature Gran % (Auto) % Neut % (Auto) % Lymph % (Auto) % [place] % (Auto) % Eos % (Auto) % Baso % (Auto) % Neut # (Auto) (1.4-6.5) K/uL Lymph # (Auto) (1.2-3.4) K/uL [place] # (Auto) (0.11-0.59) K/uL Eos # (Auto) (0-0.5) K/uL Baso # (Auto) (0-0.2) K/uL Immature Gran # (Auto) (0.00-0.02) K/uL PT INR Sodium 142 (136-145) mmol/L Potassium 4.0 (3.5-5.1) mmol/L Chloride 106 (98-107) mmol/L Carbon Dioxide 35 H (21-32) mmol/L Anion Gap 1.0 L (3-11) BUN 26 H (7-18) mg/dl Creatinine 0.78 (0.6-1.2) mg/dl Est Cr Clr Drug Dosing Not Reportable Est GFR ( Amer) 80.3 Est GFR (Non-Af Amer) 69.3 BUN/Creatinine Ratio 33.6 H (10-20) Glucose 134 H (70-99) mg/dl Calcium 8.6 (8.5-10.1) mg/dl Magnesium 2.9 H (1.8-2.4) mg/dl Total Bilirubin 0.6 (0.2-1) mg/dl AST 37 (15-37) U/L ALT 31 (12-78) U/L Alkaline Phosphatase 93 (45-117) U/L Troponin I 0.057 H* (0-0.045) ng/ml Total Protein 7.3 (6.4-8.2) gm/dl Albumin 2.7 L (3.4-5.0) gm/dl Globulin 4.6 H (2.5-4.0) gm/dl Albumin/Globulin Ratio 0.6 L (0.9-2) TSH 1.690 (0.300-4.500) uIu/ml Specimen Hemolysis Urine Color Urine Appearance (Clear) Urine pH (4.5-7.5) Ur Specific [place] (1.000-1.030) Urine Protein (Negative) Urine Glucose (UA) (Negative) Urine Ketones (Negative) Urine Blood (Negative) Urine Nitrite (Negative) Urine Bilirubin (Negative) Urine Urobilinogen (Negative) Ur Leukocyte Esterase (Negative) Urine WBC (Auto) (0-5) /hpf Urine RBC (Auto) (0-4) /hpf U Hyaline Cast (Auto) (0-5) /lpf U Epithel Cells (Auto) (0-5) /lpf Urine Bacteria (Auto) (Negative) Uric Acid Crystals (None Prsent) Urine Yeast (None Prsent) COVID-19 Eval Order SARS-CoV-2 (PCR) (Negative) Influenza Type A (PCR) (Neg) Influenza Type B (PCR) (Neg) RSV (RT-PCR) (Neg) Diagnostic Findings Abdomen/Pelvis CT 06/26/20 13:[address] WITHOUT CONTRAST CT DOSE: 4530.68 mGy.cm HISTORY: Acutely altered mental status AMS TECHNIQUE: Multiaxial CT images of the abdomen and pelvis were performed without contrast. A dose lowering technique was utilized adhering to the principles of ALARA. COMPARISON STUDY: CT abdomen and pelvis 06/04/2020 FINDINGS: Cardiomegaly with mitral and aortic annular calcifications. Small to moderate layering pleural effusions have increased in size from comparison. Progressive bibasilar consolidation. No pneumatosis or pneumoperitoneum. Limited evaluation of the solid abdominal and without the use of IV contrast. Calcified granulomata of the spleen. Moderately atrophic pancreas. Unremarkable adrenal glands. Cholecystectomy. Unenhanced liver is unremarkable. Renal vascular calcifications noted bilaterally. Bilateral renal vascular calci fications. Left-sided renal cysts. Indeterminate intermediate density 1.9 cm lesion of the posterior interpolar left kidney with Houns[place] of 27, likely a complex cyst. Decompressed urinary bladder with Guevara catheter. Air within the bladder is likely secondary to instrumentation. Hysterectomy. No adnexal mass lesion. Calcified plaque of the aorta without aneurysm. There is no adenopathy. Small hiatal hernia. Colonic diverticulosis. No bowel obstruction or bowel wall thickening. Nonvisualization of the appendix. No ascites or mesenteric inflammation. Asymmetric soft tissue nodularity of the left breast redemonstrated. Cystic 1.8 cm structure of the upper outer quadrant right breast. Degenerative changes of the shoulders and spine. Demineralized appearance of the bones. IMPRESSION: 1. Limited exam without the use of contrast. 2. No bowel obstruction or bowel wall thickening. 3. Colonic diverticulosis. 4. Increased size of layering pleural effusions with progressive bibasilar consolidation suggestive of compressive atelectasis. Superimposed pneumonitis would be impossible to exclude. 5. Additional findings as above. ACT 112: Negative or not required by law. The above report was generated using voice recognition software. It may contain grammatical, syntax or spelling errors. Electronically signed by: Harsha Diaz M.D. 06/26/2020 3:[address] 06/26/20 13:56 CT OF THE CERVICAL SPINE WITHOUT CONTRAST CLINICAL HISTORY: fall COMPARISON STUDY: No previous studies for comparison. TECHNIQUE: Helical axial images of the cervical spine were obtained without IV contrast. Sagittal and coronal reconstructions were viewed. Automated exposure control was utilized for the study. A dose lowering technique was utilized adhering to the principles of ALARA. FINDINGS: Alignment of the cervical spine is anatomic. Vertebral body heights are maintained. No acute cervical spine fracture or subluxation is present. There is no prevertebral edema. Facet joints are intact. Note is made of a severe multilevel facet arthrosis. There is moderate multilevel degenerative disc disease. Interlobular septal thickening within visualized portions of the lung apices indicates interstitial pulmonary edema. Bilateral pleural effusions are partially imaged. IMPRESSION: 1. No acute cervical spine fracture or subluxation. 2. Interstitial pulmonary edema within the lung apices. Partially visualized bilateral pleural effusions. ACT 112: Negative or not required by law. Electronically signed by: Quinn Gannon M.D. 06/26/2020 3:[address] 06/26/20 13:56 CT head/brain wo con CLINICAL HISTORY: Acute change in mental status. COMPARISON STUDY: 06/24/2020 TECHNIQUE: Axial CT of the brain is performed from the vertex to the skull base. IV contrast was not administered for this examination. A dose lowering technique was utilized adhering to the principles of ALARA. CT DOSE: FINDINGS: No intra or extra-axial mass lesions are visualized. There is no CT evidence of acute cortical infarction. There is no evidence of midline shift. There is no acute hemorrhage. No calvarial fractures are visualized. There are moderate white matter hypodensities likely on a small vessel basis. There is no evidence of pathologic ventricular dilatation. There is no evidence of acute sinusitis IMPRESSION: No acute intracranial findings ACT 112: Negative or not required by law. Electronically signed by: Rufino Izaguirre M.D. 06/26/2020 3:29 PM Chest X-Ray 06/26/20 13:57 SINGLE VIEW CHEST CLINICAL HISTORY: Change in mental status. FINDINGS: An AP, portable, upright chest radiograph is compared to study dated 06/04/2020. Correlation is made with chest CT dated 06/21/2009. The examination is degraded by portable technique and patient rotation. The heart is enlarged noting atherosclerotic calcification of the thoracic aorta. There is pulmonary vascular congestion. There are small pleural effusions. Consolidation is noted at the left lung base. No pneumothorax is seen. The skeletal structures are osteopenic. The bony thorax is grossly intact. IMPRESSION: 1. Cardiomegaly with evidence of congestive failure. 2. Small pleural effusions. 3. Consolidative change at the left lung base likely represents atelectasis. Correlate clinically for evidence of a superimposed infectious/inflammatory pneumonitis. ACT 112: Negative or not required by law. Electronically signed by: Darius Bhardwaj M.D. 06/26/2020 3:53 PM ECG Additional Comments: As per HPI Code Status & VTE Plan Code Status DNR/DNI as per discussion with at the bedside VTE Prophylaxis Plan VTE Prophylaxis will be ordered: Yes PG Care Time/CCT Total # of Minutes Spent Total Time Spent with Patient: Total time spent is greater than 50% in coordination of care (as documented) at patient's floor/unit and/or counseling patient: Coding Level of Care Code 37589 OBS Care - Level 3 Diagnoses Encephalopathy acute G93.40 Malignant hypertension I10 Diabetes mellitus type 2, uncontrolled E11.65 Elevated troponin R77.8 Mild chronic anemia D64.9 Nocturnal hypoxemia G47.34 Paroxysmal atrial fibrillation I48.0 Pleural effusion J90 Pulmonary hypertension I27.20 UTI (urinary tract infection) N30.01 Hematuria presence: with hematuria Urinary tract infection type: acute cystitis Anticoagulant long-term use Z79.01 Anxiety F41.9 Aortic stenosis I35.0 CVA (cerebral vascular accident) I63.9 DVT prophylaxis Z29.9 (1) UTI (urinary tract infection) Hematuria presence: with hematuria Urinary tract infection type: acute cystitis Qualified Code(s): N30.01 - Acute cystitis with hematuria
[2020-06-26] MEDS ORDERED: VANCOMYCIN HCL 1,000 MG in SODIUM CHLORIDE 0.9% 250 ML IV SCH (19:01)
[2020-06-26] MEDS ORDERED: VANCOMYCIN CONSULT ACTIVE PRN (19:01)
[2020-06-26 19:04] LABS: Allen Test Pos (Pos); Base Excess ABG 7.3 mEq/L (-9-1.8); HCO3 ABG 33 mmol/L (19-24); Oxygen Saturation ABG 98.7 % (90-95); PCO2 ABG 54 mmHg (35-46); PO2 ABG 133 mmHg (80-95); pH ABG 7.41 (7.35-7.45)
[2020-06-26] MEDS: hydrALAZINE HCL 20 MG/ML VIAL IV PRN (19:55)
[2020-06-26] MEDS ORDERED: FUROSEMIDE 40 MG/4 ML VIAL IV ONE (20:13)
[2020-06-26] MEDS: FUROSEMIDE IV SCH (20:18)
[2020-06-26] MEDS ORDERED: INSULIN ASPART 100 UNITS/ML 3 ML PEN SC SCH (21:00)
[2020-06-26] MEDS ORDERED: GLUCOSE 40% GEL 15 GM TUBE PO PRN (21:05)
[2020-06-26] MEDS ORDERED: GLUCOSE 10 TABS/TUBE PO PRN (21:05)
[2020-06-26] MEDS ORDERED: DEXTROSE 50% 50 ML SYRINGE IV PRN (21:05)
[2020-06-26] MEDS ORDERED: CARBOHYDRATES FOR HYPOGLYCEMIA PO PRN (21:05)
[2020-06-26] MEDS ORDERED: GLUCAGON FOR INJ 1 MG VIAL SQ PRN (21:05)
[2020-06-26] MEDS ORDERED: ATENOLOL 25 MG TABLET PO SCH (21:05)
[2020-06-26] MEDS: busPIRone 5 MG TAB PO SCH (21:58)
[2020-06-26] MEDS: hydrALAZINE TAB 50 MG TAB PO SCH (21:58)
[2020-06-26] MEDS: LOSARTAN POTASSIUM 50 MG TAB PO SCH (21:58)
[2020-06-26] MEDS ORDERED: CEFEPIME 2,000 MG in SYRINGE 0 ML IV SCH (22:00)
[2020-06-26] MEDS ORDERED: VANCOMYCIN HCL 2,250 MG in SODIUM CHLORIDE 0.9% 500 ML IV ONE (22:00)
[2020-06-26] MEDS: INSULIN GLARGINE SOLOSTAR 100 UNITS/ML 3 ML PEN SQ SCH (22:26)
[2020-06-26] MEDS: INSULIN ASPART 100 UNITS/ML 3 ML PEN SC SCH (22:26)
[2020-06-26] MEDS: CEFEPIME 2,000 MG in SYRINGE 0 ML IV SCH (22:27)
[2020-06-26] MEDS: ENALAPRILAT 0.625 MG in SYRINGE 9.5 ML IV SCH (22:32)
[2020-06-27] MEDS: hydrALAZINE HCL 20 MG/ML VIAL IV PRN ×2 (03:31→10:12)
[2020-06-27] MEDS: ENALAPRILAT 0.625 MG in SYRINGE 9.5 ML IV SCH (04:37)
[2020-06-27] MEDS: ENALAPRILAT 1.25 MG in DEXTROSE 5% 25 ML IV SCH ×4 (05:21→23:40)
[2020-06-27 05:56] LABS: Basophils # (auto) 0.01 K/uL (0-0.2); Basophils % (auto) 0.1 %; Eosinophils # (auto) 0.05 K/uL (0-0.5); Eosinophils % (auto) 0.4 %; Hematocrit (blood only) 37.9 % (37-47); Immature Granulocytes # (auto) 0.04 K/uL (0.00-0.02); Immature Granulocytes % (auto) 0.4 %; Lymphocytes # (auto) 1.01 K/uL (1.2-3.4); Mean Corpuscular Hemoglobin 30.8 pg (25-34); Mean Corpuscular Hgb Conc 31.7 g/dL (32-36); Mean Corpuscular Volume 97.4 fL (80-100); Mean Platelet Volume 11.2 fL (7.4-10.4); Monocytes # (auto) 0.84 K/uL (0.11-0.59); Monocytes % (auto) 7.5 %; Neutrophils # (auto) 9.24 K/uL (1.4-6.5); Neutrophils % (auto) 82.6 %; Platelet Count 148 K/uL (130-400); RDW Coefficient of Variation 14.3 % (11.5-14.5); RDW Standard Deviation 50.8 fL (36.4-46.3); Red Blood Count 3.89 M/uL (4.2-5.4); White Blood Count 11.19 K/uL (4.8-10.8)
[2020-06-27] MEDS: INSULIN ASPART 100 UNITS/ML 3 ML PEN SC SCH ×4 (06:11→20:51)
[2020-06-27 06:16] LABS: INR 3.9 (0.9-1.1); Prothrombin Time 35.6 Seconds (9.0-12.0)
[2020-06-27 06:53] LABS: Albumin Level 2.4 gm/dl (3.4-5.0); Calcium 8.6 mg/dl (8.5-10.1); Creatinine Clr Calc Pharmacy 65.9 ml/min; Est GFR (African American) 94.3; Est GFR (Non-African American) 81.4; Magnesium 2.3 mg/dl (1.8-2.4); Potassium 3.1 mmol/L (3.5-5.1)
[2020-06-27 06:56] LABS: Albumin Globulin Ratio 0.6 (0.9-2); Bilirubin,Total 0.7 mg/dl (0.2-1); Globulin 4.3 gm/dl (2.5-4.0); Phosphorus 2.3 mg/dl (2.5-4.9); Total Protein 6.7 gm/dl (6.4-8.2)
--- NOTE | 2020-06-27 06:58 | XRay Report ---
XR humerus RT 2V CLINICAL HISTORY: Right humeral pain status post trauma COMPARISON: None. DISCUSSION: The study is somewhat limited from a technical standpoint. No fractures or dislocations a re visualized on the provided images. IMPRESSION: Technically limited study. No fractures identified. If symptoms persist, repeat imaging c ould be obtained. ACT 112: Negative or not required by law. Electronically signed by: Rufino Izaguirre M.D. 06/27/2020 6:57 AM
[2020-06-27 07:12] LABS: Estimated Average Glucose 143 mg/dl; Hemoglobin A1C 6.6 % (4.5-5.6)
--- NOTE | 2020-06-27 08:12 | Electrocardiogram Report ---
Test Reason : Blood Pressure : / mmHG Vent. Rate : 059 BPM Atrial Rate : 059 BPM P-R Int : 156 ms QRS Dur : 156 ms QT Int : 508 ms P-R-T Axes : 042 -57 037 degrees QTc Int : 502 ms Sinus bradycardia Left axis deviation Left bundle branch block Abnormal ECG When compared with ECG of 26-JUN-2020 12:38, No significant change was found Confirmed by Te Albarado ([id number]) on 06/27/2020 8:12:07 AM Referred By: REFERRED SELF Confirmed By:Te Albarado
--- NOTE | 2020-06-27 08:26 | Hospitalist Progress Note ---
Date of Service June 27, 2020 Assessment & Plan (1) Encephalopathy acute: Presents with altered mental status for worsening over the last 2 days after a fall and after receiving Covid vaccine. She has been afebrile but extremely hypertensive. Urinalysis is questionable for infection, also possible that she has pneumonia but may also be compressive atelectasis from pleural effusions. She is afebrile, no leukocytosis, no SIRS criteria, does not seem likely that this is all related to infection, but could be No renal dysfunction or significant electrolyte abnormalities. She is only minimally hypoxic. Could very well also be hypertensive encephalopathy -- more alert/oriented with better BP control but did require lasix and hydralazine x 2 thuse far this morning to get BP 158/64 Enalapril 1.25mg Q6H scheduled -- attempts to give losartan 50mg and atenolol 25mg this evening and resume BID schedule after. Titrations as needed to control BP CXR on admission cardiomegaly with evidence of congestive failure, small effusions, consolidative changes L lung base likely atelectasis but will repeat CXR now that she has diuresed some with IV lasix. CT with likely compressive atelectasis Repeat CXR pending CT head negative on both 06/24 the day after her fall, as well as on 06/26, so seems less likely that she had a stroke in the last 2 days. Also, her INR is supratherapeutic making stroke less likely. Consider Brain MRI if any further confusion as BP better controlled +/- neurology Continued on Cefepime and Vancomycin for now (negative MRSA nasal swab, so could discontinue Vancomycin but will continue for today) Blood cultures, urine cultures pending WBC 11k, afebrile PT/OT evals -- rehab at d/c last month and may need continued rehab at d/c CBC, CMP in AM (2) Malignant hypertension: With hypertensive emergency or here-with hypertensive encephalopathy as above plus positive troponin Blood pressures severely elevated as high as 252/78 and persistently greater than 200 throughout her time in the ER She received 2 doses of IV hydralazine 5 mg in the ER and another last evening Hydralazine x 2 today in addition to lasix as above BP currently 158/64 Resuming home medications this evening and will d/c Enalapril if able to take Titrate up as needed Continue to monitor (3) Diabetes mellitus type 2, uncontrolled: Hemoglobin A1c 6.6% and very well controlled just last month Continue home insulin glargine 30 units at bedtime NovoLog sliding scale (4) Elevated troponin: Troponin mildly elevated at 0.057 on admission, trended down Suspect secondary to demand from HTN emergency EKG with LBBB, no new. ECHO at that time last admission with preserved LV function No CP reported by did have n/v EKG c CP as well as troponin (5) Mild chronic anemia: Hemoglobin stable 12, normocytic. B12/folate wnl last admission CBC in AM (6) Nocturnal hypoxemia: Was started on 2 L nasal cannula at bedtime last admission, however detention notes that they have had her on 2 L continuously since last discharge Continue nasal cannula keep pulse ox greater than 92% Currently 94% on RA (7) Paroxysmal atrial fibrillation: With a history of such, is currently in sinus rhythm Is on Coumadin but INR is supratherapeutic today at 3.9 Continue to hold coumadin Was previously on 0.5mg daily -- had been on 1mg 5x/wk and 2mg M/F from detention INR in AM (8) Pleural effusion: Here with small to moderate bilateral pleural effusions and pulmonary edema With volume overload likely secondary to malignant hypertension Give IV Lasix 20 mg IV twice daily-- continuing Stopped IV fluids given in the ER Treating for pneumonia as above although seems low suspicion for pneumonia and do not suspect empyema or parapneumonic effusion at this time (9) Pulmonary hypertension: Noted on previous echocardiogram Diuresing as above, supplemental O2 as needed O2 HS (10) UTI (urinary tract infection): Abnormal UA but does seem contaminated more with epithelial cells Treating as above with antibiotics Follow urine culture (11) Anticoagulant long-term use: As above, on warfarin for atrial fibrillation Cardiology consulted given vtach early this morning on telemetry. Replacement of potassium this morning Continue to monitor on telemetry (12) Anxiety: Continue home BuSpar when taking p.o. again She typically takes alprazolam 0.25 mg twice daily, however it was being given as needed at the detention but she did receive it at least every night the last few nights Do not suspect any withdrawal from alprazolam at this time but this is a possibility Would resume in AM prn 0.25mg if mentation OK to prevent withdrawal (13) Aortic stenosis: Mild as noted on previous echocardiogram. [place] on examination Monitor volume status (14) CVA (cerebral vascular accident): History of CVA with residual left-sided hemiplegia Continue home warfarin when INR coming down (on hold currently for supratherapeutic INR) Antiplatelet not indicated as per neurology recommendation at the time she had her stroke as she was placed on anticoagulation (15) DVT prophylaxis: Coumadin as above judy Hedrick Hypokalemia --K 3.1 -- likely from lasix 40meq IV ordered. Mag wnl Will ordered additional 40PO this evening given continued lasix BMP in AM and suspect will need some additional replacement guarded prognosis was discussed with at the bedside on admission DNR/DNI as per discussion with Continued inpatient stay Admission and Anticipated Discharge Date Admission Date: June 26, 2020 Subjective Patient evaluated around lunch time. More awake and alert today and able to converse with me today. She is still feeling weak. Not able to identify how she fell prior to admission. She denies any focal pain at this time, fever, chills, chest pain, shortness of breath, abdominal pain, nausea, vomiting or diarrhea. She does not have much of an appetite but thinks she would be able to drink some fluids and attempt pills without issue. Discussed similar symptoms last admission with urinary tract infection and that those cultures are still pending. Questions/concerns addressed at this time. Review of Systems Review of Systems: All systems reviewed & are unremarkable except as noted in HPI & below Physical Exam Constitutional: WD/WN, vitals as above + obese, cooperative and + lethargic (reported feeling tired); no acute distress Eyes: PERRL, conjunctivae normal, anicteric sclerae ENMT: Ears: no external ear abnormality Nose: no external nose abnormality Mouth: + dry oral mucous membranes; no lip abnormality Neck: trachea midline, no thyromegaly Respiratory: normal respiratory effort, lungs clear to auscultation normal respiratory effort Auscultation: + diminished lung sounds (At the bases bilaterally); no wheezes Cardiovascular: Rate/Rhythm: regular rate (quiet heart sounds) and regular rhythm Heart Sounds: + murmur (systolic) Extremities: + edema (trace pitting edema hands and feet) Chest (Breasts): Chest: normal inspection of chest Gastrointestinal (Abdomen): Inspection/Auscultation: normal bowel sounds; abdomen not distended Percussion/Palpation: + abdomen tender (diffusely) and abdomen soft; no guarding Musculoskeletal: Extremities: extremities normal to inspection; no cyanosis and no clubbing Skin: no rashes, warm and dry Neurologic: awake and + confused (at times, but able to state "2020", in [facility], Biden president); not obtunded Motor/Sensory: no tremor Psychiatric: A+Ox3, euthymic affect Genitourinary: steen draining cloudy yellow urine Lymphatic: no lymphedema Results & Data Results & Data ([facility]) Vital Signs (Past 12 Hours) Vital Signs Temp Pulse Pulse Pulse Resp BP BP 06/27/20 11:15 36.5 C 06/27/20 10:58 63 06/27/20 09:49 59 L 195/75 H 06/27/20 08:00 50 L 06/27/20 07:46 36.5 C 60 18 197/81 H 06/27/20 06:00 206/72 H 06/27/20 04:33 203/70 H 06/27/20 03:24 36.4 C L 06/27/20 03:18 55 L 16 219/78 H 06/27/20 00:08 46 L 06/26/20 23:35 36.4 C L 51 L 19 196/64 H 06/26/20 21:10 36.5 C 65 20 179/85 H 06/26/20 20:20 49 L 06/26/20 20:10 52 L 20 221/76 H 06/26/20 18:31 56 L 17 06/26/20 18:30 52 L 12 231/73 H 06/26/20 18:15 56 L 21 211/79 H 06/26/20 18:01 52 L 17 06/26/20 18:00 52 L 12 209/88 H 06/26/20 17:45 51 L 12 218/75 H 06/26/20 17:41 55 L 17 210/86 H 06/26/20 17:31 54 L 14 06/26/20 17:30 55 L 14 223/82 H 06/26/20 17:15 54 L 16 225/80 H 06/26/20 17:02 53 L 12 06/26/20 17:00 53 L 13 224/71 H 06/26/20 16:45 53 L 14 231/79 H 06/26/20 16:30 53 L 15 218/79 H 06/26/20 16:21 53 L 10 L 230/80 H 06/26/20 16:00 53 L 13 220/79 H 06/26/20 15:30 51 L 10 L 216/67 H 06/26/20 15:25 53 L 13 209/77 H 06/26/20 15:03 252/78 H 06/26/20 15:01 52 L 13 233/80 H 06/26/20 15:00 52 L 16 06/26/20 14:30 56 L 15 233/80 H 06/26/20 14:01 50 L 12 06/26/20 14:00 49 L 15 228/69 H 06/26/20 13:57 52 L 12 226/79 H 06/26/20 13:30 57 L 14 06/26/20 13:08 59 L 18 223/80 H 06/26/20 13:01 57 L 15 06/26/20 13:00 37.5 C 59 L 20 187/89 H BP Pulse Ox 06/27/20 11:15 06/27/20 10:58 158/64 H 06/27/20 09:49 94 06/27/20 08:00 06/27/20 07:46 95 06/27/20 06:00 06/27/20 04:33 06/27/20 03:24 06/27/20 03:18 95 06/27/20 00:08 06/26/20 23:35 95 06/26/20 21:10 95 06/26/20 20:20 06/26/20 20:10 97 06/26/20 18:31 98 06/26/20 18:30 98 06/26/20 18:15 98 06/26/20 18:01 98 06/26/20 18:00 98 06/26/20 17:45 98 06/26/20 17:41 98 06/26/20 17:31 98 06/26/20 17:30 98 06/26/20 17:15 98 06/26/20 17:02 98 06/26/20 17:00 98 06/26/20 16:45 98 06/26/20 16:30 99 06/26/20 16:21 99 06/26/20 16:00 99 06/26/20 15:30 98 06/26/20 15:25 97 06/26/20 15:03 06/26/20 15:01 99 06/26/20 15:00 99 06/26/20 14:30 100 06/26/20 14:01 98 06/26/20 14:00 98 06/26/20 13:57 98 06/26/20 13:30 98 06/26/20 13:08 97 06/26/20 13:01 97 06/26/20 13:00 97 Intake and Output 06/26/20 06/27/20 06/27/20 22:59 06:59 14:59 Intake Total 50 / 1621 1571 / 1621 186.000 / 186.000 Output Total 1300 / 1300 Balance 50 / 321 271 / 321 186.000 / 186.000 Intake: IV 50 / 1621 1571 / 1621 186.000 / 186.000 Enalaprilat 1.25 mg In Dextrose 26 / 26 26 / 26 5% 25 ml @ 100 mls/hr IV Q6H [facility] Rx#:[id number] Potassium Chloride / Wtr 10 meq 160.000 / 160.000 In 100 ml @ 100 mls/hr IV Q1H [facility] Rx#:[id number] Sodium Chloride 0.9% 1000ML 1, 1000 / 1000 000 ml @ 125 mls/hr IV .Q8H [facility] Rx#:[id number] Vancomycin HCl 2,250 mg In 545 / 545 Sodium Chloride 0.9% 500 ml @ 200 mls/hr IV ONE ONE Rx#: [id number] cefTRIAXone SODIUM 1,000 mg In 50 / 50 50 ml @ 100 mls/hr IV NOW [facility] Rx#:[id number] Oral 0 / 0 Output: Urine 1300 / 1300 Other: Weight 94.2 kg Weight Measurement Method Built in [facility] Laboratory Results 06/27/20 06/27/20 06/27/20 Range/Units 05:59 05:35 05:35 WBC (4.8-10.8) K/uL RBC (4.2-5.4) M/uL Hgb (12.0-16.0) g/dL Hct (37-47) % MCV (80-100) fL MCH (25-34) pg MCHC (32-36) g/dL RDW Std Deviation (36.4-46.3) fL RDW Coeff of Isael (11.5-14.5) % Plt Count (130-400) K/uL MPV (7.4-10.4) fL Immature Gran % (Auto) % Neut % (Auto) % Lymph % (Auto) % [place] % (Auto) % Eos % (Auto) % Baso % (Auto) % Neut # (Auto) (1.4-6.5) K/uL Lymph # (Auto) (1.2-3.4) K/uL [place] # (Auto) (0.11-0.59) K/uL Eos # (Auto) (0-0.5) K/uL Baso # (Auto) (0-0.2) K/uL Immature Gran # (Auto) (0.00-0.02) K/uL PT INR ABG pH (7.35-7.45) ABG pCO2 (35-46) mmHg ABG pO2 (80-95) mmHg ABG HCO3 (19-24) mmol/L ABG O2 Saturation (90-95) % ABG Base Excess (-9-1.8) mEq/L Remi Test (Pos) Barometric Pressure mm/Hg Oxygen Given Sodium (136-145) mmol/L Potassium (3.5-5.1) mmol/L Chloride (98-107) mmol/L Carbon Dioxide (21-32) mmol/L Anion Gap (3-11) BUN (7-18) mg/dl Creatinine (0.6-1.2) mg/dl Est Cr Clr Drug Dosing Est GFR ( Amer) Est GFR (Non-Af Amer) BUN/Creatinine Ratio (10-20) Glucose (70-99) mg/dl POC Glucose 117 H (70-99) mg/dl Estimat Average Glucose 143 mg/dl Hemoglobin A1c 6.6 H (4.5-5.6) % Calcium (8.5-10.1) mg/dl Phosphorus (2.5-4.9) mg/dl Magnesium (1.8-2.4) mg/dl Total Bilirubin (0.2-1) mg/dl AST (15-37) U/L ALT (12-78) U/L Alkaline Phosphatase (45-117) U/L Ammonia (11-32) umol/L Troponin I 0.042 (0-0.045) ng/ml Total Protein (6.4-8.2) gm/dl Albumin (3.4-5.0) gm/dl Globulin (2.5-4.0) gm/dl Albumin/Globulin Ratio (0.9-2) TSH (0.300-4.500) uIu/ml Specimen Hemolysis Urine Color Urine Appearance (Clear) Urine pH (4.5-7.5) Ur Specific [place] (1.000-1.030) Urine Protein (Negative) Urine Glucose (UA) (Negative) Urine Ketones (Negative) Urine Blood (Negative) Urine Nitrite (Negative) Urine Bilirubin (Negative) Urine Urobilinogen (Negative) Ur Leukocyte Esterase (Negative) Urine WBC (Auto) (0-5) /hpf Urine RBC (Auto) (0-4) /hpf U Hyaline Cast (Auto) (0-5) /lpf U Epithel Cells (Auto) (0-5) /lpf Urine Bacteria (Auto) (Negative) Uric Acid Crystals (None Prsent) Urine Yeast (None Prsent) Nasal Screen MRSA (PCR) (Negative) COVID-19 Eval Order SARS-CoV-2 (PCR) (Negative) Influenza Type A (PCR) (Neg) Influenza Type B (PCR) (Neg) RSV (RT-PCR) (Neg) 06/27/20 06/27/20 06/27/20 Range/Units 05:35 05:35 05:35 WBC 11.19 H (4.8-10.8) K/uL RBC 3.89 L (4.2-5.4) M/uL Hgb 12.0 (12.0-16.0) g/dL Hct 37.9 (37-47) % MCV 97.4 (80-100) fL MCH 30.8 (25-34) pg MCHC 31.7 L (32-36) g/dL RDW Std Deviation 50.8 H (36.4-46.3) fL RDW Coeff of Isael 14.3 (11.5-14.5) % Plt Count 148 (130-400) K/uL MPV 11.2 H (7.4-10.4) fL Immature Gran % (Auto) 0.4 % Neut % (Auto) 82.6 % Lymph % (Auto) 9.0 % [place] % (Auto) 7.5 % Eos % (Auto) 0.4 % Baso % (Auto) 0.1 % Neut # (Auto) 9.24 H (1.4-6.5) K/uL Lymph # (Auto) 1.01 L (1.2-3.4) K/uL [place] # (Auto) 0.84 H (0.11-0.59) K/uL Eos # (Auto) 0.05 (0-0.5) K/uL Baso # (Auto) 0.01 (0-0.2) K/uL Immature Gran # (Auto) 0.04 H (0.00-0.02) K/uL PT 35.6 H INR 3.9 H ABG pH (7.35-7.45) ABG pCO2 (35-46) mmHg ABG pO2 (80-95) mmHg ABG HCO3 (19-24) mmol/L ABG O2 Saturation (90-95) % ABG Base Excess (-9-1.8) mEq/L Remi Test (Pos) Barometric Pressure mm/Hg Oxygen Given Sodium 139 (136-145) mmol/L Potassium 3.1 L D (3.5-5.1) mmol/L Chloride 102 (98-107) mmol/L Carbon Dioxide 32 (21-32) mmol/L Anion Gap 5.0 (3-11) BUN 22 H (7-18) mg/dl Creatinine 0.64 (0.6-1.2) mg/dl Est Cr Clr Drug Dosing 65.9 Est GFR ( Amer) 94.3 Est GFR (Non-Af Amer) 81.4 BUN/Creatinine Ratio 34.0 H (10-20) Glucose 137 H (70-99) mg/dl POC Glucose (70-99) mg/dl Estimat Average Glucose mg/dl Hemoglobin A1c (4.5-5.6) % Calcium 8.6 (8.5-10.1) mg/dl Phosphorus 2.3 L (2.5-4.9) mg/dl Magnesium 2.3 (1.8-2.4) mg/dl Total Bilirubin 0.7 (0.2-1) mg/dl AST 24 (15-37) U/L ALT 24 (12-78) U/L Alkaline Phosphatase 88 (45-117) U/L Ammonia (11-32) umol/L Troponin I (0-0.045) ng/ml Total Protein 6.7 (6.4-8.2) gm/dl Albumin 2.4 L (3.4-5.0) gm/dl Globulin 4.3 H (2.5-4.0) gm/dl Albumin/Globulin Ratio 0.6 L (0.9-2) TSH (0.300-4.500) uIu/ml Specimen Hemolysis Urine Color Urine Appearance (Clear) Urine pH (4.5-7.5) Ur Specific [place] (1.000-1.030) Urine Protein (Negative) Urine Glucose (UA) (Negative) Urine Ketones (Negative) Urine Blood (Negative) Urine Nitrite (Negative) Urine Bilirubin (Negative) Urine Urobilinogen (Negative) Ur Leukocyte Esterase (Negative) Urine WBC (Auto) (0-5) /hpf Urine RBC (Auto) (0-4) /hpf U Hyaline Cast (Auto) (0-5) /lpf U Epithel Cells (Auto) (0-5) /lpf Urine Bacteria (Auto) (Negative) Uric Acid Crystals (None Prsent) Urine Yeast (None Prsent) Nasal Screen MRSA (PCR) (Negative) COVID-19 Eval Order SARS-CoV-2 (PCR) (Negative) Influenza Type A (PCR) (Neg) Influenza Type B (PCR) (Neg) RSV (RT-PCR) (Neg) 06/26/20 06/26/20 06/26/20 Range/Units 22:22 21:37 21:05 WBC (4.8-10.8) K/uL RBC (4.2-5.4) M/uL Hgb (12.0-16.0) g/dL Hct (37-47) % MCV (80-100) fL MCH (25-34) pg MCHC (32-36) g/dL RDW Std Deviation (36.4-46.3) fL RDW Coeff of Isael (11.5-14.5) % Plt Count (130-400) K/uL MPV (7.4-10.4) fL Immature Gran % (Auto) % Neut % (Auto) % Lymph % (Auto) % [place] % (Auto) % Eos % (Auto) % Baso % (Auto) % Neut # (Auto) (1.4-6.5) K/uL Lymph # (Auto) (1.2-3.4) K/uL [place] # (Auto) (0.11-0.59) K/uL Eos # (Auto) (0-0.5) K/uL Baso # (Auto) (0-0.2) K/uL Immature Gran # (Auto) (0.00-0.02) K/uL PT INR ABG pH (7.35-7.45) ABG pCO2 (35-46) mmHg ABG pO2 (80-95) mmHg ABG HCO3 (19-24) mmol/L ABG O2 Saturation (90-95) % ABG Base Excess (-9-1.8) mEq/L Remi Test (Pos) Barometric Pressure mm/Hg Oxygen Given Sodium (136-145) mmol/L Potassium (3.5-5.1) mmol/L Chloride (98-107) mmol/L Carbon Dioxide (21-32) mmol/L Anion Gap (3-11) BUN (7-18) mg/dl Creatinine (0.6-1.2) mg/dl Est Cr Clr Drug Dosing Est GFR ( Amer) Est GFR (Non-Af Amer) BUN/Creatinine Ratio (10-20) Glucose (70-99) mg/dl POC Glucose 170 H (70-99) mg/dl Estimat Average Glucose mg/dl Hemoglobin A1c (4.5-5.6) % Calcium (8.5-10.1) mg/dl Phosphorus (2.5-4.9) mg/dl Magnesium (1.8-2.4) mg/dl Total Bilirubin (0.2-1) mg/dl AST (15-37) U/L ALT (12-78) U/L Alkaline Phosphatase (45-117) U/L Ammonia (11-32) umol/L Troponin I 0.046 H* (0-0.045) ng/ml Total Protein (6.4-8.2) gm/dl Albumin (3.4-5.0) gm/dl Globulin (2.5-4.0) gm/dl Albumin/Globulin Ratio (0.9-2) TSH (0.300-4.500) uIu/ml Specimen Hemolysis Urine Color Urine Appearance (Clear) Urine pH (4.5-7.5) Ur Specific [place] (1.000-1.030) Urine Protein (Negative) Urine Glucose (UA) (Negative) Urine Ketones (Negative) Urine Blood (Negative) Urine Nitrite (Negative) Urine Bilirubin (Negative) Urine Urobilinogen (Negative) Ur Leukocyte Esterase (Negative) Urine WBC (Auto) (0-5) /hpf Urine RBC (Auto) (0-4) /hpf U Hyaline Cast (Auto) (0-5) /lpf U Epithel Cells (Auto) (0-5) /lpf Urine Bacteria (Auto) (Negative) Uric Acid Crystals (None Prsent) Urine Yeast (None Prsent) Nasal Screen MRSA (PCR) Negative (Negative) COVID-19 Eval Order SARS-CoV-2 (PCR) (Negative) Influenza Type A (PCR) (Neg) Influenza Type B (PCR) (Neg) RSV (RT-PCR) (Neg) 06/26/20 06/26/20 06/26/20 Range/Units 20:41 18:46 18:46 WBC (4.8-10.8) K/uL RBC (4.2-5.4) M/uL Hgb (12.0-16.0) g/dL Hct (37-47) % MCV (80-100) fL MCH (25-34) pg MCHC (32-36) g/dL RDW Std Deviation (36.4-46.3) fL RDW Coeff of Isael (11.5-14.5) % Plt Count (130-400) K/uL MPV (7.4-10.4) fL Immature Gran % (Auto) % Neut % (Auto) % Lymph % (Auto) % [place] % (Auto) % Eos % (Auto) % Baso % (Auto) % Neut # (Auto) (1.4-6.5) K/uL Lymph # (Auto) (1.2-3.4) K/uL [place] # (Auto) (0.11-0.59) K/uL Eos # (Auto) (0-0.5) K/uL Baso # (Auto) (0-0.2) K/uL Immature Gran # (Auto) (0.00-0.02) K/uL PT INR ABG pH 7.41 (7.35-7.45) ABG pCO2 54 H (35-46) mmHg ABG pO2 133 H (80-95) mmHg ABG HCO3 33 H (19-24) mmol/L ABG O2 Saturation 98.7 H (90-95) % ABG Base Excess 7.3 H (-9-1.8) mEq/L Remi Test Pos (Pos) Barometric Pressure 729.5 mm/Hg Oxygen Given 2 LITERS Sodium (136-145) mmol/L Potassium (3.5-5.1) mmol/L Chloride (98-107) mmol/L Carbon Dioxide (21-32) mmol/L Anion Gap (3-11) BUN (7-18) mg/dl Creatinine (0.6-1.2) mg/dl Est Cr Clr Drug Dosing Est GFR ( Amer) Est GFR (Non-Af Amer) BUN/Creatinine Ratio (10-20) Glucose (70-99) mg/dl POC Glucose 168 H (70-99) mg/dl Estimat Average Glucose mg/dl Hemoglobin A1c (4.5-5.6) % Calcium (8.5-10.1) mg/dl Phosphorus (2.5-4.9) mg/dl Magnesium (1.8-2.4) mg/dl Total Bilirubin (0.2-1) mg/dl AST (15-37) U/L ALT (12-78) U/L Alkaline Phosphatase (45-117) U/L Ammonia < 10.0 L (11-32) umol/L Troponin I (0-0.045) ng/ml Total Protein (6.4-8.2) gm/dl Albumin (3.4-5.0) gm/dl Globulin (2.5-4.0) gm/dl Albumin/Globulin Ratio (0.9-2) TSH (0.300-4.500) uIu/ml Specimen Hemolysis Urine Color Urine Appearance (Clear) Urine pH (4.5-7.5) Ur Specific [place] (1.000-1.030) Urine Protein (Negative) Urine Glucose (UA) (Negative) Urine Ketones (Negative) Urine Blood (Negative) Urine Nitrite (Negative) Urine Bilirubin (Negative) Urine Urobilinogen (Negative) Ur Leukocyte Esterase (Negative) Urine WBC (Auto) (0-5) /hpf Urine RBC (Auto) (0-4) /hpf U Hyaline Cast (Auto) (0-5) /lpf U Epithel Cells (Auto) (0-5) /lpf Urine Bacteria (Auto) (Negative) Uric Acid Crystals (None Prsent) Urine Yeast (None Prsent) Nasal Screen MRSA (PCR) (Negative) COVID-19 Eval Order SARS-CoV-2 (PCR) (Negative) Influenza Type A (PCR) (Neg) Influenza Type B (PCR) (Neg) RSV (RT-PCR) (Neg) 06/26/20 06/26/20 06/26/20 Range/Units 15:35 15:35 15:06 WBC (4.8-10.8) K/uL RBC (4.2-5.4) M/uL Hgb (12.0-16.0) g/dL Hct (37-47) % MCV (80-100) fL MCH (25-34) pg MCHC (32-36) g/dL RDW Std Deviation (36.4-46.3) fL RDW Coeff of Isael (11.5-14.5) % Plt Count (130-400) K/uL MPV (7.4-10.4) fL Immature Gran % (Auto) % Neut % (Auto) % Lymph % (Auto) % [place] % (Auto) % Eos % (Auto) % Baso % (Auto) % Neut # (Auto) (1.4-6.5) K/uL Lymph # (Auto) (1.2-3.4) K/uL [place] # (Auto) (0.11-0.59) K/uL Eos # (Auto) (0-0.5) K/uL Baso # (Auto) (0-0.2) K/uL Immature Gran # (Auto) (0.00-0.02) K/uL PT 31.5 H INR 3.4 H ABG pH (7.35-7.45) ABG pCO2 (35-46) mmHg ABG pO2 (80-95) mmHg ABG HCO3 (19-24) mmol/L ABG O2 Saturation (90-95) % ABG Base Excess (-9-1.8) mEq/L Remi Test (Pos) Barometric Pressure mm/Hg Oxygen Given Sodium (136-145) mmol/L Potassium (3.5-5.1) mmol/L Chloride (98-107) mmol/L Carbon Dioxide (21-32) mmol/L Anion Gap (3-11) BUN (7-18) mg/dl Creatinine (0.6-1.2) mg/dl Est Cr Clr Drug Dosing Est GFR ( Amer) Est GFR (Non-Af Amer) BUN/Creatinine Ratio (10-20) Glucose (70-99) mg/dl POC Glucose (70-99) mg/dl Estimat Average Glucose mg/dl Hemoglobin A1c (4.5-5.6) % Calcium (8.5-10.1) mg/dl Phosphorus (2.5-4.9) mg/dl Magnesium (1.8-2.4) mg/dl Total Bilirubin (0.2-1) mg/dl AST (15-37) U/L ALT (12-78) U/L Alkaline Phosphatase (45-117) U/L Ammonia (11-32) umol/L Troponin I (0-0.045) ng/ml Total Protein (6.4-8.2) gm/dl Albumin (3.4-5.0) gm/dl Globulin (2.5-4.0) gm/dl Albumin/Globulin Ratio (0.9-2) TSH (0.300-4.500) uIu/ml Specimen Hemolysis Urine Color Urine Appearance (Clear) Urine pH (4.5-7.5) Ur Specific [place] (1.000-1.030) Urine Protein (Negative) Urine Glucose (UA) (Negative) Urine Ketones (Negative) Urine Blood (Negative) Urine Nitrite (Negative) Urine Bilirubin (Negative) Urine Urobilinogen (Negative) Ur Leukocyte Esterase (Negative) Urine WBC (Auto) (0-5) /hpf Urine RBC (Auto) (0-4) /hpf U Hyaline Cast (Auto) (0-5) /lpf U Epithel Cells (Auto) (0-5) /lpf Urine Bacteria (Auto) (Negative) Uric Acid Crystals (None Prsent) Urine Yeast (None Prsent) Nasal Screen MRSA (PCR) (Negative) COVID-19 Eval Order [facility]FluRsv at [facility] SARS-CoV-2 (PCR) NEGATIVE (Negative) Influenza Type A (PCR) Negative (Neg) Influenza Type B (PCR) Negative (Neg) RSV (RT-PCR) Negative (Neg) 06/26/20 06/26/20 06/26/20 Range/Units 13:25 13:25 13:25 WBC 10.49 (4.8-10.8) K/uL RBC 3.83 L (4.2-5.4) M/uL Hgb 12.1 (12.0-16.0) g/dL Hct 37.8 (37-47) % MCV 98.7 (80-100) fL MCH 31.6 (25-34) pg MCHC 32.0 (32-36) g/dL RDW Std Deviation 52.9 H (36.4-46.3) fL RDW Coeff of Isael 14.7 H (11.5-14.5) % Plt Count 175 (130-400) K/uL MPV 12.3 H (7.4-10.4) fL Immature Gran % (Auto) 0.6 % Neut % (Auto) 76.4 % Lymph % (Auto) 13.3 % [place] % (Auto) 9.2 % Eos % (Auto) 0.3 % Baso % (Auto) 0.2 % Neut # (Auto) 8.02 H (1.4-6.5) K/uL Lymph # (Auto) 1.39 (1.2-3.4) K/uL [place] # (Auto) 0.97 H (0.11-0.59) K/uL Eos # (Auto) 0.03 (0-0.5) K/uL Baso # (Auto) 0.02 (0-0.2) K/uL Immature Gran # (Auto) 0.06 H (0.00-0.02) K/uL PT Cancelled INR Cancelled ABG pH (7.35-7.45) ABG pCO2 (35-46) mmHg ABG pO2 (80-95) mmHg ABG HCO3 (19-24) mmol/L ABG O2 Saturation (90-95) % ABG Base Excess (-9-1.8) mEq/L Remi Test (Pos) Barometric Pressure mm/Hg Oxygen Given Sodium (136-145) mmol/L Potassium (3.5-5.1) mmol/L Chloride (98-107) mmol/L Carbon Dioxide (21-32) mmol/L Anion Gap (3-11) BUN (7-18) mg/dl Creatinine (0.6-1.2) mg/dl Est Cr Clr Drug Dosing Est GFR ( Amer) Est GFR (Non-Af Amer) BUN/Creatinine Ratio (10-20) Glucose (70-99) mg/dl POC Glucose (70-99) mg/dl Estimat Average Glucose mg/dl Hemoglobin A1c (4.5-5.6) % Calcium (8.5-10.1) mg/dl Phosphorus (2.5-4.9) mg/dl Magnesium (1.8-2.4) mg/dl Total Bilirubin (0.2-1) mg/dl AST (15-37) U/L ALT (12-78) U/L Alkaline Phosphatase (45-117) U/L Ammonia (11-32) umol/L Troponin I (0-0.045) ng/ml Total Protein (6.4-8.2) gm/dl Albumin (3.4-5.0) gm/dl Globulin (2.5-4.0) gm/dl Albumin/Globulin Ratio (0.9-2) TSH (0.300-4.500) uIu/ml Specimen Hemolysis Urine Color Yellow Urine Appearance Cloudy A (Clear) Urine pH 5.0 (4.5-7.5) Ur Specific [place] 1.013 (1.000-1.030) Urine Protein 1+ H (Negative) Urine Glucose (UA) Negative (Negative) Urine Ketones Negative (Negative) Urine Blood Negative (Negative) Urine Nitrite Negative (Negative) Urine Bilirubin Negative (Negative) Urine Urobilinogen Negative (Negative) Ur Leukocyte Esterase Trace H (Negative) Urine WBC (Auto) 10-30 H (0-5) /hpf Urine RBC (Auto) 5-10 H (0-4) /hpf U Hyaline Cast (Auto) 1-5 (0-5) /lpf U Epithel Cells (Auto) >30 H (0-5) /lpf Urine Bacteria (Auto) Negative (Negative) Uric Acid Crystals Present A (None Prsent) Urine Yeast Budding A (None Prsent) Nasal Screen MRSA (PCR) (Negative) COVID-19 Eval Order SARS-CoV-2 (PCR) (Negative) Influenza Type A (PCR) (Neg) Influenza Type B (PCR) (Neg) RSV (RT-PCR) (Neg) 06/26/20 Range/Units 13:25 WBC (4.8-10.8) K/uL RBC (4.2-5.4) M/uL Hgb (12.0-16.0) g/dL Hct (37-47) % MCV (80-100) fL MCH (25-34) pg MCHC (32-36) g/dL RDW Std Deviation (36.4-46.3) fL RDW Coeff of Isael (11.5-14.5) % Plt Count (130-400) K/uL MPV (7.4-10.4) fL Immature Gran % (Auto) % Neut % (Auto) % Lymph % (Auto) % [place] % (Auto) % Eos % (Auto) % Baso % (Auto) % Neut # (Auto) (1.4-6.5) K/uL Lymph # (Auto) (1.2-3.4) K/uL [place] # (Auto) (0.11-0.59) K/uL Eos # (Auto) (0-0.5) K/uL Baso # (Auto) (0-0.2) K/uL Immature Gran # (Auto) (0.00-0.02) K/uL PT INR ABG pH (7.35-7.45) ABG pCO2 (35-46) mmHg ABG pO2 (80-95) mmHg ABG HCO3 (19-24) mmol/L ABG O2 Saturation (90-95) % ABG Base Excess (-9-1.8) mEq/L Remi Test (Pos) Barometric Pressure mm/Hg Oxygen Given Sodium 142 (136-145) mmol/L Potassium 4.0 (3.5-5.1) mmol/L Chloride 106 (98-107) mmol/L Carbon Dioxide 35 H (21-32) mmol/L Anion Gap 1.0 L (3-11) BUN 26 H (7-18) mg/dl Creatinine 0.78 (0.6-1.2) mg/dl Est Cr Clr Drug Dosing Not Reportable Est GFR ( Amer) 80.3 Est GFR (Non-Af Amer) 69.3 BUN/Creatinine Ratio 33.6 H (10-20) Glucose 134 H (70-99) mg/dl POC Glucose (70-99) mg/dl Estimat Average Glucose mg/dl Hemoglobin A1c (4.5-5.6) % Calcium 8.6 (8.5-10.1) mg/dl Phosphorus (2.5-4.9) mg/dl Magnesium 2.9 H (1.8-2.4) mg/dl Total Bilirubin 0.6 (0.2-1) mg/dl AST 37 (15-37) U/L ALT 31 (12-78) U/L Alkaline Phosphatase 93 (45-117) U/L Ammonia (11-32) umol/L Troponin I 0.057 H* (0-0.045) ng/ml Total Protein 7.3 (6.4-8.2) gm/dl Albumin 2.7 L (3.4-5.0) gm/dl Globulin 4.6 H (2.5-4.0) gm/dl Albumin/Globulin Ratio 0.6 L (0.9-2) TSH 1.690 (0.300-4.500) uIu/ml Specimen Hemolysis Urine Color Urine Appearance (Clear) Urine pH (4.5-7.5) Ur Specific [place] (1.000-1.030) Urine Protein (Negative) Urine Glucose (UA) (Negative) Urine Ketones (Negative) Urine Blood (Negative) Urine Nitrite (Negative) Urine Bilirubin (Negative) Urine Urobilinogen (Negative) Ur Leukocyte Esterase (Negative) Urine WBC (Auto) (0-5) /hpf Urine RBC (Auto) (0-4) /hpf U Hyaline Cast (Auto) (0-5) /lpf U Epithel Cells (Auto) (0-5) /lpf Urine Bacteria (Auto) (Negative) Uric Acid Crystals (None Prsent) Urine Yeast (None Prsent) Nasal Screen MRSA (PCR) (Negative) COVID-19 Eval Order SARS-CoV-2 (PCR) (Negative) Influenza Type A (PCR) (Neg) Influenza Type B (PCR) (Neg) RSV (RT-PCR) (Neg) Diagnostic Findings Abdomen/Pelvis CT 06/26/20 13:[address] WITHOUT CONTRAST CT DOSE: 4530.68 mGy.cm HISTORY: Acutely altered mental status AMS TECHNIQUE: Multiaxial CT images of the abdomen and pelvis were performed without contrast. A dose lowering technique was utilized adhering to the principles of ALARA. COMPARISON STUDY: CT abdomen and pelvis 06/04/2020 FINDINGS: Cardiomegaly with mitral and aortic annular calcifications. Small to moderate layering pleural effusions have increased in size from comparison. Progressive bibasilar consolidation. No pneumatosis or pneumoperitoneum. Limited evaluation of the solid abdominal and without the use of IV contrast. Calcified granulomata of the spleen. Moderately atrophic pancreas. Unremarkable adrenal glands. Cholecystectomy. Unenhanced liver is unremarkable. Renal vascular calcifications noted bilaterally. Bilateral renal vascular calcifications. Left-sided renal cysts. Indeterminate intermediate density 1.9 cm lesion of the posterior interpolar left kidney with [place]oun[place] of 27, likely a complex cyst. Decompressed urinary bladder with Steen catheter. Air within the bladder is likely secondary to instrumentation. Hysterectomy. No adnexal mass lesion. Calcified plaque of the aorta without aneurysm. There is no adenopathy. Small hiatal hernia. Colonic diverticulosis. No bowel obstruction or bowel wall thickening. Nonvisualization of the appendix. No ascites or mesenteric inflammation. Asymmetric soft tissue nodularity of the left breast redemonstrated. Cystic 1.8 cm structure of the upper outer quadrant right breast. Degenerative changes of the shoulders and spine. Demineralized appearance of the bones. IMPRESSION: 1. Limited exam without the use of contrast. 2. No bowel obstruction or bowel wall thickening. 3. Colonic diverticulosis. 4. Increased size of layering pleural effusions with progressive bibasilar consolidation suggestive of compressive atelectasis. Superimposed pneumonitis would be impossible to exclude. 5. Additional findings as above. ACT 112: Negative or not required by law. The above report was generated using voice recognition software. It may contain grammatical, syntax or spelling errors. Electronically signed by: Harsha Diaz M.D. 06/26/2020 3:[address] 06/26/20 13:56 CT OF THE CERVICAL SPINE WITHOUT CONTRAST CLINICAL HISTORY: fall COMPARISON STUDY: No previous studies for comparison. TECHNIQUE: Helical axial images of the cervical spine were obtained without IV contrast. Sagittal and coronal reconstructions were viewed. Automated exposure control was utilized for the study. A dose lowering technique was utilized adhering to the principles of ALARA. FINDINGS: Alignment of the cervical spine is anatomic. Vertebral body heights are maintained. No acute cervical spine fracture or subluxation is present. There is no prevertebral edema. Facet joints are intact. Note is made of a severe multilevel facet arthrosis. There is moderate multilevel degenerative disc disease. Interlobular septal thickening within visualized portions of the lung apices indicates interstitial pulmonary edema. Bilateral pleural effusions are partially imaged. IMPRESSION: 1. No acute cervical spine fracture or subluxation. 2. Interstitial pulmonary edema within the lung apices. Partially visualized bilateral pleural effusions. ACT 112: Negative or not required by law. Electronically signed by: Quinn Gannon M.D. 06/26/2020 3:[address] 06/26/20 13:56 CT head/brain wo con CLINICAL HISTORY: Acute change in mental status. COMPARISON STUDY: 06/24/2020 TECHNIQUE: Axial CT of the brain is performed from the vertex to the skull base. IV contrast was not administered for this examination. A dose lowering technique was utilized adhering to the principles of ALARA. CT DOSE: FINDINGS: No intra or extra-axial mass lesions are visualized. There is no CT evidence of acute cortical infarction. There is no evidence of midline shift. There is no acute hemorrhage. No calvarial fractures are visualized. There are moderate white matter hypodensities likely on a small vessel basis. There is no evidence of pathologic ventricular dilatation. There is no evidence of acute sinusitis IMPRESSION: No acute intracranial findings ACT 112: Negative or not required by law. Electronically signed by: Rufino Izaguirre M.D. 06/26/2020 3:29 PM Chest X-Ray 06/26/20 13:57 SINGLE VIEW CHEST CLINICAL HISTORY: Change in mental status. FINDINGS: An AP, portable, upright chest radiograph is compared to study dated 06/04/2020. Correlation is made with chest CT dated 06/21/2009. The examination is degraded by portable technique and patient rotation. The heart is enlarged noting atherosclerotic calcification of the thoracic aorta. There is pulmonary vascular congestion. There are small pleural effusions. Consolidation is noted at the left lung base. No pneumothorax is seen. The skeletal structures are osteopenic. The bony thorax is grossly intact. IMPRESSION: 1. Cardiomegaly with evidence of congestive failure. 2. Small pleural effusions. 3. Consolidative change at the left lung base likely represents atelectasis. Correlate clinically for evidence of a superimposed infectious/inflammatory pneumonitis. ACT 112: Negative or not required by law. Electronically signed by: Darius Bhardwaj M.D. 06/26/2020 3:53 PM Humerus X-Ray 06/26/20 21:03 XR humerus RT 2V CLINICAL HISTORY: Right humeral pain status post trauma COMPARISON: None. DISCUSSION: The study is somewhat limited from a technical standpoint. No fractures or dislocations are visualized on the provided images. IMPRESSION: Technically limited study. No fractures identified. If symptoms persist, repeat imaging could be obtained. ACT 112: Negative or not required by law. Electronically signed by: Rufino Izaguirre M.D. 06/27/2020 6:57 AM PG Care Time/CCT Total # of Minutes Spent Total Time Spent with Patient: Total time spent is greater than 50% in coordi nation of care (as documented) at patient's floor/unit and/or counseling patient: Coding Level of Care Code 75989 Subseq Obs Care Lvl 3 Diagnoses Encephalopathy acute G93.40 Malignant hypertension I10 Diabetes mellitus type 2, uncontrolled E11.65 Elevated troponin R77.8 Mild chronic anemia D64.9 Nocturnal hypoxemia G47.34 Paroxysmal atrial fibrillation I48.0 Pleural effusion J90 Pulmonary hypertension I27.20 UTI (urinary tract infection) N39.0 Anticoagulant long-term use Z79.01 Anxiety F41.9 Aortic stenosis I35.0 CVA (cerebral vascular accident) I63.9 DVT prophylaxis Z29.9
[2020-06-27] MEDS: FUROSEMIDE IV SCH (08:47)
[2020-06-27] MEDS: POTASSIUM CHLORIDE / WTR 10 MEQ/100 ML PLCT IV SCH ×5 (08:47→13:06)
[2020-06-27] MEDS: busPIRone 5 MG TAB PO SCH ×3 (08:48→20:48)
[2020-06-27] MEDS: CHOLECALCIFEROL 1,000 UNITS 25 MCG TAB PO SCH (08:48)
[2020-06-27] MEDS: CEFEPIME 2,000 MG in SYRINGE 0 ML IV SCH ×2 (10:15→17:43)
[2020-06-27] MEDS ORDERED: VANCOMYCIN HCL 1,250 MG in SODIUM CHLORIDE 0.9% 250 ML IV SCH (11:00)
[2020-06-27] MEDS ORDERED: Nursing to Pharmacy Communication SCH ×2 (12:45→17:45)
--- NOTE | 2020-06-27 13:40 | XRay Report ---
XR chest 1V portable CLINICAL HISTORY: f/u L lung base consolidation COMPARISON STUDY: Chest radiograph June 26, 2020. FINDINGS: There is no pneumothorax. Small left pleural effusion is noted. There may be a trace right pleural effusion. Left basilar opacity has slightly decreased. Interstitial thickening persists. Line ar left midlung opacity reflects atelectasis or scarring. IMPRESSION: 1. Left basilar opacity, slightly decreased since prior exam. This favors atelectasis although an inf ectious process could appear similar. 2. Cardiomegaly with suspected mild pulmonary edema. 3. Small left and trace right pleural effusions. ACT 112: Negative or not required by law. Electronically signed by: Quinn Gannon M.D. 06/27/2020 1:38 PM
[2020-06-27] MEDS ORDERED: FUROSEMIDE 20 MG in SYRINGE 0 ML IV SCH (17:00)
--- NOTE | 2020-06-27 17:14 | Cardiology Consultation ---
Date of Consultation June 27, 2020 Assessment & Plan (1) Ventricular tachycardia seen on alarm security or surveillance monitor: (2) Diastolic CHF: (3) Malignant hypertension: (4) Elevated troponin: (5) Mild aortic stenosis: (6) Paroxysmal atrial fibrillation: (7) Anticoagulant long-term use: (8) Encephalopathy acute: Complex patient with multiple subacute cardiac and noncardiac issues. Main focus is gradually bringing down her uncontrolled hypertension, she is trending downward over the past 24 hours on IV hydralazine, losartan, furosemide, and her usual atenolol. Based on physical exam and chest x-ray, she still appears volume overloaded. Would recommend more aggressive diuresis, her I/O appears fairly even currently and her weight is 8 pounds above her discharge weight from several weeks ago. Would increase furosemide to 40 mg IV twice daily. In the context of uncontrolled hypertension/volume overload her short run of either ventricular tachycardia or paroxysmal atrial dysrhythmia with left bundle branch block is not clinically significant. She is already on beta-blockade to the point that she is mildly bradycardic and likely blunting a more physiologic chronotropic response to her volume overload. In the absence of recurrent wide- complex dysrhythmias, would actually recommend reducing her atenolol to 25 mg once daily (rather than twice daily) to allow for more physiologic heart rate. If she has clinically significant dysrhythmias, would consider amiodarone. Will follow along with you and offer further recommendations tomorrow. Thank you for this opportunity to see a longstanding patient whom I have known for over 20 years. History of Present Illness Reason for Consultation: 7 beat run of ventricular tachycardia Requesting Physician: Luz Marina Mishra MD Attending Physician: Tutu Rinaldi MD History of Present Illness 84-year-old woman who I had followed as an outpatient for over 20 years (however last seen 2018) who was admitted last month and again this month with mental status changes felt to be acute encephalopathy possibly due to hypertensive urgency. She has a complex past medical history, I had followed her for paroxysmal atrial fibrillation (atenolol/warfarin), recurrent noncardiac chest pain (multiple negative stress studies), remote DVT/PE (chronic warfarin). 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 In addition to her mental status change and uncontrolled hypertension, recent medical issues have included new onset left bundle branch block, mildly elevated troponin, nocturnal hypoxemia, and evidence of volume overload (small to moderate bilateral pleural effusions and pulmonary edema). In addition, consultation today is for a 7 beat run of wide-complex tachycardia noted on telemetry which was apparently asymptomatic. At the time of my evaluation this afternoon, she was sitting comfortably and had no somatic complaints. She denied chest pain, dyspnea, subjective palpitations, or lightheadedness. She did appear mildly confused, she recognized me and knew she was in the hospital and that the president was Verna, but she thought the year was 1995. Allergies Allergy/AdvReac Type Severity Reaction Status Date / Time aspirin Allergy Intermediate HIVES Verified 06/26/20 14:43 Iodinated Contrast Media Allergy Intermediate HIVES Verified 06/26/20 14:43 Penicillins Allergy Intermediate HIVES Verified 06/26/20 14:43 doxazosin Allergy Unknown Elevated BP Unverified 06/26/20 14:43 glipizide Allergy Unknown Pt doesn't Unverified 06/26/20 14:43 remeber reaction influenza virus vacc Allergy Unknown Unknown Verified 06/26/20 14:43 trivalent, split [From Fluzone] pregabalin Allergy Unknown Pt doesn't Unverified 06/26/20 14:43 remeber reaction Adqvzkn-Yte-Yin Reductase Allergy Unknown muscle Unverified 06/26/20 14:43 Inhibitor cramping thimerosal Allergy Unknown Pt can't Unverified 06/26/20 14:43 remember reaction Home Medications Medication Instructions Recorded Confirmed Type cholecalciferol (vitamin D3) 125 5,000 units PO DAILY cap 10/29/18 06/26/20 History mcg (5,000 unit) capsule atenolol 25 mg tablet 25 mg PO BID #180 tab 06/08/19 06/26/20 Rx hydralazine 50 mg tablet 50 mg PO TID #270 tab 02/09/20 06/26/20 Rx losartan 50 mg tablet 50 mg PO BID #180 tab 02/09/20 06/26/20 Rx insulin glargine 100 unit/mL 30 unit SUBCUT QPM #10 ml 03/11/20 06/26/20 Rx subcutaneous solution insulin aspart U-100 100 unit/mL 10 unit SUBCUT .COMPLEX #15 ml MDD 03/13/20 06/26/20 Rx (3 mL) subcutaneous pen 50 units warfarin 0.5 mg PO DAILY 06/04/20 06/26/20 History alprazolam 0.25 mg PO BID #10 tab 06/12/20 06/26/20 Rx buspirone 5 mg PO TID 06/26/20 06/26/20 History furosemide [Lasix] 20 mg PO DAILY 06/26/20 06/26/20 History hydralazine 100 mg PO QID 06/26/20 06/26/20 History ondansetron HCl [Zofran] 4 mg PO Q8H PRN 06/26/20 06/26/20 History tramadol 50 mg PO Q6H PRN 06/26/20 06/26/20 History Patient History Medical History AMS (altered mental status) Anticoagulant long-term use Anxiety Aortic stenosis CVA (cerebral vascular accident) Depression Diabetes mellitus type 2, uncontrolled Hemiplegia of nondominant side as late effect of cerebrovascular disease HTN (hypertension) Mild chronic anemia Nocturnal hypoxemia Obesity Paroxysmal atrial fibrillation Pulmonary hypertension Thalamic pain syndrome (hyperesthetic) Surgical History S/P adenoidectomy S/P cholecystectomy S/P hysterectomy S/P tubal ligation Family History Non-Hodgkin's lymphoma of lung Daughter Diabetes Mother Heart disease Mother Father Myocardial infarction Mother Parkinsons disease Sister Denies family history of Ovarian cancer Prostate cancer Breast cancer Colorectal cancer Social History Smoking Status: Never smoker Second Hand Exposure: No; Do You Dip or Chew Tobacco: No; Tobacco Cessation Education Requested by Patient: No Hx Alcohol Use: No Hx Substance Use: No Preferred Language: Albanian Communication Ability: Effective Visual Impairment: No Limitations Hearing Ability: Normal [place] Required: No Beliefs That Will Affect Care: None marital status: Current Living Situation: Skilled Nursing 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 Afebrile. Hypertensive (198/75 mmHg). Pulse regular at 60 bpm with sporadic ectopy. Skin: no ecchymoses or generalized lesions. HEENT: unremarkable. Neck: Jugular venous pulse elevated two thirds the way to the angle of the jaw at 70 degrees, no carotid bruits. Lungs: Dullness at the bases with bibasilar crackles, otherwise clear. Cardiac: regular rhythm with ectopy, 3/6 systolic crescendo decrescendo murmur right upper sternal border with moderately decreased aortic closure sound, 2/6 apical holosystolic murmur rating to the axilla. No diastolic murmur. Abdomen: benign. Extremities: Trace pretibial edema, pulses intact. Neurologic: Awake and alert, mildly disoriented (to date), grossly nonfocal on limited neuro exam. Results & Data ([facility]) Laboratory Results White count 11.19, hemoglobin 12, normal platelet count. Potassium 3.1, otherwise normal electrolytes. BUN 22, creatinine 0.64. Hemoglobin A1c 6.6%. Troponins 0.057, 0.046, 0.042. Diagnostic Findings ECGs showed sinus bradycardia at 56 bpm and 59 bpm with left bundle branch block and associated repolarization abnormalities. Chest x-ray today shows left basilar opacity, cardiomegaly with suspected mild pulmonary edema, and small left and trace right pleural effusions. Telemetry shows sinus rhythm with sporadic PVCs and one 7 beat run of wide- complex tachycardia. Possible fusion beat suggest ventricular tachycardia, h owever the morphology of the beats is very similar to her underlying left bundle branch block, raising the possibility of an atrial tachycardia/atrial fibrillation with left bundle branch block. Echocardiogram 2 weeks ago showed normal LV systolic function, mild LVH, mild aortic stenosis, moderate pulmonary hypertension. Normal LV wall motion. PG Care Time/CCT Total # of Minutes Spent Total Time Spent with Patient: Total time spent is greater than 50% in coordination of care (as documented) at patient's floor/unit and/or counseling patient: Coding Level of Care Code 31166 Initial Inpt Care Lvl 3 Diagnoses Ventricular tachycardia seen on alarm security or surveillance monitor I47.2 Diastolic CHF I50.30 Malignant hypertension I10 Elevated troponin R77.8 Mild aortic stenosis I35.0 Paroxysmal atrial fibrillation I48.0 Anticoagulant long-term use Z79.01 Encephalopathy acute G93.40
[2020-06-27] MEDS: hydrALAZINE TAB 50 MG TAB PO SCH ×2 (17:43→20:48)
[2020-06-27] MEDS ORDERED: FUROSEMIDE 20 MG in SYRINGE 0 ML IV ONE (18:15)
[2020-06-27] MEDS ORDERED: POTASSIUM CHLORIDE CRTAB 20 MEQ TABCR PO ONE (19:00)
[2020-06-27] MEDS ORDERED: [UNRECOGNIZED DRUG - REMARK] SCH (20:00)
[2020-06-27] MEDS: LOSARTAN POTASSIUM 50 MG TAB PO SCH (20:47)
[2020-06-27] MEDS: INSULIN GLARGINE SOLOSTAR 100 UNITS/ML 3 ML PEN SQ SCH (20:52)
[2020-06-27] MEDS ORDERED: hydrALAZINE TAB 50 MG TAB PO SCH (21:00)
[2020-06-27] MEDS ORDERED: ATENOLOL 25 MG TABLET PO SCH (21:00)
[2020-06-28] MEDS: CEFEPIME 2,000 MG in SYRINGE 0 ML IV SCH ×2 (01:50→10:28)
[2020-06-28] MEDS: ALPRAZolam 0.25 MG TABLET PO PRN ×3 (04:41→23:23)
[2020-06-28] MEDS: hydrALAZINE HCL 20 MG/ML VIAL IV PRN (04:41)
[2020-06-28 06:27] LABS: Basophils # (auto) 0.01 K/uL (0-0.2); Basophils % (auto) 0.1 %; Eosinophils # (auto) 0.03 K/uL (0-0.5); Eosinophils % (auto) 0.3 %; Hematocrit (blood only) 37.8 % (37-47); Hemoglobin 12.4 g/dL (12.0-16.0); Immature Granulocytes # (auto) 0.05 K/uL (0.00-0.02); Immature Granulocytes % (auto) 0.4 %; Lymphocytes # (auto) 1.32 K/uL (1.2-3.4); Lymphocytes % (auto) 11.3 %; Mean Corpuscular Hemoglobin 31.5 pg (25-34); Mean Corpuscular Hgb Conc 32.8 g/dL (32-36); Mean Corpuscular Volume 95.9 fL (80-100); Mean Platelet Volume 12.3 fL (7.4-10.4); Monocytes # (auto) 0.96 K/uL (0.11-0.59); Monocytes % (auto) 8.2 %; Neutrophils % (auto) 79.7 %; Platelet Count 173 K/uL (130-400); RDW Coefficient of Variation 14.5 % (11.5-14.5); RDW Standard Deviation 51.3 fL (36.4-46.3); Red Blood Count 3.94 M/uL (4.2-5.4); White Blood Count 11.67 K/uL (4.8-10.8)
[2020-06-28 06:46] LABS: INR 5.1 (0.9-1.1); Prothrombin Time 45.4 Seconds (9.0-12.0)
[2020-06-28 06:55] LABS: BUN Creatinine Ratio 28.8 (10-20); Calcium 8.3 mg/dl (8.5-10.1); Creatinine Clr Calc Pharmacy 48.2 ml/min; Est GFR (African American) 74.5; Est GFR (Non-African American) 64.3; Magnesium 2.3 mg/dl (1.8-2.4); Potassium 3.5 mmol/L (3.5-5.1)
--- NOTE | 2020-06-28 07:50 | Hospitalist Progress Note ---
Date of Service June 28, 2020 Assessment & Plan (1) Encephalopathy acute: Presents with altered mental status for worsening over the last 2 days after a fall and after receiving Covid vaccine. She has been afebrile but extremely hypertensive. Urinalysis is questionable for infection, also possible that she has pneumonia but may also be compressive atelectasis from pleural effusions. She is afebrile, no leukocytosis, no SIRS criteria, does not seem likely that this is all related to infection, but could be No renal dysfunction or significant electrolyte abnormalities. She is only minimally hypoxic. Could very well also be hypertensive encephalopathy -- more alert/oriented with better BP control but has required repeated doses of hydralazine (additional 10mg IV this morning 05/29) Enalapril 1.25mg Q6H scheduled initially while not taking PO CT head negative on both 06/24 the day after her fall, as well as on 06/26, so seems less likely that she had a stroke in the last 2 days. Also, her INR is supratherapeutic making stroke less likely. CXR on admission cardiomegaly with evidence of congestive failure, small effusions, consolidative changes L lung base likely atelectasis but will repeat CXR now that she has diuresed some with IV lasix. CT with likely compressive atelectasis 06/28: D/c'd Vanc 06/27 (MRSA negative) Chills/nausea/abdominal pain today -- previously on Flagyl and will add on for aerobic coverage. Switching Cefepime to Ceftriaxone Abdominal imaging if condition worsens cdiff still not collected (has not had BM) -- ordered Blood cultures NGTD -- follow Urine culture -- more than 3 types oganisms, all moderate counts mixed probable skin elisa. Could repeat now with celsa, however did have budding yeast/hyphae and will give dose of Diflucan x 1 Consider Brain MRI if any further confusion as BP better controlled +/- neurology Acute on Chronic Heart Failure -- secondary to uncontrolled HTN/volume overload * Cardiology consulted * Weights not accurate * Net negative 1.1L since yesterday with increase lasix 40mg IV BID and will continue for now * --> Also replacing potassium with 40meq BID scheduled while on this and suspect if d/c on diuretics would need continued supplementation * Restarted losartan 50mg PO BID * Atenolol decreased to 25mg ONCE daily to allow for more physiological heart rate * Further recommendations for BP control by cardiology later today (did decrease back to usual hydralazine 50mg QID scheduled) * Continue to monitor -- would benefit from f/u CHF clinic at discharge. Unclear baseline weight PT/OT evals -- rehab at d/c last month and may need continued rehab at d/c --> would like to take home. CM sent referalls. ?Come in to see her to see if feasable sometime this weekend? CBC, CMP in AM (2) Malignant hypertension: With hypertensive emergency or here-with hypertensive encephalopathy as above plus positive troponin Blood pressures severely elevated as high as 252/78 and persistently greater th an 200 throughout her time in the ER She received 2 doses of IV hydralazine 5 mg in the ER and another last evening Hydralazine x 1 today in addition to lasix as above BP currently 140/64 Resumed home medications as above Titrate up as needed per cardiology recommendations this afternoon Continue to monitor (3) Diabetes mellitus type 2, uncontrolled: Hemoglobin A1c 6.6% and very well controlled just last month Continue home insulin glargine 30 units at bedtime NovoLog sliding scale BSGs acceptable Continue to monitor (4) Elevated troponin: Troponin mildly elevated at 0.057 on admission, trended down Suspect secondary to demand from HTN emergency EKG with LBBB, no new. ECHO at that time last admission with preserved LV function No CP reported by did have n/v EKG c CP as well as troponin (5) Mild chronic anemia: Hemoglobin stable, normocytic. B12/folate wnl last admission CBC in AM (6) Nocturnal hypoxemia: Was started on 2 L nasal cannula at bedtime last admission, however senior care notes that they have had her on 2 L continuously since last discharge Continue nasal cannula keep pulse ox greater than 92% Currently 95% on RA (7) Paroxysmal atrial fibrillation: With a history of such, is currently in sinus rhythm Is on Coumadin but INR is supratherapeutic today at 5.1 Continue to hold coumadin -- suspect decrease tomorrow. No Vit K for now unless s/sx bleeding Was previously on 0.5mg daily -- had been on 1mg 5x/wk and 2mg M/F from senior care INR in AM (8) Pleural effusion: Here with small to moderate bilateral pleural effusions and pulmonary edema With volume overload likely secondary to malignant hypertension Give IV Lasix 40 mg IV twice daily-- continuing Stopped IV fluids given in the ER Treating for pneumonia as above although seems low suspicion for pneumonia and do not suspect empyema or parapneumonic effusion at this time (9) Pulmonary hypertension: Noted on previous echocardiogram Diuresing as above, supplemental O2 as needed O2 HS (10) UTI (urinary tract infection): Abnormal UA but does seem contaminated more with epithelial cells Treating as above with antibiotics Follow urine culture (11) Anticoagulant long-term use: As above, on warfarin for atrial fibrillation Cardiology consulted given vtach early this morning on telemetry -- see above Continue to monitor on telemetry (12) Anxiety: Continue home BuSpar when taking p.o. again She typically takes alprazolam 0.25 mg twice daily, however it was being given as needed at the senior care but she did receive it at least every night the last few nights Do not suspect any withdrawal from alprazolam at this time but this is a possibility Resumed prn 0.25mg if mentation OK to prevent withdrawal (13) Aortic stenosis: Mild as noted on previous echocardiogram. [place] on examination Monitor volume status (14) CVA (cerebral vascular accident): History of CVA with residual left-sided hemiplegia Continue home warfarin when INR coming down (on hold currently for supratherapeutic INR) Antiplatelet not indicated as per neurology recommendation at the time she had her stroke as she was placed on anticoagulation (15) DVT prophylaxis: Coumadin as above judy Hedrick Hypokalemia --K 3.1 -- likely from lasix, resolved with 40meq IV and scheduled 40meq PO BID BMP in AM and suspect will need some additional replacement guarded prognosis was discussed with at the bedside on admission DNR/DNI as per discussion with Continued inpatient stay Admission and Anticipated Discharge Date Admission Date: June 27, 2020 Subjective Patient evaluated this morning. Feeling whipped out. Not much of an appetite and feeling nauseous. Having some abdominal discomfort, diffuse but LLQ on examination worse that others. Discussed adding flagyl for anaerobic coverage. Feeling some chills as well but not official fever. Would like lidocaine patch to fan and will order box fan for comfort. Review of Systems Review of Systems: All systems reviewed & are unremarkable except as noted in HPI & below Physical Exam Constitutional: WD/WN, vitals as above + obese and cooperative; no acute distress Eyes: PERRL, conjunctivae normal, anicteric sclerae ENMT: Ears: no external ear abnormality Nose: no external nose abnormality Mouth: no lip abnormality ecchymosis to L forehead Neck: trachea midline, no thyromegaly Respiratory: normal respiratory effort Auscultation: + diminished lung sounds (At the bases bilaterally) and + crackles (bibasilar L>R); no wheezes Cardiovascular: Rate/Rhythm: regular rate (quiet heart sounds) and regular rhythm Heart Sounds: + gallop (S3) and + murmur (systolic) Extremities: + edema (trace pitting edema hands and feet) Chest (Breasts): Chest: normal inspection of chest Gastrointestinal (Abdomen): Inspection/Auscultation: normal bowel sounds; abdomen not distended Percussion/Palpation: + abdomen tender (diffusely, LLQ) and abdomen soft; no guarding Musculoskeletal: Extremities: extremities normal to inspection; no cyanosis and no clubbing Skin: no rashes, warm and dry (erythema/skin tear to R buttock) Neurologic: awake; not confused (at times, but able to state "2020", in [facility], Biden president) and not obtunded Motor/Sensory: no tremor Psychiatric: A+Ox3, euthymic affect Genitourinary: steen draining yellow urine Lymphatic: no lymphedema Results & Data Results & Data ([facility]) Vital Signs (Past 12 Hours) Vital Signs Temp Pulse Resp BP Pulse Ox 06/28/20 04:23 37.4 C 66 18 185/73 H 92 06/27/20 23:12 36.7 C 67 20 178/72 H 92 Laboratory Results 06/28/20 06/28/20 06/28/20 Range/Units 07:27 05:52 05:52 WBC 11.67 H (4.8-10.8) K/uL RBC 3.94 L (4.2-5.4) M/uL Hgb 12.4 (12.0-16.0) g/dL Hct 37.8 (37-47) % MCV 95.9 (80-100) fL MCH 31.5 (25-34) pg MCHC 32.8 (32-36) g/dL RDW Std Deviation 51.3 H (36.4-46.3) fL RDW Coeff of Isael 14.5 (11.5-14.5) % Plt Count 173 (130-400) K/uL MPV 12.3 H (7.4-10.4) fL Immature Gran % (Auto) 0.4 % Neut % (Auto) 79.7 % Lymph % (Auto) 11.3 % [place] % (Auto) 8.2 % Eos % (Auto) 0.3 % Baso % (Auto) 0.1 % Neut # (Auto) 9.30 H (1.4-6.5) K/uL Lymph # (Auto) 1.32 (1.2-3.4) K/uL [place] # (Auto) 0.96 H (0.11-0.59) K/uL Eos # (Auto) 0.03 (0-0.5) K/uL Baso # (Auto) 0.01 (0-0.2) K/uL Immature Gran # (Auto) 0.05 H (0.00-0.02) K/uL PT (9.0-12.0) Seconds INR (0.9-1.1) Sodium 140 (136-145) mmol/L Potassium 3.5 (3.5-5.1) mmol/L Chloride 104 (98-107) mmol/L Carbon Dioxide 33 H (21-32) mmol/L Anion Gap 3.0 (3-11) BUN 24 H (7-18) mg/dl Creatinine 0.83 (0.6-1.2) mg/dl Est Cr Clr Drug Dosing 48.2 ml/min Est GFR ( Amer) 74.5 Est GFR (Non-Af Amer) 64.3 BUN/Creatinine Ratio 28.8 H (10-20) Glucose 91 (70-99) mg/dl POC Glucose 83 (70-99) mg/dl Calcium 8.3 L (8.5-10.1) mg/dl Magnesium 2.3 (1.8-2.4) mg/dl 06/28/20 06/27/20 06/27/20 Range/Units 05:52 20:50 17:55 WBC (4.8-10.8) K/uL RBC (4.2-5.4) M/uL Hgb (12.0-16.0) g/dL Hct (37-47) % MCV (80-100) fL MCH (25-34) pg MCHC (32-36) g/dL RDW Std Deviation (36.4-46.3) fL RDW Coeff of Isael (11.5-14.5) % Plt Count (130-400) K/uL MPV (7.4-10.4) fL Immature Gran % (Auto) % Neut % (Auto) % Lymph % (Auto) % [place] % (Auto) % Eos % (Auto) % Baso % (Auto) % Neut # (Auto) (1.4-6.5) K/uL Lymph # (Auto) (1.2-3.4) K/uL [place] # (Auto) (0.11-0.59) K/uL Eos # (Auto) (0-0.5) K/uL Baso # (Auto) (0-0.2) K/uL Immature Gran # (Auto) (0.00-0.02) K/uL PT 45.4 H (9.0-12.0) Seconds INR 5.1 H (0.9-1.1) Sodium (136-145) mmol/L Potassium (3.5-5.1) mmol/L Chloride (98-107) mmol/L Carbon Dioxide (21-32) mmol/L Anion Gap (3-11) BUN (7-18) mg/dl Creatinine (0.6-1.2) mg/dl Est Cr Clr Drug Dosing ml/min Est GFR ( Amer) Est GFR (Non-Af Amer) BUN/Creatinine Ratio (10-20) Glucose (70-99) mg/dl POC Glucose 143 H 131 H (70-99) mg/dl Calcium (8.5-10.1) mg/dl Magnesium (1.8-2.4) mg/dl 06/27/20 Range/Units 13:11 WBC (4.8-10.8) K/uL RBC (4.2-5.4) M/uL Hgb (12.0-16.0) g/dL Hct (37-47) % MCV (80-100) fL MCH (25-34) pg MCHC (32-36) g/dL RDW Std Deviation (36.4-46.3) fL RDW Coeff of Isael (11.5-14.5) % Plt Count (130-400) K/uL MPV (7.4-10.4) fL Immature Gran % (Auto) % Neut % (Auto) % Lymph % (Auto) % [place] % (Auto) % Eos % (Auto) % Baso % (Auto) % Neut # (Auto) (1.4-6.5) K/uL Lymph # (Auto) (1.2-3.4) K/uL [place] # (Auto) (0.11-0.59) K/uL Eos # (Auto) (0-0.5) K/uL Baso # (Auto) (0-0.2) K/uL Immature Gran # (Auto) (0.00-0.02) K/uL PT (9.0-12.0) Seconds INR (0.9-1.1) Sodium (136-145) mmol/L Potassium (3.5-5.1) mmol/L Chloride (98-107) mmol/L Carbon Dioxide (21-32) mmol/L Anion Gap (3-11) BUN (7-18) mg/dl Creatinine (0.6-1.2) mg/dl Est Cr Clr Drug Dosing ml/min Est GFR ( Amer) Est GFR (Non-Af Amer) BUN/Creatinine Ratio (10-20) Glucose (70-99) mg/dl POC Glucose 113 H (70-99) mg/dl Calcium (8.5-10.1) mg/dl Magnesium (1.8-2.4) mg/dl PG Care Time/CCT Total # of Minutes Spent Total Time Spent with Patient: Total time spent is greater than 50% in coordination of care (as documented) at patient's floor/unit and/or counseling patient: Coding Level of Care Code 41672 Subseq Hosp Care Lvl 3 Diagnoses Encephalopathy acute G93.40 Malignant hypertension I10 Diabetes mellitus type 2, uncontrolled E11.65 Elevated troponin R77.8 Mild chronic anemia D64.9 Nocturnal hypoxemia G47.34 Paroxysmal atrial fibrillation I48.0 Pleural effusion J90 Pulmonary hypertension I27.20 UTI (urinary tract infection) N39.0 Anticoagulant long-term use Z79.01 Anxiety F41.9 Aortic stenosis I35.0 CVA (cerebral vascular accident) I63.9 DVT prophylaxis Z29.9
[2020-06-28] MEDS: FUROSEMIDE 40 MG in SYRINGE 0 ML IV SCH ×2 (08:10→17:05)
[2020-06-28] MEDS: busPIRone 5 MG TAB PO SCH ×3 (08:12→21:30)
[2020-06-28] MEDS: CHOLECALCIFEROL 1,000 UNITS 25 MCG TAB PO SCH (08:12)
[2020-06-28] MEDS: LOSARTAN POTASSIUM 50 MG TAB PO SCH ×2 (08:13→23:23)
[2020-06-28] MEDS: hydrALAZINE TAB 50 MG TAB PO SCH ×4 (08:13→21:29)
[2020-06-28] MEDS: POTASSIUM CHLORIDE CRTAB 20 MEQ TABCR PO SCH ×2 (08:14→21:29)
[2020-06-28] MEDS: ATENOLOL 25 MG TABLET PO SCH (08:17)
[2020-06-28] MEDS: INSULIN ASPART 100 UNITS/ML 3 ML PEN SC SCH ×4 (08:32→21:28)
[2020-06-28] MEDS ORDERED: ATENOLOL 25 MG TABLET PO SCH (09:00)
--- NOTE | 2020-06-28 09:12 | Electrocardiogram Report ---
Test Reason : Blood Pressure : / mmHG Vent. Rate : 064 BPM Atrial Rate : 064 BPM P-R Int : 148 ms QRS Dur : 148 ms QT Int : 488 ms P-R-T Axes : 006 -62 029 degrees QTc Int : 503 ms Poor data quality, interpretation may be adversely affected Normal sinus rhythm Left axis deviation Left bundle branch block Abnormal ECG When compared with ECG of 27-JUN-2020 05:47, No significant change was found Confirmed by Te Albarado [id number]) on 06/28/2020 9:12:17 AM Referred By: REFERRED SELF Confirmed By:Te Albarado
[2020-06-28] MEDS ORDERED: FLUCONAZOLE 50 MG TAB PO ONE (10:32)
--- NOTE | 2020-06-28 10:46 | Cardiology Progress Note ---
Date of Service June 28, 2020 Assessment & Plan (1) Diastolic CHF: I/O was -1200 mL overnight, her volume status appears improved but she is still hypervolemic. Continue current furosemide dosing to achieve further volume unloading. (2) Hypertensive crisis: Unclear to what degree her marked hypertension is volume dependent, her initial BP this morning was normotensive but is only a single reading. If she does not fact respond to volume unloading, continue diuresis. If BP remains elevated could substitute an oral alpha-obdulia (doxazosin 2 mg titrated up to maximum of 8 mg) for her IV hydralazine (would avoid oral hydralazine given frequency of dosing and potential side effects). If alpha-obdulia ineffective, would consider minoxidil (initially 2.5 mg), since she is already on a beta- obdulia and a diuretic (both of which should be given concurrently with minoxidil). (3) Elevated troponin: Minimal elevation, likely demand ischemia. No clinical indication of acute cardiac event. (4) Paroxysmal atrial fibrillation: She has short runs of SVT or paroxysmal atrial fibrillation, these can appear to be ventricular tachycardia doing to her underlying left bundle branch block. If more than transient, would need to consider amiodarone. Would not increase her low-dose beta-obdulia given her previous bradycardia, which was physiologically inappropriate in the context of diastolic congestive heart failure. (5) LBBB (left bundle branch block): Fairly recent onset, recent echocardiogram did not show wall motion abnormalities to indicate acute cardiac event. Titrate diuretics and antihypertensives over the weekend, if additional cardiology assistance is needed during this time please contact Dr. Mendez (he will be covering). Thank you. Admission and Anticipated Discharge Date Admission Date: June 27, 2020 Subjective Patient lying comfortably in bed, she denies any somatic complaints aside from fatigue. Specifically, no chest pain, dyspnea, lightheadedness, subjective palpitations, or headache. Telemetry monitoring showed predominantly sinus rhythm with a short run of supraventricular tachycardia (versus atrial fibrillation) with left bundle branch block occurring at 3 AM (presumably asymptomatic). No evidence of ventricular tachycardia, the current run of SVT versus A. fib suggest that her dysrhythmia yesterday was likely had an SVT as well (wide-complex but same mo rphology as her underlying left bundle branch block). Physical Exam Physical Exam: Patient lying flat, appears comfortable. BP markedly hypertensive yesterday, normotensive today (only 1 reading however) Pulse regular at 70 bpm with sporadic ectopy Skin: no ecchymoses or generalized lesions. HEENT: unremarkable. Neck: Jugular venous pulse elevated 1/[address] way to the angle of the jaw at 60 degrees, no carotid bruits. Lungs: Dullness at the bases with bibasilar crackles, otherwise clear. Cardiac: regular rhythm with ectopy, 3/6 systolic crescendo decrescendo murmur right upper sternal border with moderately decreased aortic closure sound, 2/6 apical holosystolic murmur rating to the axilla. No diastolic murmur. Abdomen: benign. Extremities: No pretibial edema, pulses intact. Neurologic: Awake and alert, answers simple questions appropriately, grossly nonfocal. Results & Data ([facility]) Vital Signs (Past 12 Hours) Vital Signs Temp Pulse Resp BP Pulse Ox 06/28/20 07:00 98.6 F 72 16 140/64 95 06/28/20 04:23 99.3 F 66 18 185/73 H 92 06/27/20 23:12 98.1 F 67 20 178/72 H 92 Laboratory Results WBC 11.67, normal hemoglobin and platelet count. Potassium 3.5, BUN 24, creatinine 0.83. Diagnostic Findings ECG today showed sinus rhythm with left bundle branch block at 64 bpm, no change compared with prior. PG Care Time/CCT Total # of Minutes Spent Total Time Spent with Patient: Total time spent is greater than 50% in coordination of care (as documented) at patient's floor/unit and/or counseling patient: Coding Level of Care Code 19159 Subseq Hosp Care Lvl 3 Diagnoses Diastolic CHF I50.30 Hypertensive crisis I16.9 Elevated troponin R77.8 Paroxysmal atrial fibrillation I48.0 LBBB (left bundle branch block) I44.7
[2020-06-28] MEDS: LIDOCAINE 5% 1 PATCH TD SCH (11:04)
[2020-06-28] MEDS: metroNIDAZOLE 500 MG/100 ML BAG IV SCH ×2 (11:04→17:05)
[2020-06-28] MEDS: cefTRIAXone SODIUM 2,000 MG in DEXTROSE 5% 50 ML IV SCH (12:03)
[2020-06-28] MEDS: ONDANSETRON INJ 2 MG/ML 2 ML VIAL IV PRN (12:03)
[2020-06-28] MEDS: FAMOTIDINE 20 MG in SYRINGE 3 ML IV SCH (13:16)
[2020-06-28] MEDS: DOCUSATE SODIUM 100 MG CAP PO SCH ×2 (13:23→21:30)
[2020-06-28] MEDS: POLYETHYLENE (MIRALAX) 17 GM PACK PO SCH (13:24)
[2020-06-28] MEDS ORDERED: minoxidiL 2.5 MG TAB PO PRN (13:44)
[2020-06-28] MEDS: ACETAMINOPHEN 325 MG TAB PO PRN ×2 (17:14→23:23)
[2020-06-28] MEDS: PANTOprazole 40 MG TAB PO SCH (21:27)
[2020-06-28] MEDS: INSULIN GLARGINE SOLOSTAR 100 UNITS/ML 3 ML PEN SQ SCH (21:28)
[2020-06-29] MEDS: metroNIDAZOLE 500 MG/100 ML BAG IV SCH ×2 (04:11→11:16)
[2020-06-29 06:29] LABS: Basophils # (auto) 0.01 K/uL (0-0.2); Basophils % (auto) 0.1 %; Eosinophils # (auto) 0.08 K/uL (0-0.5); Eosinophils % (auto) 0.8 %; Hematocrit (blood only) 37.5 % (37-47); Hemoglobin 11.9 g/dL (12.0-16.0); Immature Granulocytes # (auto) 0.01 K/uL (0.00-0.02); Immature Granulocytes % (auto) 0.1 %; Lymphocytes # (auto) 1.57 K/uL (1.2-3.4); Lymphocytes % (auto) 16.5 %; Mean Corpuscular Hemoglobin 31.5 pg (25-34); Mean Corpuscular Hgb Conc 31.7 g/dL (32-36); Mean Corpuscular Volume 99.2 fL (80-100); Mean Platelet Volume 12.5 fL (7.4-10.4); Monocytes # (auto) 1.16 K/uL (0.11-0.59); Monocytes % (auto) 12.2 %; Neutrophils % (auto) 70.3 %; Platelet Count 172 K/uL (130-400); RDW Coefficient of Variation 14.9 % (11.5-14.5); RDW Standard Deviation 53.9 fL (36.4-46.3); Red Blood Count 3.78 M/uL (4.2-5.4); White Blood Count 9.53 K/uL (4.8-10.8)
[2020-06-29 06:35] LABS: Prothrombin Time 44.9 Seconds (9.0-12.0)
[2020-06-29 06:43] LABS: Albumin Level 2.3 gm/dl (3.4-5.0); BUN Creatinine Ratio 23.1 (10-20); Calcium 9.2 mg/dl (8.5-10.1); Creatinine Clr Calc Pharmacy 30.9 ml/min; Est GFR (African American) 43.3; Est GFR (Non-African American) 37.4; Potassium 3.5 mmol/L (3.5-5.1)
[2020-06-29 06:46] LABS: Albumin Globulin Ratio 0.5 (0.9-2); Bilirubin,Total 0.4 mg/dl (0.2-1); Globulin 4.3 gm/dl (2.5-4.0); Total Protein 6.6 gm/dl (6.4-8.2)
[2020-06-29] MEDS: FAMOTIDINE 20 MG in SYRINGE 3 ML IV SCH (07:30)
[2020-06-29] MEDS: POLYETHYLENE (MIRALAX) 17 GM PACK PO SCH ×2 (07:31→21:10)
[2020-06-29] MEDS: POTASSIUM CHLORIDE CRTAB 20 MEQ TABCR PO SCH (07:31)
[2020-06-29] MEDS: LOSARTAN POTASSIUM 50 MG TAB PO SCH ×2 (07:31→21:09)
[2020-06-29] MEDS: DOCUSATE SODIUM 100 MG CAP PO SCH ×2 (07:32→21:09)
[2020-06-29] MEDS: CHOLECALCIFEROL 1,000 UNITS 25 MCG TAB PO SCH (07:32)
[2020-06-29] MEDS: busPIRone 5 MG TAB PO SCH ×3 (07:32→21:09)
[2020-06-29] MEDS: FUROSEMIDE 40 MG in SYRINGE 0 ML IV SCH (07:32)
[2020-06-29] MEDS: hydrALAZINE TAB 50 MG TAB PO SCH ×4 (07:32→21:08)
[2020-06-29] MEDS: LIDOCAINE 5% 1 PATCH TD SCH (07:33)
[2020-06-29] MEDS: ATENOLOL 25 MG TABLET PO SCH (07:33)
--- NOTE | 2020-06-29 08:13 | Hospitalist Progress Note ---
Date of Service June 29, 2020 Assessment & Plan (1) Encephalopathy acute: Presents with altered mental status for worsening over the last 2 days after a fall and after receiving Covid vaccine. She has been afebrile but extremely hypertensive. Urinalysis is questionable for infection, also possible that she has pneumonia but may also be compressive atelectasis from pleural effusions. She is afebrile, no leukocytosis, no SIRS criteria, does not seem likely that this is all related to infection, but could be No renal dysfunction or significant electrolyte abnormalities. She is only minimally hypoxic. Could very well also be hypertensive encephalopathy -- more alert/oriented with better BP control but has required repeated doses of hydralazine (additional 10mg IV this morning 05/29) Enalapril 1.25mg Q6H scheduled initially while not taking PO CT head negative on both 06/24 the day after her fall, as well as on 06/26, so seems less likely that she had a stroke in the last 2 days. Also, her INR is supratherapeutic making stroke less likely. CXR on admission cardiomegaly with evidence of congestive failure, small effusions, consolidative changes L lung base likely atelectasis but will repeat CXR now that she has diuresed some with IV lasix. CT with likely compressive atelectasis 06/29: * D/c'd Vanc 06/27 (MRSA negative) * Chills/nausea/abdominal pain 06/28 * Switched to Ceftriaxone. Will d/c Flagyl give abd discomfort and no s/sx infection on exam * --> CXR without PNA, Urine without infection * Abdominal imaging if condition worsens * cdiff still not collected (has not had BM) -- ordered * --> Constipation last admission. Increasing miralax to BID, colace BID, dulcolax, enema prn and continue to monitor * Given dose of zofran for nausea -- suspect from constipation however does have +BS/passing gas * Blood cultures NGTD -- follow * Urine culture -- more than 3 types oganisms, all moderate counts mixed probable skin elisa. Could repeat now with Guevara, however did have budding yeast/hyphae and given dose of Diflucan x 1 on 06/28 Acute on Chronic Heart Failure -- secondary to uncontrolled HTN/volume overload * Cardiology consulted * Weights not accurate * Net negative 1.1L * Lasix was ordered 40mg IV BID * --> Creatinine bumped to 1.35 today and will provide since yesterday with increase lasix 40mg IV BID and will hold for now and hold supplemental potassium * Weight 86.5kg from 94.2kg on admission * Continue losartan 50mg PO BID * Atenolol decreased to 25mg ONCE daily 06/28 to allow for more physiological heart rate * Further recommendations for BP control by cardiology later today (did decrease back to usual hydralazine 50mg QID scheduled) * Minoxidil added prn but has not required and BP better controlled with diuresis to 128/63 * Continue to monitor -- would benefit from f/u CHF clinic at discharge. Unclear baseline weight Consider Brain MRI if any further confusion as BP better controlled +/- neurology PT/OT evjohn -- rehab at d/c last month and may need continued rehab at d/c --> would like to take home. CM sent referalls. ?Come in to see her to see if feasable sometime this weekend? -- does state he has lift chair and equipment at home with supplemental help from neighbors/family/friends if needed CBC, CMP in AM (2) Malignant hypertension: * With hypertensive emergency or here-with hypertensive encephalopathy as above plus positive troponin * Blood pressures severely elevated as high as 252/78 and persistently greater than 200 throughout her time in the ER * Blood pressures and encephalopathy resolving with diuresis as above * Stopped lasix today as above * Minoxidil prn as above * Continue atenolol 25mg daily, losartan 50mg BID, * Hydralazine decreased to prior dose 50mg QID and avoiding additional IV hydralazine to prevent complications * BP currently 128/63 * Titrate up as needed per cardiology recommendations * Continue to monitor (3) Diabetes mellitus type 2, uncontrolled: * Hemoglobin A1c 6.6% and very well controlled just last month * Continue home insulin glargine 30 units at bedtime with HS snack * --> decreased to 20u HS given hypoglycemia this AM * NovoLog sliding scale loosened * Continue to monitor (4) Elevated troponin: * Troponin mildly elevated at 0.057 on admission, trended down * Suspect secondary to demand from HTN emergency * EKG with LBBB, no new. ECHO at that time last admission with preserved LV function * No CP reported by did have n/v * EKG c CP as well as troponin (5) Mild chronic anemia: * Hemoglobin stable, normocytic. B12/folate wnl last admission CBC in AM (6) Nocturnal hypoxemia: * Was started on 2 L nasal cannula at bedtime last admission, however half-way notes that they have had her on 2 L continuously since last discharge * Continue nasal cannula keep pulse ox greater than 92% * Currently 92% on RA * Overnight pox again confirmed -- CM to arrange O2 HS at d/c (7) Paroxysmal atrial fibrillation: * With a history of such, is currently in sinus rhythm * Is on Coumadin but INR is supratherapeutic today, INR finally trending down from 5.1 --> 5.0. Likely resume coumadin tomorrow given lag time but would resume at her prior 0.5mg daily dosing * -- had been on 1mg 5x/wk and 2mg M/F from half-way INR in AM (8) Pleural effusion: * Here with small to moderate bilateral pleural effusions and pulmonary edema * With volume overload likely secondary to malignant hypertension * Give IV Lasix 40 mg IV twice daily-- continue through this AM but stopped given Cr 1.3 * Stopped IV fluids given in the ER * Treating for pneumonia as above although seems low suspicion for pneumonia and do not suspect empyema or parapneumonic effusion at this time (9) Pulmonary hypertension: * Noted on previous echocardiogram * Diuresing as above, supplemental O2 as needed * O2 HS (10) UTI (urinary tract infection): * Abnormal UA but does seem contaminated more with epithelial cells * Treating as above with antibiotics * Follow urine culture v-- NEGATIVE (11) Anticoagulant long-term use: * As above, on warfarin for atrial fibrillation * Cardiology consulted given vtach on telemetry -- see above no further episodes. did have SVT/afib periods but already anticoag w warfarin * Continue to monitor on telemetry (12) Anxiety: * Continue home BuSpar when taking p.o. again * She typically takes alprazolam 0.25 mg twice daily, however it was being given as needed at the half-way but she did receive it at least every night the last few nights * Do not suspect any withdrawal from alprazolam at this time but this is a possibility * Resumed prn 0.25mg if mentation OK to prevent withdrawal (13) Aortic stenosis: * Mild as noted on previous echocardiogram. Towner on examination * Monitor volume status (14) CVA (cerebral vascular accident): * History of CVA with residual left-sided hemiplegia * Continue home warfarin when INR coming down (on hold currently for supratherapeutic INR) * Antiplatelet not indicated as per neurology recommendation at the time she had her stroke as she was placed on anticoagulation (15) DVT prophylaxis: * Coumadin as above * SCDs, judy edwards Added protonix 40mg daily and pepcid for GI proph given nausea and on abx. cdiff pending. bowel regimen as above Hypokalemia --K 3.1 -- likely from lasix, resolved with 40meq IV and scheduled 40meq PO BID RESOLVED and holding further supplementation as holding further diuretics BMP in AM guarded prognosis was discussed with at the bedside on admission and updated last evening DNR/DNI as per discussion with Continued inpatient stay, possible d/c tomorrow vs Wednesday? Admission and Anticipated Discharge Date Admission Date: June 27, 2020 Subjective Patient evaluated this morning. Feeling nauseous. Started on flagyl yesterday but will d/c. No vomiting. Has not yet had a bowel movement but is passing gas. Will add dulcolax and increase miralax to BID given prior hospitalization with constipation. No fever, chills, chest pain, shortness of breath or headache. Strength is improved today compared to prior but still weak. Discussed with who is adamant about bringing Rosmery home and states he oliveros s support and equipment at home and does not want her to go to rehab. Per nursing, a little confused initially this morning but did get dose of xanax last evening -- patient typically more sleepy in AM. Should be on O2 HS and overnight pox confirmed need. Blood sugars were also low this AM but improved with juice. Will decrease PM insulin. Review of Systems Review of Systems: All systems reviewed & are unremarkable except as noted in HPI & below Physical Exam Constitutional: WD/WN, vitals as above + obese and cooperative (fatigued, nausea); no acute distress bruising above L eye Eyes: PERRL, conjunctivae normal, anicteric sclerae ENMT: Ears: no external ear abnormality Nose: no external nose abnormality Mouth: no lip abnormality Neck: trachea midline, no thyromegaly Respiratory: normal respiratory effort, lungs clear to auscultation normal respiratory effort Auscultation: + diminished lung sounds (At the bases bilaterally) and + crackles (bibasilar L>R); no wheezes Cardiovascular: Rate/Rhythm: regular rate (quiet heart sounds) and regular rhythm Heart Sounds: + gallop (S3) and + murmur (systolic) Extremities: + edema (trace pitting edema hands and feet) Chest (Breasts): Chest: normal inspection of chest Gastrointestinal (Abdomen): Inspection/Auscultation: normal bowel sounds; abdomen not distended Percussion/Palpation: + abdomen tender (minimal, generalized) and abdomen soft; no guarding Musculoskeletal: Extremities: extremities normal to inspection; no cyanosis and no clubbing Skin: no rashes, warm and dry (erythema/skin tear to R buttock improved from prior admission) Neurologic: awake; not confused (at times, but able to state "2020", in [facility], Biden president but May ) and not obtunded Motor/Sensory: no tremor Psychiatric: A+Ox3, euthymic affect Lymphatic: no lymphedema Results & Data Results & Data ([facility]) Vital Signs (Past 12 Hours) Vital Signs Temp Pulse Pulse Resp BP Pulse Ox Pulse Ox 06/29/20 07:57 36.6 C 53 L 20 128/63 92 06/29/20 05:58 57 L 91 06/29/20 04:15 36.5 C 62 18 153/77 H 93 06/29/20 03:19 62 94 06/28/20 23:39 62 93 06/28/20 23:26 36.5 C 65 18 157/74 H 93 06/28/20 22:20 66 94 06/28/20 20:47 61 94 Laboratory Results 06/29/20 06/29/20 06/29/20 Range/Units 08:05 07:41 07:17 WBC (4.8-10.8) K/uL RBC (4.2-5.4) M/uL Hgb (12.0-16.0) g/dL Hct (37-47) % MCV (80-100) fL MCH (25-34) pg MCHC (32-36) g/dL RDW Std Deviation (36.4-46.3) fL RDW Coeff of Isael (11.5-14.5) % Plt Count (130-400) K/uL MPV (7.4-10.4) fL Immature Gran % (Auto) % Neut % (Auto) % Lymph % (Auto) % Vernon % (Auto) % Eos % (Auto) % Baso % (Auto) % Neut # (Auto) (1.4-6.5) K/uL Lymph # (Auto) (1.2-3.4) K/uL Vernon # (Auto) (0.11-0.59) K/uL Eos # (Auto) (0-0.5) K/uL Baso # (Auto) (0-0.2) K/uL Immature Gran # (Auto) (0.00-0.02) K/uL PT (9.0-12.0) Seconds INR (0.9-1.1) Sodium (136-145) mmol/L Potassium (3.5-5.1) mmol/L Chloride (98-107) mmol/L Carbon Dioxide (21-32) mmol/L Anion Gap (3-11) BUN (7-18) mg/dl Creatinine (0.6-1.2) mg/dl Est Cr Clr Drug Dosing ml/min Est GFR ( Amer) Est GFR (Non-Af Amer) BUN/Creatinine Ratio (10-20) Glucose (70-99) mg/dl POC Glucose 103 H 63 L* 54 L* (70-99) mg/dl Calcium (8.5-10.1) mg/dl Total Bilirubin (0.2-1) mg/dl AST (15-37) U/L ALT (12-78) U/L Alkaline Phosphatase (45-117) U/L Total Protein (6.4-8.2) gm/dl Albumin (3.4-5.0) gm/dl Globulin (2.5-4.0) gm/dl Albumin/Globulin Ratio (0.9-2) 06/29/20 06/29/20 06/29/20 Range/Units 07:16 05:41 05:41 WBC 9.53 (4.8-10.8) K/uL RBC 3.78 L (4.2-5.4) M/uL Hgb 11.9 L (12.0-16.0) g/dL Hct 37.5 (37-47) % MCV 99.2 (80-100) fL MCH 31.5 (25-34) pg MCHC 31.7 L (32-36) g/dL RDW Std Deviation 53.9 H (36.4-46.3) fL RDW Coeff of Isael 14.9 H (11.5-14.5) % Plt Count 172 (130-400) K/uL MPV 12.5 H (7.4-10.4) fL Immature Gran % (Auto) 0.1 % Neut % (Auto) 70.3 % Lymph % (Auto) 16.5 % Vernon % (Auto) 12.2 % Eos % (Auto) 0.8 % Baso % (Auto) 0.1 % Neut # (Auto) 6.70 H (1.4-6.5) K/uL Lymph # (Auto) 1.57 (1.2-3.4) K/uL Vernon # (Auto) 1.16 H (0.11-0.59) K/uL Eos # (Auto) 0.08 (0-0.5) K/uL Baso # (Auto) 0.01 (0-0.2) K/uL Immature Gran # (Auto) 0.01 (0.00-0.02) K/uL PT (9.0-12.0) Seconds INR (0.9-1.1) Sodium 141 (136-145) mmol/L Potassium 3.5 (3.5-5.1) mmol/L Chloride 102 (98-107) mmol/L Carbon Dioxide 35 H (21-32) mmol/L Anion Gap 3.0 (3-11) BUN 30 H (7-18) mg/dl Creatinine 1.30 H D (0.6-1.2) mg/dl Est Cr Clr Drug Dosing 30.9 ml/min Est GFR ( Amer) 43.3 Est GFR (Non-Af Amer) 37.4 BUN/Creatinine Ratio 23.1 H (10-20) Glucose 58 L (70-99) mg/dl POC Glucose 52 L* (70-99) mg/dl Calcium 9.2 (8.5-10.1) mg/dl Total Bilirubin 0.4 (0.2-1) mg/dl AST 29 (15-37) U/L ALT 30 (12-78) U/L Alkaline Phosphatase 97 (45-117) U/L Total Protein 6.6 (6.4-8.2) gm/dl Albumin 2.3 L (3.4-5.0) gm/dl Globulin 4.3 H (2.5-4.0) gm/dl Albumin/Globulin Ratio 0.5 L (0.9-2) 06/29/20 06/28/20 06/28/20 Range/Units 05:41 19:56 16:27 WBC (4.8-10.8) K/uL RBC (4.2-5.4) M/uL Hgb (12.0-16.0) g/dL Hct (37-47) % MCV (80-100) fL MCH (25-34) pg MCHC (32-36) g/dL RDW Std Deviation (36.4-46.3) fL RDW Coeff of Isael (11.5-14.5) % Plt Count (130-400) K/uL MPV (7.4-10.4) fL Immature Gran % (Auto) % Neut % (Auto) % Lymph % (Auto) % Vernon % (Auto) % Eos % (Auto) % Baso % (Auto) % Neut # (Auto) (1.4-6.5) K/uL Lymph # (Auto) (1.2-3.4) K/uL Vernon # (Auto) (0.11-0.59) K/uL Eos # (Auto) (0-0.5) K/uL Baso # (Auto) (0-0.2) K/uL Immature Gran # (Auto) (0.00-0.02) K/uL PT 44.9 H (9.0-12.0) Seconds INR 5.0 H (0.9-1.1) Sodium (136-145) mmol/L Potassium (3.5-5.1) mmol/L Chloride (98-107) mmol/L Carbon Dioxide (21-32) mmol/L Anion Gap (3-11) BUN (7-18) mg/dl Creatinine (0.6-1.2) mg/dl Est Cr Clr Drug Dosing ml/min Est GFR ( Amer) Est GFR (Non-Af Amer) BUN/Creatinine Ratio (10-20) Glucose (70-99) mg/dl POC Glucose 198 H 182 H (70-99) mg/dl Calcium (8.5-10.1) mg/dl Total Bilirubin (0.2-1) mg/dl AST (15-37) U/L ALT (12-78) U/L Alkaline Phosphatase (45-117) U/L Total Protein (6.4-8.2) gm/dl Albumin (3.4-5.0) gm/dl Globulin (2.5-4.0) gm/dl Albumin/Globulin Ratio (0.9-2) 06/28/20 Range/Units 10:54 WBC (4.8-10.8) K/uL RBC (4.2-5.4) M/uL Hgb (12.0-16.0) g/dL Hct (37-47) % MCV (80-100) fL MCH (25-34) pg MCHC (32-36) g/dL RDW Std Deviation (36.4-46.3) fL RDW Coeff of Isael (11.5-14.5) % Plt Count (130-400) K/uL MPV (7.4-10.4) fL Immature Gran % (Auto) % Neut % (Auto) % Lymph % (Auto) % Vernon % (Auto) % Eos % (Auto) % Baso % (Auto) % Neut # (Auto) (1.4-6.5) K/uL Lymph # (Auto) (1.2-3.4) K/uL Vernon # (Auto) (0.11-0.59) K/uL Eos # (Auto) (0-0.5) K/uL Baso # (Auto) (0-0.2) K/uL Immature Gran # (Auto) (0.00-0.02) K/uL PT (9.0-12.0) Seconds INR (0.9-1.1) Sodium (136-145) mmol/L Potassium (3.5-5.1) mmol/L Chloride (98-107) mmol/L Carbon Dioxide (21-32) mmol/L Anion Gap (3-11) BUN (7-18) mg/dl Creatinine (0.6-1.2) mg/dl Est Cr Clr Drug Dosing ml/min Est GFR ( Amer) Est GFR (Non-Af Amer) BUN/Creatinine Ratio (10-20) Glucose (70-99) mg/dl POC Glucose 255 H (70-99) mg/dl Calcium (8.5-10.1) mg/dl Total Bilirubin (0.2-1) mg/dl AST (15-37) U/L ALT (12-78) U/L Alkaline Phosphatase (45-117) U/L Total Protein (6.4-8.2) gm/dl Albumin (3.4-5.0) gm/dl Globulin (2.5-4.0) gm/dl Albumin/Globulin Ratio (0.9-2) PG Care Time/CCT Total # of Minutes Spent Total Time Spent with Patient: Total time spent is greater than 50% in coordination of care (as documented) at patient's floor/unit and/or counseling patient: Coding Level of Care Code 50269 Subseq Hosp Care Lvl 3 Diagnoses Encephalopathy acute G93.40 Malignant hypertension I10 Diabetes mellitus type 2, uncontrolled E11.65 Elevated troponin R77.8 Mild chronic anemia D64.9 Nocturnal hypoxemia G47.34 Paroxysmal atrial fibrillation I48.0 Pleural effusion J90 Pulmonary hypertension I27.20 UTI (urinary tract infection) N39.0 Anticoagulant long-term use Z79.01 Anxiety F41.9 Aortic stenosis I35.0 CVA (cerebral vascular accident) I63.9 DVT prophylaxis Z29.9
[2020-06-29] MEDS ORDERED: acetaZOLAMIDE 250 MG TAB PO ONE (08:20)
[2020-06-29] MEDS: INSULIN ASPART 100 UNITS/ML 3 ML PEN SC SCH ×4 (09:23→21:07)
[2020-06-29] MEDS: ONDANSETRON INJ 2 MG/ML 2 ML VIAL IV PRN (10:30)
[2020-06-29] MEDS: cefTRIAXone SODIUM 2,000 MG in DEXTROSE 5% 50 ML IV SCH (10:30)
[2020-06-29] MEDS ORDERED: SOD PHOSPHATE/SOD BIPHOSPHATE ENEMA 132 ML BTL PR PRN (10:36)
[2020-06-29] MEDS ORDERED: bisacodyL 5 MG TABEC PO STA (10:41)
[2020-06-29] MEDS ORDERED: INSULIN GLARGINE SOLOSTAR 100 UNITS/ML 3 ML PEN SQ SCH (21:00)
[2020-06-29] MEDS: ALPRAZolam 0.25 MG TABLET PO PRN (21:26)
[2020-06-29] MEDS: ACETAMINOPHEN 325 MG TAB PO PRN (21:27)
[2020-06-30 06:08] LABS: Basophils # (auto) 0.01 K/uL (0-0.2); Basophils % (auto) 0.1 %; Eosinophils # (auto) 0.17 K/uL (0-0.5); Eosinophils % (auto) 1.7 %; Hematocrit (blood only) 36.5 % (37-47); Hemoglobin 11.4 g/dL (12.0-16.0); Immature Granulocytes # (auto) 0.02 K/uL (0.00-0.02); Immature Granulocytes % (auto) 0.2 %; Lymphocytes # (auto) 1.74 K/uL (1.2-3.4); Lymphocytes % (auto) 17.8 %; Mean Corpuscular Hemoglobin 30.9 pg (25-34); Mean Corpuscular Hgb Conc 31.2 g/dL (32-36); Mean Corpuscular Volume 98.9 fL (80-100); Mean Platelet Volume 12.3 fL (7.4-10.4); Monocytes # (auto) 1.07 K/uL (0.11-0.59); Monocytes % (auto) 10.9 %; Neutrophils # (auto) 6.79 K/uL (1.4-6.5); Neutrophils % (auto) 69.3 %; Platelet Count 150 K/uL (130-400); RDW Standard Deviation 54.4 fL (36.4-46.3); Red Blood Count 3.69 M/uL (4.2-5.4)
[2020-06-30 06:24] LABS: INR 5.4 (0.9-1.1); Prothrombin Time 47.5 Seconds (9.0-12.0)
[2020-06-30 06:36] LABS: Albumin Level 2.3 gm/dl (3.4-5.0); BUN Creatinine Ratio 22.2 (10-20); Calcium 8.7 mg/dl (8.5-10.1); Creatinine Clr Calc Pharmacy 26.5 ml/min; Est GFR (African American) 35.9; Est GFR (Non-African American) 30.9; Potassium 3.8 mmol/L (3.5-5.1)
[2020-06-30 06:39] LABS: Albumin Globulin Ratio 0.6 (0.9-2); Bilirubin,Total 0.4 mg/dl (0.2-1); Total Protein 6.3 gm/dl (6.4-8.2)
[2020-06-30 06:52] LABS: Lyme Ab IgG w/WB Rflx Negative (Negative); Lyme Ab IgM w/WB Rflx Negative (Negative)
[2020-06-30] MEDS: PANTOprazole 40 MG TAB PO SCH (07:40)
[2020-06-30] MEDS: LIDOCAINE 5% 1 PATCH TD SCH (07:40)
[2020-06-30] MEDS: POLYETHYLENE (MIRALAX) 17 GM PACK PO SCH ×2 (07:40→21:01)
[2020-06-30] MEDS: LOSARTAN POTASSIUM 50 MG TAB PO SCH (07:40)
[2020-06-30] MEDS: FAMOTIDINE 20 MG in SYRINGE 3 ML IV SCH (07:40)
[2020-06-30] MEDS: hydrALAZINE TAB 50 MG TAB PO SCH ×4 (07:40→21:01)
[2020-06-30] MEDS: CHOLECALCIFEROL 1,000 UNITS 25 MCG TAB PO SCH (07:41)
[2020-06-30] MEDS: DOCUSATE SODIUM 100 MG CAP PO SCH ×2 (07:41→21:01)
[2020-06-30] MEDS: ATENOLOL 25 MG TABLET PO SCH (07:41)
[2020-06-30] MEDS: busPIRone 5 MG TAB PO SCH ×3 (07:41→21:04)
--- NOTE | 2020-06-30 08:01 | Hospitalist Progress Note ---
Date of Service June 30, 2020 Assessment & Plan (1) Encephalopathy acute: Presents with altered mental status for worsening over the last 2 days after a fall and after receiving Covid vaccine. She had been afebrile but extremely hypertensive. CT head negative on both 06/24 the day after her fall, as well as on 06/26, so seems less likely that she had a stroke in the last 2 days. Also, her INR is supratherapeutic making stroke less likely. IMPROVED WITH CONTROL OF HER BLOOD PRESSURE -- alert, oriented and feeding herself 06/30 initially placed on Vanc(d/c 06/27 MRSA negative)/cefepime, switched to Ceftriaxone 06/29. Urinalysis initially questionable for infection -- CULTURE NEGATIVE. Given 1 dose Diflucan for yeast CXR on admission cardiomegaly with evidence of congestive failure, small effusions, consolidative changes L lung base likely atelectasis -- improving on repeat CT with likely compressive atelectasis Possible that she had pneumonia but more likely be compressive atelectasis from pleural effusions. -- required diuresis for volume overload initially with 20mg IV BID and incr eased to 40mg IV BID, but was stopped AM 06/29 for elevated Cr and further increased on 06/30, now slightly intravascularly depleted -- holding off on IVF and and encouraged PO intake. No further lasix for now and will monitor BMP in AM Afebrile WBC wnl Not hypoxic -- is now utilizing O2 HS as previously recommended and with naps however repeat overnight study did not indicate drop for longer than 48 seconds LARGE BM today following enema -- continue bowel regimen given prior admission for such PT/OT evals -- rehab at d/c last month, rec same --> would like to take home. CM sent refs. -- does state he has lift chair and equipment at home with supplemental help from neighbors/family/friends if needed--> WILL NEED CALLED IN ADVANCE PRIOR TO D/C HE CONTACTS [employer] TO ASSIST WITH TRANSFERS IN/OUT OF HOUSE CBC, CMP in AM Acute on Chronic Heart Failure -- secondary to uncontrolled HTN/volume overload/bradycardia * Cardiology consulted * Lasix was ordered 20mg IV BID and increased to 40mg IV BID as above * --> Held 06/29 given elevated Cr 1.35 but did get AM dose * --> Cr 1.52 this AM (likely from lasix given yesterday morning) --> holding further diuresis and encouraged PO intake. Monitor labs in AM. May need low dose lasix at d/c +/-K supp * Wt 86.8kg however is a bedside weight but improved from 94.2kg reported on admission * Losartan continued 50mg BID (HOLDING THIS EVENING DOSE 06/30 FOR DEHYDRATION/RAUL BUT RESUME IN AM IF IMPROVED) * Atenolol decreased and continued as 25mg ONCE 06/28 daily to allow for more physiologic HR --> (dropped to 36bpm afternoon 06/29 but improved 40-60s today) * --> will decrease to 12.5mg daily and use minoxidil prn if needed (BP 146/57 currently) if becomes elevated. Added to eMAR * BPs improved as volume status decreased * -- would benefit from f/u CHF clinic at discharge. Unclear baseline weight (2) Malignant hypertension: * With hypertensive emergency or here-with hypertensive encephalopathy as above plus positive troponin * Blood pressures severely elevated as high as 252/78 and persistently greater than 200 throughout her time in the ER * Blood pressures and encephalopathy resolving with diuresis as above * Stopped lasix 06/29 as above * Hydralazine decreased to prior dose 50mg QID and avoiding additional IV hydralazine to prevent complications * Continue atenolol 25mg daily-- decreased to 12.5mg daily as above. Use minoxidil if needed, added * losartan 50mg BID (holding this evening dose as above) * Minoxidil prn as above * BP currently 146/57 * Continue to monitor (3) Diabetes mellitus type 2, uncontrolled: * Hemoglobin A1c 6.6% and very well controlled just last month * Continue home insulin glargine 30 units at bedtime with HS snack (decreased to 20uHS prior due to AM hypoglycemia but will increase back to usual now that AO and feeding herself) * ISS * BSG Ac/HS * Continue to monitor (4) Elevated troponin: * Troponin mildly elevated at 0.057 on admission, trended down * Suspect secondary to demand from HTN emergency/volume overload * EKG with LBBB, no new. ECHO at that time last admission with preserved LV function (5) Mild chronic anemia: * Hemoglobin stable, normocytic. B12/folate wnl last admission (6) Nocturnal hypoxemia: * Was started on 2 L nasal cannula at bedtime last admission, however intermediate notes that they have had her on 2 L continuously since last discharge * Continue nasal cannula keep pulse ox greater than 92% * Overnight pox again --NOW WITHOUT need for supp o2 HS (7) Paroxysmal atrial fibrillation: * With a history of such, is currently in sinus rhythm * Is on Coumadin but INR is supratherapeutic today again but did get a dose of Flagyl * Abx now discontinued * On 0.5mg daily prior to intermediate but did have subtherapeutic INR prior to d/c last admission and per intermediate report had been increased to 1g 5x/wk and 2mg M/F * --> would restart at lower dose when INR trending down * INR in AM (8) Pleural effusion: * Here with small to moderate bilateral pleural effusions and pulmonary edema * With volume overload likely secondary to malignant hypertension * Give IV Lasix 40 mg IV twice daily-- continued through AM 06/29 stopped as above * Treating for pneumonia as above although seems low suspicion for pneumonia and do not suspect empyema or parapneumonic effusion at this time -- d/c'd at this time (9) Pulmonary hypertension: * Noted on previous echocardiogram * Diuresing as above, supplemental O2 as needed (10) UTI (urinary tract infection): * Abnormal UA but does seem contaminated more with epithelial cells * Treating as above with antibiotics * Follow urine culture v-- NEGATIVE (11) Anticoagulant long-term use: * As above, on warfarin for atrial fibrillation * Cardiology consulted -- see above no further episodes svt/flutter * monitor on telemetry (12) Anxiety: * Continue home BuSpar when taking p.o. again * She typically takes alprazolam 0.25 mg twice daily, however it was being given as needed at the intermediate but she did receive it at least every night the last few nights * Do not suspect any withdrawal from alprazolam at this time but this is a possibility * Resumed prn 0.25mg if mentation OK to prevent withdrawal but has not gotten last night/today and much improved * -- utilize as needed as she has been tapering down dose and taking less frequently (13) Aortic stenosis: * Mild as noted on previous echocardiogram. [place] on examination * Monitor volume status -- see above (14) CVA (cerebral vascular accident): * History of CVA with residual left-sided hemiplegia * Continue home warfarin when INR coming down (on hold currently for supratherapeutic INR) * Antiplatelet not indicated as per neurology recommendation at the time she had her stroke as she was placed on anticoagulation (15) DVT prophylaxis: * Coumadin as above * SCDs, judy hose GI prophylaxis Pepcid IV D/c PPI given RAUL Incidental Findings on Imaging Cyst 1.8cm upper outer quad R breast on imaging and will need US/mammography in f/u outpatient. Indeterminate density 1.9cm lesion posterior interpolar left kidney, likely complex cyst (reported as 2.1cm on CT dated 06/04/20) Continued inpatient stay, possible d/c tomorrow vs Wednesday? Admission and Anticipated Discharge Date Admission Date: June 27, 2020 Subjective Patient doing MUCH better today. More alert, oriented, more energy. She has been using O2 at night and while napping but has been saturating well on room air otherwise. Has been able to feed herself for all meals without issue. Successful large BM today. No further nausea, fever, chills, chest pain, shortness of breath, dysuria. Hopeful for d/c tomorrow if kidney function improving and was encouraged to push oral fluids today as we would like to avoid giving IVF as we have her more euvolemic and was only slightly volume down this morning. Review of Systems Review of Systems: All systems reviewed & are unremarkable except as noted in HPI & below Physical Exam Constitutional: WD/WN, vitals as above + obese and cooperative; no acute distress Eyes: PERRL, conjunctivae normal, anicteric sclerae (healing bruising about L eye) ENMT: Ears: no external ear abnormality Neck: trachea midline, no thyromegaly Respiratory: normal respiratory effort; no respiratory distress, no labored breathing, no cough and not tachypneic Auscultation: + crackles (faint bibasilar L>R); no wheezes initially sleeping with 2L O2 via NC Cardiovascular: Rate/Rhythm: regular rate (quiet heart sounds) and regular rhythm Heart Sounds: + murmur (systolic); + abnormal S2 (loud) Extremities: no calf tenderness and no edema Gastrointestinal (Abdomen): Inspection/Auscultation: normal bowel sounds; abdomen not distended Percussion/Palpation: abdomen soft; abdomen nontender and no guarding Musculoskeletal: Extremities: extremities normal to inspection; no cyanosis and no clubbing Skin: no rashes, warm and dry (erythema/skin tear to R buttock improved from prior admission) Neurologic: awake; not confused and not obtunded Motor/Sensory: no tremor Psychiatric: A+Ox3, euthymic affect Genitourinary: steen draining yellow urine Lymphatic: no lymphedema Results & Data Results & Data ([facility]) Vital Signs (Past 12 Hours) Vital Signs Temp Pulse Resp BP BP Pulse Ox 06/30/20 07:15 36.4 C L 52 L 18 166/71 H 98 06/30/20 04:07 36.5 C 50 L 18 142/62 H 99 06/29/20 23:35 36.6 C 55 L 18 150/71 H 96 Laboratory Results 06/30/20 06/30/20 06/30/20 Range/Units 07:12 05:46 05:46 WBC 9.80 (4.8-10.8) K/uL RBC 3.69 L (4.2-5.4) M/uL Hgb 11.4 L (12.0-16.0) g/dL Hct 36.5 L (37-47) % MCV 98.9 (80-100) fL MCH 30.9 (25-34) pg MCHC 31.2 L (32-36) g/dL RDW Std Deviation 54.4 H (36.4-46.3) fL RDW Coeff of Isael 15.0 H (11.5-14.5) % Plt Count 150 (130-400) K/uL MPV 12.3 H (7.4-10.4) fL Immature Gran % (Auto) 0.2 % Neut % (Auto) 69.3 % Lymph % (Auto) 17.8 % [place] % (Auto) 10.9 % Eos % (Auto) 1.7 % Baso % (Auto) 0.1 % Neut # (Auto) 6.79 H (1.4-6.5) K/uL Lymph # (Auto) 1.74 (1.2-3.4) K/uL [place] # (Auto) 1.07 H (0.11-0.59) K/uL Eos # (Auto) 0.17 (0-0.5) K/uL Baso # (Auto) 0.01 (0-0.2) K/uL Immature Gran # (Auto) 0.02 (0.00-0.02) K/uL PT (9.0-12.0) Seconds INR (0.9-1.1) Sodium 140 (136-145) mmol/L Potassium 3.8 (3.5-5.1) mmol/L Chloride 103 (98-107) mmol/L Carbon Dioxide 33 H (21-32) mmol/L Anion Gap 4.0 (3-11) BUN 34 H (7-18) mg/dl Creatinine 1.52 H (0.6-1.2) mg/dl Est Cr Clr Drug Dosing 26.5 ml/min Est GFR ( Amer) 35.9 Est GFR (Non-Af Amer) 30.9 BUN/Creatinine Ratio 22.2 H (10-20) Glucose 109 H (70-99) mg/dl POC Glucose 109 H (70-99) mg/dl Calcium 8.7 (8.5-10.1) mg/dl Total Bilirubin 0.4 (0.2-1) mg/dl AST 26 (15-37) U/L ALT 25 (12-78) U/L Alkaline Phosphatase 98 (45-117) U/L Total Protein 6.3 L (6.4-8.2) gm/dl Albumin 2.3 L (3.4-5.0) gm/dl Globulin 4.0 (2.5-4.0) gm/dl Albumin/Globulin Ratio 0.6 L (0.9-2) Folate Lyme Disease IgG Ab (Negative) Lyme Disease IgM Ab (Negative) 06/30/20 06/30/20 06/30/20 Range/Units 05:46 05:46 05:46 WBC (4.8-10.8) K/uL RBC (4.2-5.4) M/uL Hgb (12.0-16.0) g/dL Hct (37-47) % MCV (80-100) fL MCH (25-34) pg MCHC (32-36) g/dL RDW Std Deviation (36.4-46.3) fL RDW Coeff of Isael (11.5-14.5) % Plt Count (130-400) K/uL MPV (7.4-10.4) fL Immature Gran % (Auto) % Neut % (Auto) % Lymph % (Auto) % [place] % (Auto) % Eos % (Auto) % Baso % (Auto) % Neut # (Auto) (1.4-6.5) K/uL Lymph # (Auto) (1.2-3.4) K/uL [place] # (Auto) (0.11-0.59) K/uL Eos # (Auto) (0-0.5) K/uL Baso # (Auto) (0-0.2) K/uL Immature Gran # (Auto) (0.00-0.02) K/uL PT 47.5 H (9.0-12.0) Seconds INR 5.4 H (0.9-1.1) Sodium (136-145) mmol/L Potassium (3.5-5.1) mmol/L Chloride (98-107) mmol/L Carbon Dioxide (21-32) mmol/L Anion Gap (3-11) BUN (7-18) mg/dl Creatinine (0.6-1.2) mg/dl Est Cr Clr Drug Dosing ml/min Est GFR ( Amer) Est GFR (Non-Af Amer) BUN/Creatinine Ratio (10-20) Glucose (70-99) mg/dl POC Glucose (70-99) mg/dl Calcium (8.5-10.1) mg/dl Total Bilirubin (0.2-1) mg/dl AST (15-37) U/L ALT (12-78) U/L Alkaline Phosphatase (45-117) U/L Total Protein (6.4-8.2) gm/dl Albumin (3.4-5.0) gm/dl Globulin (2.5-4.0) gm/dl Albumin/Globulin Ratio (0.9-2) Folate Pending Lyme Disease IgG Ab Negative (Negative) Lyme Disease IgM Ab Negative (Negative) 06/29/20 06/29/20 06/29/20 Range/Units 20:38 16:13 11:11 WBC (4.8-10.8) K/uL RBC (4.2-5.4) M/uL Hgb (12.0-16.0) g/dL Hct (37-47) % MCV (80-100) fL MCH (25-34) pg MCHC (32-36) g/dL RDW Std Deviation (36.4-46.3) fL RDW Coeff of Isael (11.5-14.5) % Plt Count (130-400) K/uL MPV (7.4-10.4) fL Immature Gran % (Auto) % Neut % (Auto) % Lymph % (Auto) % [place] % (Auto) % Eos % (Auto) % Baso % (Auto) % Neut # (Auto) (1.4-6.5) K/uL Lymph # (Auto) (1.2-3.4) K/uL [place] # (Auto) (0.11-0.59) K/uL Eos # (Auto) (0-0.5) K/uL Baso # (Auto) (0-0.2) K/uL Immature Gran # (Auto) (0.00-0.02) K/uL PT (9.0-12.0) Seconds INR (0.9-1.1) Sodium (136-145) mmol/L Potassium (3.5-5.1) mmol/L Chloride (98-107) mmol/L Carbon Dioxide (21-32) mmol/L Anion Gap (3-11) BUN (7-18) mg/dl Creatinine (0.6-1.2) mg/dl Est Cr Clr Drug Dosing ml/min Est GFR ( Amer) Est GFR (Non-Af Amer) BUN/Creatinine Ratio (10-20) Glucose (70-99) mg/dl POC Glucose 121 H 124 H 148 H (70-99) mg/dl Calcium (8.5-10.1) mg/dl Total Bilirubin (0.2-1) mg/dl AST (15-37) U/L ALT (12-78) U/L Alkaline Phosphatase (45-117) U/L Total Protein (6.4-8.2) gm/dl Albumin (3.4-5.0) gm/dl Globulin (2.5-4.0) gm/dl Albumin/Globulin Ratio (0.9-2) Folate Lyme Disease IgG Ab (Negative) Lyme Disease IgM Ab (Negative) 06/29/20 Range/Units 08:05 WBC (4.8-10.8) K/uL RBC (4.2-5.4) M/uL Hgb (12.0-16.0) g/dL Hct (37-47) % MCV (80-100) fL MCH (25-34) pg MCHC (32-36) g/dL RDW Std Deviation (36.4-46.3) fL RDW Coeff of Isael (11.5-14.5) % Plt Count (130-400) K/uL MPV (7.4-10.4) fL Immature Gran % (Auto) % Neut % (Auto) % Lymph % (Auto) % [place] % (Auto) % Eos % (Auto) % Baso % (Auto) % Neut # (Auto) (1.4-6.5) K/uL Lymph # (Auto) (1.2-3.4) K/uL [place] # (Auto) (0.11-0.59) K/uL Eos # (Auto) (0-0.5) K/uL Baso # (Auto) (0-0.2) K/uL Immature Gran # (Auto) (0.00-0.02) K/uL PT (9.0-12.0) Seconds INR (0.9-1.1) Sodium (136-145) mmol/L Potassium (3.5-5.1) mmol/L Chloride (98-107) mmol/L Carbon Dioxide (21-32) mmol/L Anion Gap (3-11) BUN (7-18) mg/dl Creatinine (0.6-1.2) mg/dl Est Cr Clr Drug Dosing ml/min Est GFR ( Amer) Est GFR (Non-Af Amer) BUN/Creatinine Ratio (10-20) Glucose (70-99) mg/dl POC Glucose 103 H (70-99) mg/dl Calcium (8.5-10.1) mg/dl Total Bilirubin (0.2-1) mg/dl AST (15-37) U/L ALT (12-78) U/L Alkaline Phosphatase (45-117) U/L Total Protein (6.4-8.2) gm/dl Albumin (3.4-5.0) gm/dl Globulin (2.5-4.0) gm/dl Albumin/Globulin Ratio (0.9-2) Folate Lyme Disease IgG Ab (Negative) Lyme Disease IgM Ab (Negative) PG Care Time/CCT Total # of Minutes Spent Total Time Spent with Patient: Total time spent is greater than 50% in coordination of care (as documented) at patient's floor/unit and/or counseling patient: Coding Level of Care Code 88140 Subseq Hosp Care Lvl 3 Diagnoses Encephalopathy acute G93.40 Malignant hypertension I10 Diabetes mellitus type 2, uncontrolled E11.65 Elevated troponin R77.8 Mild chronic anemia D64.9 Nocturnal hypoxemia G47.34 Paroxysmal atrial fibrillation I48.0 Pleural effusion J90 Pulmonary hypertension I27.20 UTI (urinary tract infection) N39.0 Anticoagulant long-term use Z79.01 Anxiety F41.9 Aortic stenosis I35.0 CVA (cerebral vascular accident) I63.9 DVT prophylaxis Z29.9
[2020-06-30] MEDS: INSULIN ASPART 100 UNITS/ML 3 ML PEN SC SCH ×4 (08:42→21:03)
--- NOTE | 2020-06-30 10:57 | Cardiology Progress Note ---
Date of Service June 30, 2020 Assessment & Plan (1) Diastolic CHF: -appears to be euvolemic at this time. -diuretics on hold due to increasing BUN and creatinine. -she may be dry intravascularly. -follow exam and electrolytes. (2) Hypertensive crisis: -blood pressure is somewhat improved. -could add low-dose doxazosin as suggested by Dr. Albarado. (3) Elevated troponin: -minor elevation likely represents demand ischemia. (4) Paroxysmal atrial fibrillation: -no recurrence over last 24 hours. (5) LBBB (left bundle branch block): -normal left ventricular systolic function on current echocardiogram. Admission and Anticipated Discharge Date Admission Date: June 27, 2020 Subjective The patient is resting comfortably in bed without complaints of chest pain or dyspnea. Physical Exam Physical Exam: In general is obese white female in no acute distress. HEENT exam is negative. Neck is supple with mildly delayed carotid upstrokes. No carotid bruits. Jugular venous pressure is difficult to assess. Cardiovascular exam reveals a regular rhythm with distant heart sounds. A 2/6 crescendo decrescendo systolic murmur is heard loudest at the base. S2 is audible at the apex. Lungs are clear without rales, rhonchi or wheezes. Abdomen is obese without bruits. Extremities reveal intact radial artery pulses bilaterally. There is trace pretibial edema. Results & Data ([facility]) Vital Signs (Past 12 Hours) Vital Signs Temp Pulse Pulse Resp BP BP Pulse Ox 06/30/20 08:34 68 06/30/20 07:15 36.4 C L 52 L 18 166/71 H 98 06/30/20 04:07 36.5 C 50 L 18 142/62 H 99 06/29/20 23:35 36.6 C 55 L 18 150/71 H 96 Diagnostic Findings monitor and storage bin tender notes sinus rhythm with occasional PVCs. PG Care Time/CCT Total # of Minutes Spent Total Time Spent with Patient: Total time spent is greater than 50% in coordination of care (as documented) at patient's floor/unit and/or counseling patient: Coding Level of Care Code 15295 Subseq Hosp Care Lvl 3 Diagnoses Diastolic CHF I50.30 Hypertensive crisis I16.9 Elevated troponin R77.8 Paroxysmal atrial fibrillation I48.0 LBBB (left bundle branch block) I44.7
[2020-06-30] MEDS: cefTRIAXone SODIUM 2,000 MG in DEXTROSE 5% 50 ML IV SCH (11:21)
[2020-06-30] MEDS ORDERED: WARFARIN SOD 0.5 MG TAB PO SCH (16:00)
[2020-06-30] MEDS ORDERED: INSULIN GLARGINE SOLOSTAR 100 UNITS/ML 3 ML PEN SQ SCH (21:00)
[2020-06-30] MEDS: ACETAMINOPHEN 325 MG TAB PO PRN (21:08)
[2020-07-01 06:24] LABS: Basophils # (auto) 0.02 K/uL (0-0.2); Basophils % (auto) 0.2 %; Hematocrit (blood only) 34.8 % (37-47); Hemoglobin 11.1 g/dL (12.0-16.0); Immature Granulocytes # (auto) 0.02 K/uL (0.00-0.02); Immature Granulocytes % (auto) 0.2 %; Lymphocytes % (auto) 17.7 %; Mean Corpuscular Hemoglobin 31.4 pg (25-34); Mean Corpuscular Hgb Conc 31.9 g/dL (32-36); Mean Corpuscular Volume 98.6 fL (80-100); Mean Platelet Volume 12.3 fL (7.4-10.4); Monocytes # (auto) 0.99 K/uL (0.11-0.59); Monocytes % (auto) 9.7 %; Neutrophils # (auto) 7.15 K/uL (1.4-6.5); Neutrophils % (auto) 70.2 %; Platelet Count 149 K/uL (130-400); RDW Coefficient of Variation 14.9 % (11.5-14.5); RDW Standard Deviation 54.5 fL (36.4-46.3); Red Blood Count 3.53 M/uL (4.2-5.4); White Blood Count 10.18 K/uL (4.8-10.8)
[2020-07-01 06:57] LABS: BUN Creatinine Ratio 22.7 (10-20); Calcium 8.1 mg/dl (8.5-10.1); Creatinine Clr Calc Pharmacy 24.6 ml/min; Est GFR (African American) 32.2; Est GFR (Non-African American) 27.8; Magnesium 2.5 mg/dl (1.8-2.4); Potassium 3.6 mmol/L (3.5-5.1)
[2020-07-01] MEDS: CHOLECALCIFEROL 1,000 UNITS 25 MCG TAB PO SCH (08:04)
[2020-07-01] MEDS: ATENOLOL 25 MG TABLET PO SCH (08:04)
[2020-07-01] MEDS: INSULIN ASPART 100 UNITS/ML 3 ML PEN SC SCH ×4 (08:04→20:07)
[2020-07-01] MEDS: busPIRone 5 MG TAB PO SCH ×3 (08:05→20:02)
[2020-07-01] MEDS: LOSARTAN POTASSIUM 50 MG TAB PO SCH ×2 (08:05→20:03)
[2020-07-01] MEDS: LIDOCAINE 5% 1 PATCH TD SCH (08:06)
[2020-07-01] MEDS: POLYETHYLENE (MIRALAX) 17 GM PACK PO SCH ×2 (08:07→20:04)
[2020-07-01] MEDS: hydrALAZINE TAB 50 MG TAB PO SCH ×4 (08:07→20:03)
[2020-07-01] MEDS: DOCUSATE SODIUM 100 MG CAP PO SCH ×2 (08:07→20:02)
[2020-07-01] MEDS: FAMOTIDINE 20 MG in SYRINGE 3 ML IV SCH (08:09)
--- NOTE | 2020-07-01 15:17 | Hospitalist Progress Note ---
Date of Service July 01, 2020 Assessment & Plan (1) Encephalopathy acute: Presents with altered mental status for worsening over the last 2 days found to be extremely hypertensive IMPROVED WITH CONTROL OF HER BLOOD PRESSURE -- alert, oriented and feeding herself 06/30 and today, 07/01 placed on empiric antibiotics on admission, now stopped since no obvious infection CXR on admission cardiomegaly with evidence of congestive failure, small effusions, consolidative changes L lung base likely atelectasis -- improving on repeat PT/OT evals -- rehab at d/c last month, rec same --> would like to take home. CM sent refs. -- does state he has lift chair and equipment at home with supplemental help from neighbors/family/friends if needed--> WILL NEED CALLED IN ADVANCE PRIOR TO D/C HE CONTACTS [employer] TO ASSIST WITH TRANSFERS IN/OUT OF HOUSE CBC, CMP in AM (2) Acute on chronic heart failure with preserved ejection fraction: Acute on Chronic Heart Failure with preserved EF -- secondary to uncontro lled HTN/volume overload/bradycardia * Cardiology consulted * Lasix was ordered 20mg IV BID and increased to 40mg IV BID as above * now Lasix on hold due to rise in CR, up to 1.6 today * Losartan continued 50mg BID * Atenolol decreased to 12.5mg daily * BPs improved as volume status decreased * -- would benefit from f/u CHF clinic at discharge. Unclear baseline weight check Cr in the AM, will likely discharge on daily Lasix for volume control as well as BP control (3) Malignant hypertension: * With hypertensive emergency or here-with hypertensive encephalopathy as above plus positive troponin * Hydralazine 50mg QID, likely change to 100mg TID for easier use * Continue atenolol 12.5mg daily as above. Use minoxidil if needed * losartan 50mg BID (holding this evening dose as above) * Minoxidil prn as above * BP stable today, try for discharge tomorrow (4) Diabetes mellitus type 2, uncontrolled: * Hemoglobin A1c 6.6% and very well controlled just last month * Continue home insulin glargine 30 units at bedtime with HS snack (decreased to 20uHS prior due to AM hypoglycemia but will increase back to usual now that AO and feeding herself) * ISS * BSG Ac/HS * Continue to monitor (5) Elevated troponin: * Troponin mildly elevated at 0.057 on admission, trended down * Suspect secondary to demand from HTN emergency/volume overload * EKG with LBBB, no new. ECHO at that time last admission with preserved LV function (6) Mild chronic anemia: * Hemoglobin stable, normocytic. B12/folate wnl last admission (7) Nocturnal hypoxemia: * Was started on 2 L nasal cannula at bedtime last admission, however care home notes that they have had her on 2 L continuously since last discharge * Continue nasal cannula keep pulse ox greater than 92% * Overnight pox again --NOW WITHOUT need for supp o2 HS (8) Paroxysmal atrial fibrillation: * With a history of such, is currently in sinus rhythm * Is on Coumadin but INR supratherapeutic at 5.0, continue to hold was on 0.5mg daily at home, will continue to hold until INR is < 3 (9) Pleural effusion: * Here with small to moderate bilateral pleural effusions and pulmonary edema * With volume overload likely secondary to malignant hypertension * Give IV Lasix 40 mg IV twice daily-- continued through AM 06/29 stopped as above (10) Pulmonary hypertension: * Noted on previous echocardiogram * Diuresing as above, supplemental O2 as needed (11) UTI (urinary tract infection): * UTI ruled out, urine culture negative, stopped abx (12) Anticoagulant long-term use: * As above, holding coumadin, INR is 5.0 (13) Anxiety: * Continue home BuSpar when taking p.o. again * She typically takes alprazolam 0.25 mg twice daily, however it was being given as needed at the care home but she did receive it at least every night the last few nights * Do not suspect any withdrawal from alprazolam at this time but this is a possibility * Resumed prn 0.25mg if mentation OK to prevent withdrawal but has not gotten last night/today and much improved * -- utilize as needed as she has been tapering down dose and taking less frequently (14) Aortic stenosis: * Mild as noted on previous echocardiogram. Lane on examination * Monitor volume status -- see above (15) CVA (cerebral vascular accident): * History of CVA with residual left-sided hemiplegia * Continue home warfarin when INR coming down (on hold currently for supratherapeutic INR) * Antiplatelet not indicated as per neurology recommendation at the time she had her stroke as she was placed on anticoagulation (16) DVT prophylaxis: * Coumadin as above * SCDs, judy edwards Admission and Anticipated Discharge Date Admission Date: June 27, 2020 Subjective patient laying in bed, not doing much with PT/OT she is eating okay, breathing stable, no chest pain, no cough she is alert and oriented, BP is better controlled reviewed chart and cardiology recommendations spoke with her , explained that we will try to get her home on 07/02, not quite ready today reviewed lab, Cr is up a little at 1.6, would like to see it come down tomorrow Review of Systems Review of Systems: All systems reviewed & are unremarkable except as noted in Subjective Constitutional: + fatigue and + weakness; no fever Respiratory: + dyspnea on exertion; no cough and no dyspnea Cardiovascular: no chest pain, no palpitations, no syncope and no edema Gastrointestinal: no abdominal pain, no nausea, no vomiting, no constipation and no diarrhea/loose stools Physical Exam Constitutional: well developed, + frail appearing and comfortable; no acute distress Neck: trachea midline, no thyromegaly Respiratory: normal respiratory effort, lungs clear to auscultation Cardiovascular: RRR, no murmur, no edema Gastrointestinal (Abdomen): normal bowel sounds, soft, nontender, no hepatosplenomegaly Musculoskeletal: Head/Neck/Chest: normocephalic, head atraumatic and neck supple Extremities: extremities normal to inspection and + abnormal strength (generalized, cannot get OOB on her own); no cyanosis, no clubbing and no petechiae Skin: no rashes, warm and dry Neurologic: patellar DTR's 2+ bilat, sensation intact and PERRL, EOMI, accommodation nl, no face palsy, no dysarthria Psychiatric: Orientation: alert and oriented x 3 Affect: + flat affect Results & Data Results & Data ([facility]) Vital Signs (Past 12 Hours) Vital Signs Temp Pulse Resp BP Pulse Ox 07/01/20 11:27 36.9 C 61 16 153/72 H 98 07/01/20 07:00 36.7 C 60 17 183/69 H 98 07/01/20 04:17 36.6 C 55 L 18 146/70 H 98 Laboratory Results Laboratory Results - last 24 hr 06/30/20 06/30/20 07/01/20 16:19 20:29 05:44 WBC 10.18 RBC 3.53 L Hgb 11.1 L Hct 34.8 L MCV 98.6 MCH 31.4 MCHC 31.9 L RDW Std Deviation 54.5 H RDW Coeff of Isael 14.9 H Plt Count 149 MPV 12.3 H Immature Gran % (Auto) 0.2 Neut % (Auto) 70.2 Lymph % (Auto) 17.7 Hettinger % (Auto) 9.7 Eos % (Auto) 2.0 Baso % (Auto) 0.2 Neut # (Auto) 7.15 H Lymph # (Auto) 1.80 Hettinger # (Auto) 0.99 H Eos # (Auto) 0.20 Baso # (Auto) 0.02 Immature Gran # (Auto) 0.02 PT INR Sodium Potassium Chloride Carbon Dioxide Anion Gap BUN Creatinine Est Cr Clr Drug Dosing Est GFR ( Amer) Est GFR (Non-Af Amer) BUN/Creatinine Ratio Glucose POC Glucose 220 H 136 H Calcium Magnesium 07/01/20 07/01/20 07/01/20 05:44 05:44 06:57 WBC RBC Hgb Hct MCV MCH MCHC RDW Std Deviation RDW Coeff of Isael Plt Count MPV Immature Gran % (Auto) Neut % (Auto) Lymph % (Auto) Hettinger % (Auto) Eos % (Auto) Baso % (Auto) Neut # (Auto) Lymph # (Auto) Hettinger # (Auto) Eos # (Auto) Baso # (Auto) Immature Gran # (Auto) PT 45.0 H INR 5.0 H Sodium 141 Potassium 3.6 Chloride 105 Carbon Dioxide 33 H Anion Gap 3.0 BUN 38 H Creatinine 1.66 H Est Cr Clr Drug Dosing 24.6 Est GFR ( Amer) 32.2 Est GFR (Non-Af Amer) 27.8 BUN/Creatinine Ratio 22.7 H Glucose 73 POC Glucose 69 L* Calcium 8.1 L Magnesium 2.5 H 07/01/20 07/01/20 06:59 11:22 WBC RBC Hgb Hct MCV MCH MCHC RDW Std Deviation RDW Coeff of Isael Plt Count MPV Immature Gran % (Auto) Neut % (Auto) Lymph % (Auto) Hettinger % (Auto) Eos % (Auto) Baso % (Auto) Neut # (Auto) Lymph # (Auto) Hettinger # (Auto) Eos # (Auto) Baso # (Auto) Immature Gran # (Auto) PT INR Sodium Potassium Chloride Carbon Dioxide Anion Gap BUN Creatinine Est Cr Clr Drug Dosing Est GFR ( Amer) Est GFR (Non-Af Amer) BUN/Creatinine Ratio Glucose POC Glucose 71 166 H Calcium Magnesium Medications Administered Current Inpatient Medications Acetaminophen (Acetaminophen 325 Mg Tab) 650 mg PO Q4H PRN PRN Reason: pain or fever Stop: 07/28/20 16:29 Last Admin: 06/30/20 21:08 Dose: 650 mg Documented by: Alprazolam (Alprazolam 0.25 Mg Tablet) 0.25 mg PO Q12H PRN PRN Reason: anxiety Stop: 07/27/20 12:43 Last Admin: 06/29/20 21:26 Dose: 0.25 mg Documented by: Atenolol (Atenolol 25 Mg Tablet) 12.5 mg PO QAM [facility] Stop: 07/31/20 08:59 Last Admin: 07/01/20 08:04 Dose: 12.5 mg Documented by: Buspirone HCl (Buspirone 5 Mg Tab) 5 mg PO TID [facility] Stop: 07/26/20 21:04 Last Admin: 07/01/20 13:33 Dose: 5 mg Documented by: Dextrose (Dextrose 50% 50 Ml Syringe) 25 - 50 ml IV UD PRN; Protocol PRN Reason: Hypoglycemia Protocol Stop: 07/26/20 21:04 Docusate Sodium (Docusate Sodium 100 Mg Cap) 100 mg PO BID [facility] Stop: 07/28/20 10:29 Last Admin: 07/01/20 08:07 Dose: 100 mg Documented by: Glucagon (Glucagon For Inj 1 Mg Vial) 1 mg SQ UD PRN; Protocol PRN Reason: Hypoglycemia Protocol Stop: 07/26/20 21:04 Glucose (Glucose 10 Tabs/Tube) 4 - 8 tabs PO UD PRN; Protocol PRN Reason: Hypoglycemia Protocol Stop: 07/26/20 21:04 Glucose (Glucose 40% Gel 15 Gm Tube) 15 - 30 gm PO UD PRN; Protocol PRN Reason: Hypoglycemia Protocol Stop: 07/26/20 21:04 Hydralazine HCl (Hydralazine Hcl 20 Mg/Ml Vial) 10 mg IV Q8H PRN PRN Reason: SBP>180 Stop: 07/26/20 19:33 Last Admin: 06/28/20 04:41 Dose: 10 mg Documented by: Hydralazine HCl (Hydralazine Tab 50 Mg Tab) 50 mg PO QID [facility] Stop: 07/27/20 20:59 Last Admin: 07/01/20 11:55 Dose: 50 mg Documented by: Furosemide 40 mg/ Syringe 4 mls @ 4 mls/min IV BID17 [facility] Stop: 07/28/20 08:59 Last Admin: 06/29/20 07:32 Dose: 4 mls/min Documented by: Famotidine 20 mg/ Syringe 5 mls @ 2.5 mls/min IV DAILY [facility] Stop: 07/28/20 12:44 Last Admin: 07/01/20 08:09 Dose: 2.5 mls/min Documented by: Insulin Aspart (Insulin Aspart 100 Units/Ml 3 Ml Pen) 0 units SC ACHS [facility] Stop: 07/27/20 17:59 Last Admin: 07/01/20 11:55 Dose: 1 units Documented by: Insulin Glargine (Insulin Glargine Solostar 100 Units/Ml 3 Ml Pen) 20 units SQ HS [facility] Stop: 07/31/20 20:59 Lidocaine (Lidocaine 5% 1 Patch) 1 patch TD QAM [facility] Stop: 07/28/20 10:29 Last Admin: 07/01/20 08:06 Dose: 1 patch Documented by: Losartan Potassium (Losartan Potassium 50 Mg Tab) 50 mg PO BID [facility] Stop: 07/26/20 21:04 Last Admin: 07/01/20 08:05 Dose: 50 mg Documented by: Minoxidil (Minoxidil 2.5 Mg Tab) 2.5 mg PO DAILY PRN PRN Reason: hypertension Stop: 07/28/20 13:43 Last Admin: 07/01/20 08:05 Dose: 2.5 mg Documented by: Miscellaneous (Carbohydrates For Hypoglycemia ) 15 - 30 gm PO UD PRN PRN Reason: Hypoglycemia Protocol Stop: 07/26/20 21:04 Miscellaneous (Remove Lidoderm Patch) 1 ea N/A DAILY@2100 [facility] Stop: 07/28/20 20:59 Last Admin: 06/30/20 21:01 Dose: 1 ea Documented by: Ondansetron HCl (Ondansetron Inj 2 Mg/Ml 2 Ml Vial) 4 mg IV Q6H PRN PRN Reason: Nausea Stop: 07/26/20 21:04 Last Admin: 06/29/20 10:30 Dose: 4 mg Documented by: Polyethylene Glycol (Polyethylene (Miralax) 17 Gm Pack) 17 gm PO BID [facility] Stop: 07/29/20 20:59 Last Admin: 07/01/20 08:07 Dose: 17 gm Documented by: Potassium Chloride (Potassium Chloride Crtab 20 Meq Tabcr) 40 meq PO BID [facility] Stop: 07/28/20 08:59 Last Admin: 06/29/20 07:31 Dose: 40 meq Documented by: Sodium Biphosphate/Sodium Phosphate (Sod Phosphate/Sod Biphosphate Enema 132 Ml Btl) 132 ml NM DAILY PRN PRN Reason: Constipation Stop: 07/29/20 10:35 Last Admin: 06/30/20 11:21 Dose: 132 ml Documented by: Vitamin D (Cholecalciferol 1,000 Units 25 Mcg Tab) 5,000 units PO DAILY [facility] Stop: 07/27/20 08:59 Last Admin: 07/01/20 08:04 Dose: 5,000 units Documented by: PG Care Time/CCT Total # of Minutes Spent Total Time Spent with Patient: Total time spent is greater than 50% in coordination of care (as documented) at patient's floor/unit and/or counseling patient: Coding Level of Care Code 53202 Subseq Hosp Care Lvl 3 Diagnoses Encephalopathy acute G93.40 Acute on chronic heart failure with preserved ejection fraction I50.33 Malignant hypertension I10 Diabetes mellitus type 2, uncontrolled E11.65 Elevated troponin R77.8 Mild chronic anemia D64.9 Nocturnal hypoxemia G47.34 Paroxysmal atrial fibrillation I48.0 Pleural effusion J90 Pulmonary hypertension I27.20 UTI (urinary tract infection) N39.0 Anticoagulant long-term use Z79.01 Anxiety F41.9 Aortic stenosis I35.0 CVA (cerebral vascular accident) I63.9 DVT prophylaxis Z29.9
[2020-07-01] MEDS: ACETAMINOPHEN 325 MG TAB PO PRN (20:19)
[2020-07-01] MEDS: ALPRAZolam 0.25 MG TABLET PO PRN (20:19)
[2020-07-01] MEDS ORDERED: INSULIN GLARGINE SOLOSTAR 100 UNITS/ML 3 ML PEN SQ SCH (21:00)
[2020-07-02 05:50] LABS: Hematocrit (blood only) 33.6 % (37-47); Hemoglobin 10.7 g/dL (12.0-16.0); Mean Corpuscular Hemoglobin 31.6 pg (25-34); Mean Corpuscular Hgb Conc 31.8 g/dL (32-36); Mean Corpuscular Volume 99.1 fL (80-100); Mean Platelet Volume 12.3 fL (7.4-10.4); Platelet Count 140 K/uL (130-400); RDW Coefficient of Variation 14.8 % (11.5-14.5); RDW Standard Deviation 53.8 fL (36.4-46.3); Red Blood Count 3.39 M/uL (4.2-5.4); White Blood Count 9.66 K/uL (4.8-10.8)
[2020-07-02 06:08] LABS: INR 4.6 (0.9-1.1); Prothrombin Time 41.3 Seconds (9.0-12.0)
[2020-07-02 06:22] LABS: BUN Creatinine Ratio 26.6 (10-20); Calcium 8.2 mg/dl (8.5-10.1); Creatinine Clr Calc Pharmacy 27.4 ml/min; Est GFR (African American) 36.7; Est GFR (Non-African American) 31.7; Magnesium 2.7 mg/dl (1.8-2.4); Potassium 3.9 mmol/L (3.5-5.1)
[2020-07-02] MEDS: INSULIN ASPART 100 UNITS/ML 3 ML PEN SC SCH ×2 (08:11→11:37)
[2020-07-02] MEDS: LOSARTAN POTASSIUM 50 MG TAB PO SCH (08:12)
[2020-07-02] MEDS: DOCUSATE SODIUM 100 MG CAP PO SCH (08:12)
[2020-07-02] MEDS: busPIRone 5 MG TAB PO SCH ×2 (08:12→13:00)
[2020-07-02] MEDS: CHOLECALCIFEROL 1,000 UNITS 25 MCG TAB PO SCH (08:13)
[2020-07-02] MEDS: hydrALAZINE TAB 50 MG TAB PO SCH ×2 (08:13→11:37)
[2020-07-02] MEDS: ATENOLOL 25 MG TABLET PO SCH (08:14)
[2020-07-02] MEDS: FAMOTIDINE 20 MG in SYRINGE 3 ML IV SCH (08:15)
[2020-07-02] MEDS: POLYETHYLENE (MIRALAX) 17 GM PACK PO SCH (08:15)
[2020-07-02] MEDS: LIDOCAINE 5% 1 PATCH TD SCH (08:15)
--- NOTE | 2020-07-02 11:36 | Cardiology Progress Note ---
Date of Service July 02, 2020 Assessment & Plan (1) Diastolic CHF: Patient weight is down 10 pounds from admission. She was originally on furosemide 20 mg daily at the time of admission and was grossly volume overloaded. She diuresed well but became azotemic on furosemide 40 mg twice daily. Suspect that she would benefit from furosemide 40 mg daily, with further adjustments based on any weight change as an outpatient. (2) Hypertensive crisis: BP much better controlled, at some point to simplify her regimen as an outpatient could consider changing from hydralazine 50 mg 4 times daily to doxazosin (twice daily dosing). As noted, would not be reluctant to utilize minoxidil if her BP becomes markedly elevated once again. (3) Paroxysmal atrial fibrillation: No recent recurrence. Atenolol was appropriately reduced due to bradycardia, however would have her continue on the low-dose (12.5 mg) she is currently taking 2 minimize chance of recurrent atrial tachydysrhythmia. Admission and Anticipated Discharge Date Admission Date: June 27, 2020 Subjective Patient lying comfortably in bed, she denies any somatic complaints. No chest pain, dyspnea, lightheadedness, subjective palpitations, or headache. She is remained in sinus rhythm for a number of days, no recurrence of SVT or atrial fibrillation. Her rate is in the 50 bpm - 70 bpm range. Physical Exam Physical Exam: Patient lying flat, appears comfortable. BP normotensive currently, mildly hypertensive yesterday. Pulse regular at 60 bpm with occasional ectopy Skin: no ecchymoses or generalized lesions. HEENT: unremarkable. Neck: Jugular venous pulse just above the clavicle at 60 degrees, no carotid bruits. Lungs: Dullness at the bases with bibasilar crackles, otherwise clear. Cardiac: regular rhythm with ectopy, 3/6 systolic crescendo decrescendo murmur right upper sternal border with moderately decreased aortic closure sound, 2/6 apical holosystolic murmur rating to the axilla. No diastolic murmur. Abdomen: benign. Extremities: No pretibial edema, pulses intact. Neurologic: Awake and alert, answers simple questions appropriately, grossly nonfocal. Results & Data ([facility]) Vital Signs (Past 12 Hours) Vital Signs Temp Pulse Pulse Resp BP BP Pulse Ox 07/02/20 10:50 97.9 F 58 L 18 138/72 99 07/02/20 10:36 98.1 F 60 57 L 17 142/62 H 150/73 H 98 07/02/20 07:13 98.1 F 57 L 17 150/73 H 98 07/02/20 03:06 98.4 F 55 L 18 155/72 H 98 Laboratory Results Hemoglobin 10.7 with white count 3.39 and normal platelet count. Normal electrolytes, BUN 40, creatinine 1.49. PG Care Time/CCT Total # of Minutes Spent Total Time Spent with Patient: Total time spent is greater than 50% in coordination of care (as documented) at patient's floor/unit and/or counseling patient: Coding Level of Care Code 88100 Subseq Hosp Care Lvl 3 Diagnoses Diastolic CHF I50.30 Hypertensive crisis I16.9 Paroxysmal atrial fibrillation I48.0
--- NOTE | 2020-07-06 11:38 | Discharge Summary ---
Date of Service July 06, 2020 Admission HPI Per Admitting Provider This patient is an 84-year-old female with a history of DM 2, depression/anxiety, HTN, CVA with chronic left hemiplegia, paroxysmal atrial fibrillation on Coumadin, LBBB, mild aortic stenosis, nocturnal hypoxemia on 2 L nasal cannula, pulmonary hypertension, chronic anemia, and a recent hospitalization for acute metabolic encephalopathy, UTI, and stercoral colitis who presents to the ER from [facility] with 2 days of worsening mentation after having a fall 3 days ago. She also, of note, received her first Covid vaccine 2 days ago. [facility] noted to the ER physician that patient is normally a bit confused but is typically able to have conversations, however today she was only responding to tactile stimuli. She did suffer a suspected right humeral head fracture on the fall as per outside xray report, as well as a left forehead contusion. In the ER, she was unable to give any history, and was obtunded, however was noted to have some tenderness to palpation of the abdomen on examination. A CT was performed of the abdomen/pelvis which was negative for intra-abdominal pathology but did show some compressive atelectasis and bilateral pleural effusions. She was afebrile, severely hypertensive, mildly bradycardic, and 89% on room air, was placed on 2 L nasal cannula. She was also found to have an abnormal urinalysis suspicious for UTI and was started on IV Rocephin. Her troponin was mildly elevated at 0.057 and her ECG showed sinus bradycardia rate 56, LBBB, unchanged from previous. Her Covid/RSV/influenza test was negative. A chest x-ray showed pulmonary vascular congestion, small pleural effusions, consolidation in the left lung base likely representing atelectasis. CT noncontrast of the head showed no acute intracranial findings. A CT of the cervical spine was negative for fracture or subluxation but did show pulmonary edema in the lung apices and partially visualized bilateral pleural effusions. CT of the abdomen/pelvis noted as above She will be admitted for acute metabolic encephalopathy vs hypertensive encephalopathy, acute on chronic respiratory failure with hypoxia, and possible UTI and/or pneumonia with pleural effusions. Principal Diagnosis Hypertensive encephalopathy Discharge Exam Constitutional well developed, + frail appearing and comfortable; no acute distress Neck trachea midline, no thyromegaly Respiratory normal respiratory effort, lungs clear to auscultation Cardiovascular RRR, no murmur, no edema Gastrointestinal (Abdomen) normal bowel sounds, soft, nontender, no hepatosplenomegaly Musculoskeletal Head/Neck/Chest: normocephalic, head atraumatic and neck supple Extremities: extremities normal to inspection and + abnormal strength (generalized, cannot get OOB on her own); no cyanosis, no clubbing and no petechiae Skin no rashes, warm and dry Neurologic patellar DTR's 2+ bilat, sensation intact and PERRL, EOMI, accommodation nl, no face palsy, no dysarthria Psychiatric Orientation: alert and oriented x 3 Affect: + flat affect Discharge Data Allergies Allergy/AdvReac Type Severity Reaction Status Date / Time aspirin Allergy Intermediate HIVES Verified 06/26/20 14:43 Iodinated Contrast Media Allergy Intermediate HIVES Verified 06/26/20 14:43 Penicillins Allergy Intermediate HIVES Verified 06/26/20 14:43 doxazosin Allergy Unknown Elevated BP Unverified 06/26/20 14:43 glipizide Allergy Unknown Pt doesn't Unverified 06/26/20 14:43 remeber reaction influenza virus vacc Allergy Unknown Unknown Verified 06/26/20 14:43 trivalent, split [From Fluzone] pregabalin Allergy Unknown Pt doesn't Unverified 06/26/20 14:43 remeber reaction Pgsumxf-Lbh-Rmt Reductase Allergy Unknown muscle Unverified 06/26/20 14:43 Inhibitor cramping thimerosal Allergy Unknown Pt can't Unverified 06/26/20 14:43 remember reaction Consultations 06/26/20 21:30 Consult Nutrition Routine 06/27/20 12:50 Consult Cardiology Routine Ordered Studies 06/26/20 13:56 CT abd pelvis wo con Stat CT cervical spine wo con Stat CT head/brain wo con Stat Hospital Course (1) Encephalopathy acute: Presents with altered mental status for worsening over the last 2 days found to be extremely hypertensive IMPROVED WITH CONTROL OF HER BLOOD PRESSURE -- alert, oriented and feeding he rself 06/30 and today, 07/01 placed on empiric antibiotics on admission, now stopped since no obvious infection CXR on admission cardiomegaly with evidence of congestive failure, small effusions, consolidative changes L lung base likely atelectasis -- improving on repeat PT/OT evals -- rehab at d/c last month, recommend the same patient was able to stand with 2 assist, pivot and get in chair she and her want her home with home health, he has lift chair and equipment at home with supplemental help from neighbors/family/friends if needed-- CM arranged wheelchair transport home I certify that this patient is under my care and that I, or a physicians care assistant working with me, had a face to-face encounter that meets the home health [id number] encounter requirements with this patient. The encounter with the patient was in whole, or in part, for the following medical condition, which is the primary reason for home health care (list medical condition): PNX. I certify that, based on my findings, the following services are medically necessary home health services: My clinical findings support the need for the above services because: Medication Compliance and Monitoring Effective of New Medications Oxygen Safety and Management PT Assessment for Endurance / Balance / Strength Skilled Nsg Assessment Further, I certify that my clinical findings support that this patient is homebound (i.e. absences from home require considerable and taxing effort and are for medical reasons or anglican services or infrequently or of short duration when for other reasons) because: Transportation Assistance/Unable to Leave Home Unassisted Certification for Home Health Services: Based on the above findings, I certify that this patient is confined to the home and needs intermittent fdc care, physical therapy and/or speech therapy or continues to need occupational therapy. The patient is under my care, and I have initiated the establishment of the plan of care. This patient will be followed by a physician who will periodically review the plan of care. (2) Acute on chronic heart failure with preserved ejection fraction: Acute on Chronic Heart Failure with preserved EF -- secondary to uncontrolled HTN/volume overload/bradycardia * Cardiology consulted * Lasix was ordered 20mg IV BID and increased to 40mg IV BID as above * Losartan continued 50mg BID * Atenolol decreased to 12.5mg daily * BPs improved as volume status decreased * -- would benefit from f/u CHF clinic at discharge. Unclear baseline weight Cr trending down at 1.4, will discharge on Lasix 20mg daily to help with volume control CHF instructions provided (3) Malignant hypertension: * With hypertensive emergency or here-with hypertensive encephalopathy as above plus positive troponin * Hydralazine 100mg TID * Continue atenolol 12.5mg daily as above. Use minoxidil if needed (script provided) * losartan 50mg BID (holding this evening dose as above) * Minoxidil prn as above * BP stable today, try for discharge tomorrow (4) Diabetes mellitus type 2, uncontrolled: * Hemoglobin A1c 6.6% and very well controlled just last month * Continue home insulin glargine 30 units at bedtime with HS snack (decreased to 20uHS prior due to AM hypoglycemia but will increase back to usual now that AO and feeding herself) * ISS * BSG Ac/HS * Continue to monitor (5) Elevated troponin: * Troponin mildly elevated at 0.057 on admission, trended down * Suspect secondary to demand from HTN emergency/volume overload * EKG with LBBB, no new. ECHO at that time last admission with preserved LV function (6) Mild chronic anemia: * Hemoglobin stable, normocytic. B12/folate wnl last admission (7) Nocturnal hypoxemia: * Was started on 2 L nasal cannula at bedtime last admission, however [facility] notes that they have had her on 2 L continuously since last discharge * Continue nasal cannula keep pulse ox greater than 92% * Overnight pox again --NOW WITHOUT need for supp o2 HS (8) Paroxysmal atrial fibrillation: * With a history of such, is currently in sinus rhythm * Is on Coumadin but INR supratherapeutic at >4, continue to hold was on 0.5mg daily at home, will continue to hold until INR is < 3 home health can help check INR (9) Pleural effusion: * Here with small to moderate bilateral pleural effusions and pulmonary edema * With volume overload likely secondary to malignant hypertension * Give IV Lasix 40 mg IV twice daily-- continued through AM 06/29 stopped as above (10) Pulmonary hypertension: * Noted on previous echocardiogram * Diuresing as above, supplemental O2 as needed (11) UTI (urinary tract infection): * UTI ruled out, urine culture negative, stopped abx (12) Anticoagulant long-term use: * As above, holding coumadin, INR is 5.0 (13) Anxiety: * Continue home BuSpar when taking p.o. again * She typically takes alprazolam 0.25 mg twice daily, however it was being given as needed at the [facility] but she did receive it at least every night the last few nights * Do not suspect any withdrawal from alprazolam at this time but this is a possibility * Resumed prn 0.25mg if mentation OK to prevent withdrawal but has not gotten last night/today and much improved * -- utilize as needed as she has been tapering down dose and taking less frequently (14) Aortic stenosis: * Mild as noted on previous echocardiogram. [place] on examination * Monitor volume status -- see above (15) CVA (cerebral vascular accident): * History of CVA with residual left-sided hemiplegia * Continue home warfarin when INR coming down (on hold currently for supratherapeutic INR) * Antiplatelet not indicated as per neurology recommendation at the time she had her stroke as she was placed on anticoagulation (16) DVT prophylaxis: * Coumadin as above * judy Hedrick Total Time Total Time Spent Total Time Spent (In Minutes): 35 Total Time Includes: Examination of the Patient, Discharge Planning and Medication Reconciliation Discharge Plan Discharge Items Patient Disposition: Home - Home Health Services Reason For Visit: ENCEPHALOPATHY, PNEUMONIA, UTI Discharge Diagnosis: Hypertensive encephalopathy Acute diastolic heart failure Condition on Discharge: Fair Goals: control blood pressure improve strength and mobility Activity: Resume your previous activity Non-emergency contact: Primary Care Provider Call non-emergency contact if: you have any medication questions and your symptoms worsen Follow-up/Referrals: ProRemi MD [Primary Care Provider] - 07/08/20 10:15 am (one week) Diet: Carb Consistent or DM2 and Low Sodium (2gm) Fluids: 2000ml (8 cups) Ambulatory Orders: Basic Metabolic Panel (Routine) Timeframe: 2 Days Location: Determined by Patient Ordered By: Amrit Cam Prothrombin Time INR (Routine) Timeframe: 2 Days Location: Determined by Patient Ordered By: Amrit Florez Attending Provider Instructions: Medications: - HYDRALAZINE: dose changed to 100mg three times a day, please take this consistently - ATENOLOL: dose reduced to 12.5mg daily - LANTUS: dose reduced to 20 units at night - MIRALAX and COLACE: take twice a day to keep bowels regular, see below - COUMADIN: continue to HOLD this medication until told to resume by physician - MINOXIDIL: this is a blood pressure medication to take only as needed if blood pressure is greater than 180, see below Altered mental status, felt to be due to malignant hypertension blood pressure is improved and mental status has improved with blood pressure control continue the following regimen: Hydralazine 100mg three times a day, Atenolol 12.5mg daily, Losartan 50mg twice a day and lasix 20mg daily if your blood pressure is elevated (>180) late in the morning (10am) despite taking all morning medications then you can take Minoxidil 2.5mg you were checked for urinary tract infection which was negative please follow up with Dr. Gu Diabetes: your sugars have been stable on Lantus 20 units and you have required very little Humalog on discharge I would recommend that you continue on Lantus 20 units and follow low carb diet Paroxysmal atrial fibrillation: no issues with rapid heart rates on Atenolol INR remains elevated, it is 4.6 today continue to HOLD Coumadin until told to resume by Dr. Gu, will check INR on Chronic kidney disease: Cr is 1.4 today, making urine, electrolytes stable your Cr went up due to aggressive Lasix over the weekend but that has been on hold for two days okay to resume lasix 20mg daily tomorrow will check BMP on with home health, results to Dr. Gu Constipation: continue on Colace 100mg twice a day and Miralax 17gm (one packet) twice a day if stools are loose then back off to Miralax once a day or once every other day no need for home oxygen, nocturnal desaturation study on 06/29 showed one very brief episode below 88% but otherwise oxygen levels stable on room air Pending Studies at Discharge: No Stand-Alone Forms: [facility], Smoking Cessation Medications and DC Order Prescriptions: New atenolol 25 mg Tablet 12.5 mg PO QAM 30 Days Qty: 15 RF: 3 polyethylene glycol 3350 [Miralax] 17 gram Powder In Packet 17 g PO BID 30 Days Qty: 100 RF: 0 docusate sodium 100 mg Capsule 100 mg PO BID 30 Days Qty: 60 RF: 0 Lantus Solostar U-100 Insulin 100 unit/mL (3 mL) Insulin Pen 20 unit subcut HS 30 Days Qty: 6 RF: 3 minoxidil 2.5 mg Tablet 2.5 mg PO DAILY PRN (Reason: high blood pressure) 30 Days Qty: 30 RF: 0 Continued losartan 50 mg tablet 50 mg PO BID Qty: 180 RF: 3 cholecalciferol (vitamin D3) 5,000 unit capsule 5,000 units PO DAILY RF: 0 warfarin 1 mg tablet 0.5 mg PO DAILY RF: 0 Changed hydralazine 100 mg Tablet 100 mg PO TID 30 Days Qty: 90 RF: 0 Discontinued atenolol 25 mg tablet 25 mg PO BID Qty: 180 RF: 3 hydralazine 50 mg tablet 50 mg PO TID Qty: 270 RF: 3 insulin glargine 100 unit/mL solution 30 unit subcut QPM Qty: 10 RF: 6 insulin aspart U-100 100 unit/mL (3 mL) insulin pen 10 unit subcut .COMPLEX MDD 50 units Qty: 15 RF: 10 No Action furosemide [Lasix] 20 mg tablet 20 mg PO DAILY Qty: 30 RF: 3 tramadol 50 mg tablet 50 mg PO BID PRN (Reason: pain, moderate) Qty: 10 RF: 0 alprazolam 0.25 mg tablet 0.25 mg PO DAILY PRN (Reason: anxiety) Qty: 10 RF: 0 Discharge Orders: Discharge Order (Routine); Ordered 07/02/20 Ordered By: Amrit Cam Admission Data Admit Date/Time: 06/27/20 16:31 Attending Provider: Amrit Cam Admit Provider: Luz Marina Mishra Primary Care Provider: Remi Gu Other Providers: Jagdeep Lee ; [place] Other Interventions: Discharge Summary Assessment (RN) Last Done: 07/02/20 10:36 Coding Level of Care Code D/C Day Management >30 mins Diagnoses Encephalopathy acute G93.40 Acute on chronic heart failure with preserved ejection fraction I50.33 Malignant hypertension I10 Diabetes mellitus type 2, uncontrolled E11.65 Elevated troponin R77.8 Mild chronic anemia D64.9 Nocturnal hypoxemia G47.34 Paroxysmal atrial fibrillation I48.0 Pleural effusion J90 Pulmonary hypertension I27.20 UTI (urinary tract infection) N39.0 Anticoagulant long-term use Z79.01 Anxiety F41.9 Aortic stenosis I35.0 CVA (cerebral vascular accident) I63.9 DVT prophylaxis Z29.9
== END 2020-07-02 15:25 | disposition home health service (06) | DRG 77 ==
LOC: ED 12:25 → 2S 12:25 → SUATTDRO 19:01 → 2S 20:10 → SUATTDRO 06-27 16:31

== ENCOUNTER 2020-08-22 01:12 | Inpatient (IN) ==
[2020-08-22] MEDS ORDERED: ACETAMINOPHEN 500 MG TAB PO STA (01:30)
[2020-08-22] MEDS ORDERED: SODIUM CHLORIDE 0.9% 1000ML 1,000 ML IV ONE ×2 (01:30→02:53)
[2020-08-22] MEDS ORDERED: VANCOMYCIN CONSULT ACTIVE PRN (01:30)
[2020-08-22] MEDS ORDERED: VANCOMYCIN HCL 1,750 MG in SODIUM CHLORIDE 0.9% 500 ML IV ONE (01:30)
[2020-08-22] MEDS ORDERED: CEFEPIME 2,000 MG/20 ML VIAL IV STA (01:30)
--- NOTE | 2020-08-22 01:34 | Emergency Department Note ---
Impression & Plan Sepsis, Urinary tract infection, Right humeral fracture, Sacral ulcer, Leukocytosis ED Provider Note Name: DARRICK MUELLER Age: 84 Sex: F Arrives Via: Ambulance Informant: EMS, ED Provider: Bridger Chavira MD Chief Complaint: Weakness Impression: Sepsis Urinary Tract infection right humerus fracture Sacral Ulcer Leukocytosis Medical Decision Makin yr old female with extensive PMH who spent the month of June in hospital then long term before heading to home for the last month. Gradually worsening weakness over the last few weeks, though the last 2 days rapidly worsening confusion and obtundation. Arrives via EMS after unable to be awakon at home. Febrile and quite ill appearing on arrival. Exam with significant sacral ulcer, obtunded though does moan to voice. Straight cath UA with purulent urine. Blood cultures/lactate and sepsis work-up initiated. Given the patients BMI >30, IBW was used to calculate the 30ml/kg fluid bolus and she was fluid resuscitated. She was given empiric Zosyn/Vanco. WBC quite elevated along with mild lactic acid elevation. CXR without clear infiltrate though there is new right humerus fracture. Dedicated imaging of humerus with displaced, comminuted mid shaft fracture. is unaware how this could have happened nor when. There is slight bruising of elbow but otherwise no signs of trauma. CT head was obtained which was negative. Her HR and BP improved with fluid resus and hospitalist in to evaluate further. Prior Medical Record and Triage/Nursing Notes reviewed by Me Additional history obtained from chart Differentials:Viral syndrome, otitis, pharyngitis, pneumonia, influenza, meningitis, urinary tract infection, sepsis, bacteremia, as well as other pathologies. Vital Signs: reviewed and remarkable for febrile Interventions: saline lock, nss bolus 2 l IV, zosyn iv, vanco iv Labs:Reviewed and remarkable for wbc elevation Imaging:X ray results are stated below per my interpretation: Chest: 1 view: No infiltrate, no effusion, normal cardiac border. right humerus fracture Humerus: 3 view: comminuted mildly displaced midshaft fracture [facility] Radiologist interpretation reviewed by me: ct head negative EKG:Per My Interpretation: Indication sepsis: NSR 85 bpm, qtc 495 with RBBB. No Ectopy. No Ischemia. Compared to EKG 06/28/20, no significant changes. Cardiac/Tele Monitoring: Cardiac Monitoring: An Order was placed for continuous cardiac monitoring. The monitor shows a rate of 90 with a normal sinus rhythm. Consults:Dr Yelitza VARNER Hospitalist Plan: Disposition:Hospitalization. Condition: Poor History of Present Illness:84 yr old female arrives for evaluation of altered m ental status. Patient with multiple recent hospitalizations for infections. She has been at home reportedly bed ridden. Worsening mental status throughout the evening and noted to be febrile and EMS contacted. No medications prior to arrival. arrived and notes confusion over the last 2 days. She has been unable to even sit up throughout the day and isn't answering most questions. She was admitted to [facility] in June and then spent two weeks at long term prior to coming home for the last month. She has had a gradual decline in mental status and essentially bed ridden. He denies any falls, injury, trauma that he is aware of. ROS: Unable to obtain due to obtundation Past Medical History:See Below Past Surgical History:See Below Family History:See Below Social History:See Below Home Medications:See Below Allergies:See Below Vitals:Blood Pressure: 109/51, Pulse 94, RR 16, T 38.4C, O2 94% on RA Physical Exam: GENERAL: Patient is very unwell appearing and in minimal distress. She is essentially obtunded periodically moaning to questions EYES: No scleral icterus, unremarkable pupils. ENT: Mucous membranes dry, no nasal congestion. NECK: No masses appreciated, nomeningismus, trachea is midline. RESPIRATORY: No dyspnea. Mild crackles bilaterally with poor inspiratory effort but aerating and equal bilaterally. No wheeze, no rhonchi. CARDIOVASCULAR: Regular rate and rhythm.No murmurs, rubs, gallops appreciated. GASTROINTESTINAL: Abdomen soft, non-tender, no peritonitis.Bowel sounds positive.No masses appreciated. BACK: Severe sacral bed sore/ulcer otherwise no midline tenderness, no CVA tenderness EXTREMITIES: Moans loudly with exam of right arm. Can feel instability of right humerus fracture on exam. Small bruise over elbow. Distal pulses intact. Edema in legs. No acute findings otherwise NEUROLOGIC: Obtunded periodically moaning, weakly moves extremities SKIN: Sacral wound infection. No rash, no jaundice, no diaphoresis. GCS: 13 ED Course: Times/Reassessments: multiple repetitive evaluations does seem more stable with NSS bolus Critical Care: I have personally spent 35 minutes of critical care time in the direct management of this patient. Sepsis with leukocytosis and obtundation. This was a life/limb threatening event. This 35 minutes is in excess of all separately billable procedures. Bridger Chavira MD Past Med/Surg History Medical History AMS (altered mental status) AMS (altered mental status) Anticoagulant long-term use Anxiety Aortic stenosis CVA (cerebral vascular accident) Depression Diabetes mellitus type 2, uncontrolled Elevated troponin Hemiplegia of nondominant side as late effect of cerebrovascular disease History of lacunar cerebrovascular accident (2014) HTN (hypertension) Mild chronic anemia Nocturnal hypoxemia Obesity Paroxysmal atrial fibrillation Pulmonary hypertension Thalamic pain syndrome (hyperesthetic) UTI (urinary tract infection) Surgical History S/P adenoidectomy S/P cholecystectomy S/P hysterectomy S/P tubal ligation Family History Mother Diabetes Myocardial infarction Heart disease Father Heart disease Daughter Non-Hodgkin's lymphoma of lung Sister Parkinsons disease Denies family history of Ovarian cancer Prostate cancer Breast cancer Colorectal cancer Social History Smoking Status: Never smoker Second Hand Exposure: No; Do You Dip or Chew Tobacco: No; Tobacco Cessation Education Requested by Patient: No Hx Alcohol Use: No Hx Substance Use: No Preferred Language: Salvadorean Communication Ability: Unable Communication Ability Comment: Non-communicative Visual Impairment: No Limitations Hearing Ability: Normal Plasma Specialist Required: No Beliefs That Will Affect Care: None marital status: Current Living Situation: Assisted 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 Other Information That Helps Us Care for You: No Feels Safe at Home: Yes Safety Concerns: Feels Safe At This Time Childhood Exposure to Second-Hand Smoke: No Physical Activity Frequency: Does not Exercise Seatbelt Use: always Assistive Devices: None Allergies Allergies Allergy/AdvReac Type Severity Reaction Status Date / Time aspirin Allergy Intermediate HIVES Verified 08/22/20 02:03 Iodinated Contrast Media Allergy Intermediate HIVES Verified 08/22/20 02:03 Penicillins Allergy Intermediate HIVES Verified 08/22/20 02:03 [id number]-Yyo-Gvm Reductase Allergy Intermediate muscle Verified 08/22/20 02:03 Inhibitor cramping glipizide Allergy Unknown Pt doesn't Verified 08/22/20 02:03 remeber reaction influenza virus vacc Allergy Unknown Unknown Verified 08/22/20 02:03 trivalent, split [From Fluzone] pregabalin Allergy Unknown Pt doesn't Verified 08/22/20 02:03 remeber reaction thimerosal Allergy Unknown Pt can't Verified 08/22/20 02:03 remember reaction doxazosin AdvReac Intermediate Elevated BP Verified 08/22/20 02:03 Home Meds Home Medications Medication Instructions Recorded Confirmed cholecalciferol (vitamin D3) 125 5,000 units PO DAILY cap 10/29/18 08/22/20 mcg (5,000 unit) capsule warfarin 0.5 mg PO DAILY 06/04/20 08/22/20 hydralazine 50 mg PO TID 08/22/20 08/22/20 tramadol 50 mg PO Q6H PRN 08/22/20 08/22/20 Previous Rx's Medication Instructions Recorded atenolol 12.5 mg PO QAM 30 Days #15 tab 07/02/20 insulin glargine [Lantus Solostar 20 unit SUBCUT HS 30 Days #6 ml 07/02/20 U-100 Insulin] furosemide 20 mg tablet 20 mg PO DAILY #30 tab 07/04/20 losartan 50 mg tablet 50 mg PO BID #180 tab 07/09/20 alprazolam 1 mg tablet 1 mg PO BID PRN #60 tab 08/07/20 Results & Data (ED) Vital Signs Vital Signs - 24 hr 08/22/20 03:30 Pulse Rate 68 Pulse Rate from SpO2 Sensor 67 Respiratory Rate 19 Pulse Oximetry 92 Oxygen Delivery Method Room Air Laboratory Data Result diagrams: 08/22/20 07:52 08/22/20 07:52 Lab Results 08/22/20 08/22/20 08/22/20 Range/Units 01:38 01:46 01:46 WBC 25.13 H (4.8-10.8) K/uL RBC 2.78 L (4.2-5.4) M/uL Hgb 8.6 L (12.0-16.0) g/dL Hct 26.5 L (37-47) % MCV 95.3 (80-100) fL MCH 30.9 (25-34) pg MCHC 32.5 (32-36) g/dL RDW Std Deviation 50.9 H (36.4-46.3) fL RDW Coeff of Isael 14.5 (11.5-14.5) % Plt Count 286 (130-400) K/uL MPV 10.7 H (7.4-10.4) fL Immature Gran % (Auto) 0.8 % Neut % (Auto) 91.2 % Lymph % (Auto) 3.6 % [place] % (Auto) 4.3 % Eos % (Auto) 0.0 % Baso % (Auto) 0.1 % Neut # (Auto) 22.93 H (1.4-6.5) K/uL Lymph # (Auto) 0.90 L (1.2-3.4) K/uL [place] # (Auto) 1.09 H (0.11-0.59) K/uL Eos # (Auto) 0.00 (0-0.5) K/uL Baso # (Auto) 0.02 (0-0.2) K/uL Immature Gran # (Auto) 0.19 H (0.00-0.02) K/uL PT (9.0-12.0) Seconds INR (0.9-1.1) Sodium (136-145) mmol/L Potassium (3.5-5.1) mmol/L Chloride (98-107) mmol/L Carbon Dioxide (21-32) mmol/L Anion Gap (3-11) BUN (7-18) mg/dl Creatinine (0.6-1.2) mg/dl Est Cr Clr Drug Dosing Est GFR ( Amer) ml/min Est GFR (Non-Af Amer) ml/min BUN/Creatinine Ratio (10-20) Glucose (70-99) mg/dl Lactate 1.4 (0.4-2.0) mmol/L Calcium (8.5-10.1) mg/dl Magnesium (1.8-2.4) mg/dl Total Bilirubin (0.2-1) mg/dl Direct Bilirubin (0-0.2) mg/dl AST (15-37) U/L ALT (12-78) U/L Alkaline Phosphatase (45-117) U/L Troponin I (0-0.045) ng/ml Total Protein (6.4-8.2) gm/dl Albumin (3.4-5.0) gm/dl Lipase (73-393) U/L Procalcitonin (0-0.5) ng/ml Urine Color Dark Yellow Urine Appearance Cloudy A (Clear) Urine pH 5.0 (4.5-7.5) Ur Specific [place] 1.020 (1.000-1.030) Urine Protein 2+ H (Negative) Urine Glucose (UA) Negative (Negative) Urine Ketones Negative (Negative) Urine Blood 3+ H (Negative) Urine Nitrite Positive A (Negative) Urine Bilirubin Negative (Negative) Urine Urobilinogen Negative (Negative) Ur Leukocyte Esterase 3+ H (Negative) Urine RBC >30 H (0-4) /hpf Urine WBC >30 H (0-5) /hpf Ur Epithelial Cells >30 H (0-5) /lpf Urine Bacteria 4+ H (Negative) COVID-19 Eval Order SARS-CoV-2 (PCR) (Negative) 08/22/20 08/22/20 08/22/20 Range/Units 01:46 01:46 01:46 WBC (4.8-10.8) K/uL RBC (4.2-5.4) M/uL Hgb (12.0-16.0) g/dL Hct (37-47) % MCV (80-100) fL MCH (25-34) pg MCHC (32-36) g/dL RDW Std Deviation (36.4-46.3) fL RDW Coeff of Isael (11.5-14.5) % Plt Count (130-400) K/uL MPV (7.4-10.4) fL Immature Gran % (Auto) % Neut % (Auto) % Lymph % (Auto) % [place] % (Auto) % Eos % (Auto) % Baso % (Auto) % Neut # (Auto) (1.4-6.5) K/uL Lymph # (Auto) (1.2-3.4) K/uL [place] # (Auto) (0.11-0.59) K/uL Eos # (Auto) (0-0.5) K/uL Baso # (Auto) (0-0.2) K/uL Immature Gran # (Auto) (0.00-0.02) K/uL PT 29.2 H (9.0-12.0) Seconds INR 3.2 H (0.9-1.1) Sodium 134 L (136-145) mmol/L Potassium 4.4 (3.5-5.1) mmol/L Chloride 103 (98-107) mmol/L Carbon Dioxide 25 (21-32) mmol/L Anion Gap 6.0 (3-11) BUN 48 H (7-18) mg/dl Creatinine 1.53 H (0.6-1.2) mg/dl Est Cr Clr Drug Dosing Not Reportable Est GFR ( Amer) 35.6 ml/min Est GFR (Non-Af Amer) 30.7 ml/min BUN/Creatinine Ratio 31.5 H (10-20) Glucose 207 H (70-99) mg/dl Lactate (0.4-2.0) mmol/L Calcium 8.2 L (8.5-10.1) mg/dl Magnesium 2.6 H (1.8-2.4) mg/dl Total Bilirubin 0.7 (0.2-1) mg/dl Direct Bilirubin 0.2 (0-0.2) mg/dl AST 124 H (15-37) U/L ALT 127 H (12-78) U/L Alkaline Phosphatase 127 H (45-117) U/L Troponin I 0.018 (0-0.045) ng/ml Total Protein 7.1 (6.4-8.2) gm/dl Albumin 1.9 L (3.4-5.0) gm/dl Lipase 40 L (73-393) U/L Procalcitonin 1.96 H (0-0.5) ng/ml Urine Color Urine Appearance (Clear) Urine pH (4.5-7.5) Ur Specific [place] (1.000-1.030) Urine Protein (Negative) Urine Glucose (UA) (Negative) Urine Ketones (Negative) Urine Blood (Negative) Urine Nitrite (Negative) Urine Bilirubin (Negative) Urine Urobilinogen (Negative) Ur Leukocyte Esterase (Negative) Urine RBC (0-4) /hpf Urine WBC (0-5) /hpf Ur Epithelial Cells (0-5) /lpf Urine Bacteria (Negative) COVID-19 Eval Order SARS-CoV-2 (PCR) (Negative) 08/22/20 08/22/20 Range/Units 02:00 02:00 WBC (4.8-10.8) K/uL RBC (4.2-5.4) M/uL Hgb (12.0-16.0) g/dL Hct (37-47) % MCV (80-100) fL MCH (25-34) pg MCHC (32-36) g/dL RDW Std Deviation (36.4-46.3) fL RDW Coeff of Isael (11.5-14.5) % Plt Count (130-400) K/uL MPV (7.4-10.4) fL Immature Gran % (Auto) % Neut % (Auto) % Lymph % (Auto) % [place] % (Auto) % Eos % (Auto) % Baso % (Auto) % Neut # (Auto) (1.4-6.5) K/uL Lymph # (Auto) (1.2-3.4) K/uL [place] # (Auto) (0.11-0.59) K/uL Eos # (Auto) (0-0.5) K/uL Baso # (Auto) (0-0.2) K/uL Immature Gran # (Auto) (0.00-0.02) K/uL PT (9.0-12.0) Seconds INR (0.9-1.1) Sodium (136-145) mmol/L Potassium (3.5-5.1) mmol/L Chloride (98-107) mmol/L Carbon Dioxide (21-32) mmol/L Anion Gap (3-11) BUN (7-18) mg/dl Creatinine (0.6-1.2) mg/dl Est Cr Clr Drug Dosing Est GFR ( Amer) ml/min Est GFR (Non-Af Amer) ml/min BUN/Creatinine Ratio (10-20) Glucose (70-99) mg/dl Lactate (0.4-2.0) mmol/L Calcium (8.5-10.1) mg/dl Magnesium (1.8-2.4) mg/dl Total Bilirubin (0.2-1) mg/dl Direct Bilirubin (0-0.2) mg/dl AST (15-37) U/L ALT (12-78) U/L Alkaline Phosphatase (45-117) U/L Troponin I (0-0.045) ng/ml Total Protein (6.4-8.2) gm/dl Albumin (3.4-5.0) gm/dl Lipase (73-393) U/L Procalcitonin (0-0.5) ng/ml Urine Color Urine Appearance (Clear) Urine pH (4.5-7.5) Ur Specific [place] (1.000-1.030) Urine Protein (Negative) Urine Glucose (UA) (Negative) Urine Ketones (Negative) Urine Blood (Negative) Urine Nitrite (Negative) Urine Bilirubin (Negative) Urine Urobilinogen (Negative) Ur Leukocyte Esterase (Negative) Urine RBC (0-4) /hpf Urine WBC (0-5) /hpf Ur Epithelial Cells (0-5) /lpf Urine Bacteria (Negative) COVID-19 Eval Order Covid19 at [facility] SARS-CoV-2 (PCR) NEGATIVE (Negative) Administered Medications Morphine Sulfate (Morphine Sulfate 2 Mg/Ml Carp) 2 mg IV Q4H PRN PRN Reason: Pain or Respiratory Distress Stop: 09/05/20 12:04 Last Admin: 08/22/20 23:17 Dose: 2 mg Documented by: [id number] Admin: 08/22/20 19:41 Dose: 2 mg Documented by: [id number] Admin: 08/22/20 15:33 Dose: 2 mg Documented by: [id number] Discontinued Medications Acetaminophen (Acetaminophen 500 Mg Tab) 1,000 mg PO NOW STA Stop: 08/22/20 01:31 Last Admin: 08/22/20 02:37 Dose: Not Given Documented by: [id number] Acetaminophen (Acetaminophen 1000 Mg/100 Ml Iv) Confirm Administered Dose 1,000 mg IV .STK-MED ONE Stop: 08/22/20 01:55 Last Admin: 08/22/20 02:09 Dose: Not Given Documented by: [id number] Cefepime HCl (Maxipime) 2,000 mg in 20 mls @ 5 mls/min IV NOW STA; Protocol Stop: 08/22/20 01:33 Last Admin: 08/22/20 02:09 Dose: 5 mls/min Documented by: [id number] Vancomycin HCl 1,750 mg/ (Sodium Chloride) 535 mls @ 200 mls/hr IV NOW ONE Stop: 08/22/20 03:59 Last Infusion: 08/22/20 06:30 Dose: 0 mls/hr Documented by: [id number] Admin: 08/22/20 03:05 Dose: 200 mls/hr Documented by: [id number] Sodium Chloride (Nss 1000ml) 1,000 mls @ 999 mls/hr IV .Q1H1M ONE Stop: 08/22/20 02:30 Last Infusion: 08/22/20 03:15 Dose: 0 mls/hr Documented by: [id number] Admin: 08/22/20 02:08 Dose: 999 mls/hr Documented by: [id number] Acetaminophen (Ofirmev) 1,000 mg in 100 mls @ 400 mls/hr IV NOW STA Stop: 08/22/20 02:10 Last Infusion: 08/22/20 02:37 Dose: 0 mls/hr Documented by: [id number] Admin: 08/22/20 02:13 Dose: 400 mls/hr Documented by: [id number] Sodium Chloride (Nss 1000ml) 1,000 mls @ 999 mls/hr IV .Q1H1M ONE Stop: 08/22/20 03:53 Last Infusion: 08/22/20 05:10 Dose: 0 mls/hr Documented by: [id number] Admin: 08/22/20 04:02 Dose: 999 mls/hr Documented by: [id number] Sodium Chloride (Nss 1000ml) 1,000 mls @ 125 mls/hr IV .Q8H [facility] Stop: 09/21/20 05:05 Last Admin: 08/22/20 18:13 Dose: Not Given Documented by: [id number] Infusion: 08/22/20 13:36 Dose: 0 mls/hr Documented by: [id number] Admin: 08/22/20 06:28 Dose: 125 mls/hr Documented by: [id number] Ceftriaxone Sodium 2,000 mg/ (Dextrose) 70 mls @ 100 mls/hr IV Q24H [facility]; Protocol Stop: 08/27/20 05:59 Last Infusion: 08/22/20 07:13 Dose: 0 mls/hr Documented by: [id number] Admin: 08/22/20 06:28 Dose: 100 mls/hr Documented by: [id number] Discharge Plan Visit Data Chief Complaint: Urinary Symptoms Stated Complaint: URINARY SYMPTOMS ED Provider: Bridger Chavira Discharge Problem: Sepsis, Urinary tract infection, Right humeral fracture, Sacral ulcer, Leukocytosis Patient Disposition: Admitted As Inpatient Discharge Instructions Interventions: ED Discharge Assessment Last Done: 08/22/20 04:22 Discharge Problem: Sepsis Qualifiers: Sepsis type: sepsis due to unspecified organism Sepsis acute organ dysfunction status: without acute organ dysfunction Qualified Code(s): A41.9 - Sepsis, unspecified organism Urinary tract infection Qualifiers: Urinary tract infection type: acute cystitis Hematuria presence: without hematuria Qualified Code(s): N30.00 - Acute cystitis without hematuria Right humeral fracture Qualifiers: Encounter type: initial encounter Humerus Location: shaft Fracture type: closed Fracture morphology: spiral Fracture alignment: displaced Qualified Code(s): S42.341A - Displaced spiral fracture of shaft of humerus, right arm, initial encounter for closed fracture Sacral ulcer Qualifiers: Non-pressure ulcer stage: with fat layer exposed Qualified Code(s): 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
[2020-08-22 01:44] LABS: Appearance Urine Cloudy (Clear); Bilirubin Urine Negative (Negative); Blood Urine 3+ (Negative); Glucose Urine UA Negative (Negative); Ketones Urine Negative (Negative); Leukocyte Esterase Urine 3+ (Negative); Nitrite Urine Positive (Negative); Protein Urine 2+ (Negative); Urobilinogen Urine Negative (Negative)
[2020-08-22 01:45] LABS: Color Urine Dark Yellow
[2020-08-22] MEDS ORDERED: ACETAMINOPHEN 1000 MG/100 ML IV IV ONE (01:54)
[2020-08-22] MEDS ORDERED: ACETAMINOPHEN 1,000 MG/100 ML VIAL IV STA (01:56)
[2020-08-22 02:02] LABS: Bacteria Urine 4+ (Negative); RBC Urine >30 /hpf (0-4); WBC Urine >30 /hpf (0-5)
[2020-08-22 02:03] LABS: Epithelial Cell Urine >30 /lpf (0-5)
[2020-08-22 02:12] LABS: Hematocrit (blood only) 26.5 % (37-47); Hemoglobin 8.6 g/dL (12.0-16.0); Mean Corpuscular Hemoglobin 30.9 pg (25-34); Mean Corpuscular Hgb Conc 32.5 g/dL (32-36); Mean Corpuscular Volume 95.3 fL (80-100); Mean Platelet Volume 10.7 fL (7.4-10.4); Platelet Count 286 K/uL (130-400); RDW Coefficient of Variation 14.5 % (11.5-14.5); RDW Standard Deviation 50.9 fL (36.4-46.3); Red Blood Count 2.78 M/uL (4.2-5.4); White Blood Count 25.13 K/uL (4.8-10.8)
[2020-08-22 02:24] LABS: INR 3.2 (0.9-1.1); Prothrombin Time 29.2 Seconds (9.0-12.0)
[2020-08-22 02:28] LABS: Basophils # (auto) 0.02 K/uL (0-0.2); Basophils % (auto) 0.1 %; Immature Granulocytes # (auto) 0.19 K/uL (0.00-0.02); Immature Granulocytes % (auto) 0.8 %; Lymphocytes % (auto) 3.6 %; Monocytes # (auto) 1.09 K/uL (0.11-0.59); Monocytes % (auto) 4.3 %; Neutrophils # (auto) 22.93 K/uL (1.4-6.5); Neutrophils % (auto) 91.2 %
[2020-08-22 02:43] LABS: Alanine Aminotransferase 127 U/L (12-78); Albumin Level 1.9 gm/dl (3.4-5.0); Aspartate Aminotransferase 124 U/L (15-37); BUN Creatinine Ratio 31.5 (10-20); Bilirubin Direct 0.2 mg/dl (0-0.2); Blood Urea Nitrogen 48 mg/dl (7-18); Calcium 8.2 mg/dl (8.5-10.1); Carbon Dioxide 25 mmol/L (21-32); Chloride 103 mmol/L (98-107); Est GFR (African American) 35.6 ml/min; Est GFR (Non-African American) 30.7 ml/min; Glucose 207 mg/dl (70-99); Lipase 40 U/L (73-393); Magnesium 2.6 mg/dl (1.8-2.4); Potassium 4.4 mmol/L (3.5-5.1); Sodium 134 mmol/L (136-145)
[2020-08-22 02:48] LABS: Alkaline Phosphatase 127 U/L (45-117); Bilirubin,Total 0.7 mg/dl (0.2-1); Total Protein 7.1 gm/dl (6.4-8.2); Troponin I 0.018 ng/ml (0-0.045)
--- NOTE | 2020-08-22 03:48 | History & Physical Report ---
Date of Service August 22, 2020 Assessment & Plan (1) Sepsis due to urinary tract infection: Mrs. Laird is an 84 yo woman who presented to [facility] with altered mental status. - etiology: suspect due to metabolic encephalopathy given acute septic state. Electrolytes not deranged. Glucose at 207. TSH and ammonia not checked. Head CT pending to assess for structural cause. - SIRS criteria met on admission (WBC, fever) - infectious source thought to be urine given suspicious UA. CXR without obvious consolidation. Follow urine and blood cultures - Lactate not elevated - Continue IVF for volume resuscitation - patient was started on IV Cefepime and Vanco in ED. Review of previous urine cultures show a chavez-sensitive e.coli from 05/2020. Deescalated to IV Ceftriaxone. - trend CBC (2) RAUL (acute kidney injury): - creatine 1.54 on admission, BUN at 48, ratio 32 - baseline creatinine at 0.8-1.1 - suspect pre-renal due to reduce PO intake - continue IV hydration - hold home losartan - repeat CMP (3) Right humeral fracture: - Xray shows fracture/dislocation? - injury mechanism uncertain - denies any falls/injuries - ortho consult placed - morphine prn for pain avoid tylenol given transaminitis and NSAIDs due to RAUL (4) Aortic stenosis: - murmur appreciated on exam - echo from 05/2020 showing mild pathology (5) Paroxysmal atrial fibrillation: - in NSR on EKG - on anticoagulation with warfarin - INR above goal on admission at 3.2. Goal 2.0- 3.0 - hold today's dose of coumadin - repeat INR (6) Transaminitis: - AST at 124, ALT at 127 - etiology uncertain, although suspect secondary to sepsis - IVF as above - trend CMP - avoid tylenol use (7) Sacral ulcer: - noted on exam - likely due to protein calorie malnutrition + bedridden baseline - wound care consult placed - consider palliative care consult - patient's health appearing to require a higher demand than can single handedly provide (8) Anemia: - Hgb 8.6 on admission, MCV 95 - etiology uncertain. 3+ blood noted on UA, however microscopic hematuria seems unlikely sole source - consider iron panel, B12 and folate levels - trend CBC - transfuse if < 7 (9) Protein calorie malnutrition: - albumin is 1.9 - consider nutrition consult (10) Type II diabetes mellitus: - HbA1c from 06/27/20 at 6.6, below goal for age - goal would be 7.5-8.0 given age and comorbidities - recommend discontinuation of insulin therapy at this time (11) Acute on chronic heart failure with preserved ejection fraction: - hold home lasix + atenolol give acute septic state - EF measured 55-60% on echo from 05/2020 Diet: NPO due to mental status DVT ppx: supratheraputic on coumadin Dispo: Med/Surg w. tele. PT/OT ordered. Code: DNR/DNI History of Present Illness Primary Care Provider: Remi Gu MD Mrs. Laird is an 84 yo woman who was brought to [facility] by her for evaluation of altered mental status. Mr. Laird states over the past day or so, she began to refuse to eat, became lethargic and difficult to understand (slurred speech). provides entirety of history. Of note, she was hospitalized in June for a a UTI and a PNA - after which she was sent to [facility] for rehab. Social Hx: Currently lives at home with in a [address]. is her full-time care-taker. They do not have any in-home health aids. He does have a lift he uses to transfer her, however she spends most of her time bedridden in a recliner. He is aware she has a sacral ulcer - he has been cleansing it with hydrogen peroxide and covering with a bandage. states he never saw her fall or do anything that could have cause a broken arm. He thinks her humerus fracture must have occurred while she was at [facility]. In the ED she was febrile to 38.4, HR was 94, BP was 114/60. Her WBC was elevated to 25. Procal elevated to 1.96. UA showing positive nitrite, 4+ bacteria, 3+ LE. Blood and urine cultures pending. Lactate not elevated. Her hgb was 8.6, MCV at 95. INR at 3.2. Cr at 1.53, BUN at 48. AST elevated to 125, ALT to 127. Albumin 1.8. Lipase not elevated. Trop 0.018. EKG showing NSR with LBBB (not new). CXR was poor quality (rotated), but no obvious consolidation. Xray of R humerus showing fracture/dislocation. Head CT ordered. She was given Tylenol, started on Cefepime and Vancomycin, as well as 1.5 liters of IVF. requested a daily update. Allergies Allergy/AdvReac Type Severity Reaction Status Date / Time aspirin Allergy Intermediate HIVES Verified 08/22/20 02:03 Iodinated Contrast Media Allergy Intermediate HIVES Verified 08/22/20 02:03 Penicillins Allergy Intermediate HIVES Verified 08/22/20 02:03 Strtavr-Nbi-Qqv Reductase Allergy Intermediate muscle Verified 08/22/20 02:03 Inhibitor cramping glipizide Allergy Unknown Pt doesn't Verified 08/22/20 02:03 remeber reaction influenza virus vacc Allergy Unknown Unknown Verified 08/22/20 02:03 trivalent, split [From Fluzone] pregabalin Allergy Unknown Pt doesn't Verified 08/22/20 02:03 remeber reaction thimerosal Allergy Unknown Pt can't Verified 08/22/20 02:03 remember reaction doxazosin AdvReac Intermediate Elevated BP Verified 08/22/20 02:03 Home Medications Medication Instructions Recorded Confirmed Type cholecalciferol (vitamin D3) 125 5,000 units PO DAILY cap 10/29/18 08/22/20 History mcg (5,000 unit) capsule warfarin 0.5 mg PO DAILY 06/04/20 08/22/20 History atenolol 12.5 mg PO QAM 30 Days #15 tab 07/02/20 08/22/20 Rx insulin glargine [Lantus Solostar 20 unit SUBCUT HS 30 Days #6 ml 07/02/20 08/22/20 Rx U-100 Insulin] furosemide 20 mg tablet 20 mg PO DAILY #30 tab 07/04/20 08/22/20 Rx losartan 50 mg tablet 50 mg PO BID #180 tab 07/09/20 08/22/20 Rx alprazolam 1 mg tablet 1 mg PO BID PRN #60 tab 08/07/20 08/22/20 Rx hydralazine 50 mg PO TID 08/22/20 08/22/20 History tramadol 50 mg PO Q6H PRN 08/22/20 08/22/20 History Past Med/Surg History Medical History AMS (altered mental status) AMS (altered mental status) Anticoagulant long-term use Anxiety Aortic stenosis CVA (cerebral vascular accident) Depression Diabetes mellitus type 2, uncontrolled Elevated troponin Hemiplegia of nondominant side as late effect of cerebrovascular disease History of lacunar cerebrovascular accident (2014) HTN (hypertension) Mild chronic anemia Nocturnal hypoxemia Obesity Paroxysmal atrial fibrillation Pulmonary hypertension Thalamic pain syndrome (hyperesthetic) UTI (urinary tract infection) Surgical History S/P adenoidectomy S/P cholecystectomy S/P hysterectomy S/P tubal ligation Family History Mother Diabetes Myocardial infarction Heart disease Father Heart disease Daughter Non-Hodgkin's lymphoma of lung Sister Parkinsons disease Denies family history of Ovarian cancer Prostate cancer Breast cancer Colorectal cancer Social History Smoking Status: Never smoker Second Hand Exposure: No; Do You Dip or Chew Tobacco: No; Tobacco Cessation Education Requested by Patient: No Hx Alcohol Use: No Hx Substance Use: No Preferred Language: [place] Communication Ability: Unable Communication Ability Comment: Non-communicative Visual Impairment: No Limitations Hearing Ability: Normal Retail Bank[employer] Required: No Beliefs That Will Affect Care: None marital status: Current Living Situation: Alf 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 Other Information That Helps Us Care for You: No Feels Safe at Home: Yes Safety Concerns: Feels Safe At This Time Childhood Exposure to Second-Hand Smoke: No Physical Activity Frequency: Does not Exercise Seatbelt Use: always Assistive Devices: None Review of Systems Review of Systems: Unobtainable due to cognitive status Physical Exam Constitutional: + obese and + lethargic ENMT: external ear and nose normal, oropharynx normal Neck: normal visual inspection and trachea midline Respiratory: normal respiratory effort, lungs clear to auscultation no cough Cardiovascular: Rate/Rhythm: regular rate and regular rhythm Heart Sounds: normal S1, normal S2 and + murmur (systolic ejection ) Extremities: no pedal edema Gastrointestinal (Abdomen): normal bowel sounds, soft, nontender, no hepatosplenomegaly Skin: no rashes, warm and dry + ulcer (sacral) Genitourinary: Guevara catheter in place, draining yellow urine without visible blood clots Results & Data Results & [facility] ([facility]) Vital Signs (Past 12 Hours) Vital Signs Temp Pulse Resp BP Pulse Ox 08/22/20 01:41 38.4 C H 94 H 20 114/60 93 Supervising Physician Co-Signing Physician Notes Attending addendum: I have physically seen this patient, have supervised the medical residents activities, and agree with the H&P unless as otherwise noted. Assessment and Plan: Sepsis due to urinary tract infection/metabolic encephalopathy- Follow urine culture and sensitivity Continue IV fluids Ceftriaxone 2 g IV daily Follow serial CBC with differential, BMP and magnesium level Acute kidney injury- Creatinine 1.54 upon admission, with baseline 0.8-1.1 Repeat after IV fluid rehydration Hold losartan Right humeral fracture Consult orthopedic surgery Remaining orders and notations as noted Resident Activity Tracking Resident Involvement: Resident Care Provided Care Provided: Adult Hospital Medicine
[2020-08-22] MEDS ORDERED: ONDANSETRON INJ 2 MG/ML 2 ML VIAL IV PRN ×2 (05:06→12:05)
[2020-08-22] MEDS ORDERED: POLYETHYLENE (MIRALAX) 17 GM PACK PO PRN (05:06)
[2020-08-22] MEDS ORDERED: MoRPHine SULFATE 2 MG/ML CARP IV PRN (05:06)
[2020-08-22] MEDS ORDERED: cefTRIAXone SODIUM 2,000 MG in DEXTROSE 5% 50 ML IV SCH (06:00)
[2020-08-22] MEDS: SODIUM CHLORIDE 0.9% 1000ML 1,000 ML IV SCH ×2 (06:28→18:13)
--- NOTE | 2020-08-22 07:10 | CT Scan Report ---
HEAD CT NONCONTRAST CT DOSE: 1141.75 mGycm HISTORY: Altered mental status. TECHNIQUE: Multiaxial CT images of the head were performed without the use of intravenous contrast. A utomated exposure control was utilized for this study. A dose lowering technique was utilized adheri ng to the principles of ALARA. Comparison: Head CT 06/26/2020. Findings: The paranasal sinuses and mastoid air cells are clear. The calvarium and skull base are int act. There is no mass, hematoma, midline shift, acute infarct. White matter hypodensity is nonspecifi c but suggestive of microvascular ischemic change. The ventricles and sulci demonstrate mild age-rela juyd involutional changes. Suboptimal evaluation due to the motion artifact. There is an old lacunar i nfarct within the left basal ganglia, unchanged. Impression: Motion artifact. No definite acute intracranial abnormality. ACT 112: Negative or not required by law. Electronically signed by: Aubrey Archibald M.D. 08/22/2020 7:08 AM
--- NOTE | 2020-08-22 07:14 | XRay Report ---
XR chest 1V portable CLINICAL HISTORY: sepsis COMPARISON STUDY: 06/27/2020 FINDINGS: The heart is the upper limits of normal in size. The study is rotated. There is no failure. There is no focal pulmonary consolidation. There is a comminuted fracture of the mid and proximal ri ght humerus. There is a linear scarlike density within the left midlung zone.[Densities within the ax illary portion the right chest wall nonspecific likely related to overlying scapula and perhaps a scl erotic rib focus IMPRESSION: 1. No active disease in the chest 2. Right humeral fracture ACT 112: Negative or not required by law. Electronically signed by: Rufino Izaguirre M.D. 08/22/2020 7:13 AM
--- NOTE | 2020-08-22 07:20 | XRay Report ---
XR humerus RT 2V CLINICAL HISTORY: Right humeral pain status post trauma COMPARISON: 06/26/2020 DISCUSSION: There is a comminuted fracture of the right humerus extending from the humeral neck to th e junction of the proximal and middle one third. The distal fragment is displaced by greater than one full shaft width. There is 11 degrees of angulation at the fracture site. There is a small amount of gas within the soft tissues overlying the humeral neck. There is a line shadow within the right ches t. A pneumothorax cannot be excluded. A chest x-ray is recommended in follow-up. IMPRESSION: 1. Comminuted angulated right humeral fracture 2. Equivocal right pneumothorax. A chest x-ray is recommended in follow-up. ACT 112: Negative or not required by law. Electronically signed by: Rufino Izaguirre M.D. 08/22/2020 7:18 AM
[2020-08-22 08:09] LABS: Basophils # (auto) 0.01 K/uL (0-0.2); Hematocrit (blood only) 24.7 % (37-47); Immature Granulocytes # (auto) 0.14 K/uL (0.00-0.02); Immature Granulocytes % (auto) 0.6 %; Lymphocytes # (auto) 1.34 K/uL (1.2-3.4); Lymphocytes % (auto) 6.1 %; Mean Corpuscular Hemoglobin 31.1 pg (25-34); Mean Corpuscular Hgb Conc 32.4 g/dL (32-36); Mean Corpuscular Volume 96.1 fL (80-100); Mean Platelet Volume 10.3 fL (7.4-10.4); Monocytes # (auto) 0.88 K/uL (0.11-0.59); Neutrophils # (auto) 19.64 K/uL (1.4-6.5); Neutrophils % (auto) 89.3 %; Platelet Count 233 K/uL (130-400); RDW Coefficient of Variation 14.4 % (11.5-14.5); Red Blood Count 2.57 M/uL (4.2-5.4); White Blood Count 22.01 K/uL (4.8-10.8)
[2020-08-22 08:24] LABS: INR 3.4 (0.9-1.1); Prothrombin Time 31.3 Seconds (9.0-12.0)
[2020-08-22 08:43] LABS: Albumin Level 1.7 gm/dl (3.4-5.0); BUN Creatinine Ratio 35.9 (10-20); Calcium 7.9 mg/dl (8.5-10.1); Creatinine Clr Calc Pharmacy 33.8 ml/min; Est GFR (African American) 43.3 ml/min; Est GFR (Non-African American) 37.4 ml/min; Potassium 3.8 mmol/L (3.5-5.1)
[2020-08-22 08:46] LABS: Albumin Globulin Ratio 0.4 (0.9-2); Bilirubin,Total 0.4 mg/dl (0.2-1); Globulin 4.8 gm/dl (2.5-4.0); Total Protein 6.5 gm/dl (6.4-8.2)
--- NOTE | 2020-08-22 09:02 | XRay Report ---
XR chest 1V portable HISTORY: Pneumonia. Follow-up. COMPARISON: Chest 08/22/2020. FINDINGS: No pneumothorax. No pleural effusions. The cardiac silhouette remains mildly enlarged. Patc hy densities at the left lung base persist. This favors atelectasis. A pneumonia could also have a si milar appearance. Slight prominence of the perihilar interstitial markings. This could be chronic or represent mild congestive change. Small linear scarlike density within the left midlung zone is also unchanged. IMPRESSION: 1.Patchy densities at the left lung base persist. This favors atelectasis but is nonspecific. A pneum onia could also have a similar appearance. 2. Slight prominence of the perihilar interstitial markings. This could be chronic or represent mild congestive change. ACT 112: Negative or not required by law. Electronically signed by: Aubrey Archibald M.D. 08/22/2020 9:00 AM
--- NOTE | 2020-08-22 09:57 | Hospitalist Progress Note ---
Date of Service August 22, 2020 Assessment & Plan (1) Sepsis due to urinary tract infection: 84 y/o F w/ DM2, CHF, pAF on warfarin who presents w/ altered mental status. comfort measures ONLY as of 08/22/20 - discussion w/ and family today regarding goals of care. - discussed whether patient would want to pursue measures such as pacer pads and pressors if needed altered mental status secondary to sepsis from urinary tract infection - metabolic encephalopathy vs CVA considered. Electrolytes not deranged. Glucose at 207 at admission. TSH and ammonia not checked. Head CT w/o acute changes - SIRS criteria met on admission (WBC 22.01, fever) - infectious source thought to be urine given suspicious UA. CXR without obvious consolidation. Follow urine and blood cultures - Lactate not elevated - patient was started on IV Cefepime and Vanco in ED. Review of previous urine cultures show a chavez-sensitive e.coli from 05/2020. Deescalated to IV Ceftriaxone. - abx discontinued 08/22/20 upon transition to comfort measures acute kidney injury - suspect pre renal etiology right humeral fracture - per xr imaging - injury mechanism uncertain - denied falls/injuries initially, but later adds that patient fell from toilet in June 2020 - morphine prn for pain paroxysmal atrial fibrillation - in NSR on EKG - old LBBB - on anticoagulation with warfarin - INR above goal on admission at 3.2. - warfarin held transaminitis - AST at 124, ALT at 127 - etiology uncertain, although suspect secondary to sepsis sacral ulcer - likely due to protein calorie malnutrition + bedridden baseline - wound care consulted anemia - etiology uncertain. 3+ blood noted on UA, however microscopic hematuria seems unlikely sole source protein calorie malnutrition - albumin is 1.9 type II diabetes mellitus - HbA1c from 06/27/20 at 6.6, below goal for age - recommend discontinuation of insulin therapy at this time chronic congestive heart failure with preserved ejection fraction - hold home lasix + atenolol give acute septic state - EF measured 55-60% on echo from 05/2020 Diet: NPO due to mental status DVT ppx: supratheraputic on coumadin. held Dispo: Med/Surg Code: DNR/DNI. comfort measures (2) RAUL (acute kidney injury): (3) Right humeral fracture: (4) Aortic stenosis: (5) Paroxysmal atrial fibrillation: (6) Transaminitis: (7) Sacral ulcer: (8) Anemia: (9) Protein calorie malnutrition: (10) Type II diabetes mellitus: (11) Acute on chronic heart failure with preserved ejection fraction: Admission and Anticipated Discharge Date Admission Date: August 22, 2020 Supervising Physician Co-Signing Physician Notes Resident Physician Supervision Note: I independently interviewed and examined the patient and verified the donohue history and physical, reviewed labs and image studies and agree with resident Dr. Cortez findings and care plan. Subjective Called to bedside at 0945. Patient's HR has been downtrending since overnight and is currently in the 40s. Hx limited because of AMS. Review of Systems Review of Systems: Unobtainable due to cognitive status Physical Exam Physical Exam: General: Lethargic. Opens eyes briefly w/ stimulation, but not conversive. HEENT: Atraumatic, normocephalic. Pulm: CTAB anteriorly. -wheezes, -rales, -rhonchi. Symmetrical chest rise. No respiratory distress. Cardiac: RRR, -mrg. Abdominal: Nondistended, soft. Moans w/ palpation of abd.. Results & Data Results & Data ([facility]) Vital Signs (Past 12 Hours) Vital Signs Temp Pulse Pulse Resp BP BP Pulse Ox 08/22/20 07:30 36.3 C L 54 L 16 151/72 H 98 08/22/20 07:00 54 L 08/22/20 05:38 36.3 C L 66 12 131/72 98 08/22/20 05:06 36.3 C L 66 12 131/72 98 08/22/20 04:55 73 08/22/20 04:54 36.3 C L 08/22/20 04:01 64 21 94 08/22/20 04:00 64 19 119/56 L 92 08/22/20 03:30 68 19 92 08/22/20 03:00 72 21 93 08/22/20 02:30 79 24 92 08/22/20 02:00 76 16 109/51 L 94 08/22/20 01:41 38.4 C H 94 H 20 114/60 93 08/22/20 01:35 94 H 14 117/69 94 08/22/20 01:30 99 H 16 95 08/22/20 01:22 93 H 19 95 Resident Activity Tracking Resident Involvement: Resident Care Provided Care Provided: Adult [facility] Medicine
[2020-08-22] MEDS ORDERED: ATROPINE SULFATE 1% OP SOLN 5 ML BTL SL PRN (12:05)
[2020-08-22] MEDS ORDERED: LORazepam 0.5 MG TAB PO PRN (12:05)
[2020-08-22] MEDS ORDERED: ONDANSETRON 4 MG OD TAB SL PRN (12:05)
[2020-08-22] MEDS ORDERED: ACETAMINOPHEN 650 MG SUPP PR PRN (12:05)
--- NOTE | 2020-08-22 12:12 | Consultation Report ---
DATE OF CONSULTATION: 08/22/2020 ORTHOPEDIC CONSULTATION PATIENT OF: Dr. Skaggs. CHIEF COMPLAINT: Right humeral fracture. HISTORY OF PRESENT ILLNESS: This 84-year-old female is seen today in her room for evaluation of her right shoulder. The patient has a known right humerus fracture. Mechanism of injury is unknown. The patient was previously admitted to the hospital back in May. She was sent to [facility] at that point. She reportedly had a fall there and had right humeral pain. X-rays in the ED on 06/26 showed no evidence of humeral fracture. She was transferred back to [facility] and then ultimately went home at the beginning of July. Over the last 2-1/2 weeks, she has had a significant decline. Her states that she stopped feeding herself about 2-1/2 weeks ago. He continued to feed her. She is nonambulatory at home. He does transfer her from bed to chair and bed to commode using a Sarah type lift. She has been minimally responsive over the last 2 days. She has been lethargic with slurred speech and refused to eat. She was found to be septic, likely from a UTI. She exhibited signs of discomfort with motion of her right arm, in addition to ecchymosis. Films showed a comminuted humeral fracture. In speaking with the , he denies knowing how the humerus was fractured. He states he does transfer her using the Sarah lift and she has not fallen. He denies having the arm trapped by the webbing or lift. He states he does roll her to get the webbing underneath her, by grabbing her arms. He denies any snap or crack. PAST MEDICAL HISTORY: Significant for long-term anticoagulant use, anxiety, aortic stenosis, history of stroke, depression, type 2 diabetes, hypertension, chronic anemia, nocturnal hypoxemia, obesity, atrial fibrillation, pulmonary hypertension, thalamic pain syndrome and multiple UTIs. PAST SURGICAL HISTORY: Adenoidectomy, cholecystectomy, hysterectomy, tubal ligation. FAMILY HISTORY: Significant for diabetes, heart disease, non-Hodgkin lymphoma of the lung, Parkinson disease, and history of [place] in her father. SOCIAL HISTORY: The patient is . Lives at home with her who takes care of her. 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 REVIEW OF SYSTEMS: Unable to obtain due to her cognitive status currently. PHYSICAL EXAMINATION: GENERAL: A well-developed, obese, elderly white female in no obvious discomfort. Sleeping. Lethargic. She is unable to be aroused by verbal or physical stimuli. Passive motion of her right elbow does cause her to moan. She does not open her eyes or acknowledge my presence. MUSCULOSKELETAL: The patient has no obvious deformity to her right arm. Ecchymosis is present. She has no active participation in the exam. Passively, I can move her fingers and wrist without eliciting notable pain. She has full flexion and extension of her elbow, though motion does cause her to moan. Given the known humeral fracture, no motion of the shoulder was attempted. Palpation of the proximal shoulder does not suggest anterior fullness or dislocation. She does moan with palpation of the shoulder. NEUROLOGIC: Unable to be accurately assessed secondary to patient's lethargy and currently being obtunded. She does respond to painful stimuli on the right arm. DATA: Radiographic imaging obtained earlier today shows a comminuted angulated right humeral fracture. Head appears to be reduced within the glenoid. ASSESSMENT: Right comminuted humeral fracture. PLAN: The patient's was educated regarding today's findings by telephone. Option of conservative treatment using a Feliz brace and time versus surgical intervention was discussed. Given her current medical state, I do not think she is a good surgical candidate. He is in agreement. He would like her treated conservatively. If she should improve in her cognitive status and underlying medical condition, we can always broach the subject of surgical fixation later. Given her humeral fracture, CT scan imaging was ordered to further delineate the fracture pattern and the reduced glenohumeral joint. This will be done after humeral bracing. The patient was seen in conjunction with Dr. Skaggs who also evaluated the patient this morning. We will continue to follow while she is in-house. I, Dr. Skaggs, saw and examined the patient with my PA and agree with the above findings and plan of care which we discussed. Job ID: [id number] [facility]
--- NOTE | 2020-08-22 14:45 | Electrocardiogram Report ---
Test Reason : Blood Pressure : / mmHG Vent. Rate : 085 BPM Atrial Rate : 085 BPM P-R Int : 170 ms QRS Dur : 150 ms QT Int : 416 ms P-R-T Axes : 013 -62 040 degrees QTc Int : 495 ms Sinus rhythm Left axis deviation Left bundle branch block Abnormal ECG When compared with ECG of 28-JUN-2020 05:07, No significant change Confirmed by Yeyo Cardozo ([id number]) on 08/22/2020 2:45:43 PM Referred By: REFERRED SELF Confirmed By:Yeyo Cardozo
[2020-08-22] MEDS: MoRPHine SULFATE 2 MG/ML CARP IV PRN ×3 (15:33→23:17)
--- NOTE | 2020-08-23 06:10 | Billing Data ---
Date of Service August 23, 2020 Coding Level of Care Code 01044 Initial Inpt Care Lvl 3
[2020-08-23] MEDS: MoRPHine SULFATE 2 MG/ML CARP IV PRN ×2 (07:58→11:28)
--- NOTE | 2020-08-23 08:54 | Hospitalist Progress Note ---
Date of Service August 23, 2020 Assessment & Plan (1) Sepsis due to urinary tract infection: 84 y/o F w/ DM2, CHF, pAF on warfarin who presents w/ altered mental status. comfort measures ONLY as of 08/22/20 - discussion w/ and family today regarding goals of care. - discussed whether patient would want to pursue measures such as pacer pads and pressors if needed - palliative medicine consulted, recs appreciated - SNF and home hospice considered. per family preferences, continuation of inpatient location for the time being - per palliative Dilaudid 0.5 mg IV q3h scheduled. PRNs for other symptoms. Metabolic encephalopathy secondary to sepsis from urinary tract infection - metabolic encephalopathy vs CVA considered. Electrolytes not deranged. Glucose at 207 at admission. TSH and ammonia not checked. Head CT w/o acute changes - SIRS criteria met on admission (WBC 22.01, fever) - infectious source thought to be urine given suspicious UA. CXR without obvious consolidation. Follow urine and blood cultures - Lactate not elevated - patient was started on IV Cefepime and Vanco in ED. Review of previous urine cultures show a chavez-sensitive e.coli from 05/2020. Deescalated to IV Ceftriaxone. - abx discontinued 08/22/20 upon transition to comfort measures acute kidney injury - suspect pre renal etiology right humeral fracture - per xr imaging - injury mechanism uncertain - denied falls/injuries initially, but later adds that patient fell from toilet in June 2020 - regimen above for pain paroxysmal atrial fibrillation - in NSR on EKG - old LBBB - on anticoagulation with warfarin - INR above goal on admission at 3.2. - warfarin held transaminitis - AST at 124, ALT at 127 - etiology uncertain, although suspect secondary to sepsis sacral ulcer - likely due to protein calorie malnutrition + bedridden baseline - wound care was consulted anemia - etiology uncertain. 3+ blood noted on UA, however microscopic hematuria seems unlikely sole source protein calorie malnutrition - albumin is 1.9 type II diabetes mellitus - HbA1c from 06/27/20 at 6.6, below goal for age - recommend discontinuation of insulin therapy at this time chronic congestive heart failure with preserved ejection fraction - hold home lasix + atenolol give acute septic state - EF measured 55-60% on echo from 05/2020 Diet: NPO due to mental status DVT ppx: supratheraputic on coumadin. held Dispo: Med/Surg Code: DNR/DNI. comfort measures (2) RAUL (acute kidney injury): (3) Right humeral fracture: (4) Aortic stenosis: (5) Paroxysmal atrial fibrillation: (6) Transaminitis: (7) Sacral ulcer: (8) Anemia: (9) Protein calorie malnutrition: (10) Type II diabetes mellitus: (11) Acute on chronic heart failure with preserved ejection fraction: Admission and Anticipated Discharge Date Admission Date: August 22, 2020 Supervising Physician Co-Signing Physician Notes Resident Physician Supervision Note: I independently interviewed and examined the patient and verified the donohue history and physical, reviewed labs and image studies and agree with resident Adeola Cortez findings and care plan. Subjective Patient's daughter was at bedside. Patient is awake this morning. Hx limited, but no gross complaints. Review of Systems Review of Systems: ROS limited by patient's mentation. Physical Exam Physical Exam: General: Patient is awake. She repeats "alright" when asked any question. She seems to have some understanding as she answers yes when asked if ok to palpate abdomen during exam. HEENT: Atraumatic, normocephalic. EOMI Pulm: CTAB anteriorly. -wheezes, -rales, -rhonchi. No respiratory distress. Cardiac: RRR, -mrg. Abdominal: Soft. No wincing w/ light palpation Msk: GIANCARLO has external plastic support collar Resident Activity Tracking Resident Involvement: Resident Care Provided Care Provided: Adult [facility] Medicine (1) Right humeral fracture Encounter type: initial encounter Fracture alignment: displaced Fracture morphology: spiral Fracture type: closed Humerus Location: shaft Qualified Code(s): S42.341A - Displaced spiral fracture of shaft of humerus, right arm, initial encounter for closed fracture
[2020-08-23] MEDS ORDERED: MoRPHine SULFATE 2 MG/ML CARP IV STA (11:22)
[2020-08-23] MEDS: HYDROmorphone INJ 0.5 MG/0.5 ML SYR IV SCH ×4 (12:01→20:48)
--- NOTE | 2020-08-23 12:17 | Electrocardiogram Report ---
Test Reason : Blood Pressure : / mmHG Vent. Rate : 047 BPM Atrial Rate : 047 BPM P-R Int : 182 ms QRS Dur : 168 ms QT Int : 574 ms P-R-T Axes : 061 -63 034 degrees QTc Int : 507 ms Sinus bradycardia Left axis deviation Left bundle branch block Abnormal ECG When compared with ECG of 22-AUG-2020 02:01, Vent. rate has decreased BY 38 BPM QRS duration has increased Confirmed by Yeyo Cardozo ([id number]) on 08/23/2020 12:17:10 PM Referred By: REFERRED SELF Confirmed By:Yeyo Cardozo
[2020-08-23] MEDS: LORazepam 0.5 MG/1 ML VIAL IV PRN ×3 (12:34→22:37)
--- NOTE | 2020-08-23 13:25 | Palliative Care Consultation ---
Date of Consultation August 23, 2020 Assessment & Plan (1) Pain: Not controlled. She is not able to articulate pain needs and is likely to have pain with any routine care given her humerus fracture. Discussed routine opioid dosing with family and they agree. Given her renal failure, would rotate to hydromorphone. Will add prn dosing for care and breakthrough pain. Family reports that she suffers from significant anxiety at home and has been on oysterman benzodiazepines. Continue lorazepam as needed for now but would have low threshold for use with her anxiety history and uncontrolled symptoms. I talked with family about goals for Rosmery's care moving forward. They are all in agree ment that comfort directed approach is the best plan at this time. Her would like to take her home when symptoms are managed, however, he does not have any support at home to provide care for her and she would need two people for routine care. We discussed SNF, but her daughter expresses desire to be able to visit her 14/09 and is opposed to SNF placement. At this time, she requires inme tient level of care to manage her pain and anxiety. She has no po intake and is expected to within days to a week. If symptoms are controlled and she is stable for transfer, we will discuss options of home with hospice vs SNF with family. Discussed with case management. (2) Palliative care encounter: (3) Right humeral fracture: Encounter type: initial encounter Fracture alignment: displaced Fracture morphology: spiral Fracture type: closed Humerus Location: shaft Qualified Code(s): S42.341A - Displaced spiral fracture of shaft of humerus, right arm, initial encounter for closed fracture (4) Transaminitis: (5) Diastolic CHF: (6) Sepsis due to urinary tract infection: History of Present Illness Reason for Consultation: Goals of care Requesting Physician: Dr. Banks Attending Physician: Antonia Frost MD History of Present Illness 84 yo lady who is cared for at home by her . She has been essentially bedbound in the recliner at home though her got her up with a angela lift at times. She had increased lethargy and poor po intake at home and was admitted with urosepsis and RAUL. She is also found to have a fracture of her right humerus and transaminitis. She is not a surgical candidate. Per discussion between hospitalist and family, they feel that comfort directed approach to her care would be most appropriate at this time. Per RN she had be en moaning last night which improved after a dose of morphine. She is moaning with facial grimace at the time of visit. Allergies Allergy/AdvReac Type Severity Reaction Status Date / Time aspirin Allergy Intermediate HIVES Verified 08/22/20 02:03 Iodinated Contrast Media Allergy Intermediate HIVES Verified 08/22/20 02:03 Penicillins Allergy Intermediate HIVES Verified 08/22/20 02:03 Dgajmef-Rum-Vih Reductase Allergy Intermediate muscle Verified 08/22/20 02:03 Inhibitor cramping glipizide Allergy Unknown Pt doesn't Verified 08/22/20 02:03 remeber reaction influenza virus vacc Allergy Unknown Unknown Verified 08/22/20 02:03 trivalent, split [From Fluzone] pregabalin Allergy Unknown Pt doesn't Verified 08/22/20 02:03 remeber reaction thimerosal Allergy Unknown Pt can't Verified 08/22/20 02:03 remember reaction doxazosin AdvReac Intermediate Elevated BP Verified 08/22/20 02:03 Home Medications Medication Instructions Recorded Confirmed Type cholecalciferol (vitamin D3) 125 5,000 units PO DAILY cap 10/29/18 08/22/20 History mcg (5,000 unit) capsule warfarin 0.5 mg PO DAILY 06/04/20 08/22/20 History atenolol 12.5 mg PO QAM 30 Days #15 tab 07/02/20 08/22/20 Rx insulin glargine [Lantus Solostar 20 unit SUBCUT HS 30 Days #6 ml 07/02/20 08/22/20 Rx U-100 Insulin] furosemide 20 mg tablet 20 mg PO DAILY #30 tab 07/04/20 08/22/20 Rx losartan 50 mg tablet 50 mg PO BID #180 tab 07/09/20 08/22/20 Rx alprazolam 1 mg tablet 1 mg PO BID PRN #60 tab 08/07/20 08/22/20 Rx hydralazine 50 mg PO TID 08/22/20 08/22/20 History tramadol 50 mg PO Q6H PRN 08/22/20 08/22/20 History Patient History Medical History AMS (altered mental status) AMS (altered mental status) Anticoagulant long-term use Anxiety Aortic stenosis CVA (cerebral vascular accident) Depression Elevated troponin Hemiplegia of nondominant side as late effect of cerebrovascular disease History of lacunar cerebrovascular accident (2015) HTN (hypertension) Mild chronic anemia Nocturnal hypoxemia Obesity Paroxysmal atrial fibrillation Pulmonary hypertension Thalamic pain syndrome (hyperesthetic) UTI (urinary tract infection) Surgical History S/P adenoidectomy S/P cholecystectomy S/P hysterectomy S/P tubal ligation Family History Mother Diabetes Myocardial infarction Heart disease Father Heart disease Daughter Non-Hodgkin's lymphoma of lung Sister Parkinsons disease Denies family history of Ovarian cancer Prostate cancer Breast cancer Colorectal cancer Social History Smoking Status: Never smoker Second Hand Exposure: No; Do You Dip or Chew Tobacco: No; Tobacco Cessation Education Requested by Patient: No Hx Alcohol Use: No Hx Substance Use: No Preferred Language: Macedonian Communication Ability: Unable Communication Ability Comment: Non-communicative Visual Impairment: No Limitations Hearing Ability: Normal Property Underwriter Required: No Beliefs That Will Affect Care: None marital status: Current Living Situation: Assisted 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 Other Information That Helps Us Care for You: No Feels Safe at Home: Yes Safety Concerns: Feels Safe At This Time Childhood Exposure to Second-Hand Smoke: No Physical Activity Frequency: Does not Exercise Seatbelt Use: always Assistive Devices: Brace/Splint/Immobilizer Review of Systems Review of Systems: [place] Symptom Assessment Scale Pain AD 3/3 Dyspnea 0/3 Anxiety 2/3 Drowsiness 1/3 Palliative Performance Score 20% Physical Exam Constitutional: + uncomfortable ENMT: Mouth: + dry oral mucous membranes Respiratory: normal respiratory effort; no labored breathing Cardiovascular: Rate/Rhythm: regular rate and regular rhythm Gastrointestinal (Abdomen): Percussion/Palpation: abdomen nontender Musculoskeletal: brace on right upper arm Skin: warm and dry Neurologic: eyes open PG Care Time/CCT Total # of Minutes Spent Total Time Spent with Patient: Total time spent is greater than 50% in coordination of care (as documented) at patient's floor/unit and/or counseling patient: total time spent 70 minutes with more than 50% of time spent on goals of care, prognosis, symptom management, family education Coding Level of Care Code 01708 Initial Inpt Care Lvl 3 Diagnoses Pain R52 Palliative care encounter Z51.5 Right humeral fracture S42.341A Encounter type: initial encounter Fracture alignment: displaced Fracture morphology: spiral Fracture type: closed Humerus Location: shaft Transaminitis R74.01 Diastolic CHF I50.30 Sepsis due to urinary tract infection A41.9; N39.0 Time Spent (min) 70
--- NOTE | 2020-08-23 14:46 | Orthopedic Progress Note ---
Date of Service August 23, 2020 Assessment & Plan (1) Right humeral fracture: Patient seen in conjunction with Dr Skaggs. We are recommending non- operative treatment with Aguila right humerus fracture brace. She should remain nonweightbearing right arm. Patient is on palliative care. If warranted would recommend follow up in the office in 2-6 wks with xrays in brace. Our office number is [phone]. Please recall if any orthopedic issues. I, Dr. Skaggs, saw and examined the patient and discussed the management with my PA. I reviewed my PAs note and agree with the documented findings and the plan of care I developed. Present on Admission?: Yes Admission and Anticipated Discharge Date Admission Date: August 22, 2020 Subjective Patient seen with Dr Skaggs. Family at bedside. Palliative care physician also in room. Per family patient receiving PRN pain medication, asking for scheduled. Overall, they feel patient is comfortable. She has been tolerating right humerus fracture brace. Family not interested in surgical intervention. Physical Exam Physical Exam: Patient in bed. Awake. Nonverbal during visit. Appears comfortable. Family in room. Right aguila brace is donned and fitting appropriately. Bruising is noted to right arm. Swelling into right hand. Skin otherwise intact. Palpable radial pulse and brisk capillary refill. No pain with motion of right hand and wrist. (1) Right humeral fracture Encounter type: initial encounter Fracture alignment: displaced Fracture morphology: spiral Fracture type: closed Humerus Location: shaft Qualified Code(s): S42.341A - Displaced spiral fracture of shaft of humerus, right arm, initial encounter for closed fracture
[2020-08-24] MEDS: HYDROmorphone INJ 0.5 MG/0.5 ML SYR IV SCH ×8 (00:06→20:56)
[2020-08-24] MEDS: LORazepam 0.5 MG/1 ML VIAL IV PRN ×2 (04:21→17:26)
[2020-08-24] MEDS: HYDROmorphone INJ 0.5 MG/0.5 ML SYR IV PRN (08:33)
--- NOTE | 2020-08-24 10:54 | Hospitalist Progress Note ---
Date of Service August 24, 2020 Assessment & Plan (1) Sepsis due to urinary tract infection: 84 y/o F w/ DM2, CHF, pAF on warfarin who presents w/ altered mental status. Sepsis 2/2 urinary tract infection: - Causing subsequent encephalopathy - transitioned to comfort measures only on 08/22 following discussions w/ and family - palliative medicine: Appreciate assistance with pain control and maintenance of comfort care at this time - continue inpatient hospice care per family preferences at this time - Dilaudid 0.5mg IV q3h scheduled, with additional 0.5 mg IV q30M for breakthrough pain - Consideration of pain control through gtt if pain continues to worsen. Right humeral fracture: - Comminuted and angulated right humeral fracture noticed on XR from 08/22 - Pain control as above History of paroxysmal atrial fibrillation: - warfarin held with transition to comfort measures Sacral ulcer: - likely due to protein calorie malnutrition + bedridden baseline - Continue to provide wound care per family preference Type 2 diabetes: - HbA1c from 06/27/20 at 6.6, - Discontinued in the setting of comfort measures at this time Diet: NPO DVT ppx: Discontinued in the setting of comfort measures Code: DNR/DNI. comfort measures (2) RAUL (acute kidney injury): (3) Right humeral fracture: (4) Paroxysmal atrial fibrillation: (5) Sacral ulcer: (6) Anemia: Admission and Anticipated Discharge Date Admission Date: August 22, 2020 Supervising Physician Co-Signing Physician Notes Resident Physician Supervision Note: I independently interviewed and examined the patient and verified the donohue history and physical, reviewed labs and image studies and agree with resident Dr. Honeycutt findings and care plan. Gabe Botello was seen in conjunction with her family earlier this morning, continuing to have intermittent episodes of pain requiring additional pain control throughout the night. Family expressed continued desire to keep Rosmery comfortable with understanding of the extent of her illnesses. Additional family planning on coming into continue to spend time with and see Rosmery. Review of Systems Review of Systems: Unobtainable due to cognitive status Physical Exam Constitutional: + frail appearing and + in distress Eyes: no eyelid abnormality, no conjunctival abnormality, no scleral abnormality and no corneal abnormality ENMT: Nose: + dry nasal mucous membranes; no external nose abnormality and no nasal mucous membrane abnormality Respiratory: + tachypneic; no respiratory distress, no labored breathing, no retractions and does not use accessory muscles Cardiovascular: Rate/Rhythm: regular rhythm and + bradycardic Vessels: no JVD Extremities: no edema Gastrointestinal (Abdomen): Inspection/Auscultation: abdomen normal to inspection; abdomen not distended, no visible herniation and no visible pulsation Skin: no rashes, warm and dry Neurologic: awake and + confused; not obtunded Resident Activity Tracking Resident Involvement: Resident Care Provided Care Provided: Adult [facility] Medicine (1) Right humeral fracture Encounter type: initial encounter Fracture alignment: displaced Fracture morphology: spiral Fracture type: closed Humerus Location: shaft Qualified Code(s): S42.341A - Displaced spiral fracture of shaft of humerus, right arm, initial encounter for closed fracture
[2020-08-24] MEDS: GLYCOPYRROLATE 0.2 MG/ML VIAL IV PRN ×3 (12:54→22:24)
[2020-08-25] MEDS: HYDROmorphone INJ 0.5 MG/0.5 ML SYR IV SCH ×3 (00:12→05:59)
[2020-08-25] MEDS: GLYCOPYRROLATE 0.2 MG/ML VIAL IV PRN (06:08)
[2020-08-25] MEDS ORDERED: STAT IV Infusion **Titration per Protocol STA (07:59)
[2020-08-25] MEDS ORDERED: MoRPHine SULF/NSS 250 MG/250 ML BTL IV SCH (08:00)
[2020-08-25] MEDS: HYDROmorphone INJ 0.5 MG/0.5 ML SYR IV PRN (08:23)
[2020-08-25] MEDS: ATROPINE SULFATE 1% OP SOLN 5 ML BTL SL PRN ×6 (08:26→17:17)
[2020-08-25] MEDS: LORazepam 0.5 MG/1 ML VIAL IV PRN (09:42)
--- NOTE | 2020-08-25 10:13 | Hospitalist Progress Note ---
Date of Service August 25, 2020 Assessment & Plan (1) Sepsis due to urinary tract infection: 84 y/o F w/ DM2, CHF, pAF on warfarin who presented with altered mental status, now on comfort measures following extensive discussions with family. Sepsis 2/2 urinary tract infection: - Causing subsequent encephalopathy - WBC 22.01, febrile on admission - transitioned to comfort measures only on 08/22 following discussions w/ and family - continue inpatient hospice care per family preferences at this time - Started morphine gtt for better control of pain and maintenance of comfort - Discontinued scheduled Dilaudid but will leave Dilaudid 0.5 mg q30M PRN until pain controlled through gtt Right humeral fracture: - Comminuted and angulated right humeral fracture noticed on XR from 08/22 - Pain control as above for continued comfort Sacral ulcer: - likely due to protein calorie malnutrition + bed-ridden baseline - Continue to provide wound care per family preference - Pain control as above for continued comfort Type 2 diabetes: - HbA1c from 06/27/20 at 6.6, below goal for age - Discontinued in the setting of comfort measures at this time History of paroxysmal atrial fibrillation: - Supratherapeutic INR above goal on admission - warfarin held with transition to comfort measures Diet: NPO DVT ppx: Discontinued in the setting of comfort measures Code: DNR/DNI. comfort measures (2) RAUL (acute kidney injury): (3) Right humeral fracture: (4) Paroxysmal atrial fibrillation: (5) Sacral ulcer: (6) Anemia: Admission and Anticipated Discharge Date Admission Date: August 22, 2020 Supervising Physician Co-Signing Physician Notes Patient not seen by me today on 08/25/2020 Zoë Frost. 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 Discussions with family at bedside elucidated desire for improved control and improvement of comfort. Review of Systems Review of Systems: All systems reviewed & are unremarkable except as noted in Subjective Physical Exam Constitutional: + frail appearing and + in distress Eyes: no eyelid abnormality, no conjunctival abnormality, no scleral abnormality and no corneal abnormality ENMT: Nose: + dry nasal mucous membranes; no external nose abnormality and no nasal mucous membrane abnormality Respiratory: + tachypneic; no respiratory distress, no labored breathing, no retractions and does not use accessory muscles Cardiovascular: Rate/Rhythm: regular rhythm and + bradycardic Vessels: no JVD Extremities: no edema Gastrointestinal (Abdomen): Inspection/Auscultation: abdomen normal to inspection; abdomen not distended, no visible herniation and no visible pulsation Skin: no rashes, warm and dry Neurologic: awake and + confused; not obtunded Resident Activity Tracking Resident Involvement: Resident Care Provided Care Provided: Adult [facility] Medicine (1) Right humeral fracture Encounter type: initial encounter Fracture alignment: displaced Fracture morphology: spiral Fracture type: closed Humerus Location: shaft Qualified Code(s): S42.341A - Displaced spiral fracture of shaft of humerus, right arm, initial encounter for closed fracture
--- NOTE | 2020-08-26 07:19 | Discharge Summary ---
Date of Service August 26, 2020 Admission HPI Per Admitting Provider Mrs. Laird is an 84 yo woman who was brought to [facility] by her for evaluation of altered mental status. Mr. Laird states over the past day or so, she began to refuse to eat, became lethargic and difficult to understand (slurred speech). provides entirety of history. Of note, she was hospitalized in June for a a UTI and a PNA - after which she was sent to [facility] for rehab. Social Hx: Currently lives at home with in a [address]. is her full-time care-taker. They do not have any in-home health aids. He does have a lift he uses to transfer her, however she spends most of her time bedridden in a recliner. He is aware she has a sacral ulcer - he has been cleansing it with hydrogen peroxide and covering with a bandage. states he never saw her fall or do anything that could have cause a broken arm. He thinks her humerus fracture must have occurred while she was at [facility]. In the ED she was febrile to 38.4, HR was 94, BP was 114/60. Her WBC was elevated to 25. Procal elevated to 1.96. UA showing positive nitrite, 4+ bacteria, 3+ LE. Blood and urine cultures pending. Lactate not elevated. Her hgb was 8.6, MCV at 95. INR at 3.2. Cr at 1.53, BUN at 48. AST elevated to 125, ALT to 127. Albumin 1.8. Lipase not elevated. Trop 0.018. EKG showing NSR with LBBB (not new). CXR was poor quality (rotated), but no obvious consolidation. Xray of R humerus showing fracture/dislocation. Head CT ordered. She was given Tylenol, started on Cefepime and Vancomycin, as well as 1.5 liters of IVF. requested a daily update. Admission Exam Per Admitting Provider Mrs. Laird is an 84 yo woman who was brought to [facility] by her for evaluation of altered mental status. Mr. Laird states over the past day or so, she began to refuse to eat, became lethargic and difficult to understand (slurred speech). provides entirety of history. Of note, she was hospitalized in June for a a UTI and a PNA - after which she was sent to [facility] for rehab. Social Hx: Currently lives at home with in a [address]. is her full-time care-taker. They do not have any in-home health aids. He does have a lift he uses to transfer her, however she spends most of her time bedridden in a recliner. He is aware she has a sacral ulcer - he has been cl eansing it with hydrogen peroxide and covering with a bandage. states he never saw her fall or do anything that could have cause a broken arm. He thinks her humerus fracture must have occurred while she was at [facility]. In the ED she was febrile to 38.4, HR was 94, BP was 114/60. Her WBC was elevated to 25. Procal elevated to 1.96. UA showing positive nitrite, 4+ bacteria, 3+ LE. Blood and urine cultures pending. Lactate not elevated. Her hgb was 8.6, MCV at 95. INR at 3.2. Cr at 1.53, BUN at 48. AST elevated to 125, ALT to 127. Albumin 1.8. Lipase not elevated. Trop 0.018. EKG showing NSR with LBBB (not new). CXR was poor quality (rotated), but no obvious consolidation. Xray of R humerus showing fracture/dislocation. Head CT ordered. She was given Tylenol, started on Cefepime and Vancomycin, as well as 1.5 liters of IVF. Principal Diagnosis severe sepsis Discharge Exam Patient was pronounced at 0510 on 08/26/20 by 2 RNs. Per RN exam, no auscultated breath sounds, absent heartbeat. pupils nonreactive to light. Per my exam at 0848, pupils were nonreactive to light. No pulse or spontaneous respirations. Discharge Data Allergies Allergy/AdvReac Type Severity Reaction Status Date / Time aspirin Allergy Intermediate HIVES Verified 08/22/20 02:03 Iodinated Contrast Media Allergy Intermediate HIVES Verified 08/22/20 02:03 Penicillins Allergy Intermediate HIVES Verified 08/22/20 02:03 Lpjolsb-Ouv-Gml Reductase Allergy Intermediate muscle Verified 08/22/20 02:03 Inhibitor cramping glipizide Allergy Unknown Pt doesn't Verified 08/22/20 02:03 remeber reaction influenza virus vacc Allergy Unknown Unknown Verified 08/22/20 02:03 trivalent, split [From Fluzone] pregabalin Allergy Unknown Pt doesn't Verified 08/22/20 02:03 remeber reaction thimerosal Allergy Unknown Pt can't Verified 08/22/20 02:03 remember reaction doxazosin AdvReac Intermediate Elevated BP Verified 08/22/20 02:03 Consultations 08/22/20 03:31 ED Decision to Admit Stat 08/22/20 05:06 Consult Orthopedic Surgery Routine 08/22/20 12:05 Consult Palliative Care Routine Ordered Studies 08/22/20 02:28 CT head/brain wo con Urgent Impression: Motion artifact. No definite acute intracranial abnormality. Hospital Course (1) Sepsis due to urinary tract infection: Rosmery Laird is an 84 y/o F w/ DM2, CHF, pAF on warfarin who presented on 08/22/20 with altered mental status secondary to severe sepsis from UTI. She was placed comfort measures following extensive discussions with family. Patient passed on 08/26/20 at 0510 AM. Sepsis 2/2 urinary tract infection: - Causing subsequent encephalopathy - WBC 22.01, febrile on admission - transitioned to comfort measures only on 08/22 following discussions w/ and family - continue inpatient hospice care per family preferences at this time - pain control via morphine drip and PRN dilaudid provided Right humeral fracture: - Comminuted and angulated right humeral fracture noticed on XR from 08/22. Sonia mckeon was not a surgical candidate. - Pain control provided as above Sacral ulcer: - likely due to protein calorie malnutrition + bed-ridden baseline - wound care provided during the admission Type 2 diabetes: - HbA1c from 06/27/20 at 6.6, below goal for age - Discontinued insulin in the setting of comfort measures History of paroxysmal atrial fibrillation, stable: - Supratherapeutic INR above goal on admission - warfarin held with transition to comfort measures (2) RAUL (acute kidney injury): (3) Right humeral fracture: (4) Paroxysmal atrial fibrillation: (5) Sacral ulcer: (6) Anemia: Total Time Total Time Spent Total Time Spent (In Minutes): See attending documentation. Discharge Plan Discharge Items Patient Disposition: Discharge Diagnosis: severe sepsis Addtl Attending Provider Instructions: Rosmery Laird is an 84 y/o female w/ PMHx of w/ DM2, CHF, pAF who presented with to [facility] on 08/22/20 w/ altered mental status on 08/22/20. She had encephalopathy from severe sepsis secondary to urinary tract infection and also had a comminuted angulated right humeral fracture from a nonwitnessed fall in the weeks prior. Goals of care were discussed with family and she was transitioned to comfort measures on 08/22/20. Mrs. Laird passed on the morning of 08/26/20 at 0510. Supervising Physician Co-Signing Physician Notes chart reviewed, case d/w Dr Cortez. pt passed prior to my seeing her. Resident Activity Tracking Resident Involvement: Resident Care Provided Care Provided: Adult Hospital Medicine
--- NOTE | 2020-09-06 10:40 | Coding Query ---
SEPSIS To promote full compliance with coding requirements relating to patient care, physician participation is requested in all cases of boiler house mechanic uncertainty. Please assist us with the question(s) below: In responding to this query, please exercise your independent professional judgement. The fact that a question is asked does not imply that any particular answer is desired or expected. We appreciate your clarification on this issue. The medical record reflects the following clinical findings: Body temperature of >38.3 C(101 F) on 08/22, pulse >90/minute on 08/22, WBC count >12,000 on 08/22, altered mental status on admission. Patient was treated with antibiotics. Discharge Documentation states "Severe Sepsis" while rest of the chart states only Sepsis. Please clarify below: ____ () Sepsis Specify Organism Specify Associated Condition/Diagnosis (x) Severe Sepsis (Sepsis associated with acute organ dysfunction) Specify Organism - E Coli and Klebsiella Specify Associated Condition/Diagnosis metabolic encephalopathy, possible acute kidney injury () Other Please Explain: Thank You, JAI Zhou
== END 2020-08-26 10:38 | disposition expired | DRG 871 ==
LOC: ED 01:12 → 2S 03:34 → SUATTDRO 03:34 → 2S 04:22 → 3E 12:08